=== PATIENT | female | born 1965 | race Caucasian/White ===

== ENCOUNTER 2023-03-24 08:25 | Emergency (ER) | payer OTHER, SELFPAY ==
[2023-03-24 08:34] VITALS: BP 161/93; PULSE 79; RESP 18; TEMP 36.5; O2SAT 99; BMI 32.9
--- NOTE | 2023-03-24 08:42 | CT_ITS ---
[address] [address] Patient Name: GABINO PUGA MRN: [id number] date: 1965 Sex: F Assigned Patient Location: ER Current Patient Location: ER Accession/Order Number: [id number] Exam Date: 03/24/2023 10:00 Report Date: 03/24/2023 10:43 At the request of: RUSH LAMBERT Procedure: CT abdomen pelvis w con EXAMINATION: CT abdomen pelvis w con, 03/24/2023 7:00 AM PDT HISTORY: right sided abdominal pain, constipation COMPARISON: None. TECHNIQUE: CT scan of the abdomen and pelvis was performed with IV contrast. CT dose reduction technique was used, including Automated Exposure Control. FINDINGS: Lung: No significant finding. Liver: No significant finding. Gallbladder: No significant finding. Spleen: No significant finding. Pancreas: No significant finding. Adrenal glands: No significant finding. Kidneys, ureters and bladder: No significant finding. Bowel: Colonic diverticulosis. Normal appendix. A few mild areas of mild colonic wall thickening. Peritoneum/retroperitoneum: No significant finding. Lymph nodes: No significant finding. Vessels: No significant finding. Body wall: Multiple breast cysts. Reproductive: No significant finding. Bones: No significant finding. CT/CT abdomen pelvis w con IMPRESSION: Suspect mild colitis. No other acute findings. Electronically authenticated by: ASHLI ESPARZA Date: 03/24/2023 10:43
--- NOTE | 2023-03-24 08:43 | ED.ABDPAIN1 ---
HPI - Abdominal Pain General Chief Complaint: Abdominal Pain Stated Complaint: SEVERE PAIN UNDER RIBS/THROUGH BACK/CAN'T SIT/BEND Time Seen by Provider: 03/24/23 08:35 Source: patient Mode of arrival: walk-in Limitations: no limitations History of Present Illness HPI narrative: history of constipation and lazy colon . She chronically gives herself enemas to facilitate stool passage. She was constipated and had been taking laxatives. She said her last normal BM was 4 days ago. Around 2am she developed right sided abdominal pain. She gave herself an enema and passed small chunks of stool - she continued until the return was clear but the pain did not improve. No fever or chills. No symptoms. No prior abdominal surgery. No history of kidney stones. Pain radiates into the right flank and she ranks it 03/10. Related Data Home Medications Medication Instructions Recorded Confirmed alprazolam 0.25 mg tablet 0.25 mg PO DAILY PRN anxiety 03/24/23 03/24/23 phentermine 37.5 mg capsule 37.5 mg PO DAILY 03/24/23 03/24/23 Previous Rx's Medication Instructions Recorded hyoscyamine sulfate 0.125 mg 0.125 mg PO Q6H PRN abdominal pain 03/24/23 tablet (Levsin) #20 tabs metronidazole 500 mg tablet 500 mg PO Q8H 14 days #42 tabs 03/24/23 Allergies Allergy/AdvReac Type Severity Reaction Status Date / Time No Known Drug Allergies Allergy Verified 03/24/23 08:34 PFSH PFSH Social History Smoking status: Never smoker Exam Narrative Exam Narrative: Nurses notes and vital signs reviewed and patient is not hypoxic. afebrile General: Well-appearing and in no apparent distress. Skin: Warm, dry, no pallor noted. No rash. Head: Normocephalic, atraumatic. Eye: Pupils are equal, round and EOMI. No scleral icterus. Cardiovascular: Regular Rate and Rhythm without murmur, gallop or rub. Respiratory: No accessory muscle use or respiratory distress. Lungs are clear to auscultation, no wheezing, rales or rhonchi Back: No CVA tenderness Musculoskeletal: normal ROM GI: Abdomen is soft, non-distended. Normal bowel sounds. No masses appreciated. Right sided tenderness to palpation. No rebound, guarding, or rigidity noted. Neurological: A&O x4. No cranial nerve dysfunction observed. No truncal ataxia. Moves all extremities. Sensation intact. Psychiatric: Cooperative and interactive. Normal mood and affect. Constitutional Vital Signs, click to edit/add: Last Vital Signs Temp 97.7 F 03/24/23 08:34 Pulse 79 03/24/23 08:34 Resp 18 03/24/23 08:34 BP 161/93 H 03/24/23 08:34 Pulse Ox 99 03/24/23 08:34 O2 Del Method Room Air 03/24/23 08:40 Course Vital Signs Vital signs: Vital Signs Temperature 97.7 F 03/24/23 08:34 Pulse Rate 79 03/24/23 08:34 Respiratory Rate 18 03/24/23 08:34 Blood Pressure 161/93 H 03/24/23 08:34 Pulse Oximetry 99 03/24/23 08:34 Oxygen Delivery Method Room Air 03/24/23 08:34 Temperature 97.7 F 03/24/23 08:34 Pulse Rate 79 03/24/23 08:34 Respiratory Rate 18 03/24/23 08:34 Blood Pressure 161/93 H 03/24/23 08:34 Pulse Oximetry 99 03/24/23 08:34 Oxygen Delivery Method Room Air 03/24/23 08:40 MDM - Abdominal Pain MDM Narrative Medical decision making narrative: Peripheral IV established, blood drawn and sent for testing, patient given NS IVF, IV Toradol and ODT Levsin. blood tests were unremarkable. CT reveals colitis, per radiologist but no evidence of obstruction, abscess or other worrisome findings. the patient was informed of results and given reassurance. Her diagnosis and plan for treatment was discussed. She was given prescriptions for Levsin and for Flagyl and encouraged to increase her oral fluid intake. Emergency Department return if she worsens. Otherwise she can follow-up with her primary care physician. Lab Data Attestation: I reviewed the patient's lab results. Labs: Lab Results 03/24/23 Range/Units 09:00 WBC 7.7 (4.0-11.0) 10^3/uL RBC 4.21 (4.20-5.40) 10^6/uL Hgb 13.6 (12.0-16.0) g/dL Hct 40.3 (36.0-48.0) % MCV 95.7 (81.0-99.0) fL MCH 32.3 (26.7-34.0) pg MCHC 33.7 (29.9-35.2) g/dL RDW 12.3 (11.0-15.0) % Plt Count 357 (150-450) 10^3/uL MPV 10.5 (9.5-13.5) fL Neut % (Auto) 58.0 (43.0-75.0) % Lymph % (Auto) 31.7 (20.5-60.0) % [place] % (Auto) 7.0 (1.7-12.0) % Eos % (Auto) 2.5 (0.9-7.0) % Baso % (Auto) 0.7 (0.2-2.0) % Neut # (Auto) 4.5 (1.4-6.5) 10^3/uL Lymph # (Auto) 2.4 (1.2-3.8) 10^3/uL Assumption # (Auto) 0.5 (0.3-0.8) 10^3/uL Eos # (Auto) 0.2 (0.0-0.7) 10^3/uL Baso # (Auto) 0.1 (0.0-0.1) 10^3/uL Abs Immat Gran (auto) 0.01 (0.00-0.03) 10^3/uL Imm/Tot Granulo (auto) 0.1 (0.0-0.5) % Sodium 142 (136-145) mmol/L Potassium 3.8 (3.5-5.1) mmol/L Chloride 103 (98-107) mmol/L Carbon Dioxide 28.9 (21.0-32.0) mmol/L Anion Gap 13.9 BUN 8.0 (7.0-18.0) mg/dL Creatinine 0.86 (0.55-1.02) mg/dL Est GFR ( Amer) >60 (>=60) Est GFR (Non-Af Amer) >60 (>=60) BUN/Creatinine Ratio 9.3 Glucose 100 (74-106) mg/dL Calcium 9.6 (8.5-10.1) mg/dL Total Bilirubin 0.4 (0.2-1.0) mg/dL AST 14 L (15-37) U/L ALT 24 (14-59) U/L Alkaline Phosphatase 64 (46-116) U/L Total Protein 8.1 (6.4-8.2) g/dL Albumin 4.1 (3.4-5.0) g/dL Globulin 4.0 g/dL Albumin/Globulin Ratio 1.[address] scan - abdomen: Radiologist's impression: Patient Name: GABINO PUGA MRN: [facility]:[id number] date: 1965 Sex: F Assigned Patient Location: ER Current Patient Location: ER Accession/Order Number: [id number] Exam Date: 03/24/2023 10:00 Report Date: 03/24/2023 10:43 At the request of: RUSH LAMBERT Procedure: CT abdomen pelvis w con EXAMINATION: CT abdomen pelvis w con, 03/24/2023 7:00 AM PDT HISTORY: right sided abdominal pain, constipation COMPARISON: None. TECHNIQUE: CT scan of the abdomen and pelvis was performed with IV contrast. CT dose reduction technique was used, including Automated Exposure Control. FINDINGS: Lung: No significant finding. Liver: No significant finding. Gallbladder: No significant finding. Spleen: No significant finding. Pancreas: No significant finding. Adrenal glands: No significant finding. Kidneys, ureters and bladder: No significant finding. Bowel: Colonic diverticulosis. Normal appendix. A few mild areas of mild colonic wall thickening. Peritoneum/retroperitoneum: No significant finding. Lymph nodes: No significant finding. Vessels: No significant finding. Body wall: Multiple breast cysts. Reproductive: No significant finding. Bones: No significant finding. IMPRESSION: Suspect mild colitis. No other acute findings. Electronically authenticated by: ASHLI ESPARZA Date: 03/24/2023 10:43 Discharge Plan Discharge Chief Complaint: Abdominal Pain Clinical Impression: Colitis Patient Disposition: Home, Self-Care Time of Disposition Decision: 10:49 Prescriptions / Home Meds: New metronidazole 500 mg tablet 500 mg PO Q8H 14 Days Qty: 42 0RF hyoscyamine sulfate [Levsin] 0.125 mg tablet 0.125 mg PO Q6H PRN (Reason: abdominal pain) Qty: 20 0RF No Action alprazolam 0.25 mg tablet 0.25 mg PO DAILY PRN (Reason: anxiety) phentermine 37.5 mg capsule 37.5 mg PO DAILY Instructions: Colitis (ED) Stand Alone Forms: Portal Instructions Referrals: REX LOCK [Primary Care Provider] - 1 week
[2023-03-24] MEDS: 0.9 % SODIUM CHLORIDE 1,000 ML 999 ML IV (08:55)
[2023-03-24] MEDS: HYOSCYAMINE SULFATE 0.125 MG TAB.SUBL SL (08:55)
[2023-03-24] MEDS: KETOROLAC TROMETHAMINE 30 MG/ML VIAL IVP (08:55)
[2023-03-24 09:19] LABS: Basophils Absolute Auto 0.1 10^3/uL (0.0-0.1); Basophils Percent Auto 0.7 % (0.2-2.0); Eosinophils Absolute Auto 0.2 10^3/uL (0.0-0.7); Eosinophils Percent Auto 2.5 % (0.9-7.0); Hematocrit 40.3 % (36.0-48.0); Hemoglobin 13.6 g/dL (12.0-16.0); Immature Granulocytes Abs Auto 0.01 10^3/uL (0.00-0.03); Immature Granulocytes Pct Auto 0.1 % (0.0-0.5); Lymphocytes Absolute Auto 2.4 10^3/uL (1.2-3.8); Lymphocytes Percent Auto 31.7 % (20.5-60.0); Mean Corpuscular HGB Conc 33.7 g/dL (29.9-35.2); Mean Corpuscular Hemoglobin 32.3 pg (26.7-34.0); Mean Corpuscular Volume 95.7 fL (81.0-99.0); Mean Platelet Volume 10.5 fL (9.5-13.5); Monocytes Absolute Auto 0.5 10^3/uL (0.3-0.8); Neutrophils Absolute Auto 4.5 10^3/uL (1.4-6.5); Platelet Count 357 10^3/uL (150-450); Red Blood Count 4.21 10^6/uL (4.20-5.40); Red Cell Distribution Width 12.3 % (11.0-15.0); White Blood Count 7.7 10^3/uL (4.0-11.0)
[2023-03-24 09:38] LABS: Alanine Aminotransferase 24 U/L (14-59); Albumin Level 4.1 g/dL (3.4-5.0); Alkaline Phosphatase 64 U/L (46-116); Anion Gap 13.9; Aspartate Amino Transferase 14 U/L (15-37); BUN Creatinine Ratio 9.3; Bilirubin Total 0.4 mg/dL (0.2-1.0); Calcium 9.6 mg/dL (8.5-10.1); Carbon Dioxide 28.9 mmol/L (21.0-32.0); Chloride 103 mmol/L (98-107); Estimated GFR (African America >60 (>=60); Estimated GFR (Non-African Ame >60 (>=60); Glucose 100 mg/dL (74-106); Potassium 3.8 mmol/L (3.5-5.1); Sodium 142 mmol/L (136-145); Total Protein 8.1 g/dL (6.4-8.2)
[2023-03-24 11:02] VITALS: BP 180/99; PULSE 65; RESP 18
== END 2023-03-24 11:06 | disposition home or self-care (01) ==
PROVIDERS: Emergency Provider Emergency Medicine; PCP Family Medicine
DX: K52.9 Noninfective gastroenteritis and colitis, unspecified (principal); Z79.899 Other long term (current) drug therapy
CPT/HCPCS: 36415; 74177; 80053; 85025; 96374; 99285; Q9966; Q9967

== ENCOUNTER 2023-04-18 08:27 | Outpatient (OUT) | payer OTHER, SELFPAY ==
--- NOTE | 2023-04-18 09:09 | PM.CN ---
Consult Note: HPI Data of Consult Patient: new to practice Consult date: 04/18/23 Requesting Physician: Lucy Fay MD Primary Care Provider: REX LOCK Consult Narrative Reason for consult: low back, right leg pain Narrative: trav 57yof who presents for evaluation. increasing low back pain on the right that radiates to right lower extremity. states that she has shingles flares, and these flares tend to exacerbate pain. notes increasing pain as the day goes on, more pain after a day of work when standing on her feet. no recent imaging available for review. has attempted >6 weeks of provider directed home exercise program, as well as chiropractor, which does not provide relief. uses otc pain meds as needed, has not tried neuropathic medications. denies adverse medication side effects. cc:: CC: Lucy Fay MD Review of Systems ROS Status of ROS 10 or more systems reviewed and unremarkable except as noted in history and below PFSH PFSH Social History Smoking status: Never smoker Meds Home Medications and Allergies Home Medications Medication Instructions Recorded Confirmed Type alprazolam 0.25 mg tablet 0.25 mg PO DAILY PRN anxiety 03/24/23 04/18/23 History hyoscyamine sulfate 0.125 mg 0.125 mg PO Q6H PRN abdominal pain 03/24/23 04/18/23 Rx tablet (Levsin) #20 tabs metronidazole 500 mg tablet 500 mg PO Q8H 14 days #42 tabs 03/24/23 04/18/23 Rx phentermine 37.5 mg capsule 37.5 mg PO DAILY 03/24/23 04/18/23 History dicyclomine 10 mg capsule 10 mg PO TID 04/18/23 04/18/23 History lansoprazole 30 mg capsule,delayed 30 mg PO Q12H 04/18/23 04/18/23 History release linaclotide 72 mcg capsule 72 mcg PO DAILY 04/18/23 04/18/23 History (Linzess) Allergies Allergy/AdvReac Type Severity Reaction Status Date / Time No Known Drug Allergies Allergy Verified 03/24/23 08:34 Exam Narrative Exam Narrative: Psych-alert and oriented x 3. Attentive and appropriate, constitutionally normal, displays normal mood and affect per situation. There are no obvious deficits in memory, reasoning, or intellect.? Skin-no obvious rashes, bruising, erythema noted to the patient's area of pain.? Extremities- extremities are warm with minimal edema and palpable pulses. Lumbar-tenderness to palpation noted in the lumbar spine and paraspinal musculature. Pain is elicited with flexion, extension, and lateral rotation of the lumbar spine. Range of motion is diminished with these motions. Facet loading maneuvers are positive. Strength-noted to be unremarkable with the exception of decreased strength rated at 4 out of 5 in right quadriceps femoris. Sensory-no notable sensory deficits in the bilateral lower extremities to touch or pinprick in all dermatomal distributions with the exception to decreased sensation to the right L3, 4 dermatomal distribution Coordination remains intact.? Gait remains non-antalgic Assessment and Plan Assessment and Plan (1) Lumbar stenosis with neurogenic claudication: (2) Postherpetic neuralgia: Plan Pleasant 57yof who presents for evaluation. failed conservative measures, as noted above. no recent advanced imaging available for review, so would like her to undergo lumbar MRI without contrast for further information. she is in agreement. medications reviewed. will have her trial lyrica 50mg tid for her postherpetic neuralgia. she is in agreement. follow up after MRI complete.
== END 2023-04-18 08:28 | disposition home or self-care (01) ==
LOC: PM 08:27
PROVIDERS: PCP Family Medicine; Visit Provider Anesthesiology
DX: M48.062 Spinal stenosis, lumbar region with neurogenic claudication (principal); B02.29 Other postherpetic nervous system involvement
CPT/HCPCS: G0463

== ENCOUNTER 2023-04-29 09:45 | Outpatient (OUT) | payer OTHER, SELFPAY ==
--- NOTE | 2023-04-29 | XR_ITS ---
The [address] [address] Patient Name: GABINO PUGA MRN: [id number] date: 1965 Sex: F Assigned Patient Location: MRI Current Patient Location: MRI Accession/Order Number: [id number] Exam Date: 04/29/2023 09:53 Report Date: 04/29/2023 10:11 At the request of: ANDRIUS GIEDRAITIS Procedure: XR foreign body eye EXAMINATION: XR foreign body eye HISTORY: HISTORY OF WELDING AND GRINDING COMPARISON: No relevant comparison available. FINDINGS: ORBITS: Negative for a metallic foreign body. OTHER: Negative. XR/XR foreign body eye IMPRESSION: 1. No metallic foreign body within the orbits. Electronically authenticated by: BOBBI MCMANUS Date: 04/29/2023 10:11
--- NOTE | 2023-04-29 09:48 | MR_ITS ---
[address] [address] Patient Name: GABINO PUGA MRN: [facility]:[id number] date: 1965 Sex: F Assigned Patient Location: MRI Current Patient Location: MRI Accession/Order Number: [id number] Exam Date: 04/29/2023 10:10 Report Date: 04/29/2023 14:56 At the request of: DAWIT GIEDRARAMESH Procedure: MR lumbar spine wo con EXAM: MR lumbar spine wo con HISTORY: Lumbar Stenosis COMPARISON: CT abdomen pelvis 03/24/2023 lumbar. TECHNIQUE: Multiplanar multisequence MR imaging of the lumbar spine was performed without intravenous contrast. FINDINGS: Alignment: Degenerative grade 1 anterolisthesis of L5 on S1. Minimal eccentric left disc bulge. Mild facet arthropathy with mild thickening of ligamentum flavum. No substantial canal stenosis. Mild bilateral foraminal stenosis. Vertebrae: Vertebral body heights are maintained. No marrow signal abnormalities to suggest neoplasm. Conus medullaris: Conus terminates at the L1-L2 disc space. Normal signal and contour. Degenerative changes: T12-L1: No substantial canal or foraminal stenosis. L1-L2: No substantial canal or foraminal stenosis. L2-L3: No substantial canal or foraminal stenosis. L3-L4: Mild disc height loss. Minimal eccentric left disc bulge. Fatty degenerative endplate change surrounds the disc space. Mild left and minimal right facet arthropathy. Minimal canal stenosis. Mild left greater than right foraminal stenosis. L4-L5: Eccentric left disc bulge with marginal osteophytic spurring. Minimal facet arthropathy with minimal thickening of ligamentum flavum. Mildly prominent dorsal dural fat. Mild canal stenosis. Moderate left foraminal stenosis. Minimal right foraminal stenosis. L5-S1: Moderate to advanced bilateral facet arthropathy with mild thickening of ligamentum flavum. No substantial canal stenosis. Mild bilateral foraminal stenosis. Upper Sacrum: No focal lesion identified. Additional comments: Visualized soft tissues of the abdomen appear grossly unremarkable. MR/MR lumbar spine wo con IMPRESSION: Mild degenerative changes of lumbar spine as detailed above with multilevel mild canal and foraminal stenosis. There is moderate left foraminal stenosis at L4-L5. Electronically authenticated by: SILVIANO ANGEL Date: 04/29/2023 14:56
== END 2023-04-29 09:46 | disposition home or self-care (01) ==
LOC: MRI 09:45
PROVIDERS: PCP Family Medicine; Visit Provider Anesthesiology
DX: M48.062 Spinal stenosis, lumbar region with neurogenic claudication (principal); M47.816 Spondylosis without myelopathy or radiculopathy, lumbar region
CPT/HCPCS: 70030; 72148

== ENCOUNTER 2023-05-23 06:42 | Day surgery (SDC) | payer OTHER, SELFPAY ==
[2023-05-23 07:00] VITALS: BP 140/88; PULSE 69; RESP 16; TEMP 36.1; O2SAT 98
[2023-05-23 07:34] VITALS: BP 178/81; PULSE 69; RESP 18; O2SAT 97
[2023-05-23] MEDS: BUPIVACAINE HCL 0.5% PF 50 MG/10 ML VIAL 8 ML INJ (07:35)
[2023-05-23] MEDS: LIDOCAINE HCL 2% PF 100 MG/5 ML VIAL 6 ML INJ (07:35)
[2023-05-23] MEDS: TRIAMCINOLONE ACETONIDE 40 MG/ML VIAL INJ (07:37)
--- NOTE | 2023-05-23 07:38 | W.PM.PROCNOT ---
Date of procedure: 05/23/23 Pre-op diagnosis: lumbar spondylosis Post-op diagnosis: same as pre-op Procedure: Procedure: Bilateral L4-5, L5-S1 medial branch block Medications: Bupivacaine 0.25% 4cc The patient was seen and examined in the preoperative holding area.? An informed consent was obtained and placed on the chart.? The patient was brought to the medical procedure unit and placed in the prone position.? A timeout was completed verifying correct patient, procedure site, positioning, plan, and special equipment.? Using aseptic technique, the needle was placed at left L4. Under direct fluoroscopic visualization a Quincke-tipped spinal needle was advanced to the junction of the superior articulating process with the transverse process at the designated medial branch segment.? Preceded by negative aspiration, the above-mentioned injectate was placed in 1 mL aliquots.? The procedure was repeated at left L5, S1.? The needle was removed and insertion site was covered. The same procedure, at the same levels, was completed on the right side. The patient was taken to the postprocedural recovery area and monitored for an appropriate length of time before found suitable for discharge in the company of a responsible adult. Anesthesia: Local Surgeon: Lucy Fay Pathology: none sent Condition: stable Disposition: no change
[2023-05-23 07:39] VITALS: BP 160/78; PULSE 66; RESP 18; O2SAT 98
== END 2023-05-23 07:43 | disposition home or self-care (01) ==
PROVIDERS: PCP Family Medicine; Visit Provider Anesthesiology
DX: M47.816 Spondylosis without myelopathy or radiculopathy, lumbar region (principal)
CPT/HCPCS: 64493; 64494; 64635; 64636

== ENCOUNTER 2023-06-01 07:13 | Outpatient (OUT) | payer OTHER, SELFPAY ==
--- NOTE | 2023-06-01 07:49 | PM.CN ---
Consult Note: HPI Data of Consult Patient: known to practice within the last 3 years Requesting Physician: Skyla Marie NP Primary Care Provider: REX LOCK Consult Narrative Reason for consult: F/u Narrative: Velma vincent pleasant 57 year old female presents for evaluation and management of low back pain. Patient reporting pain 2-3/10 in low back today. Patient recently underwent lumbar MRI which revealed mild DDD and lumbar spondylosis. Patient underwent bilateral L4-5 L5-S1 MBB #1 with >80% pain relief and functional improvement immediately after and days following the procedure, reports she was able to complete tasks at work better and sleep better. Patient would like to discuss medication regimen and next steps working towards a thermal RFA. cc:: CC: Skyla Marie NP Review of Systems ROS Status of ROS 10 or more systems reviewed and unremarkable except as noted in history and below Musculoskeletal Reports: back pain PFSH PFSH Medical History Acid reflux ?K21.9 - Gastro-esophageal reflux disease without esophagitis (ICD-10) Asthma ?J45.909 - Unspecified asthma, uncomplicated (ICD-10) Social History Smoking status: Never smoker Meds Home Medications and Allergies Home Medications Medication Instructions Recorded Confirmed Type alprazolam 0.25 mg tablet 0.25 mg PO DAILY PRN anxiety 03/24/23 05/23/23 History hyoscyamine sulfate 0.125 mg 0.125 mg PO Q6H PRN abdominal pain 03/24/23 05/23/23 Rx tablet (Levsin) #20 tabs metronidazole 500 mg tablet 500 mg PO Q8H 14 days #42 tabs 03/24/23 05/23/23 Rx phentermine 37.5 mg capsule 37.5 mg PO DAILY 03/24/23 05/23/23 History dicyclomine 10 mg capsule 10 mg PO TID 04/18/23 05/23/23 History lansoprazole 30 mg capsule,delayed 30 mg PO Q12H 04/18/23 05/23/23 History release linaclotide 72 mcg capsule 72 mcg PO DAILY 04/18/23 05/23/23 History (Linzess) plecanatide 3 mg tablet (Trulance) 3 mg PO DAILY 05/23/23 05/23/23 History pregabalin 50 mg capsule 50 mg TID 05/23/23 History Allergies Allergy/AdvReac Type Severity Reaction Status Date / Time No Known Drug Allergies Allergy Verified 03/24/23 08:34 Exam Constitutional Documenting provider has reviewed patient's vital signs: yes Common normals: no apparent distress, oriented x3, healthy appearing, alert and well nourished General appearance: cooperative HENMT Common normals: normocephalic, hearing grossly normal bilaterally and moist oral mucous membranes Head and scalp: normocephalic Eye Common normals: PERRL Pupil: PERRL Neck & C-Spine Common normals: full ROM General: normal visual inspection Chest Common normals: inspection of chest normal Respiratory Common normals: normal respiratory effort, no retractions and no use of accessory muscles Back & Pelvis Lumbar spine/lower back: ROM limited, pain with ROM and straight leg raise negative bilaterally Other: predominately axial low back pain tender over l4-5 l5-s1 facets positive facet loading right worse than left no radiculopathy sensation intact Extremity Common normals: normal to inspection and full ROM Neuro Common normals: oriented x3, CN's II-XII intact bilaterally, moves all extremities, no focal motor deficits, no sensory deficits noted and deep tendon reflexes 2+ bilaterally Sensorium/orientation: alert Motor exam: strength 5/5 throughout and no movement abnormalities noted Psych Common normals: mental status grossly normal, thought process normal, cooperative, affect normal, speech normal and activity/motor behavior normal Speech: normal speech Thought process: normal thought process Results Additional Findings Additional findings: I have checked an [place]AR[place] report on this patient today and there are no aberrancies noted in the prescribing history.?? A drug screen was completed and reviewed within the last year, and if there has not been a drug screen completed we ordered one today to monitor higher risk, state monitored pain medication use. As part of providing excellent, safe, comprehensive care, the following was completed at our patient's visit: 1. A medication reconciliation and review to ensure accurate knowledge of current/active medications, including asking our patients to inform us about any [id number] medications or herbal remedies/nutritional supplements/alternative remedies. 2. A review to specifically ensure our patients have had annual screening for: elevated body mass index (BMI), tobacco use, screening for depression, and screening for unhealthy alcohol use. When screening is concerning, patients are provided with education and the specific recommendation to discuss the concerning health issue and treatment options with their primary care provider. Assessment and Plan Assessment and Plan (1) Lumbar spondylosis: Assessment and Plan: The patient has had over 3 months of moderate to severe low back pain with functional impairment and inadequate response to conservative care including NSAIDS (unless there are contraindication such as concurrent blood thinners), multiple oral or topical pain medications, and home exercise program/physical therapy.? Patient has completed >6 weeks of guided home exercise program and/or formal physical therapy program without relief of their symptoms.? We discussed the risks and benefits of the procedure with the patient.? The procedure will be completed with fluoroscopic guidance.? (2) Postherpetic neuralgia: (3) Lumbar stenosis with neurogenic claudication: Plan bilateral L4-5 L5-S1 MBB #2 under fluoroscopy continue HEP continue current medications, tolerating well without side effects f/u 1 week after MBB
== END 2023-06-01 07:14 | disposition home or self-care (01) ==
LOC: PM 07:18
PROVIDERS: PCP Family Medicine; Visit Provider Nurse Practitioner
DX: M47.816 Spondylosis without myelopathy or radiculopathy, lumbar region (principal); M48.062 Spinal stenosis, lumbar region with neurogenic claudication; B02.29 Other postherpetic nervous system involvement
CPT/HCPCS: G0463

== ENCOUNTER 2023-06-06 06:47 | Day surgery (SDC) | payer OTHER, SELFPAY ==
[2023-06-06 07:03] VITALS: BP 152/98; PULSE 73; RESP 16; TEMP 36.2; O2SAT 96
[2023-06-06 07:30] VITALS: BP 178/96; BP 184/92; PULSE 72; PULSE 76; RESP 18; O2SAT 98
--- NOTE | 2023-06-06 07:31 | W.PM.PROCNOT ---
Date of procedure: 06/06/23 Pre-op diagnosis: Lumbar spondylosis Post-op diagnosis: same as pre-op Procedure: Procedure: Bilateral L4-5, L5-S1 medial branch block Medications: Bupivacaine 0.25% 4cc The patient was seen and examined in the preoperative holding area.? An informed consent was obtained and placed on the chart.? The patient was brought to the medical procedure unit and placed in the prone position.? A timeout was completed verifying correct patient, procedure site, positioning, plan, and special equipment.? Using aseptic technique, the needle was placed at left L4. Under direct fluoroscopic visualization a Quincke-tipped spinal needle was advanced to the junction of the superior articulating process with the transverse process at the designated medial branch segment.? Preceded by negative aspiration, the above-mentioned injectate was placed in 1 mL aliquots.? The procedure was repeated at left L5, S1.? The needle was removed and insertion site was covered. The same procedure, at the same levels, was completed on the right side. The patient was taken to the postprocedural recovery area and monitored for an appropriate length of time before found suitable for discharge in the company of a responsible adult. Anesthesia: Local Surgeon: Lucy Fay Pathology: none sent Condition: stable Disposition: no change
[2023-06-06] MEDS: LIDOCAINE HCL 2% PF 100 MG/5 ML VIAL INJ (07:32)
== END 2023-06-06 07:36 | disposition home or self-care (01) ==
PROVIDERS: PCP Family Medicine; Visit Provider Anesthesiology
DX: M47.816 Spondylosis without myelopathy or radiculopathy, lumbar region (principal)
CPT/HCPCS: 64493; 64494

== ENCOUNTER 2023-06-15 07:24 | Outpatient (OUT) | payer OTHER, SELFPAY ==
--- NOTE | 2023-06-15 08:02 | P.CN_ITS ---
Consult Note: HPI Data of Consult Patient: known to practice within the last 3 years Requesting Physician: Skyla Marie NP Primary Care Provider: REX LOCK Consult Narrative Reason for consult: F/u Narrative: Velma vincent pleasant 57 year old female presents for evaluation and management of low back pain. Patient reporting pain 2-3/10 in low back today. Patient underwent bilateral L4-5 L5-S1 MBB #1 and #2 with >80% pain relief and functional improvement immediately after and days following the procedure, reports she was able to complete tasks at work better and sleep better. cc:: CC: Skyla Marie NP Review of Systems ROS Status of ROS 10 or more systems reviewed and unremarkable except as noted in history and below Musculoskeletal Reports: back pain PFSH PFSH Medical History Acid reflux ?K21.9 - Gastro-esophageal reflux disease without esophagitis (ICD-10) Asthma ?J45.909 - Unspecified asthma, uncomplicated (ICD-10) Social History Smoking status: Never smoker Meds Home Medications and Allergies Home Medications Medication Instructions Recorded Confirmed Type alprazolam 0.25 mg tablet 0.25 mg PO DAILY PRN anxiety 03/24/23 06/06/23 History hyoscyamine sulfate 0.125 mg 0.125 mg PO Q6H PRN abdominal pain 03/24/23 06/06/23 Rx tablet (Levsin) #20 tabs metronidazole 500 mg tablet 500 mg PO Q8H 14 days #42 tabs 03/24/23 06/06/23 Rx phentermine 37.5 mg capsule 37.5 mg PO DAILY 03/24/23 06/06/23 History dicyclomine 10 mg capsule 10 mg PO TID 04/18/23 06/06/23 History lansoprazole 30 mg capsule,delayed 30 mg PO Q12H 04/18/23 06/06/23 History release linaclotide 72 mcg capsule 72 mcg PO DAILY 04/18/23 06/06/23 History (Linzess) plecanatide 3 mg tablet (Trulance) 3 mg PO DAILY 05/23/23 06/06/23 History pregabalin 50 mg capsule 50 mg TID 05/23/23 History Allergies Allergy/AdvReac Type Severity Reaction Status Date / Time No Known Drug Allergies Allergy Verified 03/24/23 08:34 Exam Constitutional Documenting provider has reviewed patient's vital signs: yes Common normals: no apparent distress, oriented x3, healthy appearing, alert and well nourished General appearance: cooperative HENMT Common normals: normocephalic, hearing grossly normal bilaterally and moist oral mucous membranes Head and scalp: normocephalic Eye Common normals: PERRL Pupil: PERRL Neck & C-Spine Common normals: full ROM General: normal visual inspection Chest Common normals: inspection of chest normal Respiratory Common normals: normal respiratory effort, no retractions and no use of a ccessory muscles Back & Pelvis Lumbar spine/lower back: ROM limited, pain with ROM and straight leg raise negative bilaterally Other: predominately axial low back pain tender over l4-5 l5-s1 facets positive facet loading right worse than left no radiculopathy sensation intact Extremity Common normals: normal to inspection and full ROM Neuro Common normals: oriented x3, CN's II-XII intact bilaterally, moves all extremities, no focal motor deficits, no sensory deficits noted and deep tendon reflexes 2+ bilaterally Sensorium/orientation: alert Motor exam: strength 5/5 throughout and no movement abnormalities noted Psych Common normals: mental status grossly normal, thought process normal, cooperative, affect normal, speech normal and activity/motor behavior normal Speech: normal speech Thought process: normal thought process Assessment and Plan Assessment and Plan (1) Lumbar spondylosis: Assessment and Plan: The patient has had over 3 months of moderate to severe low back pain with functional impairment and inadequate response to conservative care including NSAIDS (unless there are contraindication such as concurrent blood thinners), mu ltiple oral or topical pain medications, and home exercise program/physical therapy.? Patient has completed >6 weeks of guided home exercise program and/or formal physical therapy program without relief of their symptoms.? We discussed the risks and benefits of the procedure with the patient.? The procedure will be completed with fluoroscopic guidance.? (2) Postherpetic neuralgia: (3) Lumbar stenosis with neurogenic claudication: Plan bilateral L4-5 L5-S1 thermal RFA under fluoroscopy continue HEP continue current medications, tolerating well without side effects f/u 1 month after RFA
== END 2023-06-15 07:25 | disposition home or self-care (01) ==
LOC: PM 07:24
PROVIDERS: PCP Family Medicine; Visit Provider Nurse Practitioner
DX: M47.816 Spondylosis without myelopathy or radiculopathy, lumbar region (principal); B02.29 Other postherpetic nervous system involvement; M48.062 Spinal stenosis, lumbar region with neurogenic claudication
CPT/HCPCS: G0463

== ENCOUNTER 2023-07-04 07:05 | Day surgery (SDC) | payer OTHER, SELFPAY ==
[2023-07-04 07:25] VITALS: BP 152/94; PULSE 71; RESP 16; TEMP 36.2; O2SAT 95
[2023-07-04 08:06] VITALS: BP 170/85; PULSE 81; RESP 18; O2SAT 95
[2023-07-04 08:11] VITALS: BP 176/81; PULSE 66; RESP 18; O2SAT 99
[2023-07-04] MEDS: LIDOCAINE HCL 2% 400 MG/20 ML MDV 19 ML INJ (08:14)
[2023-07-04] MEDS: BUPIVACAINE HCL 0.25% PF 25 MG/10 ML VIAL 4 ML INJ (08:16)
[2023-07-04] MEDS: TRIAMCINOLONE ACETONIDE 40 MG/ML VIAL 80 MG INJ (08:17)
--- NOTE | 2023-07-04 08:19 | P.ON_ITS ---
Date of procedure: 07/04/23 Pre-op diagnosis: Lumbar spondylosis Post-op diagnosis: same as pre-op Procedure: Procedure: Bilateral L4-5, L5-S1 radiofrequency ablation Medications: Bupivacaine 0.25% 6cc, lidocaine 2% 5cc, kenalog 80mg The patient was seen and examined in the preoperative holding area.? The site was marked.? Written informed consent was obtained and placed on the chart.? The patient was brought to the medical procedure unit and placed in the prone position.? A timeout was completed verifying correct patient, procedure, positioning, and special requirements.? The skin overlying the target points, the designated medial branch, were prepped and draped in the usual sterile fashion.? The target point was achieved with a 20-gauge 15 cm with a 10 mm curved active tip radiofrequency cannula under direct fluoroscopic visualization.? The needle was inserted at level L4 on the right side. Needle tip position was confirmed with lateral fluoroscopic position.? Motor stimulation was carried out at 2 Hz up to 5 volts with the absence of extremity activity.? This was repeated at level L5, S1 on right side.?? Sensory stimulation was carried out.? Concordant pain was realized at the above- mentioned sites.? Then radiofrequency lesioning was carried out times 90 seconds at 80 degrees times 2 lesions at each level.? The radiofrequency probe was removed prior to cannula removal.? The above-mentioned injectate was placed in 1 mL increments.? The needle was removed. The same procedure, with the same steps, was then completed on the left side at the same levels. Insertion sites were covered.? The patient was taken to the postoperative recovery area and monitored for an appropriate length of time before being found suitable for discharge in the company of a responsible adult. Anesthesia: Local Surgeon: Lucy Fay Pathology: none sent Condition: stable Disposition: no change
== END 2023-07-04 08:26 | disposition home or self-care (01) ==
PROVIDERS: PCP Family Medicine; Visit Provider Anesthesiology
DX: M47.816 Spondylosis without myelopathy or radiculopathy, lumbar region (principal)
CPT/HCPCS: 64635; 64636

== ENCOUNTER 2023-08-04 07:39 | Outpatient (OUT) | payer OTHER, SELFPAY ==
--- OUTSIDE RECORDS SUMMARY | 2023-08-04 07:47 | XMS_ITS | CCD ---
Author Name Unknown Address [address] [place] [address] Organization [facility] Care Team Providers Care Pt Escort Name Role Phone SAMSA, CLAUDIA Admitting Unavailable SAMSA, CLAUDIA Attending Unavailable HAYDE, DR REX Walter Primary Care Unavailable MARIETTA, DR BOBBI Flynn Consulting Unavailable SAMSA, CLAUDIA Consulting Unavailable SAMSA, CLAUDIA Admitting Unavailable SAMSA, CLAUDIA Attending Unavailable HAYDE, DR REX Walter Primary Care Unavailable SAMSA, CLAUDIA Consulting Unavailable SAMSA, CLAUDIA Admitting Unavailable SAMSA, CLAUDIA Attending Unavailable HAYDE, DR REX Walter Primary Care Unavailable SAMSA, CLAUDIA Consulting Unavailable SAMSA, CLAUDIA Admitting Unavailable SAMSA, CLAUDIA Attending Unavailable HAYDE, DR REX Walter Primary Care Unavailable SAMSA, CLAUDIA Consulting Unavailable SAMSA, CLAUDIA Admitting Unavailable SAMSA, CLAUDIA Attending Unavailable HAYDE, DR REX Walter Primary Care Unavailable MARIETTA, DR BOBBI Flynn Consulting Unavailable SAMSA, CLAUDIA Consulting Unavailable Nya MUJICA, Lucy Sawyer Attending Unavailable Nya MUJICA, Andliz Sawyer Attending Unavailable Nya MUJICA, Andomarus Silverio Attending Unavailable Nya MUJICA, Andliz Sawyer Attending Unavailable Problems Problem Classification Problem Date Documented Da te Episodic/Chronic Asthma (4 sources) Unspecified asthma, uncomplicated; Translations: [UNSPECIFIED ASTHMA UNCOMPLICATED] Onset: 06-02-2022 Chronic Other lower respiratory disease (4 sources) Other disorders of lung; Translations: [OTHER DISORDERS OF LUNG] Onset: 06-17-2022 Episodic Residual codes; unclassified (4 sources) Obstructive sleep apnea (adult) (pediatric); Translations: [OBSTRUCTIVE SLEEP APNEA] Onset: 07-27-2022 Chronic Residual codes; unclassified (1 source) Idiopathic hypersomnia with long sleep time; Translations: [IDIO HYPERSOMNIA W/LONG SLEEP TIME] Onset: 06-28-2022 Chronic Results Test Name Value Interpretation Reference Range Facil ity CT CHEST HI RESOLUTIONon CT CHEST HI RESOLUTION EXAMINATION: CT CHEST HI RESOLUTION HISTORY: Disorder of lung ; restrictive lung disease, chronic wheezing COMPARISON: CTA chest 01/07/2016 TECHNIQUE: Axial images were obtained at 10 mm intervals during inspiration and expiration in the supine and prone positions. No IV contrast given. Dose reduction techniques were achieved by using automated exposure control and/or adjustment of mA and/or kV according to patient size and/or use of iterative reconstruction technique. FINDINGS: LUNGS: Mild bronchial wall thickening within the lower lobes. Trace amount of atelectasis within posterior left lung base. No appreciable air trapping, fibrosis, or emphysematous changes. PLEURA: No mass, effusion, or pneumothorax. KOREY: No mass or adenopathy. MEDIASTINUM: No mass or adenopathy. CHEST WALL: No mass or axillary adenopathy LIMITED ABDOMEN: No suspicious findings. Limited images of the upper abdomen. OTHER: Negative. IMPRESSION: 1. Mild-moderate bronchial wall thickening within lower lobes bilaterally suggestive of bronchiolitis. 2. No significant chronic interstitial changes. Electronically authenticated by: BOBBI MCMANUS Date: 2022-06-18 06:43 Normal [facility] HEMOGLOBINon 06-02-2022 Hemoglobin (Bld) [Mass/Vol] 14.0 g/dL Normal 12.0-16.0 [facility] Comment on above: Performed By: #### H GB #### [facility] [address] [place] [address] Dr. Hans Pritchett XR CHEST 2 Von 05-05-2022 XR CHEST 2 V EXAMINATION: XR CHES T 2 V HISTORY: Uncomplicated asthma , shortness of breath COMPARISON: No relevant comparison available. FINDINGS: LUNGS: No significant pulmonary parenchymal abnormalities. VASCULATURE: No increased pulmonary vasculature. PLEURA: No pneumothorax, effusion, or pleural thickening. CARDIAC: No cardiomegaly or cardiac silhouette abnormality. MEDIASTINUM: No visible mass or adenopathy. BONES: No fracture or visible bone lesion. OTHER: Negative. IMPRESSION: 1. No acute cardiopulmonary process or significant chronic interstitial changes. Stable chest. Electronically authenticated by: BOBBI MCMANUS Date: 2022-05-05 10:56 Normal [facility] Encounters Encounter Date Encounter Type Care Provider Facility Start: 07-04-2023 End: 07-05-2023 ambulatory Lucy Fay MD Facility: [facility] Start: 06-06-2023 End: 06-07-2023 ambulatory Luyc Fay MD Facility: [facility] Start: 05-23-2023 End: 05-24-2023 ambulatory Lucy Fay MD Facility: [facility] Start: 04-18-2023 End: 04-19-2023 ambulatory Lucy Fay MD Facility: [facility] Start: 07-27-2022 End: 07-28-2022 ambulatory [facility] Facility:[facility] Start: 06-22-2022 End: 06-23-2022 ambulatory [facility] Facility:[facility] Start: 06-17-2022 End: 06-18-2022 ambulatory [facility] Facility:[facility] Start: 06-02-2022 End: 06-03-2022 ambulatory [facility] Facility:[facility] Start: 05-05-2022 End: 05-06-2022 ambulatory [facility] Facility:[facility] Payers Date Payer Category Payer Private Health Insurance 1965 Unknown [id number] .16.84 [id number] 1965 Unknown [id number] 2.16.84 [id number] 1965 Unknown [id number] .16.84 [id number] 1965 Unknown [id number] .16.84 [id number] 1965 Unknown [id number] .16.84 [id number] 1965 Unknown [id number] . [id number] 1965 Unknown [id number] . [id number] 1965 Unknown [id number] 2.16. [id number] 1965 Unknown [id number] 2.16. [id number] 1959 Unknown [id number] Summary Purpose Family History No Family History Records FoundNo Family History Records Found Advance Directives No Advanced Directives Records FoundNo Advanced Directives Records Found Additional Source Comments INFORMATION SOURCE (unrecogn ized section and content) DATE CREATED AUTHOR 07/30/2022 [facility] DATE CREATED AUTHOR AUTHOR'S ORGANIZ ATION 07/15/2023 [facility] FOR RECORDS PERTAINING TO PATIENTS WHO ARE OR HAVE BEEN ENROLLED IN A CHEMICAL DEPENDENCY/SUBSTANCEABUSE PROGRAM, SOME INFORMATION MAY BE OMITTED. This clinical summary was aggregated from multiple sources. Caution should be exercised in using it in the provision of clinical care. This summary normalizes information from multiple sources, and as a consequence, information in this document may materially change the coding, format and clinical context of patient data. In addition, data may be omitted in some cases. CLINICAL DECISIONS SHOULD BE BASED ON THE PRIMARY CLINICAL RECORDS. [facility] [employer] provides no warranty or guarantee of the accuracy or completeness of information in this document.
--- NOTE | 2023-08-04 08:02 | P.CN_ITS ---
Consult Note: HPI Data of Consult Patient: known to practice within the last 3 years Consult date: 08/04/23 Requesting Physician: Skyla Marie NP Primary Care Provider: REX LOCK Consult Narrative Reason for consult: F/u Narrative: Velma vincent pleasant 57 year old female presents for evaluation and management of low back pain and bilateral buttock pain. Today pain 5-6/10 in bilateral SIJs. patient underwent bilateral L4-5 L5-S1 facet medial branch thermal RFA with 70-80% ongoing relief. Patient has noticed increase in SIJ pain as a result of controlled lumbar pain. Denies numbness/tingling/weakness, no loss of bowel or bladder. cc:: CC: Skyla Marie NP Review of Systems 2 ROS0 Status of ROS 10 or more systems reviewed and unremark able except as noted in history and below Musculoskeletal Reports: joint pain PFSH PFSH Medical History Acid reflux ?K21.9 - Gastro-esophageal reflux disease without esophagitis (ICD-10) Asthma ?J45.909 - Unspecified asthma, uncomplicated (ICD-10) Social History Smoking status: Never smoker Meds Home Medications and Allergies Home Medications Medication Instructions Recorded Confirmed Type alprazolam 0.25 mg tablet 0.25 mg PO DAILY PRN anxiety 03/24/23 07/04/23 History hyoscyamine sulfate 0.125 mg 0.125 mg PO Q6H PRN abdominal pain 03/24/23 07/04/23 Rx tablet (Levsin) #20 tabs phentermine 37.5 mg capsule 37.5 mg PO DAILY 03/24/23 07/04/23 History dicyclomine 10 mg capsule 10 mg PO TID 04/18/23 07/04/23 History lansoprazole 30 mg capsule,delayed 30 mg PO Q12H 04/18/23 06/06/23 History release linaclotide 72 mcg capsule 72 mcg PO DAILY 04/18/23 07/04/23 History (Linzess) plecanatide 3 mg tablet (Trulance) 3 mg PO DAILY 05/23/23 07/04/23 History pregabalin 50 mg capsule 50 mg TID 05/23/23 History Allergies Allergy/AdvReac Type Severity Reaction Status Date / Time No Known Drug Allergies Allergy Verified 07/04/23 07:17 Exam Constitutional Documenting provider has reviewed patient's vital signs: yes Common normals: no apparent distress, oriented x3, healthy appearing, alert and well nourished General appearance: cooperative [facility] Common normals: normocephalic, hearing grossly normal bilaterally and moist oral mucous membranes Head and scalp: normocephalic Eye Common normals: PERRL Pupil: PERRL Neck & C-Spine Common normals: full ROM General: normal visual inspection Chest Common normals: inspection of chest normal Respiratory Common normals: normal respiratory effort, no retractions and no use of accessory muscles Back & Pelvis Lumbar spine/lower back: straight leg raise negative bilaterally Other: negative facet loading no radiculopathy sensation intact Extremity Common normals: normal to inspection and full ROM Other: bilateral positive fabers/fadirs, gaenslens, thigh thrust and tenderness over bilateral PSIS Extremity image (back): 2 1. 2. Neuro Common normals: oriented x3, CN's II-XII intact bilaterally, moves all extremities, no focal motor deficits, no sensory deficits noted and deep tendon reflexes 2+ bilaterally Sensorium/orientation: alert Motor exam: strength 5/5 throughout and no movement abnormalities noted Psych Common normals: mental status grossly normal, thought process normal, cooperative, affect normal, speech normal and activity/motor behavior normal Speech: normal speech Thought process: normal thought process Results Additional Findings Additional findings: I have checked an OARRS report on this patient today and there are no aberrancies noted in the prescribing history.?? A drug screen was completed and reviewed within the last year, and if there has not been a drug screen completed we ordered one today to monitor higher risk, state monitored pain medication use. As part of providing excellent, safe, comprehensive care, the following was completed at our patient's visit: 1. A medication reconciliation and review to ensure accurate knowledge of current/active medications, including asking our patients to inform us about any [id number] medications or herbal remedies/nutritional supplements/alternative remedies. 2. A review to specifically ensure our patients have had annual screening for: elevated body mass index (BMI), tobacco use, screening for depression, and screening for unhealthy alcohol use. When screening is concerning, patients are provided with education and the specific recommendation to discuss the concerning health issue and treatment options with their primary care provider. Assessment and Plan Assessment and Plan (1) Lumbar spondylosis: (2) Bilateral sacroiliitis: Plan continue current medications bilateral nerve block of SIJ f/u 1-2 weeks after injection
== END 2023-08-04 07:40 | disposition home or self-care (01) ==
LOC: PM 07:45
PROVIDERS: PCP Family Medicine; Visit Provider Nurse Practitioner
DX: M47.816 Spondylosis without myelopathy or radiculopathy, lumbar region (principal); M46.1 Sacroiliitis, not elsewhere classified
CPT/HCPCS: G0463

== ENCOUNTER 2023-08-15 07:41 | Day surgery (SDC) | payer OTHER, SELFPAY ==
--- OUTSIDE RECORDS SUMMARY | 2023-08-15 07:42 | XMS_ITS | CCD ---
Author Name Unknown Address [address] [place] [address] Organization [facility] Care Team Providers Care Bad Cloth Checker Name Role Phone SAMSA, CLAUDIA Admitting Unavailable [...] Nya MUJICA, Lucy Sawyer Attending Unavailable Nya UMJICA, Andliz Sawyer Attending Unavailable Nya MUJICA, Andomarus Silverio Attending Unavailable Nya MUJICA, Andliz Swayer Attending Unavailable Problems Problem Classification Problem Date [...] BOBBI MCMANUS Date: 2022-06-18 06:43 Normal [facility] HEMOGLOBINon 06-02-2022 Hemoglobin (Bld) [Mass/Vol] 14.0 g/dL Normal 12.0-16.0 [facility] Comment on above: Performed By: #### H GB #### [facility] [address] [place] [address] Dr. Hans Pritchett XR CHEST 2 Von [...] by: BOBBI MCMANUS Date: 2022-05-05 10:56 Normal [facility] Encounters Encounter Date Encounter Type Care Provider Facility Start: 07-04-2023 End: 07-05-2023 ambulatory Lucy Fay MD Facility: [facility] Start: 06-06-2023 End: 06-07-2023 ambulatory Lucy Fay MD Facility: [facility] Start: 05-23-2023 End: 05-24-2023 ambulatory Lucy Fay MD Facility: [facility] Start: 04-18-2023 End: 04-19-2023 ambulatory Lucy Fay MD Facility: [facility] Start: 07-27-2022 End: 07-28-2022 ambulatory [facility] Facility:[facility] Start: 06-22-2022 End: 06-23-2022 ambulatory [facility] Facility:[facility] Start: 06-17-2022 End: 06-18-2022 ambulatory [facility] Facility:[facility] Start: 06-02-2022 End: 06-03-2022 ambulatory [facility] Facility:[facility] Start: 05-05-2022 End: 05-06-2022 ambulatory [facility] Facility:[facility] Payers Date Payer Category Payer Private Health Insurance 1965 Unknown [id number] .16.84 [id number] 1965 Unknown [id number] 2.16.84 [id number] 1965 Unknown [id number] .16.84 [id number] 1965 Unknown [id number] .16.84 [id number] 1965 Unknown [id number] .16.84 [id number] 1965 Unknown [id number] . [id number] 1965 Unknown [id number] . [id number] 1965 Unknown [id number] 2.16. [id number] 1965 Unknown [id number] 2.16. [id number] 1959 Unknown [id number] Summary Purpose Family History No Family History Records FoundNo Family History Records Found Advance Directives No Advanced Directives Records FoundNo Advanced Directives Records Found Additional Source Comments INFORMATION SOURCE (unrecogn ized section and content) DATE CREATED AUTHOR 07/30/2022 [facility] DATE CREATED AUTHOR AUTHOR'S ORGANIZ ATION 07/15/2023 [facility] FOR RECORDS PERTAINING TO PATIENTS WHO [...] BE BASED ON THE PRIMARY CLINICAL RECORDS. [facility] [employer] provides no warranty or guarantee of the accuracy or completeness of information in this document.
[2023-08-15 07:49] VITALS: BP 157/90; PULSE 83; RESP 16; TEMP 36.4; O2SAT 98
--- NOTE | 2023-08-15 08:52 | W.PM.PROCNOT ---
Date of procedure: 08/15/23 Pre-op diagnosis: Lumbar stenosis with neurogenic claudication Post-op diagnosis: same as pre-op Procedure: Procedure: Left L4-5, L5-S1 transforaminal epidural steroid injection Medications: Bupivacaine 0.25% 2cc, lidocaine 2% 1cc, kenalog 80mg The patient was seen and examined in the preoperative holding area.? Informed consent was obtained and placed on the chart.? Patient was brought to the medical procedure unit and placed in the prone position where a timeout was completed verifying the correct patient, procedure site, position, and planned special equipment using sterile aseptic technique.? Under direct fluoroscopic visualization a 25-gauge Quincke tipped spinal needle was advanced at level left L4-5 to the designated neural foramen where contrast dye was injected to show adequate spread.? There was no evidence of vascular or adverse uptake.? Epidural spread was appreciated.? The above-mentioned injectate was then placed in a 1.5 mL aliquot preceded by negative aspiration.? The needle was removed. The same procedure, at the same level, was completed at left L5-S1. ? Patient was taken to the postprocedural recovery area and monitored for an appropriate length of time before found suitable for discharge in the accompaniment of a responsible adult. Anesthesia: Local Surgeon: Lucy Fay Pathology: none sent Condition: stable Disposition: no change
[2023-08-15 08:53] VITALS: BP 162/77; BP 170/81; PULSE 77; PULSE 79; RESP 18; O2SAT 98; O2SAT 99
[2023-08-15] MEDS: 0.9 % SODIUM CHLORIDE 10 ML INJ (08:55)
[2023-08-15] MEDS: IOHEXOL 240 MG/ML - 10 ML VIAL 12 MG INJ (08:56)
[2023-08-15] MEDS: TRIAMCINOLONE ACETONIDE 40 MG/ML VIAL 80 MG INJ (08:56)
[2023-08-15] MEDS: LIDOCAINE HCL 2% PF 100 MG/5 ML VIAL 2 ML INJ (08:56)
[2023-08-15] MEDS: BUPIVACAINE HCL 0.25% PF 25 MG/10 ML VIAL INJ (08:56)
== END 2023-08-15 08:56 ==
LOC: SURGOUT 07:41
PROVIDERS: PCP Family Medicine; Visit Provider Anesthesiology
DX: M48.062 Spinal stenosis, lumbar region with neurogenic claudication (principal)
CPT/HCPCS: 64483; 64484; J0665; J3301; Q9966

== ENCOUNTER 2023-08-29 07:49 | Day surgery (SDC) | payer OTHER, SELFPAY ==
--- OUTSIDE RECORDS SUMMARY | 2023-08-29 07:51 | XMS_ITS | CCD ---
Author Name Unknown Address [address] [place] [address] Organization [facility] Care Team Providers Care Engine Lathe Operator Name Role Phone SAMSA, CLAUDIA Admitting Unavailable [...] Unavailable SAMSA, CLAUDIA Consulting Unavailable Nya MUJICA, Andliz Sawyer Attending Unavailable Nya MUJICA, Andrius Silverio Attending Unavailable Nya MUJICA, Andrius Vjulio Attending Unavailable Nya MUJICA, Andrius Vjulio Attending Unavailable Nya MUJICA, Andrius Vjulio Attending Unavailable Problems Problem Classification Problem Date [...] BOBBI MCMANUS Date: 2022-06-18 06:[address] [facility] HEMOGLOBINon 06-02-2022 Hemoglobin (Bld) [Mass/Vol] 14.0 g/dL Normal 12.0-16.[address] [facility] Comment on above: Performed By: #### H GB #### [facility] [address] [address] [address] Hans Pritchett XR CHEST 2 Von [...] by: BOBBI MCMANUS Date: 2022-05-05 10:56 Normal [facility] Encounters Encounter Date Encounter Type Care Provider Facility Start: 08-15-2023 End: 08-16-2023 ambulatory Lucy Fay MD Facility: [facility] Start: 07-04-2023 End: 07-05-2023 ambulatory Andliz Fay MD Facility: [facility] Start: 06-06-2023 End: 06-07-2023 ambulatory Andomarus Silverio Malikitis Facility: [facility] Start: 05-23-2023 End: 05-24-2023 ambulatory Andomarus Silverio Malikitis Facility: [facility] Start: 04-18-2023 End: 04-19-2023 ambulatory Andomarus Silverio Malikitis Facility: [facility] Start: 07-27-2022 End: 07-28-2022 ambulatory [facility] Facility:H1 Start: 06-22-2022 End: 06-23-2022 ambulatory [facility] Facility:[facility]1 Start: 06-17-2022 End: 06-18-2022 ambulatory [facility] Facility:[facility]1 Start: 06-02-2022 End: 06-03-2022 ambulatory [facility] Facility:[facility]1 Start: 05-05-2022 End: 05-06-2022 ambulatory [facility] Facility:H1 Payers Date Payer Category Payer Private Health Insurance 1965 Unknown [id number] .. [id number] 1965 Unknown [id number] ..[id number] 1965 Unknown [id number] ..[id number] 1965 Unknown [id number] ..[id number] [id number] 1965 Unknown [id number] ..[id number] 0.1.139685.3.579.2.593 1965 Unknown [id number] 2.16. 840.1.408141.3.579.2. 1965 Unknown [id number] 2.16. 840.1.420227.3.579.2. 1965 Unknown [id number] 2.16. 840.1.895736.3.579.2. 1965 Unknown [id number] 2.16. 840.1.489550.3.579.2. 1965 Unknown [id number] 2.16. [id number] 1959 Unknown [id number] Summary Purpose Family History No Family History Records FoundNo Family History Records Found Advance Directives No Advanced Directives Records FoundNo Advanced Directives Records Found Additional Source Comments INFORMATION SOURCE (unrecogn ized section and content) DATE CREATED AUTHOR 07/30/2022 [facility] DATE CREATED AUTHOR AUTHOR'S TINOIZ ATKJ 08/24/2023 [facility] FOR RECORDS PERTAINING TO PATIENTS WHO ARE [...] BE BASED ON THE PRIMARY CLINICAL RECORDS. [employer] provides no warranty or guarantee of the accuracy or completeness of information in this document.
[2023-08-29 08:07] VITALS: BP 158/91; PULSE 67; RESP 14; TEMP 36.6; O2SAT 99
[2023-08-29] MEDS: IOHEXOL 240 MG/ML - 10 ML VIAL INJ (08:48)
[2023-08-29] MEDS: TRIAMCINOLONE ACETONIDE 40 MG/ML VIAL INJ (08:48)
[2023-08-29] MEDS: LIDOCAINE HCL 2% PF 100 MG/5 ML VIAL INJ (08:48)
[2023-08-29] MEDS: BUPIVACAINE HCL 0.25% PF 25 MG/10 ML VIAL INJ (08:48)
--- NOTE | 2023-08-29 08:50 | W.PM.PROCNOT ---
Date of procedure: 08/29/23 Pre-op diagnosis: Sacroiliitis, bilateral Post-op diagnosis: same as pre-op Procedure: Procedure: Bilateral block of the nerve innervating the sacroiliac joint Medications: Bupivacaine 0.25% 3cc, kenalog 40mg x2 After informed consent was obtained, the patient was brought to the medical procedure unit and placed in the prone position, when a timeout was completed verifying correct patient, procedure, site, positioning, implant, and/or special equipment.? The skin overlying the area was prepped and draped in standard sterile fashion using alcohol.? A 25-gauge needle was inserted towards the left nerve innervating the sacroiliac joint under direct fluoroscopic imaging.? Needle tip was advanced until the nerve was encountered.? We instilled a total of 3 mL of solution.? The same procedure was then completed on the right side.? Postoperatively needles were removed.? The patient tolerated the procedure well without complication.? The patient reported reduction in pain symptoms postoperatively. Anesthesia: Local Surgeon: Lucy Fay Pathology: none sent Condition: stable Disposition: no change
[2023-08-29 08:51] VITALS: BP 174/88; BP 187/91; PULSE 72; RESP 18; O2SAT 97; O2SAT 98
== END 2023-08-29 08:56 | disposition home or self-care (01) ==
PROVIDERS: PCP Family Medicine; Visit Provider Anesthesiology
DX: M46.1 Sacroiliitis, not elsewhere classified (principal)
CPT/HCPCS: 64451; J0665; J3301; Q9966

== ENCOUNTER 2023-09-29 08:02 | Outpatient (OUT) | payer OTHER, SELFPAY ==
--- OUTSIDE RECORDS SUMMARY | 2023-09-29 08:06 | XMS_ITS | CCD ---
Author Name Unknown Address [address] [place] [address] Organization [facility] Care Team Providers Care Housekeeping Lead Name Role Phone SAMSA, CLAUDIA Admitting Unavailable SAMSA, CLAUDIA Attending Unavailable HAYDE, DR REX Walter Primary Care Unavailable MARIETTA, DR BOBBI Flynn Consulting Unavailable SAMSA, CLAUDIA Consulting Unavailable SAMSA, CLAUDIA Admitting Unavailable SAMSA, CLAUDIA Attending Unavailable HAYDE, DR REX Watler Primary Care Unavailable SAMSA, CLAUDIA Consulting Unavailable [...] BOBBI MCMANUS Date: 2022-06-18 06:43 Normal [facility] HEMOGLOBINon 06-02-2022 Hemoglobin (Bld) [Mass/Vol] 14.0 g/dL Normal 12.0-16.0 [facility] Comment on above: Performed By: #### H GB #### [facility] [address] [address] [address] Hans Pritchett XR CHEST 2 Von [...] BOBBI MCMANUS Date: 2022-05-05 10:56 Normal [facility] Encounters Encounter Date Encounter Type Care Provider Facility Start: 08-15-2023 End: 08-16-2023 ambulatory Lucy Fay MD Facility: [facility] Start: 07-04-2023 End: 07-05-2023 ambulatory Andliz Fay MD Facility: [facility] Start: 06-06-2023 End: 06-07-2023 ambulatory Andomarus Silverio Malikitis Facility: [facility] Start: 05-23-2023 End: 05-24-2023 ambulatory Andomarus Silverio Malikitis Facility: [facility] Start: 04-18-2023 End: 04-19-2023 ambulatory Andomarus Silverio Malikitis Facility: [facility] Start: 07-27-2022 End: 07-28-2022 ambulatory [facility] Facility:[facility]1 Start: 06-22-2022 End: 06-23-2022 ambulatory [facility] Facility:[facility] Start: 06-17-2022 End: 06-18-2022 ambulatory [facility] Facility:[facility] Start: 06-02-2022 End: 06-03-2022 ambulatory [facility] Facility:[facility]1 Start: 05-05-2022 End: 05-06-2022 ambulatory [facility] Facility:[facility]1 Payers Date Payer Category Payer Private Health Insurance 1965 Unknown [id number] .. [id number] 1965 Unknown [id number] ..[id number] 1965 Unknown [id number] ..[id number] [id number] 1965 Unknown [id number] ..[id number] 0.1.738349.3.579.2.593 1965 Unknown [id number] ..[id number] 0.1.192003.3.579.2.593 1965 Unknown [id number] 2.16. 840.1.506095.3.579.2. 1965 Unknown [id number] 2.16. 840.1.996110.3.579.2. 1965 Unknown [id number] 2.16. 840.1.472478.3.579.2. 1965 Unknown [id number] 2.16. 840.1.389360.3.579.2. 1965 Unknown [id number] 2.16. 840.1.228432.3.579.2.196 1959 Unknown [id number] Summary Purpose Family History No Family History Records FoundNo Family History Records Found Advance Directives No Advanced Directives Records FoundNo Advanced Directives Records Found Additional Source Comments INFORMATION SOURCE (unrecogn ized section and content) DATE CREATED AUTHOR 07/30/2022 [facility] DATE CREATED AUTHOR AUTHOR'S TINOIZ ATKJ 08/24/2023 [facility] FOR RECORDS PERTAINING TO PATIENTS WHO [...] BE BASED ON THE PRIMARY CLINICAL RECORDS. [employer] provides no warranty or guarantee of the accuracy or completeness of information in this document.
--- NOTE | 2023-09-29 08:30 | PM.CN ---
Consult Note: HPI Data of Consult Patient: known to practice within the last 3 years Consult date: 08/04/23 Requesting Physician: Skyla Marie NP Primary Care Provider: REX LOCK Consult Narrative Reason for consult: F/u Narrative: Velma vincent pleasant 57 year old female presents for evaluation and management of low back pain and bilateral buttock pain. Pain 1-2/10 increasing to 4/10 when sitting too long or changes in the waether. Patient reporting significant relief, >90% from left L4-5 L5-S1 TFESI and bilateral nerve block of SIJ. Patient also reporting significant ongoing relief from bilateral L4-5 L5-S1 RFAs. Patient has been utilizing lyrica 50mg BID-TID, flexeril 10mg PRN, and meloxicam 7.5mg BID PRN with benefit. cc:: CC: Skyla Marie NP Review of Systems ROS Status of ROS 10 or more systems reviewed and unremarkable except as noted in history and below Musculoskeletal Reports: back pain and joint pain PFSH PFSH Medical History Acid reflux ?K21.9 - Gastro-esophageal reflux disease without esophagitis (ICD-10) Asthma ?J45.909 - Unspecified asthma, uncomplicated (ICD-10) Social History Smoking status: Never smoker Meds Home Medications and Allergies Home Medications Medication Instructions Recorded Confirmed Type alprazolam 0.25 mg tablet 0.25 mg PO DAILY PRN anxiety 03/24/23 08/29/23 History hyoscyamine sulfate 0.125 mg 0.125 mg PO Q6H PRN abdominal pain 03/24/23 08/29/23 Rx tablet (Levsin) #20 tabs phentermine 37.5 mg capsule 37.5 mg PO DAILY 03/24/23 08/29/23 History dicyclomine 10 mg capsule 10 mg PO TID 04/18/23 08/29/23 History linaclotide 72 mcg capsule 72 mcg PO DAILY 04/18/23 08/29/23 History (Linzess) plecanatide 3 mg tablet (Trulance) 3 mg PO DAILY 05/23/23 08/29/23 History pregabalin 50 mg capsule 50 mg PO TID 05/23/23 08/29/23 History cyclobenzaprine 10 mg tablet 10 mg PO TID 08/04/23 08/29/23 History meloxicam 7.5 mg tablet 7.5 mg PO BID PRN pain 08/10/23 08/29/23 History Allergies Allergy/AdvReac Type Severity Reaction Status Date / Time No Known Drug Allergies Allergy Verified 08/29/23 08:05 Exam Constitutional Documenting provider has reviewed patient's vital signs: yes Common normals: no apparent distress, oriented x3, healthy appearing, alert and well nourished General appearance: cooperative [facility] Common normals: normocephalic, hearing grossly normal bilaterally and moist oral mucous membranes Head and scalp: normocephalic Eye Common normals: PERRL Pupil: PERRL Neck & C-Spine Common normals: full ROM General: normal visual inspection Chest Common normals: inspection of chest normal Respiratory Common normals: normal respiratory effort, no retractions and no use of accessory muscles Back & Pelvis Lumbar spine/lower back: normal to inspection and lumbar ROM normal Sacroiliac joints: SI joint(s) abnormal Other: negative facet loading no radiculopathy sensation intact mild pain with left FABIR, FADIR, thigh thrust Extremity Common normals: normal to inspection and full ROM Other: bilateral positive fabers/fadirs, gaenslens, thigh thrust and tenderness over bilateral PSIS Neuro Common normals: oriented x3, CN's II-XII intact bilaterally, moves all extremities, no focal motor deficits, no sensory deficits noted and deep tendon reflexes 2+ bilaterally Sensorium/orientation: alert Motor exam: strength 5/5 throughout and no movement abnormalities noted Psych Common normals: mental status grossly normal, thought process normal, cooperative, affect normal, speech normal and activity/motor behavior normal Speech: normal speech Thought process: normal thought process Results Additional Findings Additional findings: I have checked an OARRS report on this patient today and there are no aberrancies noted in the prescribing history.?? A drug screen was completed and reviewed within the last year, and if there has not been a drug screen completed we ordered one today to monitor higher risk, state monitored pain medication use. As part of providing excellent, safe, comprehensive care, the following was completed at our patient's visit: 1. A medication reconciliation and review to ensure accurate knowledge of current/active medications, including asking our patients to inform us about any [id number] medications or herbal remedies/nutritional supplements/alternative remedies. 2. A review to specifically ensure our patients have had annual screening for: elevated body mass index (BMI), tobacco use, screening for depression, and screening for unhealthy alcohol use. When screening is concerning, patients are provided with education and the specific recommendation to discuss the concerning health issue and treatment options with their primary care provider. Assessment and Plan Assessment and Plan (1) Lumbar spondylosis: (2) Bilateral sacroiliitis: (3) Myofascial pain: Plan continue current medications, discussed weaning lyrica as tolerated now that pain is well controlled she may benefit from once-twice a day vs TID f/u 3 months, sooner if needed
== END 2023-09-29 08:03 | disposition home or self-care (01) ==
LOC: PM 08:02
PROVIDERS: PCP Family Medicine; Visit Provider Nurse Practitioner
DX: M47.816 Spondylosis without myelopathy or radiculopathy, lumbar region (principal); M46.1 Sacroiliitis, not elsewhere classified; M79.18 Myalgia, other site
CPT/HCPCS: G0463

== ENCOUNTER 2024-01-05 07:41 | Outpatient (OUT) | payer OTHER, SELFPAY ==
--- OUTSIDE RECORDS SUMMARY | 2024-01-05 07:44 | XMS_ITS | CCD ---
Author Organization [facility] Care Team Providers Care Privacy Officer Name Role Phone SAMSA, CLAUDIA Admitting Unavailable SAMSA, CLAUDIA Attending Unavailable DR REX LOCK Primary Care Unavailable MARIETTA, DR BOBBI Flynn Consulting Unavailable SAMSA, CLAUDIA Consulting Unavailable SAMSA, CLAUDIA Admitting Unavailable SAMSA, CLAUDIA Attending Unavailable HAYDE, DR REX Walter Primary Care Unavailable SAMSA, CLAUDIA Consulting Unavailable SAMSA, CLAUDIA Admitting Unavailable SAMSA, CLAUDIA Attending Unavailable DR REX LOCK Primary Care Unavailable SAMSA, CLAUDIA Consulting Unavailable SAMSA, CLAUDIA Admitting Unavailable SAMSA, CLAUDIA Attending Unavailable DR REX LOCK Primary Care Unavailable SAMSA, CLAUDIA Consulting Unavailable SAMSA, CLAUDIA Admitting Unavailable SAMSA, CLAUDIA Attending Unavailable HAYDE, DR REX Walter Primary Care Unavailable MARIETTA, DR BOBBI Flynn Consulting Unavailable SAMSA, CLAUDIA Consulting Unavailable Nya MUJICA, Andliz Sawyer Attending Unavailable Nya MUJICA, Andrius Silverio Attending Unavailable Nya MUJICA, Andrius Silverio Attending Unavailable Nya MUJICA, Andrius Silverio Attending Unavailable Nya MUJICA, Andrius Vjulio Attending Unavailable Nya MUJICA, Andrius Silverio Attending Unavailable REX LOCK Referring Unavailable REX LOCK Primary Care Unavailable Problems Problem Classification Problem Date Documented Da te Episodic/Chronic Asthma (4 sources) Unspecified asthma, uncomplicated; Translations: [UNSPECIFIED ASTHMA UNCOMPLICATED] Onset: 06-02-2022 Chronic Other lower respiratory disease (4 sources) Other disorders of lung; Translations: [OTHER DISORDERS OF LUNG] Onset: 06-17-2022 Episodic Other nutritional; endocrine; and metabolic disorders (1 source) Abnormal weight gain; Translations: [Abnormal weight gain] Onset: 12-28-2023 Episodic Residual codes; unclassified (4 sources) Obstructive sleep apnea (adult) (pediatric); Translations: [OBSTRUCTIVE SLEEP APNEA] Onset: 07-27-2022 Chronic Residual codes; unclassified (1 source) Idiopathic hypersomnia with long sleep time; Translations: [IDIO HYPERSOMNIA W/LONG SLEEP TIME] Onset: 06-28-2022 Chronic Results Test Name Value Interpretation Reference Range Facil ity CBC AND AUTO DIFFon 12-28-19 ABSOLUTE BASOPHIL 0.0 X10E9/L Normal 0.0-0.2 [facility] Comment on above: Performed By: #### C BCA CMP, 93081-6, THYR #### [facility] ([id number]) [address], [address] [place] [address] ABSOLUTE NEUTROPHIL 3.3 X10E9/L Normal 1.5-6.6 [facility] Comment on above: Performed By: #### Heather BCA, CMP, 67016-5, THYR #### [facility] ([id number]) [address], [address] [place] [address] Basophils/100 WBC (Bld) 0.8 % Normal [facility] Comment on above: Performed By: #### Heather BCA, CMP, 78264-2, THYR #### [facility] ([id number]) [address], [address] [place] [address] Eosinophils (Bld) [#/Vol] 0.1 10*3/uL Normal 0.0-0.4 [facility] Comment on above: Performed By: #### C BCA, CMP, 20797-0, THYR #### [facility] ([id number]) [address], [address] [place] [address] Eosinophils/100 WBC (Bld) 2.3 % Normal [facility] Comment on above: Performed By: #### C BCA, CMP, 27789-7, THYR #### [facility] ([id number]) [address], [address] [place] [address] Erythrocyte distribution width (RBC) [Ratio] 13.3 % Normal 11.5-15.0 [facility] Comment on above: Performed By: #### C LAUREN THEODORE, 06972-3, THYR #### [facility] ([id number]) [address] [facility] [address] [place] [address] Hematocrit (Bld) [Volume fraction] 41.1 % Normal 35-47 [facility] Comment on above: Performed By: #### C LAUREN THEODORE, 23250-2, THYR #### [facility] ([id number]) [address] [facility] [address] [place] [address] Hemoglobin (Bld) [Mass/Vol] 13.9 g/dL Normal 11.7-15.5 [facility] Comment on above: Performed By: #### Heather THEODORE CMP, 56426-2, THYR #### [facility] ([id number]) [address] [facility] [address] [place] [address] Lymphocytes (Bld) [#/Vol] 2.1 10*3/uL Normal 1.0-3.5 [facility] Comment on above: Performed By: #### Heather THEODORE, CMP, 94114-3, THYR #### [facility] ([id number]) [address] [facility] [address] [place] [address] Lymphocytes/100 WBC (Bld) 34.0 % Normal [facility] Comment on above: Performed By: #### C EWELINA CMP, 43673-2, THYR #### [facility] ([id number]) [address] [facility] [address] [place] [address] MCH (RBC) [Entitic mass] 33.4 pg Normal 27-34 [facility] Comment on above: Performed By: #### Heather THEODORE CMP, 68657-4, THYR #### [facility] ([id number]) [address] [place] [address] MCHC (RBC) [Mass/Vol] 33.7 g/dL Normal 32-36 [facility] Comment on above: Performed By: #### C EWELINA CMP, 03426-1, THYR #### [facility] ([id number]) [address], [address] [place] [address] MCV (RBC) [Entitic vol] 99 fL Normal 80-100 [facility] Comment on above: Performed By: #### C EWELINA, CMP, 47637-0, THYR #### [facility] ([id number]) [address], [address] [place] [address] Monocytes (Bld) [#/Vol] 0.5 10*3/uL Normal 0-0.9 [facility] Comment on above: Performed By: #### Heather THEODORE CMP, 00883-0, THYR #### [facility] ([id number]) [address], [address] [place] [address] Monocytes/100 WBC (Bld) 8.1 % Normal [facility] Comment on above: Performed By: #### Heather THEODORE, CMP, 23953-8, THYR #### [facility] ([id number]) [address], [address] [place] [address] Neutrophils/100 WBC (Bld) 54.8 % Normal [facility] Comment on above: Performed By: #### Heather BCA, CMP, 54371-5, THYR #### [facility] ([id number]) [address], [address] [place] [address] Platelet mean volume (Bld) [Entitic vol] 8.2 fL Normal 7-12 [facility] Comment on above: Performed By: #### Heather THEODORE, CMP, 05533-8, THYR #### [facility] ([id number]) [address], [address] [place] [address] Platelets (Bld) [#/Vol] 398 10*3/uL Normal 150-450 [facility] Comment on above: Performed By: #### C BCA, CMP, 96977-5, THYR #### [facility] ([id number]) [address], [address] [place] [address] RBC COUNT 4.15 X10E12/L Normal 3.80-5.20 [facility] Comment on above: Performed By: #### C BCA, CMP, 39863-4, THYR #### [facility] ([id number]) [address], [facility] [address] [place] [address] WBC (Bld) [#/Vol] 6.1 10*3/uL Normal 4.0-11.0 [facility] Comment on above: Performed By: #### C BCA, CMP, 63233-0, THYR #### [facility] ([id number]) [address], [address] [place] [address] COMPREHENSIVE METABOLIC PANE Riki 12-28-2023 Albumin [Mass/Vol] 4.0 g/dL Normal 3.2-5.3 [facility] Comment on above: Performed By: #### C BCA, CMP, 26240-6, THYR #### [facility] ([id number]) [address], [address] [place] [address] ALP [Catalytic activity/Vol] 56 U/L Normal 39-130 [facility] Comment on above: Performed By: #### C BCA, CMP, 04473-7, THYR #### [facility] ([id number]) [address], [address] [place] [address] ALT [Catalytic activity/Vol] 13 U/L Normal 0-31 [facility] Comment on above: Performed By: #### C BCA, CMP, 30759-0, THYR #### [facility] ([id number]) [address] [place] [address] Anion gap [Moles/Vol] 8 mmol/L Normal 5-15 [facility] Comment on above: Performed By: #### C BCA, CMP, 26329-4, THYR #### [facility] ([id number]) [address], [address] [place] [address] AST [Catalytic activity/Vol] 16 U/L Normal 0-41 [facility] Comment on above: Performed By: #### C BCA, CMP, 15303-7, THYR #### [facility] ([id number]) [address], [address] [place] [address] Bilirubin [Mass/Vol] 0.8 mg/dL Normal 0.3-1.2 [facility] Comment on above: Performed By: #### C BCA, CMP, 42795-5, THYR #### [facility] ([id number]) [address], [address] [place] [address] Calcium [Mass/Vol] 9.2 mg/dL Normal 8.5-10.5 [facility] Comment on above: Performed By: #### C BCA, CMP, 24099-9, THYR #### [facility] ([id number]) [address], [address] [place] [address] Chloride [Moles/Vol] 105 mmol/L Normal 98-109 [facility] Comment on above: Performed By: #### C BCA, CMP, 68180-6, THYR #### [facility] ([id number]) [address], [address] [place] [address] CO2 [Moles/Vol] 29 mmol/L Normal 22-32 [facility] Comment on above: Performed By: #### C BCA, CMP, 72760-0, THYR #### [facility] ([id number]) [address], [address] [place] [address] Creatinine [Mass/Vol] 0.64 mg/dL Normal 0.40-1.00 [facility] Comment on above: Result Comment: METH OD TRACEABLE TO IDMS STANDARD Performed By: #### C LAUREN THEODORE, 77692-3, THYR #### [facility] ([id number]) [address], [address] [place] [address] eGFR (CKD-EPI) NON-RACE DEPENDENT >90 Normal >59 [facility] Comment on above: Result Comment: Reported eGFR is based on the CKD-EPI 2020 equation that does not use a race coefficient. Performed By: #### C LAUREN THEODORE, 55162-5, THYR #### [facility] ([id number]) [address], [address] [place] [address] Glucose [Mass/Vol] 89 mg/dL Normal 65-99 [facility] Comment on above: Performed By: #### C LAUREN THEODORE, 15001-6, THYR #### [facility] ([id number]) [address], [address] [place] [address] Potassium [Moles/Vol] 3.6 mmol/L Normal 3.5-5.0 [facility] Comment on above: Performed By: #### C LAUREN THEODORE, 35122-5, THYR #### [facility] ([id number]) [address], [address] [place] [address] Protein [Mass/Vol] 6.6 g/dL Normal 6.0-8.0 [facility] Comment on above: Performed By: #### C LAUREN THEODORE, 26250-6, THYR #### [facility] ([id number]) [address], [address] [place] [address] Sodium [Moles/Vol] 142 mmol/L Normal 134-146 [facility] Comment on above: Performed By: #### C LAUREN THEODORE, 56838-0, THYR #### [facility] ([id number]) [address], [address] [place] [address] Urea nitrogen [Mass/Vol] 14 mg/dL Normal 5-23 [facility] Comment on above: Performed By: #### Heather THEODORE CMP, 92508-4, THYR #### [facility] ([id number]) [address], [address] [place] [address] Lipid 1996 panelon 4 Cholesterol [Mass/Vol] 205 mg/dL High 150-200 [facility] Comment on above: Performed By: #### C EWELINA, LAUREN, 58734-4, THYR #### [facility] ([id number]) [address], [address] [place] [address] Cholesterol in HDL [Mass/Vol] 63 mg/dL Normal >39 [facility] Comment on above: Result Comment: HDL <40 mg/dL - High Risk HDL > or = 40mg/dL- Desirable HDL >60 mg/dL - Negative Risk Performed By: #### Heather THEODORE, LAUREN, 19788-3, THYR #### [facility] ([id number]) [address], [address] [place] [address] Cholesterol in LDL [Mass/Vol] 120 mg/dL Normal <130 [facility] Comment on above: Result Comment: LDL <100 mg/dL - Desirable LDL >160 mg/dL - High Risk Performed By: #### Heather THEODORE, CMP, 63964-6, THYR #### [facility] ([id number]) [address], [address] [place] [address] Cholesterol in VLDL [Mass/Vol] 22 mg/dL Normal 0-30 [facility] Comment on above: Performed By: #### C LAUREN THEODORE, 61469-6, THYR #### [facility] ([id number]) [address], [facility] [address] [place] [address] CHOLESTEROL:HDL 3.3 Normal 1.0-5.0 [facility] Comment on above: Performed By: #### Heather THEODORE CMP, 12098-6, THYR #### [facility] ([id number]) [address], [facility] [address] [place] [address] Triglyceride [Mass/Vol] 111 mg/dL Normal 27-150 [facility] Comment on above: Performed By: #### Heather THEODORE CMP, 41414-8, THYR #### [facility] ([id number]) [address], [address] [address] THYROID PROFILEon 12-28-2023 Free T4 [Mass/Vol] 0.85 ng/dL Normal 0.61-1.60 [facility] Comment on above: Performed By: #### Heather THEODORE CMP, 95467-1, THYR #### [facility] ([id number]) [address], [address] [address] TSH 1.67 uIU/mL Normal 0.49-4.67 [facility] Comment on above: Performed By: #### Heather THEODORE CMP, 26324-9, THYR #### [facility] ([id number]) [address], [address] [place] [address] CT CHEST HI RESOLUTIONon CT CHEST HI [...] by: BOBBI MCMANUS Date: 2022-06-18 06:43 Normal [facility] HEMOGLOBINon 06-02-2022 Hemoglobin (Bld) [Mass/Vol] 14.0 g/dL Normal 12.0-16.0 [facility] Comment on above: Performed By: #### H GB #### [facility] [address] [address] [address] Hans Pritchett XR CHEST 2 Von [...] by: BOBBI MCMANUS Date: 2022-05-05 10:56 Normal [facility] Encounters Encounter Date Encounter Type Care Provider Facility Start: 12-28-2023 End: 12-29-2023 ambulatory [facility] Start: 12-28-2023 Encounter for genera l adult medical examination without abnormal findings [facility] Start: 08-29-2023 End: 08-30-2023 ambulatory Lucy Fay MD Facility:[facility] Start: 08-15-2023 End: 08-16-2023 ambulatory Lucy Fay MD Facility:[facility] Start: 07-04-2023 End: 07-05-2023 ambulatory Lucy Fay MD Facility:[facility] Start: 06-06-2023 End: 06-07-2023 ambulatory Lucy Fay MD Facility:[facility] Start: 05-23-2023 End: 05-24-2023 ambulatory Lucy Fay MD Facility:[facility] Start: 04-18-2023 End: 04-19-2023 ambulatory Andliz Fay MD Facility:[facility] Start: 07-27-2022 End: 07-28-2022 ambulatory [facility] Facility:[facility] Start: 06-22-2022 End: 06-23-2022 ambulatory [facility] Facility:[facility] Start: 06-17-2022 End: 06-18-2022 ambulatory [facility] Facility:[facility] Start: 06-02-2022 End: 06-03-2022 ambulatory [facility] Facility:[facility] Start: 05-05-2022 End: 05-06-2022 ambulatory [facility] Facility:[facility] Payers Date Payer Category Payer Private Health Insurance 1965 Unknown [id number] .16.84 [id number] 1965 Unknown [id number] .16.84 [id number] 1965 Unknown [id number] .16.84 [id number] 1965 Unknown [id number] .16.84 [id number] 1965 Unknown [id number] .16.84 [id number] 1965 Unknown [id number] 2.16. [id number] 1965 Unknown [id number] .. [id number] 1965 Unknown [id number] 2.16. [id number] 1965 Unknown [id number] 2.16. [id number] 1965 Unknown [id number] 2.16. [id number] 1965 Unknown [id number] 2.16. [id number] 1965 Unknown [id number] 2.16.8 [id number] 1959 Unknown [id number] Summary Purpose Family History No Family History Records FoundNo Family History Records FoundNo Family History Records Found Advance Directives No Advanced Directives Records FoundNo Advanced Directives Records FoundNo Advanced Directives Records Found Additional Source Comments INFORMATION SOURCE (unrecogn ized section and content) DATE CREATED AUTHOR 07/30/2022 [facility] DATE CREATED AUTHOR AUTHOR'S ORGANIZ ATION 10/05/2023 [facility] DATE CREATED AUTHOR AUTHOR'S ORGANIZ ATION 12/29/2023 [facility] FOR RECORDS PERTAINING TO PATIENTS [...] BE BASED ON THE PRIMARY CLINICAL RECORDS. [employer] [facility]. provides no warranty or guarantee of the accuracy or completeness of information in this document.
--- NOTE | 2024-01-05 07:47 | P.CN_ITS ---
Consult Note: HPI Data of Consult Patient: known to practice within the last 3 years Consult date: 08/04/23 Requesting Physician: Skyla Marie NP Primary Care Provider: REX LOCK Consult Narrative Reason for consult: F/u Narrative: Velma vincent pleasant 57 year old female presents for evaluation and management of low back pain and bilateral hip pain. Pain 6/10 increasing to 10/10 with standing, walking, activity, when sitting too long or changes in the weather. Patient reporting >50% in pain and functional ability from left L4-5 L5-S1 TFESI and bilateral nerve block of SIJ greater than 3 months, feels these have worn off and would like to discuss repeating. Patient has been utilizing lyrica 50mg BID-TID, flexeril 10mg PRN, and meloxicam 7.5mg BID PRN with benefit. cc:: CC: Skyla Marie NP Review of Systems ROS Status of ROS 10 or more systems reviewed and unremark able except as noted in history and below Musculoskeletal Reports: back pain and joint pain PFSH PFSH Medical History Acid reflux ?K21.9 - Gastro-esophageal reflux disease without esophagitis (ICD-10) Asthma ?J45.909 - Unspecified asthma, uncomplicated (ICD-10) Social History Smoking status: Never smoker Meds Home Medications and Allergies Home Medications ?Medication ?Instructions ?Recorded ?Confirmed ?Type alprazolam 0.25 mg tablet 0.25 mg PO DAILY PRN anxiety 03/24/23 08/29/23 History hyoscyamine sulfate 0.125 mg 0.125 mg PO Q6H PRN abdominal pain 03/24/23 08/29/23 Rx tablet (Levsin) #20 tabs phentermine 37.5 mg capsule 37.5 mg PO DAILY 03/24/23 08/29/23 History dicyclomine 10 mg capsule 10 mg PO TID 04/18/23 08/29/23 History linaclotide 72 mcg capsule 72 mcg PO DAILY 04/18/23 08/29/23 History (Linzess) plecanatide 3 mg tablet (Trulance) 3 mg PO DAILY 05/23/23 08/29/23 History pregabalin 50 mg capsule 50 mg PO TID 05/23/23 08/29/23 History cyclobenzaprine 10 mg tablet 10 mg PO TID 08/04/23 08/29/23 History meloxicam 7.5 mg tablet 7.5 mg PO BID PRN pain 08/10/23 08/29/23 History Allergies Allergy/AdvReac Type Severity Reaction Status Date / Time No Known Drug Allergies Allergy Verified 08/29/23 08:05 Exam Constitutional Documenting provider has reviewed patient's vital signs: yes Common normals: no apparent distress, oriented x3, healthy appearing, alert and well nourished General appearance: cooperative HENMT Common normals: normocephalic, hearing grossly normal bilaterally and moist oral mucous membranes Head and scalp: normocephalic Eye Common normals: PERRL Pupil: PERRL Neck & C-Spine Common normals: full ROM General: normal visual inspection Chest Common normals: inspection of chest normal Respiratory Common normals: normal respiratory effort, no retractions and no use of accessory muscles Back & Pelvis Lumbar spine/lower back: normal to inspection, lumbar ROM normal and straight leg raise positive right Sacroiliac joints: SI joint(s) abnormal Other: negative facet loading positive right straight leg raise, decreased sensation following right L4,5 S1 pattern moderate pain with left FABIR, FADIR, thigh thrust Extremity Common normals: normal to inspection and full ROM Other: bilateral positive fabers/fadirs, gaenslens, thigh thrust and tenderness over bilateral PSIS Neuro Common normals: oriented x3, CN's II-XII intact bilaterally, moves all extremities, no focal motor deficits, no sensory deficits noted and deep tendon reflexes 2+ bilaterally Sensorium/orientation: alert Motor exam: strength 5/5 throughout and no movement abnormalities noted Psych Common normals: mental status grossly normal, thought process normal, cooperative, affect normal, speech normal and activity/motor behavior normal Speech: normal speech Thought process: normal thought process Results Additional Findings Additional findings: If on a controlled substance or opioids, I have checked an [place] report on this patient and there are no aberrancies noted in the prescribing history.??If on a controlled substance or opioid a drug screen was completed and reviewed within the last year, and if there has not been a drug screen completed we ordered one today to monitor higher risk, state monitored pain medication use. As part of providing excellent, safe, comprehensive care, the following was completed at our patient's visit: 1. A medication reconciliation and review to ensure accurate knowledge of current/active medications, including asking our patients to inform us about any yrpg-aif-pfxsdar medications or herbal remedies/nutritional supplements/alternative remedies. 2. A review to specifically ensure our patients have had annual screening for screening for depression, screening for tobacco use, and screening for unhealthy alcohol use. For concerning screenings had a discussion with the patient, provided patient education, and recommended follow-up with primary care provider when appropriate. If patient noted with a risk of falling, they received education on strength, gait, and balance training to prevent future risk of falling. Assessment and Plan Assessment and Plan (1) Lumbar stenosis with neurogenic claudication: (2) Bilateral sacroiliitis: (3) Lumbar radiculopathy: (4) Lumbar spondylosis: (5) Myofascial pain: Plan right L4-5 L5-S1 TFESI under fluoroscopy, risks vs benefits reviewed bilateral SIJ injection under fluoroscopy, risks vs benefits reviewed refill and continue lyrica 50mg BID-TID as tolerated refill and continue flexeril 10mg BID PRN myofascial pain continue meloxicam 7.5mg BID PRN f/u after completion of procedures
== END 2024-01-05 07:42 | disposition home or self-care (01) ==
PROVIDERS: PCP Family Medicine; Visit Provider Nurse Practitioner
DX: M48.062 Spinal stenosis, lumbar region with neurogenic claudication (principal); M46.1 Sacroiliitis, not elsewhere classified; M54.16 Radiculopathy, lumbar region; M47.816 Spondylosis without myelopathy or radiculopathy, lumbar region; M79.18 Myalgia, other site
CPT/HCPCS: G0463

== ENCOUNTER 2024-01-16 06:45 | Day surgery (SDC) | payer OTHER, SELFPAY ==
--- OUTSIDE RECORDS SUMMARY | 2024-01-16 06:47 | XMS_ITS | CCD ---
Author Organization [facility] CliniSyar Care Team Providers Care Siene Maker Name Role Phone SAMSA, CLAUDIA Admitting Unavailable [...] 12-28-19 ABSOLUTE BASOPHIL 0.0 X10E9/L Normal 0.0-0.2 [facility] Comment on above: Performed By: #### C BCA CMP, 85150-1, THYR #### [facility] ([id number]) [address], [address] [place] [address] ABSOLUTE NEUTROPHIL 3.3 X10E9/L Normal 1.5-6.6 [facility] Comment on above: Performed By: #### Heather BCA, CMP, 43142-3, THYR #### [facility] ([id number]) [address], [address] [place] [address] Basophils/100 WBC (Bld) 0.8 % Normal [facility] Comment on above: Performed By: #### Heather BCA, CMP, 99150-2, THYR #### [facility] ([id number]) [address], [address] [place] [address] Eosinophils (Bld) [#/Vol] 0.1 10*3/uL Normal 0.0-0.4 [facility] Comment on above: Performed By: #### C BCA, CMP, 11006-9, THYR #### [facility] ([id number]) [address], [address] [place] [address] Eosinophils/100 WBC (Bld) 2.3 % Normal [facility] Comment on above: Performed By: #### C BCA, CMP, 25178-8, THYR #### [facility] ([id number]) [address], [address] [place] [address] Erythrocyte distribution width (RBC) [Ratio] 13.3 % Normal 11.5-15.0 [facility] Comment on above: Performed By: #### C LAUREN THEODORE, 51880-9, THYR #### [facility] ([id number]) [address] [address] [place] [address] Hematocrit (Bld) [Volume fraction] 41.1 % Normal 35-47 [facility] Comment on above: Performed By: #### C LAUREN THEODORE, 77685-6, THYR #### [facility] ([id number]) [address] [address] [place] [address] Hemoglobin (Bld) [Mass/Vol] 13.9 g/dL Normal 11.7-15.5 [facility] Comment on above: Performed By: #### Heather THEODORE CMP, 08217-9, THYR #### [facility] ([id number]) [address] [address] [place] [address] Lymphocytes (Bld) [#/Vol] 2.1 10*3/uL Normal 1.0-3.5 [facility] Comment on above: Performed By: #### Heather THEODORE, CMP, 36230-3, THYR #### [facility] ([id number]) [address] [address] [place] [address] Lymphocytes/100 WBC (Bld) 34.0 % Normal [facility] Comment on above: Performed By: #### C EWELINA CMP, 21626-0, THYR #### [facility] ([id number]) [address] [address] [place] [address] MCH (RBC) [Entitic mass] 33.4 pg Normal 27-34 [facility] Comment on above: Performed By: #### Heather THEODORE CMP, 82793-9, THYR #### [facility] ([id number]) [address] [place] [address] MCHC (RBC) [Mass/Vol] 33.7 g/dL Normal 32-36 [facility] Comment on above: Performed By: #### C EWELINA CMP, 51364-5, THYR #### [facility] ([id number]) [address], [address] [place] [address] MCV (RBC) [Entitic vol] 99 fL Normal 80-100 [facility] Comment on above: Performed By: #### C EEWLINA, CMP, 97095-7, THYR #### [facility] ([id number]) [address], [address] [place] [address] Monocytes (Bld) [#/Vol] 0.5 10*3/uL Normal 0-0.9 [facility] Comment on above: Performed By: #### Heather THEODORE CMP, 03836-5, THYR #### [facility] ([id number]) [address], [address] [place] [address] Monocytes/100 WBC (Bld) 8.1 % Normal [facility] Comment on above: Performed By: #### Heather THEODORE, CMP, 07255-7, THYR #### [facility] ([id number]) [address] [place] [address] Neutrophils/100 WBC (Bld) 54.8 % Normal [facility] Comment on above: Performed By: #### Heather BCA, CMP, 62412-4, THYR #### [facility] ([id number]) [address], [address] [place] [address] Platelet mean volume (Bld) [Entitic vol] 8.2 fL Normal 7-12 [facility] Comment on above: Performed By: #### Heather THEODORE, CMP, 66392-3, THYR #### [facility] ([id number]) [address], [address] [place] [address] Platelets (Bld) [#/Vol] 398 10*3/uL Normal 150-450 [facility] Comment on above: Performed By: #### C BCA, CMP, 87637-9, THYR #### [facility] ([id number]) [address], [address] [place] [address] RBC COUNT 4.15 X10E12/L Normal 3.80-5.20 [facility] Comment on above: Performed By: #### C BCA, CMP, 63175-1, THYR #### [facility] ([id number]) [address], [facility] [address] [place] [address] WBC (Bld) [#/Vol] 6.1 10*3/uL Normal 4.0-11.0 [facility] Comment on above: Performed By: #### C BCA, CMP, 19848-9, THYR #### [facility] ([id number]) [address], [address] [place] [address] COMPREHENSIVE METABOLIC PANE Riki 12-28-2023 Albumin [Mass/Vol] 4.0 g/dL Normal 3.2-5.3 [facility] Comment on above: Performed By: #### C BCA, CMP, 48698-5, THYR #### [facility] ([id number]) [address], [address] [place] [address] ALP [Catalytic activity/Vol] 56 U/L Normal 39-130 [facility] Comment on above: Performed By: #### C BCA, CMP, 62162-4, THYR #### [facility] ([id number]) [address], [address] [place] [address] ALT [Catalytic activity/Vol] 13 U/L Normal 0-31 [facility] Comment on above: Performed By: #### C BCA, CMP, 32929-3, THYR #### [facility] ([id number]) [address] [place] [address] Anion gap [Moles/Vol] 8 mmol/L Normal 5-15 [facility] Comment on above: Performed By: #### C BCA, CMP, 36700-7, THYR #### [facility] ([id number]) [address] [place] [address] AST [Catalytic activity/Vol] 16 U/L Normal 0-41 [facility] Comment on above: Performed By: #### C BCA, CMP, 03411-1, THYR #### [facility] ([id number]) [address] [place] [address] Bilirubin [Mass/Vol] 0.8 mg/dL Normal 0.3-1.2 [facility] Comment on above: Performed By: #### C BCA, CMP, 77876-5, THYR #### [facility] ([id number]) [address], [address] [place] [address] Calcium [Mass/Vol] 9.2 mg/dL Normal 8.5-10.5 [facility] Comment on above: Performed By: #### C BCA, CMP, 86658-9, THYR #### [facility] ([id number]) [address], [address] [place] [address] Chloride [Moles/Vol] 105 mmol/L Normal 98-109 [facility] Comment on above: Performed By: #### C BCA, CMP, 42397-1, THYR #### [facility] ([id number]) [address], [address] [place] [address] CO2 [Moles/Vol] 29 mmol/L Normal 22-32 [facility] Comment on above: Performed By: #### C BCA, CMP, 61418-1, THYR #### [facility] ([id number]) [address] [place] [address] Creatinine [Mass/Vol] 0.64 mg/dL Normal 0.40-1.00 [facility] Comment on above: Result Comment: METH OD TRACEABLE TO IDMS STANDARD Performed By: #### C LAUREN THEODORE, 18393-8, THYR #### [facility] ([id number]) [address], [address] [place] [address] eGFR (CKD-EPI) NON-RACE DEPENDENT >90 Normal >59 [facility] Comment on above: Result Comment: Reported eGFR is based on the CKD-EPI 2020 equation that does not use a race coefficient. Performed By: #### C LAUREN THEODORE, 58028-9, THYR #### [facility] ([id number]) [address] [place] [address] Glucose [Mass/Vol] 89 mg/dL Normal 65-99 [facility] Comment on above: Performed By: #### C LAUREN THEODORE, 98450-2, THYR #### [facility] ([id number]) [address], [address] [place] [address] Potassium [Moles/Vol] 3.6 mmol/L Normal 3.5-5.0 [facility] Comment on above: Performed By: #### C LAUREN THEODORE, 25474-7, THYR #### [facility] ([id number]) [address], [address] [place] [address] Protein [Mass/Vol] 6.6 g/dL Normal 6.0-8.0 [facility] Comment on above: Performed By: #### C LAUREN THEODORE, 47140-4, THYR #### [facility] ([id number]) [address], [address] [place] [address] Sodium [Moles/Vol] 142 mmol/L Normal 134-146 [facility] Comment on above: Performed By: #### C LAUREN THEODORE, 66925-4, THYR #### [facility] ([id number]) [address] [place] [address] Urea nitrogen [Mass/Vol] 14 mg/dL Normal 5-23 [facility] Comment on above: Performed By: #### Heather THEODORE CMP, 05653-3, THYR #### [facility] ([id number]) [address], [address] [place] [address] Lipid 1996 panelon 4 Cholesterol [Mass/Vol] 205 mg/dL High 150-200 [facility] Comment on above: Performed By: #### C EWELINA, LAUREN, 09115-9, THYR #### [facility] ([id number]) [address], [address] [place] [address] Cholesterol in HDL [Mass/Vol] 63 mg/dL Normal >39 [facility] Comment on above: Result Comment: HDL <40 mg/dL - High Risk HDL > or = 40mg/dL- Desirable HDL >60 mg/dL - Negative Risk Performed By: #### Heather THEODORE, LAUREN, 04944-7, THYR #### [facility] ([id number]) [address], [address] [place] [address] Cholesterol in LDL [Mass/Vol] 120 mg/dL Normal <130 [facility] Comment on above: Result Comment: LDL <100 mg/dL - Desirable LDL >160 mg/dL - High Risk Performed By: #### Heather THEODORE, CMP, 62835-4, THYR #### [facility] ([id number]) [address], [address] [place] [address] Cholesterol in VLDL [Mass/Vol] 22 mg/dL Normal 0-30 [facility] Comment on above: Performed By: #### C LAUREN THEODORE, 42952-6, THYR #### [facility] ([id number]) [address], [facility] [address] [place] [address] CHOLESTEROL:HDL 3.3 Normal 1.0-5.0 [facility] Comment on above: Performed By: #### Heather THEODORE CMP, 96992-4, THYR #### [facility] ([id number]) [address], [facility] [address] [place] [address] Triglyceride [Mass/Vol] 111 mg/dL Normal 27-150 [facility] Comment on above: Performed By: #### Heather THEODORE CMP, 19971-2, THYR #### [facility] ([id number]) [address], [address] [address] THYROID PROFILEon 12-28-2023 Free T4 [Mass/Vol] 0.85 ng/dL Normal 0.61-1.60 [facility] Comment on above: Performed By: #### Heather THEODORE CMP, 11998-7, THYR #### [facility] ([id number]) [address], [address] [address] TSH 1.67 uIU/mL Normal 0.49-4.67 [facility] Comment on above: Performed By: #### Heather THEODORE CMP, 19193-1, THYR #### [facility] ([id number]) [address], [address] [place] [address] CT CHEST HI RESOLUTIONon CT CHEST HI [...] by: BOBBI MCMANUS Date: 2022-06-18 06:43 Normal [facility] HEMOGLOBINon 06-02-2022 Hemoglobin (Bld) [Mass/Vol] 14.0 g/dL Normal 12.0-16.0 [facility] Comment on above: Performed By: #### H GB #### [facility] [address] [address] [address] Hans Pritchett XR CHEST 2 Von [...] by: BOBBI MCMANUS Date: 2022-05-05 10:56 Normal [facility] Encounters Encounter Date Encounter Type Care Provider Facility Start: 12-28-2023 End: 12-29-2023 ambulatory [facility] Start: 12-28-2023 Encounter for genera l adult medical examination without abnormal findings [facility] Start: 08-29-2023 End: 08-30-2023 ambulatory Lucy Fay MD Facility:[facility] Start: 08-15-2023 End: 08-16-2023 ambulatory Lucy Fay MD Facility[facility] Start: 07-04-2023 End: 07-05-2023 ambulatory Lucy Fay MD Facility:[facility] Start: 06-06-2023 End: 06-07-2023 ambulatory Lucy Fay MD Facility:[facility] [place] Start: 05-23-2023 End: 05-24-2023 ambulatory Lucy Fay MD Facility:[facility] [place] Start: 04-18-2023 End: 04-19-2023 ambulatory Andliz Fay MD [facility] Start: 07-27-2022 End: 07-28-2022 ambulatory [facility] Facility:[facility] Start: 06-22-2022 End: 06-23-2022 ambulatory [facility] Facility:[facility] Start: 06-17-2022 End: 06-18-2022 ambulatory [facility] Facility:[facility] Start: 06-02-2022 End: 06-03-2022 ambulatory [facility] Facility:[facility] Start: 05-05-2022 End: 05-06-2022 ambulatory [facility] Facility:[facility] Payers Date Payer Category Payer Private Health Insurance 1965 Unknown [id number] .16.84 [id number] 1965 Unknown [id number] .16.84 [id number] 1965 Unknown [id number] .16.84 [id number] 1965 Unknown [id number] .16.84 [id number] 1965 Unknown [id number] .16.84 [id number] 1965 Unknown [id number] 2.16. [id number] 1965 Unknown [id number] .. [id number] 1965 Unknown [id number] 2.16. 840.1.774843.3.579.2.196 1965 Unknown [id number] 2.16. 840.1.754785.3.579.2.196 1965 Unknown [id number] 2.16. 840.1.879124.3.579.2.196 1965 Unknown [id number] 2.16. 840.1.431093.3.579.2.196 1965 Unknown [id number] 2.16.8 [id number] 1959 Unknown [id number] Summary Purpose Family History No Family History Records FoundNo Family History Records FoundNo Family History Records Found Advance Directives No Advanced Directives Records FoundNo Advanced Directives Records FoundNo Advanced Directives Records Found Additional Source Comments INFORMATION SOURCE (unrecogn ized section and content) DATE CREATED AUTHOR 07/30/2022 [facility] DATE CREATED AUTHOR AUTHOR'S ORGANIZ ATION 10/05/2023 [facility] DATE CREATED AUTHOR AUTHOR'S ORGANIZ ATION 12/29/2023 [facility] FOR RECORDS PERTAINING TO PATIENTS [...] BE BASED ON THE PRIMARY CLINICAL RECORDS. [employer] [facility]. provides no warranty or guarantee of the accuracy or completeness of information in this document.
[2024-01-16 06:50] VITALS: BP 177/88; PULSE 67; TEMP 36.4; O2SAT 99
[2024-01-16 07:33] VITALS: BP 189/98; PULSE 72; O2SAT 98
[2024-01-16 07:34] VITALS: BP 172/92; PULSE 72; O2SAT 96
[2024-01-16] MEDS: 0.9 % SODIUM CHLORIDE 10 ML SYRINGE - SALINE FLUSH INJ (07:36)
[2024-01-16] MEDS: LIDOCAINE HCL 2% PF 100 MG/5 ML VIAL INJ (07:37)
[2024-01-16] MEDS: TRIAMCINOLONE ACETONIDE 40 MG/ML VIAL INJ (07:37)
[2024-01-16] MEDS: BUPIVACAINE HCL 0.25% PF 25 MG/10 ML VIAL INJ (07:37)
[2024-01-16] MEDS: IOHEXOL 240 MG/ML - 10 ML VIAL INJ (07:38)
--- NOTE | 2024-01-16 07:41 | P.ON_ITS ---
Date of procedure: 01/16/24 Pre-op diagnosis: Lumbar stenosis with neurogenic claudication Post-op diagnosis: same as pre-op Procedure: Procedure: Right L4-5, L5-S1 transforaminal epidural steroid injection Medications: Bupivacaine 0.25% 2cc, lidocaine 2% 1cc, kenalog 80mg The patient was seen and examined in the preoperative holding area.? Informed consent was obtained and placed on the chart.? Patient was brought to the medical procedure unit and placed in the prone position where a timeout was completed verifying the correct patient, procedure site, position, and planned special equipment using sterile aseptic technique.? Under direct fluoroscopic visualization a 25-gauge Quincke tipped spinal needle was advanced to the designated neural foramen where contrast dye was injected to show adequate spread.? The needle was inserted at level right L4-5. There was no evidence of vascular or adverse uptake.? Epidural spread was appreciated.? The above- mentioned injectate was then placed in a 1.5 mL aliquot preceded by negative aspiration.? The needle was removed. The needle was inserted and the procedure repeated at level right L5-S1.? The surgery site was covered.? Patient was taken to the postprocedural recovery area and monitored for an appropriate length of time before found suitable for discharge in the accompaniment of a responsible adult. Anesthesia: Local Surgeon: Lucy Fay Pathology: none sent Condition: stable Disposition: no change
== END 2024-01-16 07:43 | disposition home or self-care (01) ==
LOC: SURGOUT 06:46
PROVIDERS: PCP Family Medicine; Visit Provider Anesthesiology
DX: M48.062 Spinal stenosis, lumbar region with neurogenic claudication (principal)
CPT/HCPCS: 64483; 64484; J0665; J3301; Q9966

== ENCOUNTER 2024-01-23 06:46 | Day surgery (SDC) | payer OTHER, SELFPAY ==
--- OUTSIDE RECORDS SUMMARY | 2024-01-23 06:50 | XMS_ITS ---
Patient Summarization (C-CDA 2.1 CCD) Created on: January 23, 2024 Velma Li : 1965 Sex: Female Author Organization Sample organization Care Team Providers Care Medical Lab Assistant Name Role Phone SAMSA, CLAUDIA Admitting Unavailable SAMSA, CLAUDIA Attending Unavailable DR REX LOCK Primary Care Unavailable DR BOBBI MCMANUS Consulting Unavailable SAMSA, CLAUDIA Consulting Unavailable SAMSA, [...] Flynn Consulting Unavailable SAMSA, CLAUDIA Consulting Unavailable REX LOCK Referring Unavailable REX LOCK Primary Care Unavailable Nya MUJICA, Vickierius Sawyer Attending Unavailable Gilucio MUJICA, Josrus Silverio Attending Unavailable Nya MUJICA, Andrius Silverio Attending Unavailable Gilucio MUJICA, Andrius Vytautjose angel Attending Unavailable Gilucio MUJICA, Andrius Vytautjose angel Attending Unavailable Gilucio MUJICA, Andrius Vytautjose angel Attending Unavailable Gilucio MUJICA, Andrius Vytbeck Attending Unavailable Encounters Encounter Date Encounter Type Care Provider Facility Start: 01-16-2024 End: 01-16-2024 ambulatory Lucy Fay MD Facility:[facility] Start: 12-28-2023 End: 12-29-2023 ambulatory [facility] Start: 12-28-2023 Encounter for genera l adult medical examination without abnormal findings [facility] Start: 08-29-2023 End: 08-29-2023 ambulatory Andrius Vytautas Kingitis Facility:[facility] Start: 08-15-2023 End: 08-15-2023 ambulatory Andrius Vytautas Emilyedraitis Facility:[facility] Start: 07-04-2023 End: 07-04-2023 ambulatory Andrius Vytautas Emilyedraitis Facility:[facility] Start: 06-06-2023 End: 06-06-2023 ambulatory Andrius Vytautas Emilyedraitis Facility:[facility] [place] Start: 05-23-2023 End: 05-23-2023 ambulatory Andrius Terryytautas Emilyedraitis Facility:[facility] [place] Start: 04-18-2023 End: 04-18-2023 ambulatory Andrius Vytautas Emilyedraitis Facility:[facility] Start: 07-27-2022 End: 07-28-2022 ambulatory [facility] Facility:[facility] Start: 06-22-2022 End: 06-23-2022 ambulatory [facility] Facility:[facility] Start: 06-17-2022 End: 06-18-2022 ambulatory [facility] Facility:[facility] Start: 06-02-2022 End: 06-03-2022 ambulatory [facility] Facility:[facility] Start: 05-05-2022 End: 05-06-2022 ambulatory [facility] Facility:[facility] Payers Date Payer Category Payer Private Health Insurance 1965 Unknown [id number] 1965 Unknown [id number] 1965 Unknown [id number] ..[id number] 1965 Unknown [id number] ..[id number] 1965 Unknown [id number] ..[id number] 1965 Unknown [id number] 2.16.8 [id number] 1965 Unknown [id number] 2.16. [id number] 1965 Unknown [id number] 2.16. [id number] 1965 Unknown [id number] 2.16. [id number] 1965 Unknown [id number] 2.16. [id number] 1965 Unknown [id number] 2.16. [id number] 1965 Unknown [id number] 2.16. [id number] 1965 Unknown [id number] 2.16. [id number] 1959 Unknown [id number] Problems Problem Classification Problem Date Documented Da [...] 12-28-19 ABSOLUTE BASOPHIL 0.0 X10E9/L Normal 0.0-0.[address] [facility] Comment on above: Performed By: #### C EWELINA, CMP, 29767-9, THYR #### [facility] ([id number]) [address], [address] [place] [address] ABSOLUTE NEUTROPHIL 3.3 X10E9/L Normal 1.5-6.6 [facility] Comment on above: Performed By: #### C EWELINA, CMP, 17452-5, THYR #### [facility] ([id number]) [address], [address] [place] [address] Basophils/100 WBC (Bld) 0.8 % Normal [facility] Comment on above: Performed By: #### C EWELINA, CMP, 23001-2, THYR #### [facility] ([id number]) [address], [address] [place] [address] Eosinophils (Bld) [#/Vol] 0.1 10*3/uL Normal 0.0-0.4 [facility] Comment on above: Performed By: #### C EWELINA, CMP, 54701-5, THYR #### [facility] ([id number]) [address], [address] [place] [address] Eosinophils/100 WBC (Bld) 2.3 % Normal [facility] Comment on above: Performed By: #### C WEELINA CMP, 81718-6, THYR #### [facility] ([id number]) [address], [address] [place] [address] Erythrocyte distribution width (RBC) [Ratio] 13.3 % Normal 11.5-15.0 [facility] Comment on above: Performed By: #### C BCA, CMP, 36895-4, THYR #### [facility] ([id number]) [address], [address] [place] [address] Hematocrit (Bld) [Volume fraction] 41.1 % Normal 35-47 [facility] Comment on above: Performed By: #### C BCA, CMP, 03404-1, THYR #### [facility] ([id number]) [address], [address] [place] [address] Hemoglobin (Bld) [Mass/Vol] 13.9 g/dL Normal 11.7-15.5 [facility] Comment on above: Performed By: #### C EWELINA CMP, 74356-7, THYR #### [facility] ([id number]) [address], [address] [place] [address] Lymphocytes (Bld) [#/Vol] 2.1 10*3/uL Normal 1.0-3.5 [facility] Comment on above: Performed By: #### C EWELINA, CMP, 36617-8, THYR #### [facility] ([id number]) [address], [facility] [address] [place] [address] Lymphocytes/100 WBC (Bld) 34.0 % Normal [facility] Comment on above: Performed By: #### C EWELINA, CMP, 01474-9, THYR #### [facility] ([id number]) [address], [address] [place] [address] MCH (RBC) [Entitic mass] 33.4 pg Normal 27-34 [facility] Comment on above: Performed By: #### C EWELINA CMP, 90017-5, THYR #### [facility] ([id number]) [address], [address] [place] [address] MCHC (RBC) [Mass/Vol] 33.7 g/dL Normal 32-36 [facility] Comment on above: Performed By: #### C BCA, CMP, 02411-8, THYR #### [facility] ([id number]) [address], [address] [place] [address] MCV (RBC) [Entitic vol] 99 fL Normal 80-100 [facility] Comment on above: Performed By: #### C BCA CMP, 15499-3, THYR #### [facility] ([id number]) [address], [address] [place] [address] Monocytes (Bld) [#/Vol] 0.5 10*3/uL Normal 0-0.9 [facility] Comment on above: Performed By: #### C BCA, CMP, 62697-5, THYR #### [facility] ([id number]) [address], [address] [place] [address] Monocytes/100 WBC (Bld) 8.1 % Normal [facility] Comment on above: Performed By: #### C BCA, CMP, 94295-8, THYR #### [facility] ([id number]) [address], [address] [place] [address] Neutrophils/100 WBC (Bld) 54.8 % Normal [facility] Comment on above: Performed By: #### C BCA, CMP, 82732-4, THYR #### [facility] ([id number]) [address], [address] [place] [address] Platelet mean volume (Bld) [Entitic vol] 8.2 fL Normal 7-12 [facility] Comment on above: Performed By: #### C BCA, CMP, 30485-3, THYR #### [facility] ([id number]) [address], [address] [place] [address] Platelets (Bld) [#/Vol] 398 10*3/uL Normal 150-450 [facility] Comment on above: Performed By: #### C BCA, CMP, 19909-5, THYR #### [facility] ([id number]) [address], [address] [place] [address] RBC COUNT 4.15 X10E12/L Normal 3.80-5.20 [facility] Comment on above: Performed By: #### C BCA, CMP, 21757-8, THYR #### [facility] ([id number]) [address], [address] [place] [address] WBC (Bld) [#/Vol] 6.1 10*3/uL Normal 4.0-11.0 [facility] Comment on above: Performed By: #### C BCA, CMP, 10501-1, THYR #### [facility] ([id number]) [address], [address] [place] [address] COMPREHENSIVE METABOLIC PANE Riki 12-28-2023 Albumin [Mass/Vol] 4.0 g/dL Normal 3.2-5.3 [facility] Comment on above: Performed By: #### C BCA, CMP, 71173-9, THYR #### [facility] ([id number]) [address], [address] [place] [address] ALP [Catalytic activity/Vol] 56 U/L Normal 39-130 [facility] Comment on above: Performed By: #### C BCA, CMP, 38556-2, THYR #### [facility] ([id number]) [address], [address] [place] [address] ALT [Catalytic activity/Vol] 13 U/L Normal 0-31 [facility] Comment on above: Performed By: #### C BCA, CMP, 62951-1, THYR #### [facility] ([id number]) [address], [address] [place] [address] Anion gap [Moles/Vol] 8 mmol/L Normal 5-15 [facility] Comment on above: Performed By: #### C BCA, CMP, 90623-0, THYR #### [facility] ([id number]) [address], [address] [place] [address] AST [Catalytic activity/Vol] 16 U/L Normal 0-41 [facility] Comment on above: Performed By: #### C BCA, CMP, 62767-7, THYR #### [facility] ([id number]) [address], [address] [place] [address] Bilirubin [Mass/Vol] 0.8 mg/dL Normal 0.3-1.2 [facility] Comment on above: Performed By: #### C BCA, CMP, 79061-9, THYR #### [facility] ([id number]) [address], [address] [place] [address] Calcium [Mass/Vol] 9.2 mg/dL Normal 8.5-10.5 [facility] Comment on above: Performed By: #### C BCA, CMP, 21173-2, THYR #### [facility] ([id number]) [address], [address] [place] [address] Chloride [Moles/Vol] 105 mmol/L Normal 98-109 [facility] Comment on above: Performed By: #### C BCA, CMP, 94971-9, THYR #### [facility] ([id number]) [address], [address] [place] [address] CO2 [Moles/Vol] 29 mmol/L Normal 22-32 [facility] Comment on above: Performed By: #### C BCA, CMP, 01667-3, THYR #### [facility] ([id number]) [address], [address] [place] [address] Creatinine [Mass/Vol] 0.64 mg/dL Normal 0.40-1.00 [facility] Comment on above: Result Comment: METH OD TRACEABLE TO IDMS STANDARD Performed By: #### C BCA, CMP, 42835-1, THYR #### [facility] ([id number]) [address], [address] [place] [address] eGFR (CKD-EPI) NON-RACE DEPENDENT >90 Normal >59 [facility] Comment on above: Result Comment: Reported eGFR is based on the CKD-EPI 2020 equation that does not use a race coefficient. Performed By: #### C LAUREN THEODORE, 29007-9, THYR #### [facility] ([id number]) [address], [address] [place] [address] Glucose [Mass/Vol] 89 mg/dL Normal 65-99 [facility] Comment on above: Performed By: #### C LAUREN THEODORE, 61008-6, THYR #### [facility] ([id number]) [address], [address] [place] [address] Potassium [Moles/Vol] 3.6 mmol/L Normal 3.5-5.0 [facility] Comment on above: Performed By: #### C LAUREN THEODORE, 01191-4, THYR #### [facility] ([id number]) [address], [address] [place] [address] Protein [Mass/Vol] 6.6 g/dL Normal 6.0-8.0 [facility] Comment on above: Performed By: #### C LAUREN THEODORE, 59208-0, THYR #### [facility] ([id number]) [address], [address] [place] [address] Sodium [Moles/Vol] 142 mmol/L Normal 134-146 [facility] Comment on above: Performed By: #### C LAUREN THEODORE, 05374-0, THYR #### [facility] ([id number]) [address], [address] [place] [address] Urea nitrogen [Mass/Vol] 14 mg/dL Normal 5-23 [facility] Comment on above: Performed By: #### C EWELINA, CMP, 26570-3, THYR #### [facility] ([id number]) [address], [address] [place] [address] Lipid 1996 panelon 4 Cholesterol [Mass/Vol] 205 mg/dL High 150-200 [facility] Comment on above: Performed By: #### C EWELINA, CMP, 53042-6, THYR #### [facility] ([id number]) [address], [address] [place] [address] Cholesterol in HDL [Mass/Vol] 63 mg/dL Normal >39 [facility] Comment on above: Result Comment: HDL <40 mg/dL - High Risk HDL > or = 40mg/dL- Desirable HDL >60 mg/dL - Negative Risk Performed By: #### C EWELINA, CMP, 36608-8, THYR #### [facility] ([id number]) [address] [place] [address] Cholesterol in LDL [Mass/Vol] 120 mg/dL Normal <130 [facility] Comment on above: Result Comment: LDL <100 mg/dL - Desirable LDL >160 mg/dL - High Risk Performed By: #### C BCA, CMP, 31290-8, THYR #### [facility] ([id number]) [address], [address] [place] [address] Cholesterol in VLDL [Mass/Vol] 22 mg/dL Normal 0-30 [facility] Comment on above: Performed By: #### Heather THEODORE, CMP, 85427-3, THYR #### [facility] ([id number]) [address], [address] [place] [address] CHOLESTEROL:HDL 3.3 Normal 1.0-5.0 [facility] Comment on above: Performed By: #### Heather BCA, CMP, 74706-7, THYR #### [facility] ([id number]) [address], [address] [place] [address] Triglyceride [Mass/Vol] 111 mg/dL Normal 27-150 [facility] Comment on above: Performed By: #### C LAUREN THEODORE, 29555-5, THYR #### [facility] ([id number]) [address], [address] [place] [address] THYROID PROFILEon 12-28-2023 Free T4 [Mass/Vol] 0.85 ng/dL Normal 0.61-1.60 [facility] Comment on above: Performed By: #### C LAUREN THEODORE, 59390-6, THYR #### [facility] ([id number]) [address], [address] [place] [address] TSH 1.67 uIU/mL Normal 0.49-4.67 [facility] Comment on above: Performed By: #### C LAUREN THEODORE, 68114-1, THYR #### [facility] ([id number]) [address], [address] [place] [address] CT CHEST HI RESOLUTIONon CT CHEST HI [...] BOBBI MCMANUS Date: 2022-06-18 06:43 Normal [facility] HEMOGLOBINon 06-02-2022 Hemoglobin (Bld) [Mass/Vol] 14.0 g/dL Normal 12.0-16.0 [facility] Comment on above: Performed By: #### H GB #### [facility] [address] [address] [address] Hans Pritchett XR CHEST 2 Von [...] BOBBI MCMANUS Date: 2022-05-05 10:56 Normal [facility] Summary Purpose Family History No Family History Records FoundNo Family History Records FoundNo Family History Records Found Advance Directives No Advanced Directives Records FoundNo Advanced Directives Records FoundNo Advanced Directives Records Found Additional Source Comments INFORMATION SOURCE (unrecogn ized section and content) DATE CREATED AUTHOR 07/30/2022 [facility] DATE CREATED AUTHOR AUTHOR'S ORGANIZ ATION 12/29/2023 [facility] DATE CREATED AUTHOR AUTHOR'S ORGANIZ ATION 01/22/2024 [facility] FOR RECORDS PERTAINING TO PATIENTS [...] BE BASED ON THE PRIMARY CLINICAL RECORDS. [facility] [employer] [facility]. provides no warranty or guarantee of the accuracy or completeness of information in this document.
[2024-01-23 06:59] VITALS: BP 160/86; PULSE 68; TEMP 36.6; O2SAT 98
[2024-01-23 07:32] VITALS: BP 180/80; PULSE 67; O2SAT 96
[2024-01-23 07:33] VITALS: BP 169/80; PULSE 63; O2SAT 97
[2024-01-23] MEDS: BUPIVACAINE HCL 0.25% PF 25 MG/10 ML VIAL 4 ML INJ (07:36)
--- NOTE | 2024-01-23 07:36 | W.PM.PROCNOT ---
Date of procedure: 01/23/24 Pre-op diagnosis: Pain due to bilateral sacroiliitis Post-op diagnosis: same as pre-op Procedure: Procedure: Bilateral sacroiliac joint injection Medications: Bupivacaine 0.25% 2cc, kenalog 40mg x2 After informed consent was obtained, the patient was brought to the medical procedure unit and placed in the prone position, when a timeout was completed verifying correct patient, procedure, site, positioning, implant, and/or special equipment.? The skin overlying the area was prepped and draped in standard sterile fashion using alcohol.? A 25-gauge needle was inserted towards the left sacroiliac joint under direct fluoroscopic imaging.? Needle tip was advanced until the joint was encountered.? We instilled a total of 2 mL of solution.? The same procedure was then completed on the right side.? Postoperatively needles were removed.? The patient tolerated the procedure well without complication.? The patient reported reduction in pain symptoms postoperatively. Anesthesia: Local Surgeon: Lucy Fay Pathology: none sent Condition: stable Disposition: no change
[2024-01-23] MEDS: IOHEXOL 240 MG/ML - 10 ML VIAL 12 MG INJ (07:37)
[2024-01-23] MEDS: TRIAMCINOLONE ACETONIDE 40 MG/ML VIAL 80 MG INJ (07:37)
[2024-01-23] MEDS: LIDOCAINE HCL 2% 400 MG/20 ML MDV INJ (07:37)
== END 2024-01-23 07:38 | disposition home or self-care (01) ==
LOC: SURGOUT 06:47
PROVIDERS: PCP Family Medicine; Visit Provider Anesthesiology
DX: M46.1 Sacroiliitis, not elsewhere classified (principal)
CPT/HCPCS: 27096; J0665; J3301; Q9966

== ENCOUNTER 2024-02-22 07:48 | Outpatient (OUT) | payer OTHER, SELFPAY ==
--- NOTE | 2024-02-22 07:51 | P.CN_ITS ---
Consult Note: HPI Data of Consult Patient: known to practice within the last 3 years Consult date: 08/04/23 Requesting Physician: Skyla Marie NP Primary Care Provider: REX LOCK Consult Narrative Reason for consult: F/u Narrative: Velma vincent pleasant 57 year old female presents for evaluation and management of low back pain and bilateral hip pain, failed to respond to greater than 6 weeks of PT, tylenol, and NSAIDs. Pain 3/10 increasing to 5/10 with standing, walking, activity, when sitting too long or changes in the weather. Patient has been utilizing lyrica 50mg BID-TID, flexeril 10mg PRN, and meloxicam 7.5mg BID PRN with benefit. Recently underwent right L4-5 L5-S1 TFESI and bilateral SIJ injection with >80% improvement ongoing. cc:: CC: Skyla Marie NP Review of Systems ROS Status of ROS 10 or more systems reviewed and unremark able except as noted in history and below Musculoskeletal Reports: joint pain PFSH PFSH Medical History Acid reflux ?K21.9 - Gastro-esophageal reflux disease without esophagitis (ICD-10) Asthma ?J45.909 - Unspecified asthma, uncomplicated (ICD-10) Social History Smoking status: Never smoker Meds Home Medications and Allergies Home Medications ?Medication ?Instructions ?Recorded ?Confirmed ?Type alprazolam 0.25 mg tablet 0.25 mg PO DAILY PRN anxiety 03/24/23 01/23/24 History meloxicam 7.5 mg tablet 7.5 mg PO BID PRN pain 08/10/23 01/23/24 History cyclobenzaprine 10 mg tablet 10 mg PO TID PRN muscle spasm #90 01/05/24 01/23/24 Rx tabs pregabalin 50 mg capsule (Lyrica) 50 mg PO TID #90 caps 01/05/24 01/23/24 Rx lisinopril 10 mg tablet mg 01/16/24 History Allergies Allergy/AdvReac Type Severity Reaction Status Date / Time No Known Drug Allergies Allergy Verified 01/23/24 07:08 Exam Constitutional Documenting provider has reviewed patient's vital signs: yes Common normals: no apparent distress, oriented x3, healthy appearing, alert and well nourished General appearance: cooperative HENMT Common normals: normocephalic, hearing grossly normal bilaterally and moist oral mucous membranes Head and scalp: normocephalic Eye Common normals: PERRL Pupil: PERRL Neck & C-Spine Common normals: full ROM General: normal visual inspection Chest Common normals: inspection of chest normal Respiratory Common normals: normal respiratory effort, no retractions and no use of accessory muscles Back & Pelvis Lumbar spine/lower back: normal to inspection, lumbar ROM normal and straight l eg raise negative bilaterally Sacroiliac joints: SI joints normal Other: negative facet loading negative right straight leg raise, sensation intact BLE no pain with left and right FABIR, FADIR, thigh thrust Extremity Common normals: normal to inspection and full ROM Neuro Common normals: oriented x3, CN's II-XII intact bilaterally, moves all extremities, no focal motor deficits, no sensory deficits noted, deep tendon reflexes 2+ bilaterally and gait normal Sensorium/orientation: alert Motor exam: strength 5/5 throughout and no movement abnormalities noted Psych Common normals: mental status grossly normal, thought process normal, cooperative, affect normal, speech normal and activity/motor behavior normal Speech: normal speech Thought process: normal thought process Results Additional Findings Additional findings: If on a controlled substance or opioids, I have checked an [place] report on this patient and there are no aberrancies noted in the prescribing history.??If on a controlled substance or opioid a drug screen was completed and reviewed within the last year, and if there has not been a drug screen completed we ordered one today to monitor higher risk, state monitored pain medication use. As part of providing excellent, safe, comprehensive care, the following was completed at our patient's visit: 1. A medication reconciliation and review to ensure accurate knowledge of current/active medications, including asking our patients to inform us about any pyvn-vvi-bjbowpv medications or herbal remedies/nutritional supplements/alternative remedies. 2. A review to specifically ensure our patients have had annual screening for screening for depression, screening for tobacco use, and screening for unhealthy alcohol use. For concerning screenings had a discussion with the patient, provided patient education, and recommended follow-up with primary care provider when appropriate. If patient noted with a risk of falling, they received education on strength, gait, and balance training to prevent future risk of falling. Assessment and Plan Assessment and Plan (1) Lumbar stenosis with neurogenic claudication: (2) Bilateral sacroiliitis: (3) Lumbar radiculopathy: (4) Lumbar spondylosis: (5) Myofascial pain: Plan refill and continue lyrica 50mg BID-TID as tolerated refill and continue flexeril 10mg BID PRN myofascial pain continue meloxicam 7.5mg BID PRN pain f/u 3 months, sooner if needed
--- OUTSIDE RECORDS SUMMARY | 2024-02-22 07:52 | XMS_ITS | CCD ---
Author Organization [facility] Care Team Providers Care Steersman Name Role Phone SAMSA, CLAUDIA Admitting Unavailable [...] [facility] Primary Care Unavailable Nya MUJICA, Andrius Sawyer Attending Unavailable Gilaverneitis , Andrius Silverio Attending Unavailable Gilaverneitis , Andrius Vytbeck Attending Unavailable Gilaverneitis , Andrius Vytautas Attending Unavailable Giedraitis , Andrius Vytautas Attending Unavailable Gilaverneitis , Andrius Vytautas Attending Unavailable Gieditis , Andrius Vytautas Attending Unavailable Gieditis , Andrius Vytbeck Attending Unavailable Problems Problem Classification Problem Date [...] 12-28-19 ABSOLUTE BASOPHIL 0.0 X10E9/L Normal 0.0-0.2 [place] Comment on above: Performed By: #### Heather THEODORE CMP, 11417-9, THYR #### [facility] ([id number]) [address], [address] [place] [address] ABSOLUTE NEUTROPHIL 3.3 X10E9/L Normal 1.5-6.6 [facility] Comment on above: Performed By: #### Heather THEODORE CMP, 89139-4, THYR #### [facility] ([id number]) [address], [address] [place] [address] Basophils/100 WBC (Bld) 0.8 % Normal [facility] Comment on above: Performed By: #### Heather THEODORE CMP, 16125-7, THYR #### [facility] ([id number]) [address], [address] [place] [address] Eosinophils (Bld) [#/Vol] 0.1 10*3/uL Normal 0.0-0.4 [facility] Comment on above: Performed By: #### Heather THEODORE CMP, 26532-3, THYR #### [facility] ([id number]) [address], [address] [place] [address] Eosinophils/100 WBC (Bld) 2.3 % Normal [facility] Comment on above: Performed By: #### Heather THEODORE CMP, 36784-4, THYR #### [facility] ([id number]) [address] [place] [address] Erythrocyte distribution width (RBC) [Ratio] 13.3 % Normal 11.5-15.0 [facility] Comment on above: Performed By: #### C LAUREN THEODORE, 43693-3, THYR #### [facility] ([id number]) [address], [facility] [address] [place] [address] Hematocrit (Bld) [Volume fraction] 41.1 % Normal 35-47 [facility] Comment on above: Performed By: #### C LAUREN THEODORE, 04772-9, THYR #### [facility] ([id number]) [address] [address] [place] [address] Hemoglobin (Bld) [Mass/Vol] 13.9 g/dL Normal 11.7-15.5 [facility] Comment on above: Performed By: #### C LAUREN THEODORE, 30102-3, THYR #### [facility] ([id number]) [address] [address] [place] [address] Lymphocytes (Bld) [#/Vol] 2.1 10*3/uL Normal 1.0-3.5 [facility] Comment on above: Performed By: #### C LAUREN THEODORE, 22519-2, THYR #### [facility] ([id number]) [address] [place] [address] Lymphocytes/100 WBC (Bld) 34.0 % Normal [facility] Comment on above: Performed By: #### C EWELINA CMP, 37484-8, THYR #### [facility] ([id number]) [address] [address] [place] [address] MCH (RBC) [Entitic mass] 33.4 pg Normal 27-34 [facility] Comment on above: Performed By: #### C BCA CMP, 59927-0, THYR #### [facility] ([id number]) [address] [place] [address] MCHC (RBC) [Mass/Vol] 33.7 g/dL Normal 32-36 [facility] Comment on above: Performed By: #### C BCA, CMP, 02120-6, THYR #### [facility] ([id number]) [address] [place] [address] MCV (RBC) [Entitic vol] 99 fL Normal 80-100 [facility] Comment on above: Performed By: #### C BCA, CMP, 70342-3, THYR #### [facility] ([id number]) [address] [place] [address] Monocytes (Bld) [#/Vol] 0.5 10*3/uL Normal 0-0.9 [facility] Comment on above: Performed By: #### C BCA, CMP, 48979-2, THYR #### [facility] ([id number]) [address] [place] [address] Monocytes/100 WBC (Bld) 8.1 % Normal [facility] Comment on above: Performed By: #### C BCA, CMP, 00865-8, THYR #### [facility] ([id number]) [address] [place] [address] Neutrophils/100 WBC (Bld) 54.8 % Normal [facility] Comment on above: Performed By: #### C BCA, CMP, 18858-3, THYR #### [facility] ([id number]) [address] [place] [address] Platelet mean volume (Bld) [Entitic vol] 8.2 fL Normal 7-12 [facility] Comment on above: Performed By: #### C BCA, CMP, 85806-4, THYR #### [facility] ([id number]) [address] [place] [address] Platelets (Bld) [#/Vol] 398 10*3/uL Normal 150-450 [facility] Comment on above: Performed By: #### C BCA, CMP, 58323-6, THYR #### [facility] ([id number]) [address] [place] [address] RBC COUNT 4.15 X10E12/L Normal 3.80-5.20 [facility] Comment on above: Performed By: #### C BCA, CMP, 00272-3, THYR #### [facility] ([id number]) [address] [place] [address] WBC (Bld) [#/Vol] 6.1 10*3/uL Normal 4.0-11.0 [place] Comment on above: Performed By: #### C BCA, CMP, 08469-5, THYR #### [facility] ([id number]) [address] [place] [address] COMPREHENSIVE METABOLIC PANE Riki 12-28-2023 Albumin [Mass/Vol] 4.0 g/dL Normal 3.2-5.3 [place] Comment on above: Performed By: #### C BCA, CMP, 30946-3, THYR #### [facility] ([id number]) [address] [place] [address] ALP [Catalytic activity/Vol] 56 U/L Normal 39-130 [facility] Comment on above: Performed By: #### C BCA, CMP, 45247-9, THYR #### [facility] ([id number]) [address] [place] [address] ALT [Catalytic activity/Vol] 13 U/L Normal 0-31 [facility] Comment on above: Performed By: #### C BCA, CMP, 03596-6, THYR #### [facility] ([id number]) [address] [place] [address] Anion gap [Moles/Vol] 8 mmol/L Normal 5-15 [facility] Comment on above: Performed By: #### C BCA, CMP, 75336-2, THYR #### [facility] ([id number]) [address] [place] [address] AST [Catalytic activity/Vol] 16 U/L Normal 0-41 [facility] Comment on above: Performed By: #### C BCA, CMP, 65430-3, THYR #### [facility] ([id number]) [address] [place] [address] Bilirubin [Mass/Vol] 0.8 mg/dL Normal 0.3-1.2 [facility] Comment on above: Performed By: #### C BCA, CMP, 10043-4, THYR #### [facility] ([id number]) [address] [place] [address] Calcium [Mass/Vol] 9.2 mg/dL Normal 8.5-10.5 [place] Comment on above: Performed By: #### C BCA, CMP, 25341-8, THYR #### [facility] ([id number]) [address] [place] [address] Chloride [Moles/Vol] 105 mmol/L Normal 98-109 [facility] Comment on above: Performed By: #### C BCA, CMP, 83735-4, THYR #### [facility] ([id number]) [address] [place] [address] CO2 [Moles/Vol] 29 mmol/L Normal 22-32 [facility] Comment on above: Performed By: #### C BCA, CMP, 39939-3, THYR #### [facility] ([id number]) [address] [place] [address] Creatinine [Mass/Vol] 0.64 mg/dL Normal 0.40-1.00 [facility] Comment on above: Result Comment: METH OD TRACEABLE TO IDMS STANDARD Performed By: #### C EWELINA CMP, 55151-8, THYR #### [facility] ([id number]) [address] [place] [address] eGFR (CKD-EPI) NON-RACE DEPENDENT >90 Normal >59 [facility] Comment on above: Result Comment: Reported eGFR is based on the CKD-EPI 2020 equation that does not use a race coefficient. Performed By: #### C EWELINA CMP, 74704-3, THYR #### [facility] ([id number]) [address] [address] [place] [address] Glucose [Mass/Vol] 89 mg/dL Normal 65-99 [place] Comment on above: Performed By: #### C EWELINA CMP, 88714-9, THYR #### [facility] ([id number]) [address] [address] [place] [address] Potassium [Moles/Vol] 3.6 mmol/L Normal 3.5-5.0 [facility] Comment on above: Performed By: #### C EWELINA CMP, 27565-6, THYR #### [facility] ([id number]) [address] [address] [place] [address] Protein [Mass/Vol] 6.6 g/dL Normal 6.0-8.0 [place] Comment on above: Performed By: #### C BCA, CMP, 38219-7, THYR #### [facility] ([id number]) [address] [address] [place] [address] Sodium [Moles/Vol] 142 mmol/L Normal 134-146 [place] Comment on above: Performed By: #### C BCA, CMP, 77253-5, THYR #### [facility] ([id number]) [address] [place] [address] Urea nitrogen [Mass/Vol] 14 mg/dL Normal 5-23 [facility] Comment on above: Performed By: #### Heather THEODORE, CMP, 28416-3, THYR #### [facility] ([id number]) [address] [place] [address] Lipid 1996 panelon 4 Cholesterol [Mass/Vol] 205 mg/dL High 150-200 [facility] Comment on above: Performed By: #### Heather THEODORE, CMP, 04134-2, THYR #### [facility] ([id number]) [address], [facility] [address] [place] [address] Cholesterol in HDL [Mass/Vol] 63 mg/dL Normal >39 [facility] Comment on above: Result Comment: HDL <40 mg/dL - High Risk HDL > or = 40mg/dL- Desirable HDL >60 mg/dL - Negative Risk Performed By: #### Heather THEODORE, CMP, 98790-4, THYR #### [facility] ([id number]) [address] [place] [address] Cholesterol in LDL [Mass/Vol] 120 mg/dL Normal <130 [facility] Comment on above: Result Comment: LDL <100 mg/dL - Desirable LDL >160 mg/dL - High Risk Performed By: #### Heather BCA, CMP, 02822-8, THYR #### [facility] ([id number]) [address] [address] [place] [address] Cholesterol in VLDL [Mass/Vol] 22 mg/dL Normal 0-30 [facility] Comment on above: Performed By: #### Heather THEODORE CMP, 50401-1, THYR #### [facility] ([id number]) [address] [address] [place] [address] CHOLESTEROL:HDL 3.3 Normal 1.0-5.0 [facility] Comment on above: Performed By: #### Heather THEODORE CMP, 12204-4, THYR #### [facility] ([id number]) [address] [address] [place] [address] Triglyceride [Mass/Vol] 111 mg/dL Normal 27-150 [facility] Comment on above: Performed By: #### Heather THEODORE CMP, 12379-2, THYR #### [facility] ([id number]) [address] [address] THYROID PROFILEon 12-28-2023 Free T4 [Mass/Vol] 0.85 ng/dL Normal 0.61-1.60 [place] Comment on above: Performed By: #### Heather THEODORE, CMP, 44358-3, THYR #### [facility] ([id number]) [address] [address] [place] [address] TSH 1.67 uIU/mL Normal 0.49-4.67 [facility] Comment on above: Performed By: #### Heather BCA, CMP, 78090-1, THYR #### [facility] ([id number]) [address] [address] [place] [address] CT CHEST HI RESOLUTIONon CT CHEST HI [...] by: BOBBI MCMANUS Date: 2022-06-18 06:43 Normal [facility] HEMOGLOBINon 06-02-2022 Hemoglobin (Bld) [Mass/Vol] 14.0 g/dL Normal 12.0-16.0 [facility] Comment on above: Performed By: #### H GB #### [facility] [address] [address] [address] Hans Pritchett XR CHEST 2 Von [...] by: BOBBI MCMANUS Date: 2022-05-05 10:56 Normal [facility] Encounters Encounter Date Encounter Type Care Provider Facility Start: 01-23-2024 End: 01-23-2024 ambulatory Lucy Fay MD Facility:[facility] Start: 01-16-2024 End: 01-16-2024 ambulatory Lucy Fay MD Facility:[facility] Start: 12-28-2023 End: 12-29-2023 ambulatory [facility] Start: 12-28-2023 Encounter for genera l adult medical examination without abnormal findings [facility] Start: 08-29-2023 End: 08-29-2023 ambulatory Andrius Terryytautas Kingitis Facility: She Start: 08-15-2023 End: 08-15-2023 ambulatory Andrius Terryytautas Gilaverneitis Facility: She Start: 07-04-2023 End: 07-04-2023 ambulatory Andrius Vytautas Emilyeditis Facility: She Start: 06-06-2023 End: 06-06-2023 ambulatory Andrius Terryytautas Emilyedraitis Facility: She Start: 05-23-2023 End: 05-23-2023 ambulatory Andrius Terryytautas Rondaraitis Facility: She Start: 04-18-2023 End: 04-18-2023 ambulatory Andrius Terryytautas Emilyedraitis Facility: She Start: 07-27-2022 End: 07-28-2022 ambulatory [facility] Facility:[facility] Start: 06-22-2022 End: 06-23-2022 ambulatory [facility] Facility:[facility] Start: 06-17-2022 End: 06-18-2022 ambulatory [facility] Facility:[facility] Start: 06-02-2022 End: 06-03-2022 ambulatory [facility] Facility:[facility] Start: 05-05-2022 End: 05-06-2022 ambulatory [facility] Facility:[facility] Payers Date Payer Category Payer Private Health Insurance 1965 Unknown [id number] 1965 Unknown [id number] 1965 Unknown [id number] [id number] 1965 Unknown [id number] 1965 Unknown [id number] 2.16.84 [id number] 1965 Unknown [id number] 2.16.8 40.1.010558.3.579.2.1286 1965 Unknown [id number] 2.16. 840.1.336904.3.579.2.196 1965 Unknown [id number] 2.16. 840.1.925464.3.579.2.196 1965 Unknown [id number] 2.16. 840.1.103199.3.579.2.196 1965 Unknown [id number] 2.16. 840.1.469101.3.579.2.196 1965 Unknown [id number] 2.16. 840.1.925767.3.579.2.196 1965 Unknown [id number] 2.16. 840.1.635490.3.579.2.196 1965 Unknown [id number] 2.16. 840.1.235088.3.579.2.196 1965 Unknown [id number] 2.16. 840.1.874783.3.579.2.196 1959 Unknown [id number] Summary Purpose Family History No Family History Records FoundNo Family History Records FoundNo Family History Records Found Advance Directives No Advanced Directives Records FoundNo Advanced Directives Records FoundNo Advanced Directives Records Found Additional Source Comments INFORMATION SOURCE (unrecogn ized section and content) DATE CREATED AUTHOR 07/30/2022 [facility] DATE CREATED AUTHOR AUTHOR'S ORGANIZ ATION 12/29/2023 [facility] DATE CREATED AUTHOR AUTHOR'S ORGANIZ ATION 01/25/2024 [facility] FOR RECORDS PERTAINING TO PATIENTS WHO [...] BE BASED ON THE PRIMARY CLINICAL RECORDS. [facility] [employer] [facility]. provides no warranty or guarantee of the accuracy or completeness of information in this document.
== END 2024-02-22 07:49 | disposition home or self-care (01) ==
LOC: PM 07:49
PROVIDERS: PCP Family Medicine; Visit Provider Nurse Practitioner
DX: M48.062 Spinal stenosis, lumbar region with neurogenic claudication (principal); M46.1 Sacroiliitis, not elsewhere classified; M54.16 Radiculopathy, lumbar region; M47.816 Spondylosis without myelopathy or radiculopathy, lumbar region; M79.18 Myalgia, other site
CPT/HCPCS: G0463

== ENCOUNTER 2024-08-30 07:53 | Outpatient (OUT) | payer OTHER, SELFPAY ==
--- OUTSIDE RECORDS SUMMARY | 2024-08-30 07:56 | XMS_ITS | CCD ---
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 Name Role Phone SAMSA, CLAUDIA Admitting [...] 12-28-19 ABSOLUTE BASOPHIL 0.0 X10E9/L Normal 0.0-0.2 [facility] Comment on above: Performed By: #### Heather THEODORE CMP, 96750-1, THYR #### [facility] ([id number]) [address], [address] [place] [address] ABSOLUTE NEUTROPHIL 3.3 X10E9/L Normal 1.5-6.6 [facility] Comment on above: Performed By: #### Heather THEODORE CMP, 33503-7, THYR #### [facility] ([id number]) [address], [address] [place] [address] Basophils/100 WBC (Bld) 0.8 % Normal [facility] Comment on above: Performed By: #### Heather THEODORE CMP, 63450-5, THYR #### [facility] ([id number]) [address], [address] [place] [address] Eosinophils (Bld) [#/Vol] 0.1 10*3/uL Normal 0.0-0.4 [facility] Comment on above: Performed By: #### Heather THEODORE CMP, 63086-2, THYR #### [facility] ([id number]) [address], [address] [place] [address] Eosinophils/100 WBC (Bld) 2.3 % Normal [facility] Comment on above: Performed By: #### Heather THEODORE CMP, 71272-5, THYR #### [facility] ([id number]) [address], [address] [place] [address] Erythrocyte distribution width (RBC) [Ratio] 13.3 % Normal 11.5-15.0 [facility] Comment on above: Performed By: #### C LAUREN THEODORE, 11031-4, THYR #### [facility] ([id number]) [address], [facility] [address] [place] [address] Hematocrit (Bld) [Volume fraction] 41.1 % Normal 35-47 [facility] Comment on above: Performed By: #### C LAUREN THEODORE, 40835-8, THYR #### [facility] ([id number]) [address] [address] [place] [address] Hemoglobin (Bld) [Mass/Vol] 13.9 g/dL Normal 11.7-15.5 [facility] Comment on above: Performed By: #### C LAUREN THEODORE, 68893-7, THYR #### [facility] ([id number]) [address] [address] [place] [address] Lymphocytes (Bld) [#/Vol] 2.1 10*3/uL Normal 1.0-3.5 [facility] Comment on above: Performed By: #### C LAUREN THEODORE, 36519-8, THYR #### [facility] ([id number]) [address], [address] [place] [address] Lymphocytes/100 WBC (Bld) 34.0 % Normal [facility] Comment on above: Performed By: #### C EWELINA CMP, 80443-3, THYR #### [facility] ([id number]) [address] [address] [place] [address] MCH (RBC) [Entitic mass] 33.4 pg Normal 27-34 [facility] Comment on above: Performed By: #### C BCA CMP, 10478-8, THYR #### [facility] ([id number]) [address], [address] [place] [address] MCHC (RBC) [Mass/Vol] 33.7 g/dL Normal 32-36 [facility] Comment on above: Performed By: #### C BCA, CMP, 09533-2, THYR #### [facility] ([id number]) [address], [address] [place] [address] MCV (RBC) [Entitic vol] 99 fL Normal 80-100 [facility] Comment on above: Performed By: #### C BCA, CMP, 57895-7, THYR #### [facility] ([id number]) [address], [address] [place] [address] Monocytes (Bld) [#/Vol] 0.5 10*3/uL Normal 0-0.9 [facility] Comment on above: Performed By: #### C BCA, CMP, 30329-4, THYR #### [facility] ([id number]) [address], [address] [place] [address] Monocytes/100 WBC (Bld) 8.1 % Normal [facility] Comment on above: Performed By: #### C BCA, CMP, 98137-5, THYR #### [facility] ([id number]) [address], [address] [place] [address] Neutrophils/100 WBC (Bld) 54.8 % Normal [facility] Comment on above: Performed By: #### C BCA, CMP, 80045-5, THYR #### [facility] ([id number]) [address], [address] [place] [address] Platelet mean volume (Bld) [Entitic vol] 8.2 fL Normal 7-12 [facility] Comment on above: Performed By: #### C BCA, CMP, 33685-2, THYR #### [facility] ([id number]) [address], [address] [place] [address] Platelets (Bld) [#/Vol] 398 10*3/uL Normal 150-450 [facility] Comment on above: Performed By: #### C BCA, CMP, 40348-6, THYR #### [facility] ([id number]) [address], [address] [place] [address] RBC COUNT 4.15 X10E12/L Normal 3.80-5.20 [facility] Comment on above: Performed By: #### C BCA, CMP, 35415-5, THYR #### [facility] ([id number]) [address], [address] [place] [address] WBC (Bld) [#/Vol] 6.1 10*3/uL Normal 4.0-11.0 [facility] Comment on above: Performed By: #### C BCA, CMP, 35856-0, THYR #### [facility] ([id number]) [address], [address] [place] [address] COMPREHENSIVE METABOLIC PANE Riki 12-28-2023 Albumin [Mass/Vol] 4.0 g/dL Normal 3.2-5.3 [facility] Comment on above: Performed By: #### C BCA, CMP, 93667-1, THYR #### [facility] ([id number]) [address], [address] [place] [address] ALP [Catalytic activity/Vol] 56 U/L Normal 39-130 [facility] Comment on above: Performed By: #### C BCA, CMP, 02999-7, THYR #### [facility] ([id number]) [address], [address] [place] [address] ALT [Catalytic activity/Vol] 13 U/L Normal 0-31 [facility] Comment on above: Performed By: #### C BCA, CMP, 02223-7, THYR #### [facility] ([id number]) [address], [address] [place] [address] Anion gap [Moles/Vol] 8 mmol/L Normal 5-15 [facility] Comment on above: Performed By: #### C BCA, CMP, 38999-9, THYR #### [facility] ([id number]) [address], [address] [place] [address] AST [Catalytic activity/Vol] 16 U/L Normal 0-41 [facility] Comment on above: Performed By: #### C BCA, CMP, 49209-7, THYR #### [facility] ([id number]) [address], [address] [place] [address] Bilirubin [Mass/Vol] 0.8 mg/dL Normal 0.3-1.2 [facility] Comment on above: Performed By: #### C BCA, CMP, 04054-6, THYR #### [facility] ([id number]) [address], [address] [place] [address] Calcium [Mass/Vol] 9.2 mg/dL Normal 8.5-10.5 [facility] Comment on above: Performed By: #### C BCA, CMP, 20589-0, THYR #### [facility] ([id number]) [address], [address] [place] [address] Chloride [Moles/Vol] 105 mmol/L Normal 98-109 [facility] Comment on above: Performed By: #### C BCA, CMP, 92082-3, THYR #### [facility] ([id number]) [address], [address] [place] [address] CO2 [Moles/Vol] 29 mmol/L Normal 22-32 [facility] Comment on above: Performed By: #### C BCA, CMP, 69254-7, THYR #### [facility] ([id number]) [address], [address] [place] [address] Creatinine [Mass/Vol] 0.64 mg/dL Normal 0.40-1.00 [facility] Comment on above: Result Comment: METH OD TRACEABLE TO IDMS STANDARD Performed By: #### C EWELINA CMP, 43106-8, THYR #### [facility] ([id number]) [address], [address] [place] [address] eGFR (CKD-EPI) NON-RACE DEPENDENT >90 Normal >59 [facility] Comment on above: Result Comment: Reported eGFR is based on the CKD-EPI 2020 equation that does not use a race coefficient. Performed By: #### C EWELINA CMP, 29216-6, THYR #### [facility] ([id number]) [address] [address] [place] [address] Glucose [Mass/Vol] 89 mg/dL Normal 65-99 [facility] Comment on above: Performed By: #### C EWELINA CMP, 17879-8, THYR #### [facility] ([id number]) [address] [place] [address] Potassium [Moles/Vol] 3.6 mmol/L Normal 3.5-5.0 [facility] Comment on above: Performed By: #### C EWELINA CMP, 27349-8, THYR #### [facility] ([id number]) [address] [address] [place] [address] Protein [Mass/Vol] 6.6 g/dL Normal 6.0-8.0 [facility] Comment on above: Performed By: #### C BCA, CMP, 59147-2, THYR #### [facility] ([id number]) [address] [address] [place] [address] Sodium [Moles/Vol] 142 mmol/L Normal 134-146 [facility] Comment on above: Performed By: #### C BCA, CMP, 44686-6, THYR #### [facility] ([id number]) [address], [address] [place] [address] Urea nitrogen [Mass/Vol] 14 mg/dL Normal 5-23 [facility] Comment on above: Performed By: #### Heather THEODORE, CMP, 54764-6, THYR #### [facility] ([id number]) [address], [address] [place] [address] Lipid 1996 panelon 4 Cholesterol [Mass/Vol] 205 mg/dL High 150-200 [facility] Comment on above: Performed By: #### Heather THEODORE, CMP, 65635-0, THYR #### [facility] ([id number]) [address], [facility] [address] [place] [address] Cholesterol in HDL [Mass/Vol] 63 mg/dL Normal >39 [facility] Comment on above: Result Comment: HDL <40 mg/dL - High Risk HDL > or = 40mg/dL- Desirable HDL >60 mg/dL - Negative Risk Performed By: #### Heather THEODORE, CMP, 76379-4, THYR #### [facility] ([id number]) [address], [address] [place] [address] Cholesterol in LDL [Mass/Vol] 120 mg/dL Normal <130 [facility] Comment on above: Result Comment: LDL <100 mg/dL - Desirable LDL >160 mg/dL - High Risk Performed By: #### Heather BCA, CMP, 71288-1, THYR #### [facility] ([id number]) [address] [address] [place] [address] Cholesterol in VLDL [Mass/Vol] 22 mg/dL Normal 0-30 [facility] Comment on above: Performed By: #### Heather THEODORE CMP, 82795-1, THYR #### [facility] ([id number]) [address] [address] [place] [address] CHOLESTEROL:HDL 3.3 Normal 1.0-5.0 [facility] Comment on above: Performed By: #### Heather THEODORE CMP, 96950-4, THYR #### [facility] ([id number]) [address] [address] [place] [address] Triglyceride [Mass/Vol] 111 mg/dL Normal 27-150 [facility] Comment on above: Performed By: #### Heather THEODORE CMP, 84916-1, THYR #### [facility] ([id number]) [address] [address] THYROID PROFILEon 12-28-2023 Free T4 [Mass/Vol] 0.85 ng/dL Normal 0.61-1.60 [facility] Comment on above: Performed By: #### Heather THEODORE, CMP, 38664-1, THYR #### [facility] ([id number]) [address] [address] [place] [address] TSH 1.67 uIU/mL Normal 0.49-4.67 [facility] Comment on above: Performed By: #### Heather BCA, CMP, 61484-7, THYR #### [facility] ([id number]) [address] [address] [place] [address] CT CHEST HI RESOLUTIONon CT CHEST HI [...] by: BOBBI MCMANUS Date: 2022-06-18 06:43 Normal [facility] HEMOGLOBINon 06-02-2022 Hemoglobin (Bld) [Mass/Vol] 14.0 g/dL Normal 12.0-16.0 [facility] Comment on above: Performed By: #### H GB #### [facility] [address] [address] [address] Hans Pritchett XR CHEST 2 Von [...] by: BOBBI MCMANUS Date: 2022-05-05 10:56 Normal [facility] Encounters Encounter Date Encounter Type Care Provider Facility Start: 01-23-2024 End: 01-23-2024 ambulatory Lucy Fay MD Facility:[facility] Start: 01-16-2024 End: 01-16-2024 ambulatory Lucy Fay MD Facility:[facility] Start: 12-28-2023 End: 12-29-2023 ambulatory [facility] Start: 12-28-2023 Encounter for genera l adult medical examination without abnormal findings [facility] Start: 08-29-2023 End: 08-29-2023 ambulatory Andrius Terryytautas [...] Facility: She Start: 07-27-2022 End: 07-28-2022 ambulatory [facility] Facility:[facility] Start: 06-22-2022 End: 06-23-2022 ambulatory [facility] Facility:[facility] Start: 06-17-2022 End: 06-18-2022 ambulatory [facility] Facility:[facility] Start: 06-02-2022 End: 06-03-2022 ambulatory [facility] Facility:[facility] Start: 05-05-2022 End: 05-06-2022 ambulatory [facility] Facility:[facility] Payers Date Payer Category Payer Private Health Insurance 1965 Unknown [id number] 1965 Unknown [id number] [id number] 1965 Unknown [id number] 1965 Unknown [id number] [id number] 1965 Unknown [id number] 2.16.84 0.1.217289.3.579.2.593 1965 Unknown [id number] 2.16.8 40.1.368191.3.579.2.1286 1965 Unknown [id number] 2.16. [id number] 1965 Unknown [id number] 2.16. [id number] 1965 Unknown [id number] 2.16. [id number] 1965 Unknown [id number] 2.16. 840.1.859748.3.579.2.196 1965 Unknown [id number] 2.16. 840.1.871258.3.579.2.196 1965 Unknown [id number] 2.16. 840.1.015528.3.579.2.196 1965 Unknown [id number] 2.16. 840.1.568874.3.579.2.196 1965 Unknown [id number] 2.16. [id number] 1959 Unknown [id number] Summary Purpose Family History No Family History Records FoundNo Family History Records FoundNo Family History Records Found Advance Directives No Advanced Directives Records FoundNo Advanced Directives Records FoundNo Advanced Directives Records Found Additional Source Comments INFORMATION SOURCE (unrecogn ized section and content) DATE CREATED AUTHOR 07/30/2022 [facility] DATE CREATED AUTHOR AUTHOR'S ORGANIZ ATION 12/29/[address] [facility] DATE CREATED AUTHOR AUTHOR'S ORGANIZ ATION 01/25/2024 [facility] FOR RECORDS PERTAINING TO PATIENTS [...] BE BASED ON THE PRIMARY CLINICAL RECORDS. [facility] [employer] [facility]. provides no warranty or guarantee of the accuracy or completeness of information in this document.
--- NOTE | 2024-08-30 08:19 | PM.CN ---
Consult Note: HPI Data of Consult Patient: known to practice within the last 3 years Requesting Physician: Skyla Marie NP Primary Care Provider: REX LOCK Consult Narrative Reason for consult: f/u Narrative: Velma vincent pleasant 59 year old female presents for evaluation and management of chronic back and SIJ pain. longstanding hx of pain secondary to lumbar stenosis with NC, lumbar spondylosis and sacroilitis. pt has failed >6 weeks of provider guided HEP, heat/ice, tylenol, motrin and aleve. currently utilizing mobic and flexeril with relief without side effects. pain today 7/10 increasing to 10/10 with work, sitting, standing, walking, sleeping. significant deep aching pain without numbness tingling or weakness of BLE. previous injections have provided moderate to significant relief, most recently underwent bilateral SIJ injection with >50% improvement in pain and functional ability for 5 months but has since worn off. cc:: CC: Skyla Marie NP Review of Systems ROS Status of ROS 10 or more systems reviewed and unremarkable except as noted in history and below Musculoskeletal Reports: back pain and joint pain; Denies: extremity pain PFSH PFSH Medical History Acid reflux ?K21.9 - Gastro-esophageal reflux disease without esophagitis (ICD-10) Asthma ?J45.909 - Unspecified asthma, uncomplicated (ICD-10) Social History Smoking status: Never smoker Meds Home Medications and Allergies Home Medications ?Medication ?Instructions ?Recorded ?Confirmed ?Type alprazolam 0.25 mg tablet 0.25 mg PO DAILY PRN anxiety 03/24/23 01/23/24 History meloxicam 7.5 mg tablet 7.5 mg PO BID PRN pain 08/10/23 01/23/24 History cyclobenzaprine 10 mg tablet 10 mg PO TID PRN muscle spasm #90 01/05/24 01/23/24 Rx tabs pregabalin 50 mg capsule (Lyrica) 50 mg PO TID #90 caps 01/05/24 01/23/24 Rx lisinopril 10 mg tablet mg 01/16/24 History Allergies Allergy/AdvReac Type Severity Reaction Status Date / Time No Known Drug Allergies Allergy Verified 01/23/24 07:08 Exam Constitutional Documenting provider has reviewed patient's vital signs: yes Common normals: no apparent distress, oriented x3, healthy appearing, alert and well nourished General appearance: cooperative HENMT Common normals: normocephalic, hearing grossly normal bilaterally and moist oral mucous membranes Head and scalp: normocephalic Eye Common normals: PERRL Pupil: PERRL Neck & C-Spine Common normals: full ROM General: normal visual inspection Chest Common normals: inspection of chest normal Respiratory Common normals: normal respiratory effort, no retractions and no use of accessory muscles Back & Pelvis Lumbar spine/lower back: ROM limited, pain with ROM and straight leg raise negative bilaterally Sacroiliac joints: SI joint(s) abnormal Other: positive lumbar facet loading negative radiculopathy strength 5/5 in BLE bilateral positive katelynn(patricks), gaenslens, thigh thrust, compression test Neuro Common normals: oriented x3, CN's II-XII intact bilaterally, moves all extremities, no focal motor deficits, no sensory deficits noted and deep tendon reflexes 2+ bilaterally Sensorium/orientation: alert Motor exam: strength 5/5 throughout and no movement abnormalities noted Psych Common normals: mental status grossly normal, thought process normal, cooperative, affect normal, speech normal and activity/motor behavior normal Speech: normal speech Thought process: normal thought process Results Additional Findings Additional findings: If on a controlled substance or opioids, I have checked an [place] report on this patient and there are no aberrancies noted in the prescribing history.??If on a controlled substance or opioid a drug screen was completed and reviewed within the last year, and if there has not been a drug screen completed we ordered one today to monitor higher risk, state monitored pain medication use. As part of providing excellent, safe, comprehensive care, the following was completed at our patient's visit: 1. A medication reconciliation and review to ensure accurate knowledge of current/active medications, including asking our patients to inform us about any kvdg-jfq-twwytco medications or herbal remedies/nutritional supplements/alternative remedies. 2. A review to specifically ensure our patients have had annual screening for screening for depression, screening for tobacco use, and screening for unhealthy alcohol use. For concerning screenings had a discussion with the patient, provided patient education, and recommended follow-up with primary care provider when appropriate. If patient noted with a risk of falling, they received education on strength, gait, and balance training to prevent future risk of falling. Portions of this note may have been carried over from the previous visit and updated as appropriate. Please note this office utilizes paper charting in addition to the electronic medical record. A list of current medications, vitals, and PMH is available there as the clinical staff outside of myself do not have access to [employer] charting during the clinic day operations. As part of providing quality comprehensive care the current medications, vitals, and PMH were reviewed in the paper chart. Assessment and Plan Assessment and Plan (1) Bilateral sacroiliitis: (2) Lumbar stenosis with neurogenic claudication: (3) Lumbar spondylosis: Plan repeat bilateral SIJ injection under fluoroscopy, risks vs benefits reviewed continue current medications continue HEP as tolerated f/u after injection
== END 2024-08-30 07:54 | disposition home or self-care (01) ==
PROVIDERS: PCP Family Medicine; Visit Provider Nurse Practitioner
DX: M46.1 Sacroiliitis, not elsewhere classified (principal); M48.062 Spinal stenosis, lumbar region with neurogenic claudication; M47.816 Spondylosis without myelopathy or radiculopathy, lumbar region
CPT/HCPCS: G0463

== ENCOUNTER 2024-09-17 06:48 | Day surgery (SDC) | payer OTHER, SELFPAY ==
--- OUTSIDE RECORDS SUMMARY | 2024-09-17 06:50 | XMS_ITS | CCD ---
Author Organization [facility] Care Team Providers Care Delicatessen Department Manager Name Role Phone SAMSA, CLAUDIA Admitting Unavailable [...] BASOPHIL 0.0 X10E9/L Normal 0.0-0.2 [facility] Comment on above: Performed By: #### Heather THEODORE CMP, 17214-2, THYR #### [facility] ([id number]) [address], [address] [place] [address] ABSOLUTE NEUTROPHIL 3.3 X10E9/L Normal 1.5-6.6 [facility] Comment on above: Performed By: #### Heather THEODORE CMP, 28142-2, THYR #### [facility] ([id number]) [address], [address] [place] [address] Basophils/100 WBC (Bld) 0.8 % Normal [facility] Comment on above: Performed By: #### Heather THEODORE CMP, 95621-4, THYR #### [facility] ([id number]) [address], [address] [place] [address] Eosinophils (Bld) [#/Vol] 0.1 10*3/uL Normal 0.0-0.4 [facility] Comment on above: Performed By: #### Heather THEODORE CMP, 15867-3, THYR #### [facility] ([id number]) [address], [address] [place] [address] Eosinophils/100 WBC (Bld) 2.3 % Normal [facility] Comment on above: Performed By: #### Heather HTEODORE CMP, 07158-4, THYR #### [facility] ([id number]) [address], [address] [place] [address] Erythrocyte distribution width (RBC) [Ratio] 13.3 % Normal 11.5-15.0 [facility] Comment on above: Performed By: #### C LAUREN THEODORE, 55127-0, THYR #### [facility] ([id number]) [address], [facility] [address] [place] [address] Hematocrit (Bld) [Volume fraction] 41.1 % Normal 35-47 [facility] Comment on above: Performed By: #### C LAUREN THEODORE, 90977-6, THYR #### [facility] ([id number]) [address] [address] [place] [address] Hemoglobin (Bld) [Mass/Vol] 13.9 g/dL Normal 11.7-15.5 [facility] Comment on above: Performed By: #### C LAUREN THEODORE, 76377-6, THYR #### [facility] ([id number]) [address] [address] [place] [address] Lymphocytes (Bld) [#/Vol] 2.1 10*3/uL Normal 1.0-3.5 [facility] Comment on above: Performed By: #### C LAUREN THEODORE, 04152-0, THYR #### [facility] ([id number]) [address], [address] [place] [address] Lymphocytes/100 WBC (Bld) 34.0 % Normal [facility] Comment on above: Performed By: #### C EWELINA CMP, 34211-1, THYR #### [facility] ([id number]) [address] [address] [place] [address] MCH (RBC) [Entitic mass] 33.4 pg Normal 27-34 [facility] Comment on above: Performed By: #### C BCA CMP, 13776-8, THYR #### [facility] ([id number]) [address], [address] [place] [address] MCHC (RBC) [Mass/Vol] 33.7 g/dL Normal 32-36 [facility] Comment on above: Performed By: #### C BCA, CMP, 90592-3, THYR #### [facility] ([id number]) [address], [address] [place] [address] MCV (RBC) [Entitic vol] 99 fL Normal 80-100 [facility] Comment on above: Performed By: #### C BCA, CMP, 18036-6, THYR #### [facility] ([id number]) [address], [address] [place] [address] Monocytes (Bld) [#/Vol] 0.5 10*3/uL Normal 0-0.9 [facility] Comment on above: Performed By: #### C BCA, CMP, 40673-3, THYR #### [facility] ([id number]) [address], [address] [place] [address] Monocytes/100 WBC (Bld) 8.1 % Normal [facility] Comment on above: Performed By: #### C BCA, CMP, 25330-5, THYR #### [facility] ([id number]) [address], [address] [place] [address] Neutrophils/100 WBC (Bld) 54.8 % Normal [facility] Comment on above: Performed By: #### C BCA, CMP, 80066-0, THYR #### [facility] ([id number]) [address], [address] [place] [address] Platelet mean volume (Bld) [Entitic vol] 8.2 fL Normal 7-12 [facility] Comment on above: Performed By: #### C BCA, CMP, 59904-4, THYR #### [facility] ([id number]) [address], [address] [place] [address] Platelets (Bld) [#/Vol] 398 10*3/uL Normal 150-450 [facility] Comment on above: Performed By: #### C BCA, CMP, 35834-6, THYR #### [facility] ([id number]) [address], [address] [place] [address] RBC COUNT 4.15 X10E12/L Normal 3.80-5.20 [facility] Comment on above: Performed By: #### C BCA, CMP, 47998-9, THYR #### [facility] ([id number]) [address], [address] [place] [address] WBC (Bld) [#/Vol] 6.1 10*3/uL Normal 4.0-11.0 [facility] Comment on above: Performed By: #### C BCA, CMP, 66639-4, THYR #### [facility] ([id number]) [address], [address] [place] [address] COMPREHENSIVE METABOLIC PANE Riki 12-28-2023 Albumin [Mass/Vol] 4.0 g/dL Normal 3.2-5.3 [facility] Comment on above: Performed By: #### C BCA, CMP, 25842-9, THYR #### [facility] ([id number]) [address], [address] [place] [address] ALP [Catalytic activity/Vol] 56 U/L Normal 39-130 [facility] Comment on above: Performed By: #### C BCA, CMP, 74025-3, THYR #### [facility] ([id number]) [address], [address] [place] [address] ALT [Catalytic activity/Vol] 13 U/L Normal 0-31 [facility] Comment on above: Performed By: #### C BCA, CMP, 47547-3, THYR #### [facility] ([id number]) [address], [address] [place] [address] Anion gap [Moles/Vol] 8 mmol/L Normal 5-15 [facility] Comment on above: Performed By: #### C BCA, CMP, 91373-0, THYR #### [facility] ([id number]) [address], [address] [place] [address] AST [Catalytic activity/Vol] 16 U/L Normal 0-41 [facility] Comment on above: Performed By: #### C BCA, CMP, 58699-1, THYR #### [facility] ([id number]) [address], [address] [place] [address] Bilirubin [Mass/Vol] 0.8 mg/dL Normal 0.3-1.2 [facility] Comment on above: Performed By: #### C BCA, CMP, 29360-4, THYR #### [facility] ([id number]) [address], [address] [place] [address] Calcium [Mass/Vol] 9.2 mg/dL Normal 8.5-10.5 [facility] Comment on above: Performed By: #### C BCA, CMP, 99369-1, THYR #### [facility] ([id number]) [address], [address] [place] [address] Chloride [Moles/Vol] 105 mmol/L Normal 98-109 [facility] Comment on above: Performed By: #### C BCA, CMP, 86168-7, THYR #### [facility] ([id number]) [address], [address] [place] [address] CO2 [Moles/Vol] 29 mmol/L Normal 22-32 [facility] Comment on above: Performed By: #### C BCA, CMP, 66560-2, THYR #### [facility] ([id number]) [address], [address] [place] [address] Creatinine [Mass/Vol] 0.64 mg/dL Normal 0.40-1.00 [facility] Comment on above: Result Comment: METH OD TRACEABLE TO IDMS STANDARD Performed By: #### C EWELINA CMP, 90683-8, THYR #### [facility] ([id number]) [address], [address] [place] [address] eGFR (CKD-EPI) NON-RACE DEPENDENT >90 Normal >59 [facility] Comment on above: Result Comment: Reported eGFR is based on the CKD-EPI 2020 equation that does not use a race coefficient. Performed By: #### C EWELINA CMP, 45820-1, THYR #### [facility] ([id number]) [address] [address] [place] [address] Glucose [Mass/Vol] 89 mg/dL Normal 65-99 [facility] Comment on above: Performed By: #### C EWELINA CMP, 52849-4, THYR #### [facility] ([id number]) [address] [address] [place] [address] Potassium [Moles/Vol] 3.6 mmol/L Normal 3.5-5.0 [facility] Comment on above: Performed By: #### C EWELINA CMP, 32126-9, THYR #### [facility] ([id number]) [address] [address] [place] [address] Protein [Mass/Vol] 6.6 g/dL Normal 6.0-8.0 [facility] Comment on above: Performed By: #### C BCA, CMP, 52672-8, THYR #### [facility] ([id number]) [address] [address] [place] [address] Sodium [Moles/Vol] 142 mmol/L Normal 134-146 [facility] Comment on above: Performed By: #### C BCA, CMP, 98832-9, THYR #### [facility] ([id number]) [address], [address] [place] [address] Urea nitrogen [Mass/Vol] 14 mg/dL Normal 5-23 [facility] Comment on above: Performed By: #### Heather THEODORE, CMP, 56004-7, THYR #### [facility] ([id number]) [address], [address] [place] [address] Lipid 1996 panelon 4 Cholesterol [Mass/Vol] 205 mg/dL High 150-200 [facility] Comment on above: Performed By: #### Heather THEODORE, CMP, 92459-9, THYR #### [facility] ([id number]) [address], [facility] [address] [place] [address] Cholesterol in HDL [Mass/Vol] 63 mg/dL Normal >39 [facility] Comment on above: Result Comment: HDL <40 mg/dL - High Risk HDL > or = 40mg/dL- Desirable HDL >60 mg/dL - Negative Risk Performed By: #### Heather THEODORE, CMP, 99180-4, THYR #### [facility] ([id number]) [address], [address] [place] [address] Cholesterol in LDL [Mass/Vol] 120 mg/dL Normal <130 [facility] Comment on above: Result Comment: LDL <100 mg/dL - Desirable LDL >160 mg/dL - High Risk Performed By: #### Heather BCA, CMP, 43452-5, THYR #### [facility] ([id number]) [address] [address] [place] [address] Cholesterol in VLDL [Mass/Vol] 22 mg/dL Normal 0-30 [facility] Comment on above: Performed By: #### Heather THEODORE CMP, 18757-2, THYR #### [facility] ([id number]) [address] [address] [place] [address] CHOLESTEROL:HDL 3.3 Normal 1.0-5.0 [facility] Comment on above: Performed By: #### Heather THEODORE CMP, 19781-3, THYR #### [facility] ([id number]) [address] [address] [place] [address] Triglyceride [Mass/Vol] 111 mg/dL Normal 27-150 [facility] Comment on above: Performed By: #### Heather THEODORE CMP, 63786-1, THYR #### [facility] ([id number]) [address] [address] THYROID PROFILEon 12-28-2023 Free T4 [Mass/Vol] 0.85 ng/dL Normal 0.61-1.60 [facility] Comment on above: Performed By: #### Heather THEODORE, CMP, 35941-1, THYR #### [facility] ([id number]) [address] [address] [place] [address] TSH 1.67 uIU/mL Normal 0.49-4.67 [facility] Comment on above: Performed By: #### Heather BCA, CMP, 60673-2, THYR #### [facility] ([id number]) [address] [address] [place] [address] CT CHEST HI RESOLUTION[address] CHEST HI [...] by: BOBBI MCMANUS Date: 2022-06-18 06:43 Normal [facility] HEMOGLOBINon 06-02-2022 Hemoglobin (Bld) [Mass/Vol] 14.0 g/dL Normal 12.0-16.0 [facility] Comment on above: Performed By: #### H GB #### [facility] [address] [address] [address] Hans Pritchett XR CHEST 2 Von [...] by: BOBBI MCMANUS Date: 2022-05-05 10:56 Normal [facility] Encounters Encounter Date Encounter Type Care Provider Facility Start: 01-23-2024 End: 01-23-2024 ambulatory Lucy Fay MD Facility:[facility] Start: 01-16-2024 End: 01-16-2024 ambulatory Lucy Fay MD Facility:[facility] Start: 12-28-2023 End: 12-29-2023 ambulatory [facility] Start: 12-28-2023 Encounter for genera l adult medical examination without abnormal findings [facility] Start: 08-29-2023 End: 08-29-2023 ambulatory Andrius [...] Facility: She Start: 07-27-2022 End: 07-28-2022 ambulatory [facility] Facility:[facility] Start: 06-22-2022 End: 06-23-2022 ambulatory [facility] Facility:[facility] Start: 06-17-2022 End: 06-18-2022 ambulatory [facility] Facility:[facility] Start: 06-02-2022 End: 06-03-2022 ambulatory [facility] Facility:[facility] Start: 05-05-2022 End: 05-06-2022 ambulatory [facility] Facility:[facility] Payers Date Payer Category Payer Private Health Insurance 1965 Unknown [id number] 1965 Unknown [id number] .[id number] [id number] 1965 Unknown [id number] [id number] 1965 Unknown [id number] 0.1.284629.3.579.2.593 1965 Unknown [id number] 2.16.84 0.1.082377.3.579.2.593 1965 Unknown [id number] 2.16.8 [id number] 1965 Unknown [id number] 2.16. 840.1.631700.3.579.2.196 1965 Unknown [id number] 2.16. 840.1.792821.3.579.2.196 1965 Unknown [id number] 2.16. 840.1.028238.3.579.2.196 1965 Unknown [id number] 2.16. 840.1.259921.3.579.2.196 1965 Unknown [id number] 2.16. 840.1.412887.3.579.2.196 1965 Unknown [id number] 2.16. 840.1.445578.3.579.2.196 1965 Unknown [id number] 2.16. 840.1.850150.3.579.2.196 1965 Unknown [id number] 2.16. [id number] 1959 Unknown [id number] Summary Purpose Family History No Family History Records FoundNo Family History Records FoundNo Family History Records Found Advance Directives No Advanced Directives Records FoundNo Advanced Directives Records FoundNo Advanced Directives Records Found Additional Source Comments INFORMATION SOURCE (unrecogn ized section and content) DATE CREATED AUTHOR 07/30/2022 [facility] DATE CREATED AUTHOR AUTHOR'S ORGANIZ ATION 12/29/2023 [facility] DATE CREATED AUTHOR AUTHOR'S ORGANIZ ATION 01/25/2024 [facility] FOR RECORDS PERTAINING TO PATIENTS WHO [...] BE BASED ON THE PRIMARY CLINICAL RECORDS. [facility]. provides no warranty or guarantee of the accuracy or completeness of information in this document.
[2024-09-17 06:51] VITALS: BP 156/98; PULSE 72; TEMP 36.4; O2SAT 98
[2024-09-17 07:53] VITALS: BP 191/86; PULSE 72; O2SAT 98
[2024-09-17 07:54] VITALS: BP 168/81; PULSE 70; O2SAT 99
--- NOTE | 2024-09-17 07:57 | W.PM.PROCNOT ---
Date of procedure: 09/17/24 Pre-op diagnosis: Pain due to bilateral sacroiliitis Post-op diagnosis: same as pre-op Procedure: Procedure: Bilateral sacroiliac joint injection Medications: Bupivacaine 0.25% 3cc, depomedrol 40mg x2 After informed consent was obtained, the patient was brought to the medical procedure unit and placed in the prone position, when a timeout was completed verifying correct patient, procedure, site, positioning, implant, and/or special equipment.? The skin overlying the area was prepped and draped in standard sterile fashion using alcohol.? A 25-gauge needle was inserted towards the left sacroiliac joint under direct fluoroscopic imaging.? Needle tip was advanced until the joint was encountered.? We instilled a total of 2 mL of solution.? The same procedure was then completed on the right side.? Postoperatively needles were removed.? The patient tolerated the procedure well without complication.? The patient reported reduction in pain symptoms postoperatively. Anesthesia: Local Surgeon: Lucy Fay Pathology: none sent Condition: stable Disposition: no change
[2024-09-17] MEDS: BUPIVACAINE HCL 0.25% PF 25 MG/10 ML VIAL 2 ML INJ (07:58)
[2024-09-17] MEDS: IOHEXOL 240 MG/ML - 10 ML VIAL 60 MG INJ (07:59)
[2024-09-17] MEDS: METHYLPREDNISOLONE ACETATE 40 MG/ML VIAL 80 MG INJ (07:59)
[2024-09-17] MEDS: LIDOCAINE HCL 2% 400 MG/20 ML MDV INJ (07:59)
== END 2024-09-17 08:03 | disposition home or self-care (01) ==
PROVIDERS: PCP Family Medicine; Visit Provider Anesthesiology
DX: M46.1 Sacroiliitis, not elsewhere classified (principal)
CPT/HCPCS: 27096; J0665; J1010; Q9966

== ENCOUNTER 2024-10-04 15:02 | Outpatient (OUT) | payer OTHER, SELFPAY ==
--- NOTE | 2024-10-04 16:07 | PM.CN ---
Consult Note: HPI Data of Consult Patient: known to practice within the last 3 years Requesting Physician: Skyla Marie NP Primary Care Provider: REX LOCK Consult Narrative Reason for consult: f/u Narrative: Velma vincent pleasant 59 year old female presents for evaluation and management of chronic back and SIJ pain. longstanding hx of pain secondary to lumbar stenosis with NC, lumbar spondylosis and sacroilitis. pt has failed >6 weeks of provider guided HEP, heat/ice, tylenol, motrin and aleve. currently utilizing mobic and flexeril with relief without side effects. pain today 6/10 increasing to 10/10 with work, sitting, standing, walking, sleeping. recent bilateral SIJ injection providing >50% improvement. cc:: CC: Skyla Marie NP Review of Systems ROS Status of ROS 10 or more systems reviewed and unremarkable except as noted in history and below Musculoskeletal Reports: back pain and joint pain; Denies: extremity pain PFSH PFSH Medical History Acid reflux ?K21.9 - Gastro-esophageal reflux disease without esophagitis (ICD-10) Asthma ?J45.909 - Unspecified asthma, uncomplicated (ICD-10) Social History Smoking status: Never smoker Meds Home Medications and Allergies Home Medications ?Medication ?Instructions ?Recorded ?Confirmed ?Type alprazolam 0.25 mg tablet 0.25 mg PO DAILY PRN anxiety 03/24/23 09/17/24 History meloxicam 7.5 mg tablet 7.5 mg PO BID PRN pain 08/10/23 09/17/24 History cyclobenzaprine 10 mg tablet 10 mg PO TID PRN muscle spasm #90 01/05/24 09/17/24 Rx tabs pregabalin 50 mg capsule (Lyrica) 50 mg PO TID #90 caps 01/05/24 09/17/24 Rx lisinopril 10 mg tablet mg 01/16/24 History Allergies Allergy/AdvReac Type Severity Reaction Status Date / Time No Known Drug Allergies Allergy Verified 09/17/24 07:00 Exam Constitutional Documenting provider has reviewed patient's vital signs: yes Common normals: no apparent distress, oriented x3, healthy appearing, alert and well nourished General appearance: cooperative HENMT Common normals: normocephalic, hearing grossly normal bilaterally and moist oral mucous membranes Head and scalp: normocephalic Eye Common normals: PERRL Pupil: PERRL Neck & C-Spine Common normals: full ROM General: normal visual inspection Chest Common normals: inspection of chest normal Respiratory Common normals: normal respiratory effort, no retractions and no use of accessory muscles Back & Pelvis Lumbar spine/lower back: ROM limited, pain with ROM, straight leg raise positive right and straight leg raise positive left Sacroiliac joints: SI joints normal Other: decreased sensation bilateral L5/S1 strength 4/5 in BLE bilateral negative katelynn(patricks), gaenslens, thigh thrust, compression test increased pain with standing and walking, improved with forward flexion Neuro Common normals: oriented x3, CN's II-XII intact bilaterally, moves all extremities, no focal motor deficits, no sensory deficits noted and deep tendon reflexes 2+ bilaterally Sensorium/orientation: alert Motor exam: strength 5/5 throughout and no movement abnormalities noted Psych Common normals: mental status grossly normal, thought process normal, cooperative, affect normal, speech normal and activity/motor behavior normal Speech: normal speech Thought process: normal thought process Results Additional Findings Additional findings: If on a controlled substance or opioids, I have checked an [place] report on this patient and there are no aberrancies noted in the prescribing history.??If on a controlled substance or opioid a drug screen was completed and reviewed within the last year, and if there has not been a drug screen completed we ordered one today to monitor higher risk, state monitored pain medication use. As part of providing excellent, safe, comprehensive care, the following was completed at our patient's visit: 1. A medication reconciliation and review to ensure accurate knowledge of current/active medications, including asking our patients to inform us about any [id number] medications or herbal remedies/nutritional supplements/alternative remedies. 2. A review to specifically ensure our patients have had annual screening for screening for depression, screening for tobacco use, and screening for unhealthy alcohol use. For concerning screenings had a discussion with the patient, provided patient education, and recommended follow-up with primary care provider when appropriate. If patient noted with a risk of falling, they received education on strength, gait, and balance training to prevent future risk of falling. Portions of this note may have been carried over from the previous visit and updated as appropriate. Please note this office utilizes paper charting in addition to the electronic medical record. A list of current medications, vitals, and PMH is available there as the clinical staff outside of myself do not have access to [employer] charting during the clinic day operations. As part of providing quality comprehensive care the current medications, vitals, and PMH were reviewed in the paper chart. Assessment and Plan Assessment and Plan (1) Bilateral sacroiliitis: (2) Lumbar stenosis with neurogenic claudication: (3) Lumbar spondylosis: Plan bilateral L5-S1 TFESI under fluoroscopy for lumbar stenosis with NC change pregabalin 50-100mg BID as tolerated continue flexeril 10mg TID PRN continue meloxicam 7.5mg BID PRN pain risks vs benefits of treatment plan reviewed with pt, f/u 2 weeks after TFESI
== END 2024-10-04 15:03 | disposition home or self-care (01) ==
LOC: PM 15:03
PROVIDERS: PCP Family Medicine; Visit Provider Nurse Practitioner
DX: M46.1 Sacroiliitis, not elsewhere classified (principal); M48.062 Spinal stenosis, lumbar region with neurogenic claudication; M47.816 Spondylosis without myelopathy or radiculopathy, lumbar region
CPT/HCPCS: G0463

== ENCOUNTER 2024-10-22 06:43 | Day surgery (SDC) | payer OTHER, SELFPAY ==
--- OUTSIDE RECORDS SUMMARY | 2024-10-22 06:46 | XMS_ITS | CCD ---
Author Organization [facility]iniSyn[facility] Care Team Providers Care Provisioning Specialist Name Role Phone SAMSA, CLAUDIA Admitting Unavailable [...] Flynn Consulting Unavailable SAMSA, CLAUDIA Consulting Unavailable HAYDE, REX Referring Unavailable REX LOCK Primary Care Unavailable Nya MUJICA, Lucy Sawyer Attending Unavailable Nya MUJICA, Lucy Sawyer Attending Unavailable Nya MUJICA, Lucy Sawyer Attending Unavailable Problems Problem Classification Problem [...] 12-28-19 ABSOLUTE BASOPHIL 0.0 X10E9/L Normal 0.0-0.2 [facility] Comment on above: Performed By: #### C LAUREN THEODORE, 93812-7, THYR #### [facility] ([id number]) [address], [address] [place] [address] ABSOLUTE NEUTROPHIL 3.3 X10E9/L Normal 1.5-6.6 [facility] Comment on above: Performed By: #### Heather THEODORE CMP, 08800-9, THYR #### [facility] ([id number]) [address], [address] [place] [address] Basophils/100 WBC (Bld) 0.8 % Normal [facility] Comment on above: Performed By: #### Heather THEODORE CMP, 41825-1, THYR #### [facility] ([id number]) [address], [address] [place] [address] Eosinophils (Bld) [#/Vol] 0.1 10*3/uL Normal 0.0-0.4 [facility] Comment on above: Performed By: #### Heather THEODORE CMP, 33444-7, THYR #### [facility] ([id number]) [address], [address] [place] [address] Eosinophils/100 WBC (Bld) 2.3 % Normal [facility] Comment on above: Performed By: #### Heather THEODORE CMP, 80952-2, THYR #### [facility] ([id number]) [address], [address] [place] [address] Erythrocyte distribution width (RBC) [Ratio] 13.3 % Normal 11.5-15.0 [facility] Comment on above: Performed By: #### Heather THEODORE CMP, 97646-4, THYR #### [facility] ([id number]) [address] [address] [place] [address] Hematocrit (Bld) [Volume fraction] 41.1 % Normal 35-47 [facility] Comment on above: Performed By: #### C EWELINA CMP, 82984-9, THYR #### [facility] ([id number]) [address], [address] [place] [address] Hemoglobin (Bld) [Mass/Vol] 13.9 g/dL Normal 11.7-15.5 [facility] Comment on above: Performed By: #### C EWELINA, CMP, 82879-6, THYR #### [facility] ([id number]) [address] [address] [place] [address] Lymphocytes (Bld) [#/Vol] 2.1 10*3/uL Normal 1.0-3.5 [facility] Comment on above: Performed By: #### C EWELINA, CMP, 68069-9, THYR #### [facility] ([id number]) [address], [facility] [address] [place] [address] Lymphocytes/100 WBC (Bld) 34.0 % Normal [facility] Comment on above: Performed By: #### C EWELINA CMP, 35379-1, THYR #### [facility] ([id number]) [address], [address] [place] [address] MCH (RBC) [Entitic mass] 33.4 pg Normal 27-34 [facility] Comment on above: Performed By: #### C BCA, CMP, 42482-4, THYR #### [facility] ([id number]) [address], [address] [place] [address] MCHC (RBC) [Mass/Vol] 33.7 g/dL Normal 32-36 [facility] Comment on above: Performed By: #### C BCA, CMP, 26602-9, THYR #### [facility] ([id number]) [address], [address] [place] [address] MCV (RBC) [Entitic vol] 99 fL Normal 80-100 [facility] Comment on above: Performed By: #### C BCA, CMP, 48400-3, THYR #### [facility] ([id number]) [address], [address] [place] [address] Monocytes (Bld) [#/Vol] 0.5 10*3/uL Normal 0-0.9 [facility] Comment on above: Performed By: #### C BCA, CMP, 69232-1, THYR #### [facility] ([id number]) [address], [address] [place] [address] Monocytes/100 WBC (Bld) 8.1 % Normal [facility] Comment on above: Performed By: #### C BCA, CMP, 23931-9, THYR #### [facility] ([id number]) [address], [address] [place] [address] Neutrophils/100 WBC (Bld) 54.8 % Normal [facility] Comment on above: Performed By: #### Heather BCA, CMP, 00329-7, THYR #### [facility] ([id number]) [address], [address] [place] [address] Platelet mean volume (Bld) [Entitic vol] 8.2 fL Normal 7-12 [facility] Comment on above: Performed By: #### C BCA, CMP, 92470-5, THYR #### [facility] ([id number]) [address], [address] [place] [address] Platelets (Bld) [#/Vol] 398 10*3/uL Normal 150-450 [facility] Comment on above: Performed By: #### C BCA, CMP, 21483-3, THYR #### [facility] ([id number]) [address], [address] [place] [address] RBC COUNT 4.15 X10E12/L Normal 3.80-5.20 [facility] Comment on above: Performed By: #### C BCA, CMP, 73904-0, THYR #### [facility] ([id number]) [address], [address] [place] [address] WBC (Bld) [#/Vol] 6.1 10*3/uL Normal 4.0-11.0 [facility] Comment on above: Performed By: #### C BCA, CMP, 63432-7, THYR #### [facility] ([id number]) [address], [address] [place] [address] COMPREHENSIVE METABOLIC PANE Riki 12-28-2023 Albumin [Mass/Vol] 4.0 g/dL Normal 3.2-5.3 [facility] Comment on above: Performed By: #### C BCA, CMP, 92302-8, THYR #### [facility] ([id number]) [address], [address] [place] [address] ALP [Catalytic activity/Vol] 56 U/L Normal 39-130 [facility] Comment on above: Performed By: #### C BCA, CMP, 60420-4, THYR #### [facility] ([id number]) [address], [address] [place] [address] ALT [Catalytic activity/Vol] 13 U/L Normal 0-31 [facility] Comment on above: Performed By: #### C BCA, CMP, 54789-5, THYR #### [facility] ([id number]) [address], [address] [place] [address] Anion gap [Moles/Vol] 8 mmol/L Normal 5-15 [facility] Comment on above: Performed By: #### C BCA, CMP, 51534-7, THYR #### [facility] ([id number]) [address], [address] [place] [address] AST [Catalytic activity/Vol] 16 U/L Normal 0-41 [facility] Comment on above: Performed By: #### C BCA, CMP, 16880-4, THYR #### [facility] ([id number]) [address], [address] [place] [address] Bilirubin [Mass/Vol] 0.8 mg/dL Normal 0.3-1.2 [facility] Comment on above: Performed By: #### C BCA, CMP, 95725-8, THYR #### [facility] ([id number]) [address], [address] [place] [address] Calcium [Mass/Vol] 9.2 mg/dL Normal 8.5-10.5 [facility] Comment on above: Performed By: #### C BCA, CMP, 98535-8, THYR #### [facility] ([id number]) [address], [address] [place] [address] Chloride [Moles/Vol] 105 mmol/L Normal 98-109 [facility] Comment on above: Performed By: #### C BCA, CMP, 04991-2, THYR #### [facility] ([id number]) [address], [address] [place] [address] CO2 [Moles/Vol] 29 mmol/L Normal 22-32 [facility] Comment on above: Performed By: #### C BCA, CMP, 24799-6, THYR #### [facility] ([id number]) [address], [address] [place] [address] Creatinine [Mass/Vol] 0.64 mg/dL Normal 0.40-1.00 [facility] Comment on above: Result Comment: METH OD TRACEABLE TO IDMS STANDARD Performed By: #### C BCA, CMP, 38746-8, THYR #### [facility] ([id number]) [address], [address] [place] [address] eGFR (CKD-EPI) NON-RACE DEPENDENT >90 Normal >59 [facility] Comment on above: Result Comment: Reported eGFR is based on the CKD-EPI 2020 equation that does not use a race coefficient. Performed By: #### C LAUREN THEODORE, 98009-7, THYR #### [facility] ([id number]) [address], [address] [place] [address] Glucose [Mass/Vol] 89 mg/dL Normal 65-99 [facility] Comment on above: Performed By: #### C LAUREN THEODORE, 88884-6, THYR #### [facility] ([id number]) [address] [address] [place] [address] Potassium [Moles/Vol] 3.6 mmol/L Normal 3.5-5.0 [facility] Comment on above: Performed By: #### C LAUREN THEODORE, 77945-0, THYR #### [facility] ([id number]) [address], [address] [place] [address] Protein [Mass/Vol] 6.6 g/dL Normal 6.0-8.0 [facility] Comment on above: Performed By: #### C LAUREN THEODORE, 02107-9, THYR #### [facility] ([id number]) [address], [address] [place] [address] Sodium [Moles/Vol] 142 mmol/L Normal 134-146 [facility] Comment on above: Performed By: #### C LAUREN THEODORE, 30445-9, THYR #### [facility] ([id number]) [address], [address] [place] [address] Urea nitrogen [Mass/Vol] 14 mg/dL Normal 5-23 [facility] Comment on above: Performed By: #### Heather THEODORE, CMP, 91870-2, THYR #### [facility] ([id number]) [address], [address] [place] [address] Lipid 1996 panelon 4 Cholesterol [Mass/Vol] 205 mg/dL High 150-200 [facility] Comment on above: Performed By: #### Heather THEODORE, CMP, 49467-4, THYR #### [facility] ([id number]) [address], [address] [place] [address] Cholesterol in HDL [Mass/Vol] 63 mg/dL Normal >39 [facility] Comment on above: Result Comment: HDL <40 mg/dL - High Risk HDL > or = 40mg/dL- Desirable HDL >60 mg/dL - Negative Risk Performed By: #### Heather THEODORE, CMP, 55835-5, THYR #### [facility] ([id number]) [address], [address] [place] [address] Cholesterol in LDL [Mass/Vol] 120 mg/dL Normal <130 [facility] Comment on above: Result Comment: LDL <100 mg/dL - Desirable LDL >160 mg/dL - High Risk Performed By: #### Heather THEODORE, CMP, 29988-6, THYR #### [facility] ([id number]) [address], [address] [place] [address] Cholesterol in VLDL [Mass/Vol] 22 mg/dL Normal 0-30 [facility] Comment on above: Performed By: #### Heather BCA, CMP, 91233-5, THYR #### [facility] ([id number]) [address], [address] [place] [address] CHOLESTEROL:HDL 3.3 Normal 1.0-5.0 [facility] Comment on above: Performed By: #### C LAUREN THEODORE, 61283-6, THYR #### [facility] ([id number]) [address], [facility] [address] [place] [address] Triglyceride [Mass/Vol] 111 mg/dL Normal 27-150 [facility] Comment on above: Performed By: #### C LAUREN THEODORE, 18244-9, THYR #### [facility] ([id number]) [address], [facility] [address] [place] [address] THYROID PROFILEon 12-28-2023 Free T4 [Mass/Vol] 0.85 ng/dL Normal 0.61-1.60 [facility] Comment on above: Performed By: #### Heather THEODORE CMP, 69983-8, THYR #### [facility] ([id number]) [address], [address] [place] [address] TSH 1.67 uIU/mL Normal 0.49-4.67 [facility] Comment on above: Performed By: #### Heather THEODORE CMP, 34528-3, THYR #### [facility] ([id number]) [address], [address] [place] [address] CT CHEST HI RESOLUTIONon CT CHEST HI [...] by: BOBBI MCMANUS Date: 2022-06-18 06:43 Normal [facility] HEMOGLOBINon 06-02-2022 Hemoglobin (Bld) [Mass/Vol] 14.0 g/dL Normal 12.0-16.0 [facility] Comment on above: Performed By: #### H GB #### [facility] [address] [place] [address] Dr. Hans Pritchett XR CHEST 2 Von [...] by: BOBBI MCMANUS Date: 2022-05-05 10:56 Normal [facility] Encounters Encounter Date Encounter Type Care Provider Facility Start: 09-17-2024 End: 09-17-2024 ambulatory Lucy Fay MD Facility:[facility] Start: 01-23-2024 End: 01-23-2024 ambulatory Lucy Fay MD Facility:[facility] Start: 01-16-2024 End: 01-16-2024 ambulatory Lucy Fay MD Facility:[facility] Start: 12-28-2023 End: 12-29-2023 ambulatory [facility] Start: 12-28-2023 Encounter for genera l adult medical examination without abnormal findings [facility] Start: 07-27-2022 End: 07-28-2022 ambulatory [facility] Facility:[facility] Start: 06-22-2022 End: 06-23-2022 ambulatory [facility] Facility:[facility] Start: 06-17-2022 End: 06-18-2022 ambulatory [facility] Facility:[facility] Start: 06-02-2022 End: 06-03-2022 ambulatory [facility] Facility:[facility] Start: 05-05-2022 End: 05-06-2022 ambulatory [facility] Facility:[facility] Payers Date Payer Category Payer Private Health Insurance 1965 Unknown [id number] 2.16.84 [id number] 1965 Unknown [id number] 2.16.84 [id number] 1965 Unknown [id number] 2.16.84 [id number] 1965 Unknown [id number] 2.16.84 [id number] 1965 Unknown [id number] 2.16.84 [id number] 1965 Unknown [id number] 2.16.8 [id number] 1965 Unknown [id number] 2.16. [id number] 1965 Unknown [id number] 2.16. [id number] 1965 Unknown [id number] 2.16. [id number] 1959 Unknown [id number] Summary Purpose Family History No Family History Records FoundNo Family History Records FoundNo Family History Records Found Advance Directives No Advanced Directives Records FoundNo Advanced Directives Records FoundNo Advanced Directives Records Found Additional Source Comments INFORMATION SOURCE (unrecogn ized section and content) DATE CREATED AUTHOR 07/30/2022 [facility] DATE CREATED AUTHOR AUTHOR'S ORGANIZ ATION 12/29/2023 [facility] DATE CREATED AUTHOR AUTHOR'S ORGANIZ ATION 09/22/2024 [facility] FOR RECORDS PERTAINING TO PATIENTS WHO [...] BE BASED ON THE PRIMARY CLINICAL RECORDS. [facility] [employer] provides no warranty or guarantee of the accuracy or completeness of information in this document.
[2024-10-22 06:52] VITALS: BP 154/94; PULSE 67; TEMP 36.8; O2SAT 95
[2024-10-22 07:54] VITALS: BP 156/93; PULSE 63; O2SAT 100
[2024-10-22 07:55] VITALS: BP 151/89; PULSE 64; O2SAT 97
[2024-10-22] MEDS: 0.9 % SODIUM CHLORIDE 10 ML SYRINGE - SALINE FLUSH INJ (07:56)
[2024-10-22] MEDS: METHYLPREDNISOLONE ACETATE 80 MG/ML VIAL INJ (07:57)
[2024-10-22] MEDS: BUPIVACAINE HCL 0.25% PF 25 MG/10 ML VIAL INJ (07:57)
[2024-10-22] MEDS: LIDOCAINE HCL 2% 400 MG/20 ML MDV 5 ML INJ (07:58)
[2024-10-22] MEDS: IOHEXOL 240 MG/ML - 10 ML VIAL INJ (07:58)
--- NOTE | 2024-10-22 07:59 | W.PM.PROCNOT ---
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 Informed consent was obtained and placed on the chart.? Patient was brought to the medical procedure unit and placed in the prone position where a timeout was completed verifying the correct patient, procedure site, position, and planned special equipment using sterile aseptic technique.? Under direct fluoroscopic visualization a 25-gauge Quincke tipped spinal needle was advanced at level left L5-S1 to the designated neural foramen where contrast dye was injected to show adequate spread.? There was no evidence of vascular or adverse uptake.? Epidural spread was appreciated.? The above-mentioned injectate was then placed in a 1.5 mL aliquot preceded by negative aspiration.? The needle was removed. The same procedure, at the same level, was completed on the opposite side. ? Patient was taken to the postprocedural recovery area and monitored for an appropriate length of time before found suitable for discharge in the accompaniment of a responsible adult. Anesthesia: Local Surgeon: Lucy Fay Pathology: none sent Condition: stable Disposition: no change
== END 2024-10-22 08:18 | disposition home or self-care (01) ==
PROVIDERS: PCP Family Medicine; Visit Provider Anesthesiology
DX: M48.062 Spinal stenosis, lumbar region with neurogenic claudication (principal); M54.50 Low back pain, unspecified
CPT/HCPCS: 64483; J0665; J1010; Q9966

== ENCOUNTER 2024-10-29 15:19 | Outpatient (OUT) | payer OTHER, SELFPAY ==
--- OUTSIDE RECORDS SUMMARY | 2024-10-29 15:59 | XMS_ITS | CCD ---
Author Organization [facility] Care Team Providers Care Stitcher Operator Name Role Phone SAMSA, CLAUDIA Admitting [...] MUJICA, Lucy Sawyer Attending Unavailable Nya MUJICA, Andomarus Silverio [...] ABSOLUTE BASOPHIL 0.0 X10E9/L Normal 0.0-0.2 [facility] Comment on above: Performed By: #### C LAUREN THEODORE, 70732-5, THYR #### [facility] ([id number]) [address], [address] [place] [address] ABSOLUTE NEUTROPHIL 3.3 X10E9/L Normal 1.5-6.6 [facility] Comment on above: Performed By: #### Heather THEODORE CMP, 65360-6, THYR #### [facility] ([id number]) [address], [address] [place] [address] Basophils/100 WBC (Bld) 0.8 % Normal [facility] Comment on above: Performed By: #### Heather THEODORE CMP, 97866-6, THYR #### [facility] ([id number]) [address], [address] [place] [address] Eosinophils (Bld) [#/Vol] 0.1 10*3/uL Normal 0.0-0.4 [facility] Comment on above: Performed By: #### Heather THEODORE CMP, 98090-1, THYR #### [facility] ([id number]) [address], [address] [place] [address] Eosinophils/100 WBC (Bld) 2.3 % Normal [facility] Comment on above: Performed By: #### Heather THEODORE CMP, 57504-3, THYR #### [facility] ([id number]) [address], [address] [place] [address] Erythrocyte distribution width (RBC) [Ratio] 13.3 % Normal 11.5-15.0 [facility] Comment on above: Performed By: #### C LAUREN THEODORE, 80680-9, THYR #### [facility] ([id number]) [address], [address] [place] [address] Hematocrit (Bld) [Volume fraction] 41.1 % Normal 35-47 [facility] Comment on above: Performed By: #### C LAUREN THEODORE, 59586-9, THYR #### [facility] ([id number]) [address], [address] [place] [address] Hemoglobin (Bld) [Mass/Vol] 13.9 g/dL Normal 11.7-15.5 [facility] Comment on above: Performed By: #### Heather THEODORE CMP, 44990-0, THYR #### [facility] ([id number]) [address], [address] [place] [address] Lymphocytes (Bld) [#/Vol] 2.1 10*3/uL Normal 1.0-3.5 [facility] Comment on above: Performed By: #### Heather THEODORE CMP, 91062-8, THYR #### [facility] ([id number]) [address], [address] [place] [address] Lymphocytes/100 WBC (Bld) 34.0 % Normal [facility] Comment on above: Performed By: #### Heather THEODORE CMP, 92428-0, THYR #### [facility] ([id number]) [address], [address] [place] [address] MCH (RBC) [Entitic mass] 33.4 pg Normal 27-34 [facility] Comment on above: Performed By: #### C EWELINA CMP, 97458-0, THYR #### [facility] ([id number]) [address], [address] [place] [address] MCHC (RBC) [Mass/Vol] 33.7 g/dL Normal 32-36 [facility] Comment on above: Performed By: #### C EWELINA, CMP, 65051-8, THYR #### [facility] ([id number]) [address], [address] [place] [address] MCV (RBC) [Entitic vol] 99 fL Normal 80-100 [facility] Comment on above: Performed By: #### C EWELINA, CMP, 43018-0, THYR #### [facility] ([id number]) [address], [address] [place] [address] Monocytes (Bld) [#/Vol] 0.5 10*3/uL Normal 0-0.9 [facility] Comment on above: Performed By: #### Heather THEODORE, CMP, 52576-5, THYR #### [facility] ([id number]) [address], [address] [place] [address] Monocytes/100 WBC (Bld) 8.1 % Normal [facility] Comment on above: Performed By: #### Heather BCA, CMP, 23724-0, THYR #### [facility] ([id number]) [address], [address] [place] [address] Neutrophils/100 WBC (Bld) 54.8 % Normal [facility] Comment on above: Performed By: #### Heather THEODORE, CMP, 08138-2, THYR #### [facility] ([id number]) [address], [address] [place] [address] Platelet mean volume (Bld) [Entitic vol] 8.2 fL Normal 7-12 [facility] Comment on above: Performed By: #### Heather BCA, CMP, 61617-5, THYR #### [facility] ([id number]) [address], [address] [place] [address] Platelets (Bld) [#/Vol] 398 10*3/uL Normal 150-450 [facility] Comment on above: Performed By: #### C BCA, CMP, 03878-1, THYR #### [facility] ([id number]) [address], [address] [place] [address] RBC COUNT 4.15 X10E12/L Normal 3.80-5.20 [facility] Comment on above: Performed By: #### C BCA, CMP, 18780-9, THYR #### [facility] ([id number]) [address], [address] [place] [address] WBC (Bld) [#/Vol] 6.1 10*3/uL Normal 4.0-11.0 [facility] Comment on above: Performed By: #### C BCA, CMP, 50263-9, THYR #### [facility] ([id number]) [address], [address] [place] [address] COMPREHENSIVE METABOLIC PANE Riki 12-28-2023 Albumin [Mass/Vol] 4.0 g/dL Normal 3.2-5.3 [facility] Comment on above: Performed By: #### C BCA, CMP, 62184-4, THYR #### [facility] ([id number]) [address], [address] [place] [address] ALP [Catalytic activity/Vol] 56 U/L Normal 39-130 [facility] Comment on above: Performed By: #### C BCA, CMP, 74310-9, THYR #### [facility] ([id number]) [address], [address] [place] [address] ALT [Catalytic activity/Vol] 13 U/L Normal 0-31 [facility] Comment on above: Performed By: #### C BCA, CMP, 17540-8, THYR #### [facility] ([id number]) [address], [address] [place] [address] Anion gap [Moles/Vol] 8 mmol/L Normal 5-15 [facility] Comment on above: Performed By: #### C BCA, CMP, 50656-3, THYR #### [facility] ([id number]) [address], [address] [place] [address] AST [Catalytic activity/Vol] 16 U/L Normal 0-41 [facility] Comment on above: Performed By: #### C BCA, CMP, 58883-2, THYR #### [facility] ([id number]) [address], [address] [place] [address] Bilirubin [Mass/Vol] 0.8 mg/dL Normal 0.3-1.2 [facility] Comment on above: Performed By: #### C BCA, CMP, 35889-4, THYR #### [facility] ([id number]) [address], [address] [place] [address] Calcium [Mass/Vol] 9.2 mg/dL Normal 8.5-10.5 [facility] Comment on above: Performed By: #### C BCA, CMP, 64354-1, THYR #### [facility] ([id number]) [address], [address] [place] [address] Chloride [Moles/Vol] 105 mmol/L Normal 98-109 [facility] Comment on above: Performed By: #### C BCA, CMP, 19582-1, THYR #### [facility] ([id number]) [address], [address] [place] [address] CO2 [Moles/Vol] 29 mmol/L Normal 22-32 [facility] Comment on above: Performed By: #### C BCA, CMP, 49108-7, THYR #### [facility] ([id number]) [address], [address] [place] [address] Creatinine [Mass/Vol] 0.64 mg/dL Normal 0.40-1.00 [facility] Comment on above: Result Comment: METH OD TRACEABLE TO IDMS STANDARD Performed By: #### C LAUREN THEODORE, 96917-3, THYR #### [facility] ([id number]) [address], [address] [place] [address] eGFR (CKD-EPI) NON-RACE DEPENDENT >90 Normal >59 [facility] Comment on above: Result Comment: Reported eGFR is based on the CKD-EPI 2020 equation that does not use a race coefficient. Performed By: #### C LAUREN THEODORE, 85259-4, THYR #### [facility] ([id number]) [address], [address] [place] [address] Glucose [Mass/Vol] 89 mg/dL Normal 65-99 [facility] Comment on above: Performed By: #### C LAUREN THEODORE, 92184-1, THYR #### [facility] ([id number]) [address], [address] [place] [address] Potassium [Moles/Vol] 3.6 mmol/L Normal 3.5-5.0 [facility] Comment on above: Performed By: #### C LAUREN THEODORE, 17338-3, THYR #### [facility] ([id number]) [address], [address] [place] [address] Protein [Mass/Vol] 6.6 g/dL Normal 6.0-8.0 [facility] Comment on above: Performed By: #### C LAUREN THEODORE, 42395-6, THYR #### [facility] ([id number]) [address], [address] [place] [address] Sodium [Moles/Vol] 142 mmol/L Normal 134-146 [facility] Comment on above: Performed By: #### C EWELINA CMP, 31082-7, THYR #### [facility] ([id number]) [address], [address] [place] [address] Urea nitrogen [Mass/Vol] 14 mg/dL Normal 5-23 [facility] Comment on above: Performed By: #### Heather THEODORE, LAUREN, 80683-6, THYR #### [facility] ([id number]) [address], [address] [place] [address] Lipid 1996 panelon 4 Cholesterol [Mass/Vol] 205 mg/dL High 150-200 [facility] Comment on above: Performed By: #### Heather THEODORE, LAUREN, 61330-7, THYR #### [facility] ([id number]) [address], [address] [place] [address] Cholesterol in HDL [Mass/Vol] 63 mg/dL Normal >39 [facility] Comment on above: Result Comment: HDL <40 mg/dL - High Risk HDL > or = 40mg/dL- Desirable HDL >60 mg/dL - Negative Risk Performed By: #### Heather THEODORE, LAUREN, 63738-3, THYR #### [facility] ([id number]) [address], [address] [place] [address] Cholesterol in LDL [Mass/Vol] 120 mg/dL Normal <130 [facility] Comment on above: Result Comment: LDL <100 mg/dL - Desirable LDL >160 mg/dL - High Risk Performed By: #### Heather THEODORE, LAUREN, 82167-7, THYR #### [facility] ([id number]) [address], [address] [place] [address] Cholesterol in VLDL [Mass/Vol] 22 mg/dL Normal 0-30 [facility] Comment on above: Performed By: #### Heather THEODORE, CMP, 59094-1, THYR #### [facility] ([id number]) [address], [address] [place] [address] CHOLESTEROL:HDL 3.3 Normal 1.0-5.0 [facility] Comment on above: Performed By: #### C EWELINA CMP, 24807-6, THYR #### [facility] ([id number]) [address], [facility] [address] [place] [address] Triglyceride [Mass/Vol] 111 mg/dL Normal 27-150 [facility] Comment on above: Performed By: #### C LAUREN THEODORE, 65179-9, THYR #### [facility] ([id number]) [address] [address] THYROID PROFILEon 12-28-2023 Free T4 [Mass/Vol] 0.85 ng/dL Normal 0.61-1.60 [facility] Comment on above: Performed By: #### Heather THEODORE CMP, 70280-1, THYR #### [facility] ([id number]) [address], [address] [address] TSH 1.67 uIU/mL Normal 0.49-4.67 [facility] Comment on above: Performed By: #### Heather THEODORE CMP, 78688-6, THYR #### [facility] ([id number]) [address], [address] [address] [address] CHEST HI RESOLUTIONon CT CHEST HI [...] by: BOBBI MCMANUS Date: 2022-06-18 06:43 Normal [facility] HEMOGLOBINon 06-02-2022 Hemoglobin (Bld) [Mass/Vol] 14.0 g/dL Normal 12.0-16.0 [facility] Comment on above: Performed By: #### H GB #### [facility] [address] [place] [address] Dr. Hans Pritchett XR CHEST 2 Von [...] by: BOBBI MCMANUS Date: 2022-05-05 10:56 Normal [facility] Encounters Encounter Date Encounter Type Care Provider Facility Start: 10-22-2024 End: 10-22-2024 ambulatory Lucy Fay MD Facility:[facility] Start: 09-17-2024 End: 09-17-2024 ambulatory Lucy Fay MD Facility:[facility] Start: 01-23-2024 End: 01-23-2024 ambulatory Lucy Fay MD Facility:[facility] Start: 01-16-2024 End: 01-16-2024 ambulatory Lucy Fay MD Facility:[facility] Start: 12-28-2023 End: 12-29-2023 ambulatory [facility] Start: 12-28-2023 Encounter for genera l adult medical examination without abnormal findings [facility] Start: 07-27-2022 End: 07-28-2022 ambulatory [facility] Facility:[facility] Start: 06-22-2022 End: 06-23-2022 ambulatory [facility] Facility:[facility] Start: 06-17-2022 End: 06-18-2022 ambulatory [facility] Facility:[facility] Start: 06-02-2022 End: 06-03-2022 ambulatory [facility] Facility:[facility] Start: 05-05-2022 End: 05-06-2022 ambulatory [facility] Facility:[facility] Payers Date Payer Category Payer Private Health Insurance 1965 Unknown [id number] 2.16.84 [id number] 1965 Unknown [id number] 2.16.84 [id number] 1965 Unknown [id number] 2.16.84 [id number] 1965 Unknown [id number] 2.16.84 [id number] 1965 Unknown [id number] 2.16.84 [id number] 1965 Unknown [id number] 2.16.8 [id number] 1965 Unknown [id number] 2.16. [id number] 1965 Unknown [id number] 2.16. [id number] 1965 Unknown [id number] 2.16. [id number] 1965 Unknown [id number] 2.16. [id number] 1959 Unknown [id number] Summary Purpose Family History No Family History Records FoundNo Family History Records FoundNo Family History Records Found Advance Directives No Advanced Directives Records FoundNo Advanced Directives Records FoundNo Advanced Directives Records Found Additional Source Comments INFORMATION SOURCE (unrecogn ized section and content) DATE CREATED AUTHOR 07/30/2022 [facility] DATE CREATED AUTHOR AUTHOR'S ORGANIZ ATION 12/29/2023 [facility] DATE CREATED AUTHOR AUTHOR'S ORGANIZ ATION 10/27/2024 [facility] FOR RECORDS PERTAINING TO PATIENTS WHO [...] BE BASED ON THE PRIMARY CLINICAL RECORDS. [facility]. provides no warranty or guarantee of the accuracy or completeness of information in this document.
--- NOTE | 2024-10-29 16:03 | P.CN_ITS ---
Consult Note: HPI Data of Consult Patient: known to practice within the last 3 years Consult date: 10/29/24 Requesting Physician: Lucy Fay MD Primary Care Provider: REX LOCK Consult Narrative Reason for consult: low back, leg pain Narrative: 59yof who presents for assessment. notes persistence of low back pain with radiation into bilateral lower extremities. imaging reviewed, significant for severe facet arthropathy and multilevel stenosis, though this imaging now >18 months old. has continued in a series of provider directed home exercises >6 weeks, without lasting benefit. uses lyrica and mobic. denies adverse med side effects. cc:: CC: Lucy Fay MD Review of Systems ROS Status of ROS 10 or more systems reviewed and unremark able except as noted in history and below [facility] Medical History Acid reflux ?K21.9 - Gastro-esophageal reflux disease without esophagitis (ICD-10) Asthma ?J45.909 - Unspecified asthma, uncomplicated (ICD-10) Social History Smoking status: Never smoker Meds Home Medications and Allergies Home Medications ?Medication ?Instructions ?Recorded ?Confirmed ?Type alprazolam 0.25 mg tablet 0.25 mg PO DAILY PRN anxiety 03/24/23 10/22/24 History meloxicam 7.5 mg tablet 7.5 mg PO BID PRN pain 08/10/23 10/22/24 History cyclobenzaprine 10 mg tablet 10 mg PO TID PRN muscle spasm #90 01/05/24 10/22/24 Rx tabs pregabalin 50 mg capsule (Lyrica) 50 mg PO TID #90 caps 01/05/24 10/22/24 Rx lisinopril 10 mg tablet mg 01/16/24 History Allergies Allergy/AdvReac Type Severity Reaction Status Date / Time No Known Drug Allergies Allergy Verified 10/22/24 06:54 Exam Narrative Exam Narrative: Psych-alert and oriented x 3. Attentive and appropriate, constitutionally normal, displays normal mood and affect per situation. There are no obvious deficits in memory, reasoning, or intellect.? Skin-no obvious rashes, bruising, erythema noted to the patient's area of pain.? Extremities- extremities are warm with minimal edema and palpable pulses. Lumbar-tenderness to palpation noted in the lumbar spine and paraspinal musculature. Pain is elicited with flexion, extension, and lateral rotation of the lumbar spine. Range of motion is diminished with these motions. Facet loading maneuvers are positive.? Strength-noted to be unremarkable with the exception of decreased strength rated at 4 out of 5 in bilateral quadriceps femoris, anterior tibialis. Sensory-no notable sensory deficits in the bilateral lower extremities to touch or pinprick in all dermatomal distributions with the exception to decreased sensation to the bilateral L3, 4, 5 dermatomal distribution Coordination remains intact.? Gait remains non-antalgic. Assessment and Plan Assessment and Plan (1) Lumbar stenosis with neurogenic claudication: (2) Lumbar spondylosis: (3) Lumbar radiculopathy: Plan 59yof who presents for assessment. failed conservative measures, as noted. imaging reviewed, as noted. given her worsening symptoms and old imaging, would like to update lumbar mri without contrast. she is in agreement. may need to repeat lumbar rfa, which provided significant relief of >50% for >6 months. meds reviewed, will continue lyrica. follow up after imaging.
== END 2024-10-29 15:20 | disposition home or self-care (01) ==
LOC: PM 15:19
PROVIDERS: PCP Family Medicine; Visit Provider Anesthesiology
DX: M48.062 Spinal stenosis, lumbar region with neurogenic claudication (principal); M47.816 Spondylosis without myelopathy or radiculopathy, lumbar region; M54.16 Radiculopathy, lumbar region
CPT/HCPCS: G0463

== ENCOUNTER 2024-11-23 13:11 | Outpatient (OUT) | payer OTHER, SELFPAY ==
--- NOTE | 2024-11-23 13:14 | MR_ITS ---
[facility] [place] [id number] Patient Name: GABINO PUGA MRN: [id number] date: 1965 Sex: F Assigned Patient Location: MRI Current Patient Location: MRI Accession/Order Number: [id number] Exam Date: 11/23/2024 15:04 Report Date: 11/23/2024 15:09 At the request of: DAWIT JAMA MD Procedure: MR lumbar spine wo con EXAMINATION: MRI LUMBAR SPINE WITHOUT IV CONTRAST CLINICAL HISTORY: Chronic back pain with radiculopathy into both hips for one year. COMPARISON: Lumbar spine MRI 04/29/2023 TECHNIQUE: Multiecho imaging was performed in the sagittal and axial planes without contrast administration. FINDINGS: Vertebral heights appear maintained. Diffuse disc desiccation. No bone marrow edema. Spinal cord terminates in normal position without abnormal cord signal. No paraspinal mass. Visualized retroperitoneum demonstrates no acute process. At L1-L2: No posterior disc pathology. No neural canal or foraminal stenosis. At L2-L3: Diffuse broad-based disc bulge with ligamentum flavum hypertrophy and facet joint degenerative changes causing mild canal stenosis. No significant neural foraminal stenosis. At L3-L4: Diffuse broad-based disc bulge is present with facet joint degenerative changes and ligamentum flavum hypertrophy causing moderate canal and bilateral neural foraminal stenosis. At L4-L5: Diffuse broad-based disc bulge is present malignant flavum hypertrophy and facet joint degenerative changes causing mild canal and bilateral neural foraminal stenosis. At L5-S1: 8 mm of anterolisthesis. No posterior disc pathology. Facet joint degenerative changes. Findings are causing mild canal and bilateral neural foraminal stenosis. MR/MR lumbar spine wo con IMPRESSION: Multilevel degenerative disease as described above, worst at L3-L4. Findings are grossly unchanged from the prior study from 2022 Impression dictated by: Alonso Lopez Jr., D.O. 11/23/2024 3:09 PM Dictation Location: [place] [address] Electronically authenticated by: [id number] Y Date: 11/23/2024 15:09
== END 2024-11-23 13:12 | disposition home or self-care (01) ==
LOC: MRI 13:11
PROVIDERS: PCP Family Medicine; Visit Provider Anesthesiology
DX: M48.062 Spinal stenosis, lumbar region with neurogenic claudication (principal); M51.369 Other intervertebral disc degeneration, lumbar region without mention of lumbar back pain or lower extremity pain
CPT/HCPCS: 72148

== ENCOUNTER 2024-12-26 15:12 | Outpatient (OUT) | payer OTHER, SELFPAY ==
--- OUTSIDE RECORDS SUMMARY | 2024-03-01 12:21 | XMS_ITS ---
Author Organization [facility] in [place] Address [address] [place] [address] Care Team Providers Care Insurance Checker Name Role Phone Kiley Ospina Primary Care Provider REASON FOR VISIT med refill Medications Medication SIG (Take, Route, Frequency, Duration) Notes Start Date End Date Status Phentermine HCl 37.5 MG 1 tablet before breakfast Orally Once a day for 30 days 09/23/2023 Active ALPRAZolam 0.25 MG 1/2-1 tab Orally Mona ly prn anxiety for 30 days 03/02/2024 Active valACYclovir HCl 500 MG 1 tablet Orally BID for 7 Days 11/03/2021 Active Amoxicillin 500 MG 2 capsules Orally Tw ice a day for 14 days 05/20/2023 Not-Taking Hyoscyamine Sulfate 0.125 MG 1 tablet as needed Orally every 6 hrs 03/24/2023 Active Ibsrela 50 MG 1 tablet immediately before meals Orally Twice a day for 30 day(s) 09/16/2023 Active Linzess 290 MCG 1 capsule at least 3 0 minutes before the first meal of the day on an empty stomach Orally Once a day for 30 day(s) 07/04/2023 Active Lisinopril 10 MG 1 tablet Orally Once a day for 30 days 10/21/2023 Active metroNIDAZOLE 500 MG 1 tablet Orally q 8 hours 03/24/2023 Active Albuterol Sulfate HFA 108 (90 Base) MCG/ACT 1 puff as needed Inhalation every 4 hrs for 30 days 02/14/2020 Active Lansoprazole 30 MG take 1 capsule by [facility] twice a day for 30 days Active Encounters Encounter Location Date Provider Diagnosis [facility] [address] [place] [address] 03/01/2024 Kiley Ospina Anxiety F41.9 and Gastroesophageal reflux disease K21.9 Assessments Encounter Date Diagnosis (ICD Code) Assessment Notes Treatment Notes Treatment Clinical Notes Section Notes 03/01/2024 Anxiety (ICD-10 - F41.9) 03/01/2024 Gastroesophageal reflux disease (ICD-10 - K21.9) Plan Of Treatment Medication Medication Name Sig Start Date Stop Date Notes ALPRAZolam 0.25 MG 1/2-1 tab Orally Mona ly prn anxiety for 30 days 03/02/2024 Lansoprazole 30 MG take 1 capsule by [facility] twice a day for 30 days Progress Notes * Velma PUGA SDOB:1965 (58 yo F)Acc No.[id number]:03/01/2024 Patient: Javad Velma MOFFETT Heraclio :1965 A ge:58 Y S ex:Female Address:[address] [place] [address] * Refills Refill ALPRAZolam Tablet, 0.25 MG, Orally, 30, 1/2-1 tab, Daily prn anxiety, 30 days, Refills=0 Refill Lansoprazole Capsule Delayed Release, 30 MG, 60, take 1 capsule by mouth twice a day, 30 days, Refills=1 Subjective: * Chief Complaints: * M ed refill * Medical History: * Surgical History: * Hospitalization/Major Diagno stic Procedure: * Medications: T akingAlbuterol Sulfate HFA 108 (90 Base) MCG/ACT Aerosol Solution 1 puff as needed Inhalation every 4 hrs ALPRAZolam 0.25 MG Tablet 1/2-1 tab Orally Daily prn anxiety Hyoscyamine Sulfate 0.125 MG Tablet 1 tablet as needed Orally every 6 hrs Ibsrela(Tenapanor HCl) 50 MG Tablet 1 tablet immediately before meals Orally Twice a day Lansoprazole 30 MG Capsule Delayed Release take 1 capsule by mouth twice a day Linzess(linaCLOtide) 290 MCG Capsule 1 capsule at least 30 minutes before the first meal of the day on an empty stomach Orally Once a day Lisinopril 10 MG Tablet 1 tablet Orally Once a day metroNIDAZOLE 500 MG Tablet 1 tablet Orally q 8 hours Phentermine HCl 37.5 MG Tablet 1 tablet before breakfast Orally Once a day valACYclovir HCl 500 MG Tablet 1 tablet Orally BID Taking Albuterol Sulfate HFA 108 (90 Base) MCG/ACT Aerosol Solution 1 puff as needed Inhalation every 4 hrs Taking ALPRAZolam 0.25 MG Tablet 1/2-1 tab Orally Daily prn anxiety Taking Hyoscyamine Sulfate 0.125 MG Tablet 1 tablet as needed Orally every 6 hrs Taking Ibsrela(Tenapanor HCl) 50 MG Tablet 1 tablet immediately before meals Orally Twice a day Taking Lansoprazole 30 MG Capsule Delayed Release take 1 capsule by mouth twice a day Taking Linzess(linaCLOtide) 290 MCG Capsule 1 capsule at least 30 minutes before the first meal of the day on an empty stomach Orally Once a day Taking Lisinopril 10 MG Tablet 1 tablet Orally Once a day Taking metroNIDAZOLE 500 MG Tablet 1 tablet Orally q 8 hours Taking Phentermine HCl 37.5 MG Tablet 1 tablet before breakfast Orally Once a day Taking valACYclovir HCl 500 MG Tablet 1 tablet Orally BID Not-Taking/PRNAmoxicillin 500 MG Capsule 2 capsules Orally Twice a day Not- Taking/PRN Amoxicillin 500 MG Capsule 2 capsules Orally Twice a day DiscontinuedPrevacid 15 MG Capsule Delayed Release 1 capsule before a meal Orally Once a day Discontinued Prevacid 15 MG Capsule Delayed Release 1 capsule before a meal Orally Once a day Objective: * Vitals: * Physical Examination: Assessment: * Assessment: 1. A nxiety - F41.9 2 . G astroesophageal reflux disease - K21.9 Plan: * Treatment: 2. G astroesophageal reflux disease Refill Lansoprazole Capsule Delayed Release, 30 MG, take 1 capsule by mouth twice a day, 30 days, 60, Refills 1. * Procedure Codes: * true * Date: Generated for Sarah ham/Carlos/Jordana on: 0 12/26/2024 03:14 PM EDT
--- OUTSIDE RECORDS SUMMARY | 2024-05-18 11:23 | XMS_ITS ---
Author Organization The [facility] in [place] Address [address] [place] [place] [address] Care Team Providers Care Wood Milling Machine Operator Name Role Phone Kiley Ospina Primary Care Provider [phone] REASON FOR VISIT COntrolled refill Medications Medication SIG (Take, Route, Fr equency, Duration) Notes Start Date End Date Status ALPRAZolam 0.25 MG 1/2-1 tab Orally Mona ly prn anxiety for 30 days 05/18/2024 Active Encounters Encounter Location Date Provider Diagnosis [facility] [address] [place] [address] 05/18/2024 Kiley Ospina Anxiety F41.9 Assessments Encounter Date Diagnosis (ICD Code) Assessment Notes Treatment Notes Treatment Clinical Notes Section Notes 05/18/2024 Anxiety (ICD-10 - F41.9) Plan Of Treatment Medication Medication Name Sig Start Date Stop Date Notes ALPRAZolam 0.25 MG 1/2-1 tab Orally Mona ly prn anxiety for 30 days 05/18/2024 Progress Notes * Velma PUGA SDOB:1965 (58 yo F)Acc No.[id number]:05/18/2024 Patient: Javad Velma MOFFETT :1965 A ge:58 Y S ex:Female Address:[address] [place] [address] * Refills Refill ALPRAZolam Tablet, 0.25 MG, Orally, 30, 1/2-1 tab, Daily prn anxiety, 30 days, Refills=2 * true * Date: Generated for Sarah hma/Carlos/Jordana on: 0 12/26/2024 03:14 PM EDT
--- OUTSIDE RECORDS SUMMARY | 2024-12-26 15:14 | XMS_ITS | Patient Health Record ---
Author Organization [facility] in [place] Address [address] [place] [address] Care Team Providers Care Quill Machine Tender Name Role Phone Kiley Ospina Primary Care Provider [phone] Allergies No Known Allergies Results Component Value Reference Range Notes COMPREHENSIVE METABOLIC PANE L (Not yet reviewed by provider) Interpretation:Normal Performing Lab:[facility]), [address], [place]. [address] PH:[phone] Notes/Report: SODIUM 142 134-146 mmol/L POTASSIUM 3.6 3.5-5.0 mmol/L CHLORIDE 105 98-109 mmol/L CARBON DIOXIDE 29 22-32 mmol/L ANION GAP 8 5-15 mmol/L BLOOD UREA NITROGEN 14 5-23 mg/dL CREATININE 0.64 0.40-1.00 mg/dL METHOD TRACE ABLE TO IDMS STANDARD GLUCOSE 89 65-99 mg/dL CALCIUM 9.2 8.5-10.5 mg/dL TOTAL PROTEIN 6.6 6.0-8.0 g/dL ALBUMIN 4.0 3.2-5.3 g/dL ALKALINE PHOSPHATASE 56 39-130 U/L AST 16 0-41 U/L ALT 13 0-31 U/L BILIRUBIN,TOTAL 0.8 0.3-1.2 mg/dL eGFR (CKD-EPI) NON-RACE DEPENDENT >90 >59 ml/min/1.73sq.m not use a race coefficient. PERFORMED AT [facility] [address],[place] [address] Reported eGFR is based on the CKD-EPI 2020 equation that does THYROID PROFILE (Not yet rev iewed by provider) Interpretation:TSH 1.67, T4 0.85 Performing Lab:[facility] ([facility]), [address] [place] [address] AVE[address] [place] [address]. [address] PH:[phone] Notes/Report: TSH 1.67 0.49-4.67 uIU/mL FREE T4 0.85 0.61-1.60 ng/dL PERFORMED AT [address] [address] LIPID PANEL (Not yet reviewe d by provider) Interpretation:Total 205, TG 111, HDL 63, LDL 120 Performing Lab:[facility] ([facility]), [address] [place] [address] AVE[address] [address] PH:[phone] Notes/Report: CHOLESTEROL 205 150-200 mg/dL TRIGLYCERIDE 111 27-150 mg/dL HDL CHOLESTEROL 63 >39 mg/dL HDL >60 mg/dL - Negative Risk HDL <40 mg/dL - High Risk HDL > or = 40mg/dL- Desirable VERY LOW LIPOPROTEIN 22 0-30 mg/dL LDL (CALC) 120 <130 mg/dL LDL >160 mg/dL - High Risk LDL <100 mg/dL - Desirable CHOLESTEROL:HDL 3.3 1.0-5.0 PERFORMED AT [address] [place] [address] CBC AND AUTO DIFF * (Not yet reviewed by provider) Interpretation:Normal Performing Lab:[facility] ([facility]), [address] [place] [address] AVE[address] [address] PH:[phone] Notes/Report: WBC COUNT 6.1 4.0-11.0 X10E9/L RBC COUNT 4.15 3.80-5.20 X10E12/L HEMOGLOBIN 13.9 11.7-15.5 g/dL HEMATOCRIT 41.1 35-47 % MCV 99 80-100 fL MCH 33.4 27-34 pg MCHC 33.7 32-36 g/dL RDW 13.3 11.5-15.0 % PLATELET COUNT 398 150-450 X10E9/L MPV 8.2 7-12 fL % NEUTROPHILS 54.8 % LYMPHOCYTES 34.0 % MONOCYTES 8.1 % EOSINOPHILS 2.3 % BASOPHILS 0.8 ABSOLUTE NEUTROPHIL 3.3 1.5-6.6 X10E9/L ABSOLUTE LYMPHOCYTE 2.1 1.0-3.5 X10E9/L ABSOLUTE MONOCYTE 0.5 0-0.9 X10E9/L ABSOLUTE EOSINOPHIL 0.1 0.0-0.4 X10E9/L ABSOLUTE BASOPHIL 0.0 0.0-0.2 X10E9/L PERFORM ED AT [facility] [address] [facility],[place] [address] Reason For Referral No Information Medications Medication SIG (Take, Route, Frequency, Duration) Notes Start Date End Date Status ALPRAZolam 0.25 MG 1/2-1 tab Orally Daily prn anxiety for 30 days 05/18/2024 Active Pregabalin 50 MG take 1 capsule by mouth three times a day Oral for 30 Days Active Meloxicam 7.5 MG take 1 tablet by mouth twice a day if needed Oral for 30 Days Active Lisinopril 10 MG 1 tablet Orally Once a day for 30 days 10/21/2023 Active Albuterol Sulfate HFA 108 (90 Base) MCG/ACT 1 puff as needed Inhalation every 4 hrs for 30 days 02/14/2020 Active valACYclovir HCl 500 MG 1 tablet Orally BID for 7 Days 11/03/2021 Not-Taking Cyclobenzaprine HCl 10 MG Oral for 30 Days Active Lansoprazole 30 MG take 1 capsule by mouth twice a day for 30 days Active Immunizations Vaccine Route Administration Date Status Comme nts Flu, Fluzone (23151) 6 mos+, single-dose syringe/vial (9068-6932) Unknown 05/20/2022 Administered Pneumococcal (Prevnar 13) Unknown 01/16/2016 Administer ed impact records SARS-COV-2 (COVID 19 Pfizer 30mcg/0.3mL) Unknown 04/25/2021 Administered SARS-COV-2 (COVID 19 Pfizer 30mcg/0.3mL) Unknown 05/16/2021 Administered Shingrix (Zoster) Unknown 08/18/2019 Administered per i mpact record Shingrix (Zoster) Unknown 12/07/2019 Administered per i mpact record Tdap Unknown 10/24/2018 Administered [employer] harvey Social History Tobacco Use: Social History Observation Description Date Details (start date - stop date) Never Smoker NA - NA Tobacco Use/Smoking Question Answer Notes Patient is a nonsmoker Alcohol Screen (Audit-C) Question Answer Notes Did you have a drink containing alcohol in the p ast year? Yes How often did you have 6 or more drinks on one occasion in the past year? Never (0 point) Points 0 Interpretation Negative Problems Problem Type SNOMED Code ICD Code Onset Dates Problem Status W/U Status Risk Notes Problem 12345041 Essential (primary) hypertension (I10) Active confirmed Problem 164421629 Gastro-esophagea l reflux disease without esophagitis (K21.9) Active confirmed Problem 750053360 Other specified bacterial intestinal infections (A04.8) Active confirmed Problem 734830347616094 Obesity, unspecified (E66.9) Active confirmed Problem Uncomplicated asthma (disorder) (823923060) Unspecified asthma, uncomplicated (J45.909) Active confirmed Problem 80186197 Constipation, unspecified (K59.00) Active confirmed Problem 462459207 Celiac disease (K90.0) Active confirmed Problem 50337439 Other specified symptoms and signs involving the digestive system and abdomen (R19.8) Active confirmed Problem 71467434 Anxiety (F41.9) Active confirmed Problem Obstructive sleep apnea (05551606) Obstructive sleep apnea (G47.33) Active confirmed Problem 882357273 Mild intermitten t asthma without complication (J45.20) Active confirmed Problem Constipation (93103391) Constipation (K59.00) Active confirmed Problem 58403910 Sleep disturbanc e (G47.9) Active confirmed Problem 853546064 BMI 33.0-33.9,adult (Z68.33) Active confirmed Problem Restrictive lung disease (75981284) Restrictive lung disease (J98.4) Active confirmed Problem Chronic gastritis (7289958) Chronic gastritis (K29.50) Active confirmed Problem Gastroesophageal reflux disease (564566695) Gastroesophageal reflux disease (K21.9) Active confirmed Problem 0732780 Spotting (N92.0) Active confirmed Problem 972420577 Irritable bowel syndrome with constipation (K58.1) Active confirmed Problem 028881488 Anxiety with depression (F41.8) Active confirmed Problem 936298982 Body mass index [BMI] 34.0-34.9, adult (Z68.34) Active confirmed Problem Peripheral eosinophilia (D72.19) Active confirmed Problem 278071772 Body mass index [BMI] 30.0-30.9, adult (Z68.30) Active confirmed Vital Signs Heart Rate 75 /min 03/29/2024 weight down 18 pounds in last 7months! BP elevated Blood pressure diastolic 100 mm Hg 03/29/2024 nadira ght down 18 pounds in last 7months! BP elevated Oximetry 97 % 03/29/2024 weight down 18 pounds in last 7months! BP elevated Height 63 in 03/29/2024 weight down 18 pounds in last 7months! BP elevated Blood pressure systolic 168 mm Hg 03/29/2024 weig ht down 18 pounds in last 7months! BP elevated Weight 163 lbs 03/29/2024 weight down 18 pounds in last 7months! BP elevated BMI 28.87 kg/m2 03/29/2024 weight down 18 pounds in last 7months! BP elevated Encounters Encounter Location Date Provider Diagnosis [facility] [address] [place] [address] 03/01/2024 Kiley Ospina Anxiety F41.9 and Gastroesophageal reflux disease K21.9 [facility] [address] [place] [address] 05/18/2024 Kiley Ospina Anxiety F41.9 [facility] [address] [place] [address] 03/29/2024 Kiley Ospina Encounter for genera l adult medical examination without abnormal findings Z00.00 ; Essential (primary) hypertension I10 ; Gastroesophageal reflux disease K21.9 ; Anxiety F41.9 and Constipation, unspecified K59.00 Assessments Encounter Date Diagnosis (ICD Code) Assessment Notes Treatment Notes Treatment Clinical Notes Section Notes 03/29/2024 Encounter for general adult medical examination without abnormal findings (ICD-10 - Z00.00) 03/29/2024 Essential (primary) hypertension (ICD-10 - I10) COntinue lisinopril 10mg daily Please check your blood pressures at home and see how they are at home. Goal 130s/80s -if still high at home over the next month, will need to increase lisionpril 03/01/2024 Anxiety (ICD-10 - F41.9) 05/18/2024 Anxiety (ICD-10 - F41.9) 03/01/2024 Gastroesophageal reflux disease (ICD-10 - K21.9) 03/29/2024 Gastroesophageal reflux disease (ICD-10 - K21.9) Stable 03/29/2024 Anxiety (ICD-10 - F41.9) Stable 03/29/2024 Constipation, unspecified (ICD-10 - K59.00) Resolved with eating boiled peanuts Plan Of Treatment Pending Test Test Name Order Date CMP (COMPLETE METABOLIC PANEL) IGA, IMMUNOGLOBULIN (TOTAL) 05/20/2023 LIPID PANEL (CHOL/TRIG/HDL/LDL) 10/21/19 CBC WITH DIFF 10/21/2023 T4 FREE and TSH 10/21/2023 CELIAC DISEASE (DGP,IGA/IGG + TTG, IGA/I GG) 05/20/2023 CBC AND AUTO DIFF * 12/28/2023 COMPREHENSIVE METABOLIC PANEL 12/28/2023 THYROID PROFILE 12/28/2023 MAMM SCREEN BILAT MINISTERIO 3D* 02/14/2020 MAMM SCREEN BILAT MINISTERIO 3D* 04/08/2022 LIPID PANEL 12/28/2023 H PYLORI, UREA BREATH TEST ADULT (>17 YR S) 05/20/2023 Insurance Providers Payer Name Payer Address Payer Phone Subscriber Number Group Number Insured Name Patient Relationship to Insured Coverage Start Date Coverage End Date [facility] [address] [address] [place] [address] [phone] [id number] Velma Li Self - patient is the insured 2019 Medical (General) History Medical History History ICD Code Unspecified asthma, uncomplicated J45.90 9 Obstructive sleep apnea G47.33 Peripheral eosinophilia D72.19 Mixed anxiety and depressive disorder F4 1.8 Restrictive lung disease J98.4 Gastroesophageal reflux disease K21.9 Surgical History Surgery Date(Month/Year) Uterine Ablation colonoscopy 05/23 Tumor removed from cervix 2013 Hospitalization History Reason Date(Month/Year) Colitis 04/2023
--- NOTE | 2024-12-26 15:48 | P.CN_ITS ---
Consult Note: HPI Data of Consult Patient: known to practice within the last 3 years Requesting Physician: Skyla Marie NP Primary Care Provider: REX LOCK Consult Narrative Reason for consult: low back pain Narrative: Velma vincent pleasant 59 year old female presents for evaluation of chronic low back pain. Pain 8/10 in low back increasing to 10/10 with standing, bending, twisting, lifting. denies numbness, tingling, weakness to BLE. prior lumbar xray consistent with multilevel changes, lumbar MRI does reveal mild to moderate stenosis at L3-5 with additional degenerative changes. pt has failed to benefit from > 6 weeks of PT and provider guided HEP, heat, ice, tylenol, and NSAIDs. currently utilizing flexeril, mobic, lyirc with mild relief without side effects. prior bilateral L4-5 L5-S1 Facet RFA provided >50% improvement in axial facet mediated low back pain greater than 6 months and pt would like to discuss repeating. cc:: CC: Skyla Marie NP Review of Systems ROS Status of ROS 10 or more systems reviewed and unremark able except as noted in history and below PFSH PFSH Medical History Acid reflux ?K21.9 - Gastro-esophageal reflux disease without esophagitis (ICD-10) Asthma ?J45.909 - Unspecified asthma, uncomplicated (ICD-10) Social History Smoking status: Never smoker Meds Home Medications and Allergies Home Medications ?Medication ?Instructions ?Recorded ?Confirmed ?Type alprazolam 0.25 mg tablet 0.25 mg PO DAILY PRN anxiety 03/24/23 10/22/24 History meloxicam 7.5 mg tablet 7.5 mg PO BID PRN pain 08/1010/22/24 History cyclobenzaprine 10 mg tablet 10 mg PO TID PRN muscle s pasm #90 01/05/24 10/22/24 Rx tabs pregabalin 50 mg capsule (Lyrica) 50 mg PO TID #90 cap s 01/05/24 10/22/24 Rx lisinopril 10 mg tablet mg 01/16/24 History Allergies Allergy/AdvReac Type Severity Reaction Status Date / Time No Known Drug Allergies Allergy Verified 10/22/24 06:54 Exam Constitutional Documenting provider has reviewed patient's vital signs: yes Common normals: no apparent distress, oriented x3, healthy appearing, alert and well nourished General appearance: cooperative HENMT Common normals: normocephalic, hearing grossly normal bilaterally and moist oral mucous membranes Head and scalp: normocephalic Eye Common normals: PERRL Pupil: PERRL Neck & C-Spine Common normals: full ROM General: normal visual inspection Chest Common normals: inspection of chest normal Respiratory Common normals: normal respiratory effort, no retractions and no use of accessory muscles Back & Pelvis Lumbar spine/lower back: ROM limited, pain with ROM and lumbar spinal tenderness Sacroiliac joints: SI joint(s) abnormal Other: positive facet loading L4-S1 strength 5/5 in BLE sensation intact BLE bilateral sij positive katelynn(patricks), gaenslens, thigh thrust, compression test Neuro Common normals: oriented x3 Sensorium/orientation: alert Psych Common normals: mental status grossly normal, thought process normal, cooperative, affect normal, speech normal and activity/motor behavior normal Speech: normal speech Thought process: normal thought process Results Additional Findings Additional findings: If on a controlled substance or opioids, I have checked an [place] report on this patient and there are no aberrancies noted in the prescribing history.??If on a controlled substance or opioid a drug screen was completed and reviewed within the last year, and if there has not been a drug screen completed we ordered one today to monitor higher risk, state monitored pain medication use. As part of providing excellent, safe, comprehensive care, the following was completed at our patient's visit: 1. A medication reconciliation and review to ensure accurate knowledge of current/active medications, including asking our patients to inform us about any [id number] medications or herbal remedies/nutritional supplements/alternative remedies. 2. A review to specifically ensure our patients have had annual screening for screening for depression, screening for tobacco use, and screening for unhealthy alcohol use. For concerning screenings had a discussion with the patient, provided patient education, and recommended follow-up with primary care provider when appropriate. If patient noted with a risk of falling, they received education on strength, gait, and balance training to prevent future risk of f alling. Portions of this note may have been carried over from the previous visit and updated as appropriate. Please note this office utilizes paper charting in addition to the electronic medical record. A list of current medications, vitals, and PMH is available there as the clinical staff outside of myself do not have access to [employer] charting during the clinic day operations. As part of providing quality comprehensive care the current medications, vitals, and PMH were reviewed in the paper chart. Assessment and Plan Assessment and Plan (1) Lumbar spondylosis: Assessment and Plan: The patient has had over 3 months of moderate to severe low back pain with functional impairment and inadequate response to conservative care including NSAIDS (unless there are contraindication such as concurrent blood thinners), multiple oral or topical pain medications, and home exercise program/physical therapy.? Patient has completed >6 weeks of guided home exercise program and/or formal physical therapy program without relief of their symptoms.? The Oswestry Disability Index was completed, and the patient scored a 38%.? The patient noted the following:?? moderate to severe pain with sitting, standing, walking, ADLS? We discussed the risks and benefits of the procedure with the patient, and we are NOT planning on using sedation as outlined in the guidelines from Medicare unless there is a documented reason that sedation would be strongly recommended.??The procedure will be completed with fluoroscopic guidance.? (2) Bilateral sacroiliitis: (3) Lumbar stenosis with neurogenic claudication: Plan repeat bilateral L4-5 L5-S1 facet RFA under fluoroscopy, previous bilateral L4-5 L5-S1 facet RFA provided >50% improvement greater than 6 months continue current medications, advised to limit NSAIDs and f/u with PCP regarding GERD continue HEP as tolerated update lumbar xray with flexion to evaluate stability f/u 1 month after RFA complete
== END 2024-12-26 15:13 | disposition home or self-care (01) ==
LOC: PM 15:12
PROVIDERS: PCP Family Medicine; Visit Provider Nurse Practitioner
DX: M47.816 Spondylosis without myelopathy or radiculopathy, lumbar region (principal); M48.062 Spinal stenosis, lumbar region with neurogenic claudication; M46.1 Sacroiliitis, not elsewhere classified
CPT/HCPCS: 72114; G0463

== ENCOUNTER 2024-12-26 15:55 | Outpatient (OUT) | payer OTHER, SELFPAY ==
--- NOTE | 2024-12-26 16:04 | XR_ITS ---
[facility] [id number] Patient Name: GABINO PUGA MRN: [id number] date: 1965 Sex: F Assigned Patient Location: [facility] Current Patient Location: [facility] Accession/Order Number: [id number] Exam Date: 12/26/2024 19:09 Report Date: 12/26/2024 19:15 At the request of: KARIME GRACIA NP Procedure: XR lumbar spine 6V w bending XR lumbar spine 6V w bending 12/26/2024 4:17 PM SIGNS AND SYMPTOMS: Chronic low back pain PROTOCOLS: Frontal, lateral, and oblique radiographs of the lumbar spine COMPARISON: 03/24/2023 and 11/23/2024 FINDINGS: There is 1 cm of anterolisthesis of L5 upon S1. This is unchanged. There is facet hypertrophy throughout. There is complex. There is There is no fracture or destructive lesion. There is moderate disc height loss at L5-S1, L3-L4, and L4-L5. There is mild disc height loss at L2-L3. The sacrum and sacroiliac joints are normal. XR/XR lumbar spine 6V w bending IMPRESSION: No acute bony injury. There is 1 cm of anterolisthesis of L5 upon S1. This is unchanged. Multilevel degenerative changes noted as above. There is no pathologic movement on flexion or extension. Impression dictated by: Craig Pedro M.D. 12/26/2024 7:15 PM Dictation Location: [facility] [place] [address] Electronically authenticated by: [id number] Y Date: 12/26/2024 19:15
== END 2024-12-26 15:56 | disposition home or self-care (01) ==
LOC: RAD 15:56
PROVIDERS: PCP Family Medicine; Visit Provider Nurse Practitioner
DX: M47.816 Spondylosis without myelopathy or radiculopathy, lumbar region (principal)
CPT/HCPCS: 72114

== ENCOUNTER 2025-01-14 10:38 | Day surgery (SDC) | payer OTHER, SELFPAY ==
[2025-01-14 10:51] VITALS: BP 176/92; PULSE 71; TEMP 36.6; O2SAT 98
--- OUTSIDE RECORDS SUMMARY | 2025-01-14 11:01 | XMS_ITS | CCD ---
Author Organization [facility] Care Team Providers Care Glass Checker Name Role Phone SAMSA, CLAUDIA Admitting [...] MUJICA, Lucy Sawyer Attending Unavailable Nya MUJICA, Andrius Silverio Attending Unavailable Nya MUJICA, Andrius Vjulio Attending Unavailable Nya MUJICA, Andrius Silverio Attending Unavailable Problems Problem Classification Problem Date [...] 12-28-19 ABSOLUTE BASOPHIL 0.0 X10E9/L Normal 0.0-0.2 [facility] Comment on above: Performed By: #### C LAUREN THEODORE, 20724-5, THYR #### [facility] ([id number]) [address], [address] [place] [address] ABSOLUTE NEUTROPHIL 3.3 X10E9/L Normal 1.5-6.6 [facility] Comment on above: Performed By: #### Heather THEODORE CMP, 15926-8, THYR #### [facility] ([id number]) [address] [place] [address] Basophils/100 WBC (Bld) 0.8 % Normal [facility] Comment on above: Performed By: #### Heather THEODORE CMP, 76211-0, THYR #### [facility] ([id number]) [address], [address] [place] [address] Eosinophils (Bld) [#/Vol] 0.1 10*3/uL Normal 0.0-0.4 [facility] Comment on above: Performed By: #### Heather THEODORE CMP, 10978-4, THYR #### [facility] ([id number]) [address], [address] [place] [address] Eosinophils/100 WBC (Bld) 2.3 % Normal [facility] Comment on above: Performed By: #### Heather THEODORE, CMP, 05205-3, THYR #### [facility] ([id number]) [address], [address] [place] [address] Erythrocyte distribution width (RBC) [Ratio] 13.3 % Normal 11.5-15.0 [facility] Comment on above: Performed By: #### C LAUREN THEODORE, 09323-3, THYR #### [facility] ([id number]) [address], [address] [place] [address] Hematocrit (Bld) [Volume fraction] 41.1 % Normal 35-47 [facility] Comment on above: Performed By: #### C LAUREN THEODORE, 34245-7, THYR #### [facility] ([id number]) [address], [facility] [address] [place] [address] Hemoglobin (Bld) [Mass/Vol] 13.9 g/dL Normal 11.7-15.5 [facility] Comment on above: Performed By: #### Heather THEODORE CMP, 21519-1, THYR #### [facility] ([id number]) [address], [address] [place] [address] Lymphocytes (Bld) [#/Vol] 2.1 10*3/uL Normal 1.0-3.5 [facility] Comment on above: Performed By: #### Heather THEODORE CMP, 86422-7, THYR #### [facility] ([id number]) [address], [address] [place] [address] Lymphocytes/100 WBC (Bld) 34.0 % Normal [facility] Comment on above: Performed By: #### Heather THEODORE CMP, 89178-1, THYR #### [facility] ([id number]) [address], [address] [place] [address] MCH (RBC) [Entitic mass] 33.4 pg Normal 27-34 [facility] Comment on above: Performed By: #### Heather THEODORE CMP, 68490-9, THYR #### [facility] ([id number]) [address], [address] [place] [address] MCHC (RBC) [Mass/Vol] 33.7 g/dL Normal 32-36 [facility] Comment on above: Performed By: #### C LAUREN THEODORE, 71565-6, THYR #### [facility] ([id number]) [address], [address] [place] [address] MCV (RBC) [Entitic vol] 99 fL Normal 80-100 [facility] Comment on above: Performed By: #### C LAUREN THEODORE, 53217-0, THYR #### [facility] ([id number]) [address], [facility] [address] [place] [address] Monocytes (Bld) [#/Vol] 0.5 10*3/uL Normal 0-0.9 [facility] Comment on above: Performed By: #### Heather THEODORE CMP, 95441-1, THYR #### [facility] ([id number]) [address], [address] [place] [address] Monocytes/100 WBC (Bld) 8.1 % Normal [facility] Comment on above: Performed By: #### Heather THEODORE CMP, 94068-5, THYR #### [facility] ([id number]) [address], [address] [place] [address] Neutrophils/100 WBC (Bld) 54.8 % Normal [facility] Comment on above: Performed By: #### Heather THEODORE CMP, 89187-9, THYR #### [facility] ([id number]) [address] [place] [address] Platelet mean volume (Bld) [Entitic vol] 8.2 fL Normal 7-12 [facility] Comment on above: Performed By: #### Heather THEODORE, CMP, 45010-8, THYR #### [facility] ([id number]) [address], [address] [place] [address] Platelets (Bld) [#/Vol] 398 10*3/uL Normal 150-450 [facility] Comment on above: Performed By: #### C BCA, CMP, 61233-4, THYR #### [facility] ([id number]) [address], [address] [place] [address] RBC COUNT 4.15 X10E12/L Normal 3.80-5.20 [facility] Comment on above: Performed By: #### C BCA, CMP, 77205-2, THYR #### [facility] ([id number]) [address], [address] [place] [address] WBC (Bld) [#/Vol] 6.1 10*3/uL Normal 4.0-11.0 [facility] Comment on above: Performed By: #### C BCA, CMP, 86953-1, THYR #### [facility] ([id number]) [address], [address] [place] [address] COMPREHENSIVE METABOLIC PANE Riki 12-28-2023 Albumin [Mass/Vol] 4.0 g/dL Normal 3.2-5.3 [facility] Comment on above: Performed By: #### C BCA, CMP, 94533-2, THYR #### [facility] ([id number]) [address], [address] [place] [address] ALP [Catalytic activity/Vol] 56 U/L Normal 39-130 [facility] Comment on above: Performed By: #### C BCA, CMP, 54638-8, THYR #### [facility] ([id number]) [address], [address] [place] [address] ALT [Catalytic activity/Vol] 13 U/L Normal 0-31 [facility] Comment on above: Performed By: #### C BCA, CMP, 84573-4, THYR #### [facility] ([id number]) [address], [address] [place] [address] Anion gap [Moles/Vol] 8 mmol/L Normal 5-15 [facility] Comment on above: Performed By: #### C BCA, CMP, 06607-0, THYR #### [facility] ([id number]) [address], [address] [place] [address] AST [Catalytic activity/Vol] 16 U/L Normal 0-41 [facility] Comment on above: Performed By: #### C BCA, CMP, 35471-0, THYR #### [facility] ([id number]) [address], [address] [place] [address] Bilirubin [Mass/Vol] 0.8 mg/dL Normal 0.3-1.2 [facility] Comment on above: Performed By: #### C BCA, CMP, 64308-0, THYR #### [facility] ([id number]) [address], [address] [place] [address] Calcium [Mass/Vol] 9.2 mg/dL Normal 8.5-10.5 [facility] Comment on above: Performed By: #### C BCA, CMP, 95420-4, THYR #### [facility] ([id number]) [address], [address] [place] [address] Chloride [Moles/Vol] 105 mmol/L Normal 98-109 [facility] Comment on above: Performed By: #### C BCA, CMP, 71605-5, THYR #### [facility] ([id number]) [address], [address] [place] [address] CO2 [Moles/Vol] 29 mmol/L Normal 22-32 [facility] Comment on above: Performed By: #### C BCA, CMP, 83254-8, THYR #### [facility] ([id number]) [address], [address] [place] [address] Creatinine [Mass/Vol] 0.64 mg/dL Normal 0.40-1.00 [facility] Comment on above: Result Comment: METH OD TRACEABLE TO IDMS STANDARD Performed By: #### C EWELINA, CMP, 41533-3, THYR #### [facility] ([id number]) [address], [address] [place] [address] eGFR (CKD-EPI) NON-RACE DEPENDENT >90 Normal >59 [facility] Comment on above: Result Comment: Reported eGFR is based on the CKD-EPI 2020 equation that does not use a race coefficient. Performed By: #### C BCA, CMP, 03882-0, THYR #### [facility] ([id number]) [address], [address] [place] [address] Glucose [Mass/Vol] 89 mg/dL Normal 65-99 [facility] Comment on above: Performed By: #### C BCA, CMP, 51854-5, THYR #### [facility] ([id number]) [address], [address] [place] [address] Potassium [Moles/Vol] 3.6 mmol/L Normal 3.5-5.0 [facility] Comment on above: Performed By: #### C BCA, CMP, 90079-0, THYR #### [facility] ([id number]) [address], [address] [place] [address] Protein [Mass/Vol] 6.6 g/dL Normal 6.0-8.0 [facility] Comment on above: Performed By: #### C BCA, CMP, 55807-0, THYR #### [facility] ([id number]) [address], [address] [place] [address] Sodium [Moles/Vol] 142 mmol/L Normal 134-146 [facility] Comment on above: Performed By: #### C BCA, CMP, 77509-3, THYR #### [facility] ([id number]) [address], [address] [place] [address] Urea nitrogen [Mass/Vol] 14 mg/dL Normal 5-23 [facility] Comment on above: Performed By: #### Heather THEODORE CMP, 65366-5, THYR #### [facility] ([id number]) [address], [address] [place] [address] Lipid 1996 panelon 4 Cholesterol [Mass/Vol] 205 mg/dL High 150-200 [facility] Comment on above: Performed By: #### Heather THEODORE, LAUREN, 32021-2, THYR #### [facility] ([id number]) [address], [address] [place] [address] Cholesterol in HDL [Mass/Vol] 63 mg/dL Normal >39 [facility] Comment on above: Result Comment: HDL <40 mg/dL - High Risk HDL > or = 40mg/dL- Desirable HDL >60 mg/dL - Negative Risk Performed By: #### Heather THEODORE CMP, 24227-7, THYR #### [facility] ([id number]) [address], [address] [place] [address] Cholesterol in LDL [Mass/Vol] 120 mg/dL Normal <130 [facility] Comment on above: Result Comment: LDL <100 mg/dL - Desirable LDL >160 mg/dL - High Risk Performed By: #### Heather THEODORE, LAUREN, 01360-0, THYR #### [facility] ([id number]) [address], [address] [place] [address] Cholesterol in VLDL [Mass/Vol] 22 mg/dL Normal 0-30 [facility] Comment on above: Performed By: #### Heather THEODORE, CMP, 64532-1, THYR #### [facility] ([id number]) [address] [address] CHOLESTEROL:HDL 3.3 Normal 1.0-5.0 [facility] Comment on above: Performed By: #### C BCA, CMP, 78283-3, THYR #### [facility] ([id number]) [address], [address] [address] Triglyceride [Mass/Vol] 111 mg/dL Normal 27-150 [facility] Comment on above: Performed By: #### Heather BCA, CMP, 84244-5, THYR #### [facility] ([id number]) [address] [address] THYROID PROFILEon 12-28-2023 Free T4 [Mass/Vol] 0.85 ng/dL Normal 0.61-1.60 [facility] Comment on above: Performed By: #### Heather BCA, CMP, 99517-4, THYR #### [facility] ([id number]) [address], [address] [address] TSH 1.67 uIU/mL Normal 0.49-4.67 [facility] Comment on above: Performed By: #### Heather BCA, CMP, 70560-2, THYR #### [facility] ([id number]) [address], [address] [address] [address] CHEST HI RESOLUTIONon CT CHEST HI [...] BOBBI MCMANUS Date: 2022-06-18 06:43 Normal [facility] HEMOGLOBINon 06-02-2022 Hemoglobin (Bld) [Mass/Vol] 14.0 g/dL Normal 12.0-16.0 [facility] Comment on above: Performed By: #### H GB #### [facility] [address] [address] [address] Hans Pritchett XR CHEST 2 Von [...] BOBBI MCMANUS Date: 2022-05-05 10:56 Normal [facility] Encounters Encounter Date Encounter Type Care Provider Facility Start: 10-29-2024 End: 10-29-2024 ambulatory Lucy Fay MD Facility:[facility] Start: 10-22-2024 End: 10-22-2024 ambulatory Lucy Fay MD Facility:[facility] Start: 09-17-2024 End: 09-17-2024 ambulatory Lucy Fay MD Facility:[facility] Start: 01-23-2024 End: 01-23-2024 ambulatory Lucy Fay MD Facility:[facility] Start: 01-16-2024 End: 01-16-2024 ambulatory Lucy Fay MD Facility: [facility] Start: 12-28-2023 End: 12-29-2023 ambulatory [facility] Start: 12-28-2023 Encounter for genera l adult medical examination without abnormal findings [facility] Start: 07-27-2022 End: 07-28-2022 ambulatory [facility] Facility:[facility] Start: 06-22-2022 End: 06-23-2022 ambulatory [facility] Facility:[facility] Start: 06-17-2022 End: 06-18-2022 ambulatory [facility] Facility:[facility] Start: 06-02-2022 End: 06-03-2022 ambulatory [facility] Facility:[facility] Start: 05-05-2022 End: 05-06-2022 ambulatory [facility] Facility:[facility] Payers Date Payer Category Payer Private Health Insurance 1965 Unknown [id number] .16.84 [id number] 1965 Unknown [id number] 2.16.84 [id number] 1965 Unknown [id number] 2.16.84 [id number] 1965 Unknown [id number] 2.16.84 [id number] 1965 Unknown [id number] .16.84 [id number] 1965 Unknown [id number] 2.16.8 40.1.322228.3.579.2.1286 1965 Unknown [id number] . [id number] 1965 Unknown [id number] .0.1.226663.3.579.2.196 1965 Unknown [id number] ..[id number] 1965 Unknown [id number] 2.16. 840.1.387163.3.579.2. 1965 Unknown [id number] 2.16. [id number] 1959 Unknown [id number] Summary Purpose Family History No Family History Records FoundNo Family History Records FoundNo Family History Records Found Advance Directives No Advanced Directives Records FoundNo Advanced Directives Records FoundNo Advanced Directives Records Found Additional Source Comments INFORMATION SOURCE (unrecogn ized section and content) DATE CREATED AUTHOR 07/30/2022 [facility] DATE CREATED AUTHOR AUTHOR'S ORGANIZ ATION 12/29/2023 [facility] DATE CREATED AUTHOR AUTHOR'S ORGANIZ ATION 11/04/2024 [facility] FOR RECORDS PERTAINING TO PATIENTS WHO [...] BE BASED ON THE PRIMARY CLINICAL RECORDS. [employer] [facility]. provides no warranty or guarantee of the accuracy or completeness of information in this document.
[2025-01-14] MEDS: LIDOCAINE HCL 2% 400 MG/20 ML MDV 16 ML INJ (11:23)
[2025-01-14] MEDS: BUPIVACAINE HCL 0.25% PF 25 MG/10 ML VIAL 4 ML INJ (11:24)
[2025-01-14] MEDS: METHYLPREDNISOLONE ACETATE 40 MG/ML VIAL INJ (11:24)
[2025-01-14 11:26] VITALS: BP 166/84; BP 182/82; PULSE 68; O2SAT 97; O2SAT 98
--- NOTE | 2025-01-14 11:33 | P.ON_ITS ---
Date of procedure: 01/14/25 Pre-op diagnosis: Pain due to lumbar spondylosis without myelopathy Post-op diagnosis: same as pre-op Procedure: Procedure: Bilateral L4-5, L5-S1 radiofrequency ablation Medications: Bupivacaine 0.25% 6cc, lidocaine 2% 6cc, depomedrol 80mg The patient was seen and examined in the preoperative holding area.? The site was marked.? Written informed consent was obtained and placed on the chart.? The patient was brought to the medical procedure unit and placed in the prone position.? A timeout was completed verifying correct patient, procedure, positioning, and special requirements.? The skin overlying the target points, the designated medial branch, were prepped and draped in the usual sterile fashion.? The target point was achieved with a 20-gauge 15 cm with a 10 mm curved active tip radiofrequency cannula under direct fluoroscopic visualizati on.? The needle was inserted at level L4 on the right side. Needle tip position was confirmed with lateral fluoroscopic position.? Motor stimulation was carried out at 2 Hz up to 5 volts with the absence of extremity activity.? This was repeated at level L5, S1 on right side.?? Sensory stimulation was carried out.? Concordant pain was realized at the above- mentioned sites.? Then radiofrequency lesioning was carried out times 90 seconds at 80 degrees times 2 lesions at each level.? The radiofrequency probe was removed prior to cannula removal.? The above-mentioned injectate was placed in 1 mL increments.? The needle was removed. The same procedure, with the same steps, was then completed on the left side at the same levels. Insertion sites were covered.? The patient was taken to the postoperative recovery area and monitored for an appropriate length of time before being found suitable for discharge in the company of a responsible adult. Anesthesia: Local Surgeon: Lucy Fay Pathology: none sent Condition: stable Disposition: no change
== END 2025-01-14 11:38 | disposition home or self-care (01) ==
LOC: SURGOUT 10:39
PROVIDERS: PCP Family Medicine; Visit Provider Anesthesiology
DX: M47.816 Spondylosis without myelopathy or radiculopathy, lumbar region (principal); M54.50 Low back pain, unspecified
CPT/HCPCS: 64635; 64636; J0665; J1010

== ENCOUNTER 2025-02-14 14:59 | Outpatient (OUT) | payer OTHER, SELFPAY ==
--- OUTSIDE RECORDS SUMMARY | 2024-05-18 11:23 | XMS_ITS ---
Author Organization [facility] in [place] Address [address] [place] [address] Care Team Providers Care Driller Portable Name Role Phone Kiley Ospina Primary Care Provider [phone] REASON FOR VISIT COntrolled refill Medications Medication SIG (Take, Route, Fr equency, Duration) Notes Start Date End Date Status ALPRAZolam 0.25 MG 1/2-1 tab Orally Mona ly prn anxiety for 30 days 05/18/2024 Active Encounters Encounter Location Date Provider Diagnosis [facility] [address] [place] [address] 05/18/2024 Kiley Anai Anxiety F41.9 Assessments Encounter Date Diagnosis (ICD Code) Assessment Notes Treatment Notes Treatment Clinical Notes Section Notes 05/18/2024 Anxiety (ICD-10 - F41.9) Plan Of Treatment Medication Medication Name Sig Start Date Stop Date Notes ALPRAZolam 0.25 MG 1/2-1 tab Orally Mona ly prn anxiety for 30 days 05/18/2024 Next Appt Details Provider Name:Kiley Klein es, 04/03/2025 04:30:00 PM, [address] [place], [address], Progress Notes * Velma PUGA SDOB:1965 (58 yo F)Acc No.[id number]:05/18/2024 Patient: Javad Velma MOFFETT Heraclio :1965 A ge:58 Y S ex:Female Address:[address] [place] [address] * Refills Refill ALPRAZolam Tablet, 0.25 MG, Orally, 30, 1/2-1 tab, Daily prn anxiety, 30 days, Refills=2 * true * Date: Generated for Sarah ham/Carlos/Jordana on: 0 02/14/2025 03:02 PM EDT
--- OUTSIDE RECORDS SUMMARY | 2025-01-25 08:37 | XMS_ITS ---
Author Organization [facility] [place] Address [address] [place] [address] Care Team Providers Care Comb Fixer Name Role Phone Kiley Ospina Primary Care Provider [phone] REASON FOR VISIT med refills/APPT Medications Medication SIG (Take, Route, Frequency, Duration) Notes Start Date End Date Status ALPRAZolam 0.25 MG 1/2-1 tab Orally Mona ly prn anxiety for 30 days 01/28/2025 Active Albuterol Sulfate HFA 108 (90 Base) MCG/ACT 2 puffs Inhalation every 4 hrs prn cough/SOB for 30 days 02/14/2020 Active Encounters Encounter Location Date Provider Diagnosis [facility] [address] [place] [address] 01/25/2025 Kiley Ospina Anxiety F41.9 and Mi ld intermittent asthma without complication J45.20 Assessments Encounter Date Diagnosis (ICD Code) Assessment Notes Treatment Notes Treatment Clinical Notes Section Notes 01/25/2025 Anxiety (ICD-10 - F41.9) 01/25/2025 Mild intermittent asthma without complication (ICD-10 - J45.20) Plan Of Treatment Medication Medication Name Sig Start Date Stop Date Notes ALPRAZolam 0.25 MG 1/2-1 tab Orally Mona ly prn anxiety for 30 days 01/28/2025 Albuterol Sulfate HFA 108 (9 0 Base) MCG/ACT 2 puffs Inhalation every 4 hrs prn cough/SOB for 30 days 02/14/2020 Next Appt Details Provider Name:Kiley jewell, 04/03/2025 04:30:00 PM, [address] [place], [address], Progress Notes * Velma PUGA SDOB:1965 (59 yo F)Acc No.[id number]:01/25/2025 Patient: Velma HERNANDEZ :1965 A ge:59 Y S ex:Female Address:[address] [place] [address] * Refills Refill ALPRAZolam Tablet, 0.25 MG, Orally, 30, 1/2-1 tab, Daily prn anxiety, 30 days, Refills=0 Refill Albuterol Sulfate HFA Aerosol Solution, 108 (90 Base) MCG/ACT, Inhalation, 1, 2 puffs, every 4 hrs prn cough/SOB, 30 days, Refills=1 * true * Date: Generated for Sarah ham/Carlos/Washingtonitting on: 0 02/14/2025 03:01 PM EDT
--- OUTSIDE RECORDS SUMMARY | 2025-02-14 15:01 | XMS_ITS | Patient Health Record ---
Author Organization [facility] [place] Address [address] [place] [address] Care Team Providers Care Bar Porter Name Role Phone Anai Kiley Primary Care Provider Allergies No Known Allergies Reason For Referral No Information Medications Medication SIG (Take, Route, Frequency, Duration) Notes Start Date End Date Status Pregabalin 50 MG take 1 capsule by mouth three times a day Oral for 30 Days Active Meloxicam 7.5 MG take 1 tablet by mouth twice a day if needed Oral for 30 Days Active Lisinopril 10 MG 1 tablet Orally Once a day for 30 days 10/21/2023 Active ALPRAZolam 0.25 MG 1/2-1 tab Orally Daily prn anxiety for 30 days 01/28/2025 Active valACYclovir HCl 500 MG 1 tablet Orally BID for 7 Days 11/03/2021 Not-Taking Albuterol Sulfate HFA 108 (90 Base) MCG/ACT 2 puffs Inhalation every 4 hrs prn cough/SOB for 30 days 02/14/2020 Active Cyclobenzaprine HCl 10 MG Oral for 30 Days Active Lansoprazole 30 MG take 1 capsule by mouth twice a day for 30 days Active Immunizations Vaccine Route Administration Date Status Comme nts Flu, Fluzone (07975) 6 mos+, single-dose syringe/vial (4256-4679) Unknown 05/20/2022 Administered Pneumococcal (Prevnar 13) Unknown [...] Problem Status W/U Status Risk Notes Problem 04790075 Essential (primary) hypertension (I10) Active confirmed Problem 181873567 Gastro-esophagea l reflux disease without esophagitis (K21.9) Active confirmed Problem 431283797 Other specified bacterial intestinal infections (A04.8) Active confirmed Problem 821180942240452 Obesity, unspecified (E66.9) Active confirmed Problem Uncomplicated asthma (disorder) (274732731) Unspecified asthma, uncomplicated (J45.909) Active confirmed Problem 15907468 Constipation, unspecified (K59.00) Active confirmed Problem 632971983 Celiac disease (K90.0) Active confirmed Problem 90398711 Other specified symptoms and signs involving the digestive system and abdomen (R19.8) Active confirmed Problem 73657475 Anxiety (F41.9) Active confirmed Problem Obstructive sleep apnea (82008664) Obstructive sleep apnea (G47.33) Active confirmed Problem 668381102 Mild intermitten t asthma without complication (J45.20) Active confirmed Problem Constipation (62784387) Constipation (K59.00) Active confirmed Problem 30329414 Sleep disturbanc e (G47.9) Active confirmed Problem 157294671 BMI 33.0-33.9,adult (Z68.33) Active confirmed Problem Restrictive lung disease (96223283) Restrictive lung disease (J98.4) Active confirmed Problem Chronic gastritis (1652753) Chronic gastritis (K29.50) Active confirmed Problem Gastroesophageal reflux disease (123234544) Gastroesophageal reflux disease (K21.9) Active confirmed Problem 6968884 Spotting (N92.0) Active confirmed Problem 628135349 Irritable bowel syndrome with constipation (K58.1) Active confirmed Problem 032243330 Anxiety with depression (F41.8) Active confirmed Problem 024001683 Body mass index [BMI] 34.0-34.9, adult (Z68.34) Active confirmed Problem Peripheral eosinophilia (D72.19) Active confirmed Problem 073064909 Body mass index [BMI] 30.0-30.9, adult (Z68.30) [...] elevated Encounters Encounter Location Date Provider Diagnosis [facility] [address] [place] [address] 03/01/2024 Kiley Ospina Anxiety F41.9 and Gastroesophageal reflux disease K21.9 [facility] [address] [place] [address] 05/18/2024 Kiley Ospina Anxiety F41.9 [facility] [address] [place] [address] 01/25/2025 Kiley Ospina Anxiety F41.9 and Mi ld intermittent asthma without complication J45.20 [facility] [address] [place] [address] 03/29/2024 Kileyher Ospina Encounter for genera l adult medical [...] - F41.9) 05/18/2024 Anxiety (ICD-10 - F41.9) 01/25/2025 Anxiety (ICD-10 - F41.9) 01/25/2025 Mild intermittent asthma without complication (ICD-10 - J45.20) 03/01/2024 Gastroesophageal reflux disease (ICD-10 - K21.9) 03/29/2024 Gastroesophageal reflux disease (ICD-10 - K21.9) Stable 03/29/2024 Anxiety (ICD-10 - F41.9) Stable 03/29/2024 Constipation, unspecified (ICD-10 - K59.00) Resolved with eating boiled peanuts Plan Of Treatment Pending Test Test Name Order Date CMP (COMPLETE METABOLIC PANEL) 4 IGA, IMMUNOGLOBULIN (TOTAL) 05/20/2023 LIPID PANEL (CHOL/TRIG/HDL/LDL) 10/21/19 24 CBC WITH DIFF 10/21/2023 T4 FREE and TSH 10/21/2023 CELIAC DISEASE (DGP,IGA/IGG + TTG, IGA/I GG) 05/20/2023 CBC AND AUTO DIFF * 12/28/2023 COMPREHENSIVE METABOLIC PANEL 12/28/2023 THYROID PROFILE 12/28/2023 MAMM SCREEN BILAT MINISTERIO 3D* 04/08/2022 LIPID PANEL 12/28/2023 H PYLORI, UREA BREATH TEST ADULT (>17 YR S) 05/20/2023 Next Appt Details Provider Name:Kiley jewell, 04/03/2025 04:30:00 PM, [address] [place], [address], Insurance Providers Payer Name Payer Address Payer Phone Subscriber Number Group Number Insured Name Patient Relationship to Insured Coverage Start Date Coverage End Date R [address] [address] [place] [address] [phone] [id number] Velma Li Self - patient is [...]
--- OUTSIDE RECORDS SUMMARY | 2025-02-14 15:02 | XMS_ITS | Clinical Summary ---
Author Organization [employer] Address [id number] [address] [place] [address] Care Team Providers Care Business Analyst Project Manager Name Role Phone Kiley Ospina MD Primary Care Provider Unavail able Social History Tobacco Use Types Packs/Day Years Used Date Smoking Tobacco: Never Assessed Childcare Answer Date Recorded Childcare Unknown 01/10/2019 Employment Answer Date Recorded Employment Unknown 01/10/2019 Purpose - Life Answer Date Recorded Purpose and direction in life Unknown Comments Unknown Sex and Gender Information Value Date Recorded Sex Assigned at Not on file Legal Sex Female 11:57 AM EDT Gender Identity Not on file Sexual Orientation Not on file Plan of Treatment Health Maintenance Due Date Last Done Comments Depression Screening 1977 Tobacco Screening 1977 Adult BMI Screening 1983 Pap Smear 1986 COVID-19 Vaccine ( season) 2024, 04/25/2021 Influenza Vaccine 04/01/2025 05/20/2022 DTaP,Tdap and Td Vaccines (2 - Td or Tdap) 10/24/2028 10/24/2018 Zoster (Shingles) Vaccine Completed 12/07/2019, [employer] Not on file Insurance [id number] [place] [address] [facility] Care Teams Business Analyst Project Manager Relationship Specialty Start Date End Date Kiley Ospina MD PCP - General 03/30/19
--- NOTE | 2025-02-14 15:12 | P.CN_ITS ---
Consult Note: HPI Data of Consult Patient: known to practice within the last 3 years Consult date: 02/14/25 Requesting Physician: Skyla Marie NP Primary Care Provider: REX LOCK Consult Narrative Reason for consult: low back pain Narrative: Velma vincent pleasant 59 year old female presents for evaluation of chronic low back pain. Pain 0/10 in low back since RFA. prior lumbar xray consistent with multilevel changes, lumbar MRI does reveal mild to moderate stenosis at L3-5 with additional degenerative changes. pt has failed to benefit from > 6 weeks of PT and provider guided HEP, heat, ice, tylenol, and NSAIDs. currently utilizing flexeril, mobic, lyirc with mild relief without side effects. recently underwent repeat L4-5 L5-S1 Facet RFA with >90% improvement ongoing cc:: CC: Skyla Marie NP Review of Systems ROS Musculoskeletal Denies: back pain, extremity pain or joint pain PFSH PFSH Medical History Acid reflux �K21.9 - Gastro-esophageal reflux disease without esophagitis (ICD-10) Asthma �J45.909 - Unspecified asthma, uncomplicated (ICD-10) Surgical History H/O cone biopsy of cervix �Z98.890 - Other specified postprocedural states (ICD-10) Social History Smoking status: Never smoker Meds Home Medications and Allergies Home Medications �Medication �Instructions �Recorded �Confirmed �Type alprazolam 0.25 mg tablet 0.25 mg PO DAILY PRN anxiety 03/24/23 01/14/25 History meloxicam 7.5 mg tablet 7.5 mg PO BID PRN pain 08/1001/14/25 History cyclobenzaprine 10 mg tablet 10 mg PO TID PRN muscle s pasm #90 01/05/24 01/14/25 Rx tabs pregabalin 50 mg capsule (Lyrica) 50 mg PO TID #90 cap s 01/05/24 01/14/25 Rx lisinopril 10 mg tablet mg 01/16/24 History Allergies Allergy/AdvReac Type Severity Reaction Status Date / Time No Known Drug Allergies Allergy Verified 01/14/25 10:50 Exam Constitutional Documenting provider has reviewed patient's vital signs: yes Common normals: no apparent distress, oriented x3, healthy appearing, alert and well nourished General appearance: cooperative HENMT Common normals: normocephalic, hearing grossly normal bilaterally and moist oral mucous membranes Head and scalp: normocephalic Eye Common normals: PERRL Pupil: PERRL Neck & C-Spine Common normals: full ROM General: normal visual inspection Chest Common normals: inspection of chest normal Respiratory Common normals: normal respiratory effort, no retractions and no use of accessory muscles Back & Pelvis Lumbar spine/lower back: normal to inspection and lumbar ROM normal; ROM not limited, no pain with ROM and no lumbar spinal tenderness Other: strength 5/5 in BLE sensation intact BLE Neuro Common normals: oriented x3 Sensorium/orientation: alert Psych Common normals: mental status grossly normal, thought process normal, cooperative, affect normal, speech normal and activity/motor behavior normal Speech: normal speech Thought process: normal thought process Results Additional Findings Additional findings: If on a controlled substance or opioids, I have checked an [place] report on this patient and there are no aberrancies noted in the prescribing history.��If on a controlled substance or opioid a drug screen was completed and reviewed within the last year, and if there has not been a drug screen completed we ordered one today to monitor higher risk, state monitored pain medication use. As part of providing excellent, safe, comprehensive care, the following was completed at our patient's visit: 1. A medication reconciliation and review to ensure accurate knowledge of current/active medications, including asking our patients to inform us about any gyqg-vxl-woqoage medications or herbal remedies/nutritional suppl ements/alternative remedies. 2. A review to specifically ensure our patients have had annual screening for screening for depression, screening for tobacco use, and screening for unhealthy alcohol use. For concerning screenings had a discussion with the patient, provided patient education, and recommended follow-up with primary care provider when appropriate. If patient noted with a risk of falling, they received education on strength, gait, and balance training to prevent future risk of falling. Portions of this note may have been carried over from the previous visit and updated as appropriate. Please note this office utilizes paper charting in addition to the electronic medical record. A list of current medications, vitals, and PMH is available there as the clinical staff outside of myself do not have access to [employer] charting during the clinic day operations. As part of providing quality comprehensive care the current medications, vitals, and PMH were reviewed in the paper chart. Assessment and Plan Assessment and Plan (1) Lumbar spondylosis: Assessment and Plan: 01/14/25 Bilateral L4-5, L5-S1 radiofrequency ablation with >90% improvement ongoing (2) Bilateral sacroiliitis: (3) Myofascial pain: Plan pain very well controlled asa a result of bialteral L4-5 L5-S1 RFA advised pt to decrease pregabalin 50mg HS as tolerated and wean off as tolerated to reduce polypharmacy and long term side effects continue meloxicam 7.5mg bid prn, not utilizing since RFA continue flexeril 10mg up to TID PRN pain/spasms continue HEP as tolerated f/u 6 months, sooner if needed
== END 2025-02-14 15:00 | disposition home or self-care (01) ==
LOC: PM 14:59
PROVIDERS: PCP Family Medicine; Visit Provider Nurse Practitioner
DX: M47.816 Spondylosis without myelopathy or radiculopathy, lumbar region (principal); M46.1 Sacroiliitis, not elsewhere classified; M79.18 Myalgia, other site
CPT/HCPCS: G0463

== ENCOUNTER 2025-04-12 14:15 | Outpatient (OUT) | payer OTHER, SELFPAY ==
--- OUTSIDE RECORDS SUMMARY | 2025-04-12 14:27 | XMS_ITS | CCD ---
Author Organization [facility] Care Team Providers Care Parts Cataloguer Name Role Phone SAMSA, CLAUDIA Admitting Unavailable [...] BASOPHIL 0.0 X10E9/L Normal 0.0-0.2 [facility] Comment on above: Performed By: #### C LAUREN THEODORE, 68161-4, THYR #### [facility] ([id number]) [address], [address] [place] [address] ABSOLUTE NEUTROPHIL 3.3 X10E9/L Normal 1.5-6.6 [facility] Comment on above: Performed By: #### Heather THEODORE CMP, 68076-4, THYR #### [facility] ([id number]) [address], [address] [place] [address] Basophils/100 WBC (Bld) 0.8 % Normal [facility] Comment on above: Performed By: #### Heather THEODORE CMP, 82637-8, THYR #### [facility] ([id number]) [address], [address] [place] [address] Eosinophils (Bld) [#/Vol] 0.1 10*3/uL Normal 0.0-0.4 [facility] Comment on above: Performed By: #### Heather THEODORE CMP, 51056-2, THYR #### [facility] ([id number]) [address], [address] [place] [address] Eosinophils/100 WBC (Bld) 2.3 % Normal [facility] Comment on above: Performed By: #### Heather THEODORE CMP, 98219-0, THYR #### [facility] ([id number]) [address], [address] [place] [address] Erythrocyte distribution width (RBC) [Ratio] 13.3 % Normal 11.5-15.0 [facility] Comment on above: Performed By: #### C LAUREN THEODORE, 75652-5, THYR #### [facility] ([id number]) [address], [address] [place] [address] Hematocrit (Bld) [Volume fraction] 41.1 % Normal 35-47 [facility] Comment on above: Performed By: #### C LAUREN THEODORE, 50764-9, THYR #### [facility] ([id number]) [address], [address] [place] [address] Hemoglobin (Bld) [Mass/Vol] 13.9 g/dL Normal 11.7-15.5 [facility] Comment on above: Performed By: #### Heather THEODORE CMP, 38879-7, THYR #### [facility] ([id number]) [address], [address] [place] [address] Lymphocytes (Bld) [#/Vol] 2.1 10*3/uL Normal 1.0-3.5 [facility] Comment on above: Performed By: #### Heather THEODORE CMP, 66830-0, THYR #### [facility] ([id number]) [address], [address] [place] [address] Lymphocytes/100 WBC (Bld) 34.0 % Normal [facility] Comment on above: Performed By: #### Heather THEODORE CMP, 19375-4, THYR #### [facility] ([id number]) [address], [address] [place] [address] MCH (RBC) [Entitic mass] 33.4 pg Normal 27-34 [facility] Comment on above: Performed By: #### C EWELINA CMP, 45794-1, THYR #### [facility] ([id number]) [address], [address] [place] [address] MCHC (RBC) [Mass/Vol] 33.7 g/dL Normal 32-36 [facility] Comment on above: Performed By: #### C EWELINA, CMP, 60295-4, THYR #### [facility] ([id number]) [address], [address] [place] [address] MCV (RBC) [Entitic vol] 99 fL Normal 80-100 [facility] Comment on above: Performed By: #### C EWELINA, CMP, 43532-4, THYR #### [facility] ([id number]) [address], [address] [place] [address] Monocytes (Bld) [#/Vol] 0.5 10*3/uL Normal 0-0.9 [facility] Comment on above: Performed By: #### Heather THEODORE, CMP, 60278-2, THYR #### [facility] ([id number]) [address], [address] [place] [address] Monocytes/100 WBC (Bld) 8.1 % Normal [facility] Comment on above: Performed By: #### Heather BCA, CMP, 99621-8, THYR #### [facility] ([id number]) [address], [address] [place] [address] Neutrophils/100 WBC (Bld) 54.8 % Normal [facility] Comment on above: Performed By: #### Heather THEODORE, CMP, 59476-3, THYR #### [facility] ([id number]) [address], [address] [place] [address] Platelet mean volume (Bld) [Entitic vol] 8.2 fL Normal 7-12 [facility] Comment on above: Performed By: #### Heather BCA, CMP, 76590-5, THYR #### [facility] ([id number]) [address], [address] [place] [address] Platelets (Bld) [#/Vol] 398 10*3/uL Normal 150-450 [facility] Comment on above: Performed By: #### C BCA, CMP, 77924-0, THYR #### [facility] ([id number]) [address], [address] [place] [address] RBC COUNT 4.15 X10E12/L Normal 3.80-5.20 [facility] Comment on above: Performed By: #### C BCA, CMP, 19583-9, THYR #### [facility] ([id number]) [address], [address] [place] [address] WBC (Bld) [#/Vol] 6.1 10*3/uL Normal 4.0-11.0 [facility] Comment on above: Performed By: #### C BCA, CMP, 90891-2, THYR #### [facility] ([id number]) [address], [address] [place] [address] COMPREHENSIVE METABOLIC PANE Riki 12-28-2023 Albumin [Mass/Vol] 4.0 g/dL Normal 3.2-5.3 [facility] Comment on above: Performed By: #### C BCA, CMP, 71278-4, THYR #### [facility] ([id number]) [address], [address] [place] [address] ALP [Catalytic activity/Vol] 56 U/L Normal 39-130 [facility] Comment on above: Performed By: #### C BCA, CMP, 83785-6, THYR #### [facility] ([id number]) [address], [address] [place] [address] ALT [Catalytic activity/Vol] 13 U/L Normal 0-31 [facility] Comment on above: Performed By: #### C BCA, CMP, 88033-5, THYR #### [facility] ([id number]) [address], [address] [place] [address] Anion gap [Moles/Vol] 8 mmol/L Normal 5-15 [facility] Comment on above: Performed By: #### C BCA, CMP, 89428-9, THYR #### [facility] ([id number]) [address], [address] [place] [address] AST [Catalytic activity/Vol] 16 U/L Normal 0-41 [facility] Comment on above: Performed By: #### C BCA, CMP, 06806-5, THYR #### [facility] ([id number]) [address], [address] [place] [address] Bilirubin [Mass/Vol] 0.8 mg/dL Normal 0.3-1.2 [facility] Comment on above: Performed By: #### C BCA, CMP, 15241-4, THYR #### [facility] ([id number]) [address], [address] [place] [address] Calcium [Mass/Vol] 9.2 mg/dL Normal 8.5-10.5 [facility] Comment on above: Performed By: #### C BCA, CMP, 27515-1, THYR #### [facility] ([id number]) [address], [address] [place] [address] Chloride [Moles/Vol] 105 mmol/L Normal 98-109 [facility] Comment on above: Performed By: #### C BCA, CMP, 35150-1, THYR #### [facility] ([id number]) [address], [address] [place] [address] CO2 [Moles/Vol] 29 mmol/L Normal 22-32 [facility] Comment on above: Performed By: #### C BCA, CMP, 38337-0, THYR #### [facility] ([id number]) [address], [address] [place] [address] Creatinine [Mass/Vol] 0.64 mg/dL Normal 0.40-1.00 [facility] Comment on above: Result Comment: METH OD TRACEABLE TO IDMS STANDARD Performed By: #### C LAUREN THEODORE, 21663-6, THYR #### [facility] ([id number]) [address], [address] [place] [address] eGFR (CKD-EPI) NON-RACE DEPENDENT >90 Normal >59 [facility] Comment on above: Result Comment: Reported eGFR is based on the CKD-EPI 2020 equation that does not use a race coefficient. Performed By: #### C LAUREN THEODORE, 11721-5, THYR #### [facility] ([id number]) [address], [address] [place] [address] Glucose [Mass/Vol] 89 mg/dL Normal 65-99 [facility] Comment on above: Performed By: #### C LAUREN THEODORE, 34773-4, THYR #### [facility] ([id number]) [address], [address] [place] [address] Potassium [Moles/Vol] 3.6 mmol/L Normal 3.5-5.0 [facility] Comment on above: Performed By: #### C LAUREN THEODORE, 72416-1, THYR #### [facility] ([id number]) [address], [address] [place] [address] Protein [Mass/Vol] 6.6 g/dL Normal 6.0-8.0 [facility] Comment on above: Performed By: #### C LAUREN THEODORE, 67555-3, THYR #### [facility] ([id number]) [address], [address] [place] [address] Sodium [Moles/Vol] 142 mmol/L Normal 134-146 [facility] Comment on above: Performed By: #### C EWELINA CMP, 03064-1, THYR #### [facility] ([id number]) [address], [address] [place] [address] Urea nitrogen [Mass/Vol] 14 mg/dL Normal 5-23 [facility] Comment on above: Performed By: #### Heather THEODORE, LAUREN, 37874-4, THYR #### [facility] ([id number]) [address], [address] [place] [address] Lipid 1996 panelon 4 Cholesterol [Mass/Vol] 205 mg/dL High 150-200 [facility] Comment on above: Performed By: #### Heather THEODORE, LAUREN, 00174-3, THYR #### [facility] ([id number]) [address], [address] [place] [address] Cholesterol in HDL [Mass/Vol] 63 mg/dL Normal >39 [facility] Comment on above: Result Comment: HDL <40 mg/dL - High Risk HDL > or = 40mg/dL- Desirable HDL >60 mg/dL - Negative Risk Performed By: #### Heather THEODORE, LAUREN, 46784-2, THYR #### [facility] ([id number]) [address], [address] [place] [address] Cholesterol in LDL [Mass/Vol] 120 mg/dL Normal <130 [facility] Comment on above: Result Comment: LDL <100 mg/dL - Desirable LDL >160 mg/dL - High Risk Performed By: #### Heather THEODORE, LAUREN, 18996-9, THYR #### [facility] ([id number]) [address], [address] [place] [address] Cholesterol in VLDL [Mass/Vol] 22 mg/dL Normal 0-30 [facility] Comment on above: Performed By: #### Heather THEODORE, CMP, 43075-7, THYR #### [facility] ([id number]) [address], [address] [place] [address] CHOLESTEROL:HDL 3.3 Normal 1.0-5.0 [facility] Comment on above: Performed By: #### C EWELINA CMP, 66137-6, THYR #### [facility] ([id number]) [address], [facility] [address] [place] [address] Triglyceride [Mass/Vol] 111 mg/dL Normal 27-150 [facility] Comment on above: Performed By: #### C LAUREN THEODORE, 11286-5, THYR #### [facility] ([id number]) [address] [address] THYROID PROFILEon 12-28-2023 Free T4 [Mass/Vol] 0.85 ng/dL Normal 0.61-1.60 [facility] Comment on above: Performed By: #### Heather THEODORE CMP, 59645-8, THYR #### [facility] ([id number]) [address], [address] [address] TSH 1.67 uIU/mL Normal 0.49-4.67 [facility] Comment on above: Performed By: #### Heather THEODORE CMP, 81312-8, THYR #### [facility] ([id number]) [address], [address] [address] [address] CHEST HI RESOLUTIONon CT CHEST HI [...] by: BOBBI MCMANUS Date: 2022-06-18 06:43 Normal [facility] HEMOGLOBINon 06-02-2022 Hemoglobin (Bld) [Mass/Vol] 14.0 g/dL Normal 12.0-16.0 [facility] Comment on above: Performed By: #### H GB #### [facility] [address] [place] [address] Dr. Hans Pritchett XR CHEST 2 Von [...] MCMANUS Date: 2022-05-05 10:56 Normal [facility] Encounters Encounter Date Encounter Type Care Provider Facility Start: 01-14-2025 End: 01-14-2025 ambulatory Lucy Fay MD Facility:[facility] Start: 10-29-2024 End: 10-29-2024 ambulatory Lucy Fay MD Facility:[facility] Start: 10-22-2024 End: 10-22-2024 ambulatory Lucy Fay MD Facility:[facility] Start: 09-17-2024 End: 09-17-2024 ambulatory Lucy Fay MD Facility:[facility] Start: 12-28-2023 End: 12-29-2023 ambulatory [facility] Start: 12-28-2023 Encounter for genera l adult medical examination without abnormal findings [facility] Start: 07-27-2022 End: 07-28-2022 ambulatory [facility] Facility:[facility] Start: 06-22-2022 End: 06-23-2022 ambulatory [facility] Facility:[facility] Start: 06-17-2022 End: 06-18-2022 ambulatory [facility] Facility:[facility] Start: 06-02-2022 End: 06-03-2022 ambulatory [facility] Facility:[facility] Start: 05-05-2022 End: 05-06-2022 ambulatory [facility] Facility:[facility] Payers Date Payer Category Payer Private Health Insurance 1965 Unknown [id number] 2.16.84 [id number] 1965 Unknown [id number] 2.16.84 [id number] 1965 Unknown [id number] 2.16.84 [id number] 1965 Unknown [id number] 2.16.84 [id number] 1965 Unknown [id number] 2.16.84 [id number] 1965 Unknown [id number] 2.16.8 [id number] 1965 Unknown [id number] 2.16. [id number] 1965 Unknown [id number] 2.16. [id number] 1965 Unknown [id number] 2.16. [id number] 1965 Unknown [id number] 2.16. [id number] 1959 Unknown [id number] Summary Purpose Family History No Family History Records FoundNo Family History Records FoundNo Family History Records Found Advance Directives No Advanced Directives Records FoundNo Advanced Directives Records FoundNo Advanced Directives Records Found Additional Source Comments INFORMATION SOURCE (unrecogn ized section and content) DATE CREATED AUTHOR 07/30/2022 [facility] DATE CREATED AUTHOR AUTHOR'S ORGANIZ ATION 12/29/2023 [facility] DATE CREATED AUTHOR AUTHOR'S ORGANIZ ATION 01/24/2025 [facility] FOR RECORDS PERTAINING TO PATIENTS [...] BE BASED ON THE PRIMARY CLINICAL RECORDS. [facility] [employer] [facility]. provides no warranty or guarantee of the accuracy or completeness of information in this document.
[2025-04-12 15:06] LABS: Hematocrit 37.6 % (36.0-48.0); Hemoglobin 12.6 g/dL (12.0-16.0); Immature Granulocytes Abs Auto 0.01 10^3/uL (0.00-0.03); Immature Granulocytes Pct Auto 0.1 % (0.0-0.5); Lymphocytes Absolute Auto 2.7 10^3/uL (1.2-3.8); Mean Corpuscular HGB Conc 33.5 g/dL (29.9-35.2); Mean Corpuscular Hemoglobin 32.6 pg (26.7-34.0); Mean Corpuscular Volume 97.4 fL (81.0-99.0); Platelet Count 335 10^3/uL (150-450); Red Blood Count 3.86 10^6/uL (4.20-5.40); White Blood Count 7.1 10^3/uL (4.0-11.0)
[2025-04-12 16:25] LABS: Alanine Aminotransferase 82 U/L (14-59); Albumin Globulin Ratio 1.0; Albumin Level 3.7 g/dL (3.4-5.0); Alkaline Phosphatase 79 U/L (46-116); Anion Gap 10.4; Aspartate Amino Transferase 51 U/L (15-37); Blood Urea Nitrogen 18.0 mg/dL (7.0-18.0); Calcium 9.0 mg/dL (8.5-10.1); Carbon Dioxide 28.5 mmol/L (21.0-32.0); Chloride 104 mmol/L (98-107); Cholesterol 229 mg/dL (<=200); Estimated GFR (African America >60 (>=60 mL/min/1.73m^2); Estimated GFR (Non-African Ame >60 (>=60 mL/min/1.73m^2); Globulin 3.7 g/dL; Glucose 88 mg/dL (74-106); HDL Cholesterol 87 mg/dL (40-60); Potassium 3.9 mmol/L (3.5-5.1); Sodium 139 mmol/L (136-145); Total Protein 7.4 g/dL (6.4-8.2); Triglycerides 44 mg/dL (<=150); VLDL CHOLESTEROL 8.8 mg/dL
== END 2025-04-12 14:16 | disposition home or self-care (01) ==
LOC: LAB 14:16
PROVIDERS: PCP Family Medicine; Visit Provider Family Medicine
DX: Z00.00 Encounter for general adult medical examination without abnormal findings (principal)
CPT/HCPCS: 36415; 80053; 80061; 83036; 85025

== ENCOUNTER 2025-04-17 15:08 | Outpatient (OUT) | payer OTHER, SELFPAY ==
--- NOTE | 2025-04-17 15:40 | P.CN_ITS ---
Consult Note: HPI Data of Consult Patient: known to practice within the last 3 years Consult date: 04/17/25 Requesting Physician: Skyla Marie NP Primary Care Provider: REX LOCK Consult Narrative Reason for consult: low back pain Narrative: Velma vincent pleasant 59 year old female presents for evaluation of chronic low back pain. Pain 6/10 in low back and bilateral SIJ. prior lumbar xray consistent with multilevel changes, lumbar MRI does reveal mild to moderate stenosis at L3- 5 with additional degenerative changes. pt has failed to benefit from > 6 weeks of PT and provider guided HEP, heat, ice, tylenol, and NSAIDs. currently utilizing flexeril, lyirca with mild relief without side effects. cc:: CC: Skyla Marie NP Review of Systems ROS Musculoskeletal Reports: back pain and joint pain; Denies: extremity pain PFSH PFSH Medical History (Updated 04/17/25 @ 15:42 by Skyla Marie NP) Acid reflux ?K21.9 - Gastro-esophageal reflux disease without esophagitis (ICD-10) Asthma ?J45.909 - Unspecified asthma, uncomplicated (ICD-10) Surgical History H/O cone biopsy of cervix ?Z98.890 - Other specified postprocedural states (ICD-10) Social History Smoking status: Never smoker Meds Home Medications and Allergies Home Medications ?Medication ?Instructions ?Recorded ?Confirmed ?Type alprazolam 0.25 mg tablet 0.25 mg PO DAILY PRN anxiety 03/24/23 01/14/25 History meloxicam 7.5 mg tablet 7.5 mg PO BID PRN pain 08/1001/14/25 History cyclobenzaprine 10 mg tablet 10 mg PO TID PRN muscle s pasm #90 01/05/24 01/14/25 Rx tabs pregabalin 50 mg capsule (Lyrica) 50 mg PO TID #90 cap s 01/05/24 01/14/25 Rx lisinopril 10 mg tablet mg 01/16/24 History Allergies Allergy/AdvReac Type Severity Reaction Status Date / Time No Known Drug Allergies Allergy Verified 01/14/25 10:50 Exam Constitutional Documenting provider has reviewed patient's vital signs: yes Common normals: no apparent distress, oriented x3, healthy appearing, alert and well nourished General appearance: cooperative HENMT Common normals: normocephalic, hearing grossly normal bilaterally and moist oral mucous membranes Head and scalp: normocephalic Eye Common normals: PERRL Pupil: PERRL Neck & C-Spine Common normals: full ROM General: normal visual inspection Chest Common normals: inspection of chest normal Respiratory Common normals: normal respiratory effort, no retractions and no use of accessory muscles Back & Pelvis Lumbar spine/lower back: pain with ROM; ROM not limited Sacroiliac joints: SI joint(s) abnormal Other: increased low back pain with forward flexion bilateral sij positive katelynn(patricks), gaenslens, thigh thrust, compression test Neuro Common normals: oriented x3 Sensorium/orientation: alert Psych Common normals: mental status grossly normal, thought process normal, cooperative, affect normal, speech normal and activity/motor behavior normal Speech: normal speech Thought process: normal thought process Results Additional Findings Additional findings: If on a controlled substance or opioids, I have checked an [place]AR[place] report on this patient and there are no aberrancies noted in the prescribing history.??If on a controlled substance or opioid a drug screen was completed and reviewed within the last year, and if there has not been a drug screen completed we ordered one today to monitor higher risk, state monitored pain medication use. As part of providing excellent, safe, comprehensive care, the following was completed at our patient's visit: 1. A medication reconciliation and review to ensure accurate knowledge of current/active medications, including asking our patients to inform us about any dyzu-zxf-lonokmz medications or herbal remedies/nutritional suppleme nts/alternative remedies. 2. A review to specifically ensure our patients have had annual screening for screening for depression, screening for tobacco use, and screening for unhealthy alcohol use. For concerning screenings had a discussion with the patient, provided patient education, and recommended follow-up with primary care provider when appropriate. If patient noted with a risk of falling, they received education on strength, gait, and balance training to prevent future risk of falling. Portions of this note may have been carried over from the previous visit and updated as appropriate. Please note this office utilizes paper charting in addition to the electronic medical record. A list of current medications, vitals, and PMH is available there as the clinical staff outside of myself do not have access to [employer] charting during the clinic day operations. As part of providing quality comprehensive care the current medications, vitals, and PMH were reviewed in the paper chart. Assessment and Plan Assessment and Plan (1) Bilateral sacroiliitis: Assessment and Plan: The patient has had over 3 months of moderate to severe low back pain with functional impairment and inadequate response to conservative care including N SAIDS (unless there are contraindication such as concurrent blood thinners), multiple oral or topical pain medications, and home exercise program/physical therapy.? Patient has completed >6 weeks of guided home exercise program and/or formal physical therapy program without relief of their symptoms.? The Oswestry Disability Index was completed, and the patient scored a 18%.? 09/25 bilateral SIJ injection >50% improvement greater than 3 months ? (2) Vertebrogenic low back pain: Assessment and Plan: Dr Fay to review lumbar MRI and modic changes in consideration of intracept Plan repeat bilateral SIJ injections information provided to pt on intracept MDP for acute on chronic pain, cannot take NSAIDs due to HTN and is noting pain unresponsive to tylenol, flexeril, lyrica. unfortunately we cannot schedule her injections for 3+ weeks and reports she cannot function with this current pain and maintain her work/home responsibilities. continue HEP as tolerated f/u after procedure
--- OUTSIDE RECORDS SUMMARY | 2025-04-17 16:21 | XMS_ITS | CCD ---
Author Organization [facility] Care Team Providers Care Education And Training Coordinator Name Role Phone SAMSA, CLAUDIA Admitting Unavailable [...] 12-28-19 ABSOLUTE BASOPHIL 0.0 X10E9/L Normal 0.0-0.2 [facility] Comment on above: Performed By: #### C LAUREN THEODORE, 03929-0, THYR #### [facility] ([id number]) [address], [address] [place] [address] ABSOLUTE NEUTROPHIL 3.3 X10E9/L Normal 1.5-6.6 [facility] Comment on above: Performed By: #### Heather THEODORE CMP, 61813-5, THYR #### [facility] ([id number]) [address], [address] [place] [address] Basophils/100 WBC (Bld) 0.8 % Normal [facility] Comment on above: Performed By: #### Heather THEODORE CMP, 87221-7, THYR #### [facility] ([id number]) [address], [address] [place] [address] Eosinophils (Bld) [#/Vol] 0.1 10*3/uL Normal 0.0-0.4 [facility] Comment on above: Performed By: #### Heather THEODORE CMP, 69746-1, THYR #### [facility] ([id number]) [address], [address] [place] [address] Eosinophils/100 WBC (Bld) 2.3 % Normal [facility] Comment on above: Performed By: #### Heather THEODORE CMP, 97890-7, THYR #### [facility] ([id number]) [address], [address] [place] [address] Erythrocyte distribution width (RBC) [Ratio] 13.3 % Normal 11.5-15.0 [facility] Comment on above: Performed By: #### C LAUREN THEODORE, 91070-4, THYR #### [facility] ([id number]) [address], [address] [place] [address] Hematocrit (Bld) [Volume fraction] 41.1 % Normal 35-47 [facility] Comment on above: Performed By: #### C LAUREN THEODORE, 69837-2, THYR #### [facility] ([id number]) [address], [address] [place] [address] Hemoglobin (Bld) [Mass/Vol] 13.9 g/dL Normal 11.7-15.5 [facility] Comment on above: Performed By: #### Heather THEODORE CMP, 13798-2, THYR #### [facility] ([id number]) [address], [address] [place] [address] Lymphocytes (Bld) [#/Vol] 2.1 10*3/uL Normal 1.0-3.5 [facility] Comment on above: Performed By: #### Heather THEODORE CMP, 12480-1, THYR #### [facility] ([id number]) [address], [address] [place] [address] Lymphocytes/100 WBC (Bld) 34.0 % Normal [facility] Comment on above: Performed By: #### Heather THEODORE CMP, 12600-5, THYR #### [facility] ([id number]) [address], [address] [place] [address] MCH (RBC) [Entitic mass] 33.4 pg Normal 27-34 [facility] Comment on above: Performed By: #### C EWELINA CMP, 73599-3, THYR #### [facility] ([id number]) [address], [address] [place] [address] MCHC (RBC) [Mass/Vol] 33.7 g/dL Normal 32-36 [facility] Comment on above: Performed By: #### C EWELINA, CMP, 04065-6, THYR #### [facility] ([id number]) [address], [address] [place] [address] MCV (RBC) [Entitic vol] 99 fL Normal 80-100 [facility] Comment on above: Performed By: #### C EWELINA, CMP, 54348-9, THYR #### [facility] ([id number]) [address], [address] [place] [address] Monocytes (Bld) [#/Vol] 0.5 10*3/uL Normal 0-0.9 [facility] Comment on above: Performed By: #### Heather THEODORE, CMP, 59304-6, THYR #### [facility] ([id number]) [address], [address] [place] [address] Monocytes/100 WBC (Bld) 8.1 % Normal [facility] Comment on above: Performed By: #### Heather BCA, CMP, 28278-1, THYR #### [facility] ([id number]) [address], [address] [place] [address] Neutrophils/100 WBC (Bld) 54.8 % Normal [facility] Comment on above: Performed By: #### Heather THEODORE, CMP, 99322-9, THYR #### [facility] ([id number]) [address], [address] [place] [address] Platelet mean volume (Bld) [Entitic vol] 8.2 fL Normal 7-12 [facility] Comment on above: Performed By: #### Heatehr BCA, CMP, 76676-6, THYR #### [facility] ([id number]) [address], [address] [place] [address] Platelets (Bld) [#/Vol] 398 10*3/uL Normal 150-450 [facility] Comment on above: Performed By: #### C BCA, CMP, 96889-8, THYR #### [facility] ([id number]) [address], [address] [place] [address] RBC COUNT 4.15 X10E12/L Normal 3.80-5.20 [facility] Comment on above: Performed By: #### C BCA, CMP, 88336-6, THYR #### [facility] ([id number]) [address], [address] [place] [address] WBC (Bld) [#/Vol] 6.1 10*3/uL Normal 4.0-11.0 [facility] Comment on above: Performed By: #### C BCA, CMP, 20806-1, THYR #### [facility] ([id number]) [address], [address] [place] [address] COMPREHENSIVE METABOLIC PANE Riki 12-28-2023 Albumin [Mass/Vol] 4.0 g/dL Normal 3.2-5.3 [facility] Comment on above: Performed By: #### C BCA, CMP, 92301-9, THYR #### [facility] ([id number]) [address], [address] [place] [address] ALP [Catalytic activity/Vol] 56 U/L Normal 39-130 [facility] Comment on above: Performed By: #### C BCA, CMP, 49175-7, THYR #### [facility] ([id number]) [address], [address] [place] [address] ALT [Catalytic activity/Vol] 13 U/L Normal 0-31 [facility] Comment on above: Performed By: #### C BCA, CMP, 79949-2, THYR #### [facility] ([id number]) [address], [address] [place] [address] Anion gap [Moles/Vol] 8 mmol/L Normal 5-15 [facility] Comment on above: Performed By: #### C BCA, CMP, 26892-9, THYR #### [facility] ([id number]) [address], [address] [place] [address] AST [Catalytic activity/Vol] 16 U/L Normal 0-41 [facility] Comment on above: Performed By: #### C BCA, CMP, 63540-1, THYR #### [facility] ([id number]) [address], [address] [place] [address] Bilirubin [Mass/Vol] 0.8 mg/dL Normal 0.3-1.2 [facility] Comment on above: Performed By: #### C BCA, CMP, 54606-5, THYR #### [facility] ([id number]) [address], [address] [place] [address] Calcium [Mass/Vol] 9.2 mg/dL Normal 8.5-10.5 [facility] Comment on above: Performed By: #### C BCA, CMP, 50355-1, THYR #### [facility] ([id number]) [address], [address] [place] [address] Chloride [Moles/Vol] 105 mmol/L Normal 98-109 [facility] Comment on above: Performed By: #### C BCA, CMP, 04751-9, THYR #### [facility] ([id number]) [address], [address] [place] [address] CO2 [Moles/Vol] 29 mmol/L Normal 22-32 [facility] Comment on above: Performed By: #### C BCA, CMP, 48093-2, THYR #### [facility] ([id number]) [address], [address] [place] [address] Creatinine [Mass/Vol] 0.64 mg/dL Normal 0.40-1.00 [facility] Comment on above: Result Comment: METH OD TRACEABLE TO IDMS STANDARD Performed By: #### C LAUREN THEODORE, 21000-7, THYR #### [facility] ([id number]) [address], [address] [place] [address] eGFR (CKD-EPI) NON-RACE DEPENDENT >90 Normal >59 [facility] Comment on above: Result Comment: Reported eGFR is based on the CKD-EPI 2020 equation that does not use a race coefficient. Performed By: #### C LAUERN THEODORE, 49496-8, THYR #### [facility] ([id number]) [address], [address] [place] [address] Glucose [Mass/Vol] 89 mg/dL Normal 65-99 [facility] Comment on above: Performed By: #### C LAUREN THEODORE, 93656-3, THYR #### [facility] ([id number]) [address], [address] [place] [address] Potassium [Moles/Vol] 3.6 mmol/L Normal 3.5-5.0 [facility] Comment on above: Performed By: #### C LAUREN THEODORE, 64919-8, THYR #### [facility] ([id number]) [address], [address] [place] [address] Protein [Mass/Vol] 6.6 g/dL Normal 6.0-8.0 [facility] Comment on above: Performed By: #### C LAUREN THEODORE, 37214-9, THYR #### [facility] ([id number]) [address], [address] [place] [address] Sodium [Moles/Vol] 142 mmol/L Normal 134-146 [facility] Comment on above: Performed By: #### C EWELINA CMP, 92028-5, THYR #### [facility] ([id number]) [address], [address] [place] [address] Urea nitrogen [Mass/Vol] 14 mg/dL Normal 5-23 [facility] Comment on above: Performed By: #### Heather THEODORE, LAUREN, 38736-2, THYR #### [facility] ([id number]) [address], [address] [place] [address] Lipid 1996 panelon 4 Cholesterol [Mass/Vol] 205 mg/dL High 150-200 [facility] Comment on above: Performed By: #### Heather THEODORE, LAUREN, 21649-8, THYR #### [facility] ([id number]) [address], [address] [place] [address] Cholesterol in HDL [Mass/Vol] 63 mg/dL Normal >39 [facility] Comment on above: Result Comment: HDL <40 mg/dL - High Risk HDL > or = 40mg/dL- Desirable HDL >60 mg/dL - Negative Risk Performed By: #### Heather THEODORE, LAUREN, 72435-4, THYR #### [facility] ([id number]) [address], [address] [place] [address] Cholesterol in LDL [Mass/Vol] 120 mg/dL Normal <130 [facility] Comment on above: Result Comment: LDL <100 mg/dL - Desirable LDL >160 mg/dL - High Risk Performed By: #### Heather THEODORE, LAUREN, 17320-5, THYR #### [facility] ([id number]) [address], [address] [place] [address] Cholesterol in VLDL [Mass/Vol] 22 mg/dL Normal 0-30 [facility] Comment on above: Performed By: #### Heather THEODORE, CMP, 06490-2, THYR #### [facility] ([id number]) [address], [address] [place] [address] CHOLESTEROL:HDL 3.3 Normal 1.0-5.0 [facility] Comment on above: Performed By: #### C EWELINA CMP, 27564-5, THYR #### [facility] ([id number]) [address], [facility] [address] [place] [address] Triglyceride [Mass/Vol] 111 mg/dL Normal 27-150 [facility] Comment on above: Performed By: #### C ALUREN THEODORE, 70037-2, THYR #### [facility] ([id number]) [address] [address] THYROID PROFILEon 12-28-2023 Free T4 [Mass/Vol] 0.85 ng/dL Normal 0.61-1.60 [facility] Comment on above: Performed By: #### Heather THEODORE CMP, 02194-4, THYR #### [facility] ([id number]) [address], [address] [address] TSH 1.67 uIU/mL Normal 0.49-4.67 [facility] Comment on above: Performed By: #### Heather THEODORE CMP, 91835-2, THYR #### [facility] ([id number]) [address], [address] [address] [address] CHEST HI RESOLUTIONon CT CHEST HI [...] BOBBI MCMANUS Date: 2022-06-18 06:43 Normal [facility] HEMOGLOBINon 06-02-2022 Hemoglobin (Bld) [Mass/Vol] 14.0 g/dL Normal 12.0-16.0 [facility] Comment on above: Performed By: #### H GB #### [facility] [address] [place] [address] Dr. Hans Pritchett XR CHEST 2 Von [...] BOBBI MCMANUS Date: 2022-05-05 10:56 Normal [facility] Encounters Encounter Date Encounter Type Care Provider Facility Start: 01-14-2025 End: 01-14-2025 ambulatory Lucy Fay MD Facility:[facility] Start: 10-29-2024 End: 10-29-2024 ambulatory Lucy Fay MD Facility:[facility] Start: 10-22-2024 End: 10-22-2024 ambulatory Lucy Fay MD Facility:[facility] Start: 09-17-2024 End: 09-17-2024 ambulatory Lucy aFy MD Facility:[facility] Start: 12-28-2023 End: 12-29-2023 ambulatory [facility] Start: 12-28-2023 Encounter for genera l adult medical examination without abnormal findings [facility] Start: 07-27-2022 End: 07-28-[address] [facility] Facility:[facility] Start: 06-22-2022 End: 06-23-[address] [facility] Facility:[facility] Start: 06-17-2022 End: 06-18-[address] [facility] Facility:[facility] Start: 06-02-2022 End: 06-03-[address] [facility] Facility:[facility] Start: 05-05-2022 End: 05-06-[address] [facility] Facility:[facility] Payers Date Payer Category Payer Private Health Insurance 1965 Unknown [id number] 2.16.84 [id number] 1965 Unknown [id number] 2.16.84 [id number] 1965 Unknown [id number] 2.16.84 [id number] 1965 Unknown [id number] 2.16.84 [id number] 1965 Unknown [id number] 2.16.84 [id number] 1965 Unknown [id number] 2.16.8 [id number] 1965 Unknown [id number] 2.16. [id number] 1965 Unknown [id number] 2.16. [id number] 1965 Unknown [id number] 2.16. [id number] 1965 Unknown [id number] 2.16. [id number] 1959 Unknown [id number] Summary Purpose Family History No Family History Records FoundNo Family History Records FoundNo Family History Records Found Advance Directives No Advanced Directives Records FoundNo Advanced Directives Records FoundNo Advanced Directives Records Found Additional Source Comments INFORMATION SOURCE (unrecogn ized section and content) DATE CREATED AUTHOR 07/30/2022 [facility] DATE CREATED AUTHOR AUTHOR'S ORGANIZ ATION 12/29/2023 [facility] DATE CREATED AUTHOR AUTHOR'S ORGANIZ ATION 01/24/2025 [facility] FOR RECORDS PERTAINING TO PATIENTS WHO [...] BE BASED ON THE PRIMARY CLINICAL RECORDS. [facility]. provides no warranty or guarantee of the accuracy or completeness of information in this document.
== END 2025-04-17 15:09 | disposition home or self-care (01) ==
LOC: PM 15:08
PROVIDERS: PCP Family Medicine; Visit Provider Nurse Practitioner
DX: M46.1 Sacroiliitis, not elsewhere classified (principal); M54.51 Vertebrogenic low back pain
CPT/HCPCS: G0463

== ENCOUNTER 2025-04-19 14:10 | Outpatient (OUT) | payer OTHER, SELFPAY ==
--- OUTSIDE RECORDS SUMMARY | 2025-04-19 14:14 | XMS_ITS | CCD ---
Author Organization [facility] Care Team Providers Care Licensed Weigher Name Role Phone SAMSA, CLAUDIA Admitting Unavailable [...] 12-28-19 ABSOLUTE BASOPHIL 0.0 X10E9/L Normal 0.0-0.2 [facility] Comment on above: Performed By: #### C LAUREN THEODORE, 58974-8, THYR #### [facility] ([id number]) [address], [address] [place] [address] ABSOLUTE NEUTROPHIL 3.3 X10E9/L Normal 1.5-6.6 [facility] Comment on above: Performed By: #### Heather THEODORE CMP, 40592-8, THYR #### [facility] ([id number]) [address], [address] [place] [address] Basophils/100 WBC (Bld) 0.8 % Normal [facility] Comment on above: Performed By: #### Heather THEODORE CMP, 26009-3, THYR #### [facility] ([id number]) [address], [address] [place] [address] Eosinophils (Bld) [#/Vol] 0.1 10*3/uL Normal 0.0-0.[address] [facility] Comment on above: Performed By: #### Heather THEODORE CMP, 72774-9, THYR #### [facility] ([id number]) [address], [address] [place] [address] Eosinophils/100 WBC (Bld) 2.3 % Normal [facility] Comment on above: Performed By: #### Heather THEODORE CMP, 80980-3, THYR #### [facility] ([id number]) [address], [address] [place] [address] Erythrocyte distribution width (RBC) [Ratio] 13.3 % Normal 11.5-15.[address] [facility] Comment on above: Performed By: #### C LAUREN THEODORE, 99106-9, THYR #### [facility] ([id number]) [address], [address] [place] [address] Hematocrit (Bld) [Volume fraction] 41.1 % Normal 35-[address] [facility] Comment on above: Performed By: #### C LAUREN THEODORE, 58848-2, THYR #### [facility] ([id number]) [address], [address] [place] [address] Hemoglobin (Bld) [Mass/Vol] 13.9 g/dL Normal 11.7-15.[address] [facility] Comment on above: Performed By: #### Heather THEODORE CMP, 49598-1, THYR #### [facility] ([id number]) [address], [address] [place] [address] Lymphocytes (Bld) [#/Vol] 2.1 10*3/uL Normal 1.0-3.[address] [facility] Comment on above: Performed By: #### Heather THEODORE CMP, 37908-0, THYR #### [facility] ([id number]) [address], [address] [place] [address] Lymphocytes/100 WBC (Bld) 34.0 % Normal [facility] Comment on above: Performed By: #### Heather THEODORE CMP, 11336-5, THYR #### [facility] ([id number]) [address], [address] [place] [address] MCH (RBC) [Entitic mass] 33.4 pg Normal 27-[address] [facility] Comment on above: Performed By: #### C EWELINA CMP, 03267-1, THYR #### [facility] ([id number]) [address], [address] [place] [address] MCHC (RBC) [Mass/Vol] 33.7 g/dL Normal 32-[address] [facility] Comment on above: Performed By: #### C EWELINA, CMP, 27806-2, THYR #### [facility] ([id number]) [address], [address] [place] [address] MCV (RBC) [Entitic vol] 99 fL Normal 80-[address] [facility] Comment on above: Performed By: #### C EWELINA, CMP, 50241-0, THYR #### [facility] ([id number]) [address], [address] [place] [address] Monocytes (Bld) [#/Vol] 0.5 10*3/uL Normal 0-0.[address] [facility] Comment on above: Performed By: #### Heather THEODORE, CMP, 16259-0, THYR #### [facility] ([id number]) [address], [address] [place] [address] Monocytes/100 WBC (Bld) 8.1 % Normal [facility] Comment on above: Performed By: #### Heather BCA, CMP, 65219-0, THYR #### [facility] ([id number]) [address], [address] [place] [address] Neutrophils/100 WBC (Bld) 54.8 % Normal [facility] Comment on above: Performed By: #### Heather THEODORE, CMP, 14013-2, THYR #### [facility] ([id number]) [address], [address] [place] [address] Platelet mean volume (Bld) [Entitic vol] 8.2 fL Normal 7-[address] [facility] Comment on above: Performed By: #### Heather BCA, CMP, 38839-8, THYR #### [facility] ([id number]) [address], [address] [place] [address] Platelets (Bld) [#/Vol] 398 10*3/uL Normal 150-[address] [facility] Comment on above: Performed By: #### C BCA, CMP, 03650-1, THYR #### [facility] ([id number]) [address], [address] [place] [address] RBC COUNT 4.15 X10E12/L Normal 3.80-5.[address] [facility] Comment on above: Performed By: #### C BCA, CMP, 41995-8, THYR #### [facility] ([id number]) [address], [address] [place] [address] WBC (Bld) [#/Vol] 6.1 10*3/uL Normal 4.0-11.0 [facility] Comment on above: Performed By: #### C BCA, CMP, 08267-2, THYR #### [facility] ([id number]) [address], [address] [place] [address] COMPREHENSIVE METABOLIC PANE Riki 12-28-2023 Albumin [Mass/Vol] 4.0 g/dL Normal 3.2-5.3 [facility] Comment on above: Performed By: #### C BCA, CMP, 53707-2, THYR #### [facility] ([id number]) [address], [address] [place] [address] ALP [Catalytic activity/Vol] 56 U/L Normal 39-[address] [facility] Comment on above: Performed By: #### C BCA, CMP, 42963-8, THYR #### [facility] ([id number]) [address], [address] [place] [address] ALT [Catalytic activity/Vol] 13 U/L Normal 0-[address] [facility] Comment on above: Performed By: #### C BCA, CMP, 36917-9, THYR #### [facility] ([id number]) [address], [address] [place] [address] Anion gap [Moles/Vol] 8 mmol/L Normal 5-[address] [facility] Comment on above: Performed By: #### C BCA, CMP, 42893-1, THYR #### [facility] ([id number]) [address], [address] [place] [address] AST [Catalytic activity/Vol] 16 U/L Normal 0-[address] [facility] Comment on above: Performed By: #### C BCA, CMP, 21038-3, THYR #### [facility] ([id number]) [address], [address] [place] [address] Bilirubin [Mass/Vol] 0.8 mg/dL Normal 0.3-1.[address] [facility] Comment on above: Performed By: #### C BCA, CMP, 65893-0, THYR #### [facility] ([id number]) [address], [address] [place] [address] Calcium [Mass/Vol] 9.2 mg/dL Normal 8.5-10.5 [facility] Comment on above: Performed By: #### C BCA, CMP, 22354-3, THYR #### [facility] ([id number]) [address], [address] [place] [address] Chloride [Moles/Vol] 105 mmol/L Normal 98-[address] [facility] Comment on above: Performed By: #### C BCA, CMP, 23682-2, THYR #### [facility] ([id number]) [address], [address] [place] [address] CO2 [Moles/Vol] 29 mmol/L Normal 22-[address] [facility] Comment on above: Performed By: #### C BCA, CMP, 22192-6, THYR #### [facility] ([id number]) [address], [address] [place] [address] Creatinine [Mass/Vol] 0.64 mg/dL Normal 0.40-1.[address] [facility] Comment on above: Result Comment: METH OD TRACEABLE TO IDMS STANDARD Performed By: #### C LAUREN THEODORE, 66815-0, THYR #### [facility] ([id number]) [address], [address] [place] [address] eGFR (CKD-EPI) NON-RACE DEPENDENT >90 Normal >[address] [facility] Comment on above: Result Comment: Reported eGFR is based on the CKD-EPI 2020 equation that does not use a race coefficient. Performed By: #### C LAUREN THEODORE, 00912-5, THYR #### [facility] ([id number]) [address], [address] [place] [address] Glucose [Mass/Vol] 89 mg/dL Normal 65-99 [facility] Comment on above: Performed By: #### C LAUREN THEODORE, 52141-4, THYR #### [facility] ([id number]) [address], [address] [place] [address] Potassium [Moles/Vol] 3.6 mmol/L Normal 3.5-5.[address] [facility] Comment on above: Performed By: #### C LAUREN THEODORE, 19494-5, THYR #### [facility] ([id number]) [address], [address] [place] [address] Protein [Mass/Vol] 6.6 g/dL Normal 6.0-8.0 [facility] Comment on above: Performed By: #### C LAUREN THEODORE, 23149-0, THYR #### [facility] ([id number]) [address], [address] [place] [address] Sodium [Moles/Vol] 142 mmol/L Normal 134-146 [facility] Comment on above: Performed By: #### C EWELINA CMP, 26382-1, THYR #### [facility] ([id number]) [address], [address] [place] [address] Urea nitrogen [Mass/Vol] 14 mg/dL Normal 5-[address] [facility] Comment on above: Performed By: #### Heather THEODORE, LAUREN, 89156-9, THYR #### [facility] ([id number]) [address], [address] [place] [address] Lipid 1996 panelon 4 Cholesterol [Mass/Vol] 205 mg/dL High 150-[address] [facility] Comment on above: Performed By: #### Heather THEODORE, LAUREN, 41654-8, THYR #### [facility] ([id number]) [address], [address] [place] [address] Cholesterol in HDL [Mass/Vol] 63 mg/dL Normal >[address] [facility] Comment on above: Result Comment: HDL <40 mg/dL - High Risk HDL > or = 40mg/dL- Desirable HDL >60 mg/dL - Negative Risk Performed By: #### Heather THEODORE, LAUREN, 37361-1, THYR #### [facility] ([id number]) [address], [address] [place] [address] Cholesterol in LDL [Mass/Vol] 120 mg/dL Normal <[address] [facility] Comment on above: Result Comment: LDL <100 mg/dL - Desirable LDL >160 mg/dL - High Risk Performed By: #### Heather THEODORE, LAUREN, 19040-0, THYR #### [facility] ([id number]) [address], [address] [place] [address] Cholesterol in VLDL [Mass/Vol] 22 mg/dL Normal 0-[address] [facility] Comment on above: Performed By: #### Heather THEODORE, CMP, 09137-1, THYR #### [facility] ([id number]) [address], [address] [place] [address] CHOLESTEROL:HDL 3.3 Normal 1.0-5.[address] [facility] Comment on above: Performed By: #### C EWELINA CMP, 85246-1, THYR #### [facility] ([id number]) [address], [facility] [address] [place] [address] Triglyceride [Mass/Vol] 111 mg/dL Normal 27-[address] [facility] Comment on above: Performed By: #### C LAUREN THEODORE, 51460-2, THYR #### [facility] ([id number]) [address] [address] THYROID PROFILEon 12-28-2023 Free T4 [Mass/Vol] 0.85 ng/dL Normal 0.61-1.60 [facility] Comment on above: Performed By: #### Heather THEODORE CMP, 46613-5, THYR #### [facility] ([id number]) [address], [address] [address] TSH 1.67 uIU/mL Normal 0.49-4.[address] [facility] Comment on above: Performed By: #### Heather THEODORE CMP, 64232-4, THYR #### [facility] ([id number]) [address], [address] [address] [address] CHEST HI RESOLUTIONon CT CHEST HI [...] by: BOBBI MCMANUS Date: 2022-06-18 06:43 Normal [facility] HEMOGLOBINon 06-02-2022 Hemoglobin (Bld) [Mass/Vol] 14.0 g/dL Normal 12.0-16.0 [facility] Comment on above: Performed By: #### H GB #### [facility] [address] [place] [address] Dr. Hans Pritchett XR CHEST 2 Von [...] by: BOBBI MCMANUS Date: 2022-05-05 10:56 Normal [facility] Encounters Encounter Date Encounter Type Care Provider Facility Start: 01-14-2025 End: 01-14-2025 ambulatory Lucy Fay MD Facility:[facility] Start: 10-29-2024 End: 10-29-2024 ambulatory Lucy Fay MD Facility:[facility] Start: 10-22-2024 End: 10-22-2024 ambulatory Lucy Fay MD Facility:[facility] Start: 09-17-2024 End: 09-17-2024 ambulatory Lucy Fay MD Facility:[facility] Start: 12-28-2023 End: 12-29-2023 ambulatory [facility] Start: 12-28-2023 Encounter for genera l adult medical examination without abnormal findings [facility] Start: 07-27-2022 End: 07-28-2022 ambulatory [facility] Facility:[facility] Start: 06-22-2022 End: 06-23-2022 ambulatory [facility] Facility:[facility] Start: 06-17-2022 End: 06-18-2022 ambulatory [facility] Facility:[facility] Start: 06-02-2022 End: 06-03-2022 ambulatory [facility] Facility:[facility] Start: 05-05-2022 End: 05-06-2022 ambulatory [facility] Facility:[facility] Payers Date Payer Category Payer Private Health Insurance 1965 Unknown [id number] 2.16.84 [id number] 1965 Unknown [id number] 2.16.84 [id number] 1965 Unknown [id number] 2.16.84 [id number] 1965 Unknown [id number] 2.16.84 [id number] 1965 Unknown [id number] 2.16.84 [id number] 1965 Unknown [id number] 2.16.8 [id number] 1965 Unknown [id number] 2.16. [id number] 1965 Unknown [id number] 2.16. [id number] 1965 Unknown [id number] 2.16. [id number] 1965 Unknown [id number] 2.16. [id number] 1959 Unknown [id number] Summary Purpose Family History No Family History Records FoundNo Family History Records FoundNo Family History Records Found Advance Directives No Advanced Directives Records FoundNo Advanced Directives Records FoundNo Advanced Directives Records Found Additional Source Comments INFORMATION SOURCE (unrecogn ized section and content) DATE CREATED AUTHOR 07/30/2022 [facility] DATE CREATED AUTHOR AUTHOR'S ORGANIZ ATION 12/29/2023 [facility] DATE CREATED AUTHOR AUTHOR'S ORGANIZ ATION 01/24/2025 [facility] FOR RECORDS PERTAINING TO PATIENTS WHO [...] BE BASED ON THE PRIMARY CLINICAL RECORDS. [facility] [employer] [facility]. provides no warranty or guarantee of the accuracy or completeness of information in this document.
--- NOTE | 2025-04-19 14:40 | MM_ITS ---
Patient Name: GABINO PUGA MR#: [id number] : 1965 Exam Date: 04/19/2025 Ordering Doctor: DR REX LOCK RADIOLOGY REPORT PROCEDURE: MM TOMOSYNTHESIS SCREENING BI COMPARISON: MM SCREENING MAMMO BI, 09/04/2011. INDICATIONS: Screening Calculator Name NCI Breast Cancer Risk Assessment Tool 5 Year Breast Cancer Risk 1.10% Lifetime Breast Cancer Risk 6.00% Personal Breast Cancer No Personal Ovarian Cancer No Treatments None Family Cancers None LOCATION: [facility] BREAST COMPOSITION: The breasts are heterogeneously dense, which may obscure small masses. FINDINGS: RIGHT BREAST: No significant suspicious finding. LEFT BREAST: No significant suspicious finding. Multiple round nodules. Previously diagnosed as multiple cysts. DIAGNOSTIC CATEGORY 1--NEGATIVE. RECOMMENDATIONS: ROUTINE MAMMOGRAM AND CLINICAL EVALUATION IN 12 MONTHS. Dictated by: Ajay Padilla DO on 04/19/2025 at 14:57 Approved by: Ajay Padilla DO on 04/19/2025 at 15:00
== END 2025-04-19 14:11 | disposition home or self-care (01) ==
LOC: MAMMO 14:10
PROVIDERS: PCP Family Medicine; Visit Provider Family Medicine
DX: Z12.31 Encounter for screening mammogram for malignant neoplasm of breast (principal)
CPT/HCPCS: 77063; 77067

== ENCOUNTER 2025-05-06 06:49 | Day surgery (SDC) | payer OTHER, SELFPAY ==
--- OUTSIDE RECORDS SUMMARY | 2023-12-16 12:15 | XMS_ITS ---
Author Organization [facility] in [place] Address [address] [place] [address] Care Team Providers Care Director Of Patient Safety Name Role Phone Kiley Ospina Primary Care Provider Corona Carnes [phone] REASON FOR VISIT 3 m LIO mathur Haynes, RT 09/16/23 Encounters Encounter Location Date Provider Diagnosis [facility] [address] [facility] [place] [address] 12/16/2023 Corona Carnes Plan Of Treatment Next Appt Details Provider Name:Kiley jewell, 05/31/2025 10:00:00 AM, [address] [place], [address], Progress Notes * Velma PUGA SDOB:1965 (59 yo F)Acc No.[id number]:12/16/2023 UNLOCKED PROGRESS NOTE Established Patient: Velma HERNANDEZ Provider: Saba Carnes MD :1965 A ge:58 Y S ex:Female Date:12/16/2023 Address:[address] [facility], [id number] Pcp:Kiley Ospina Subjective: * Chief Complaints: * 1 . 3 m LIO mathur Haynes, RT 09/16/23. * Medical History: Objective: * Vitals: Assessment: Plan: * Treatment: * * Electronic signature of John Carnes MD, [id number] on 05/06/2025 at 06:50 AM EDT Sign off status: Pending Visit Status: C ANC (Cancelled) * Provider: Saba Carnes MD Date: 0 12/16/2023 Generated for Sarah ham/Carlos/Jordana on: 1 06:50 AM EDT
--- OUTSIDE RECORDS SUMMARY | 2025-05-03 08:30 | XMS_ITS ---
Author Organization [facility] in [place] Address [address] [place] [address] Care Team Providers Care Aerial Crop Duster Name Role Phone Kiley Ospina Primary Care Provider REASON FOR VISIT recheck, pap Encounters Encounter Location Date Provider Diagnosis [facility] [address] [place] [address] 05/03/2025 Kiley Ospina Plan Of Treatment Next Appt Details Provider Name:Kiley Klein es, 05/31/2025 10:00:00 AM, [address] [place], [address], Progress Notes * Velma PUGA SDOB:1965 (59 yo F)Acc No.[id number]:05/03/2025 UNLOCKED PROGRESS NOTE Established Patient: Javad MOFFETT Velma Heraclio Provider: Annie Ospina MD :1965 A ge:59 Y S ex:Female Date:05/03/2025 Address:[address] [place], [place] Subjective: * Chief Complaints: * 1 . Recheck, pap. * Medical History: Objective: * Vitals: Assessment: Plan: * Treatment: * * Electronic signature of Amparo Ospina MD, [id number] on 05/06/2025 at 06:51 AM EDT Sign off status: Pending Visit Status: R /S (Rescheduled) * Provider: Annie Ospina MD Date: 1 Generated for Sarah ham/Carlos/Jordana on: 1 06:51 AM EDT
--- OUTSIDE RECORDS SUMMARY | 2025-05-06 06:51 | XMS_ITS | CCD ---
Author Organization [facility] CliniSyal Care Team Providers Care Defence Intelligence Analyst Name Role Phone SAMSA, CLAUDIA Admitting Unavailable [...] 12-28-19 ABSOLUTE BASOPHIL 0.0 X10E9/L Normal 0.0-0.2 [facility] Comment on above: Performed By: #### C LAUREN THEODORE, 17374-7, THYR #### [facility] ([id number]) [address], [address] [place] [address] ABSOLUTE NEUTROPHIL 3.3 X10E9/L Normal 1.5-6.[address] [facility] Comment on above: Performed By: #### Heather THEODORE CMP, 44857-1, THYR #### [facility] ([id number]) [address], [address] [place] [address] Basophils/100 WBC (Bld) 0.8 % Normal [facility] Comment on above: Performed By: #### Heather THEODORE CMP, 69202-6, THYR #### [facility] ([id number]) [address], [address] [place] [address] Eosinophils (Bld) [#/Vol] 0.1 10*3/uL Normal 0.0-0.4 [facility] Comment on above: Performed By: #### Heather THEODORE CMP, 62058-1, THYR #### [facility] ([id number]) [address], [address] [place] [address] Eosinophils/100 WBC (Bld) 2.3 % Normal [facility] Comment on above: Performed By: #### Heather THEODORE CMP, 08023-4, THYR #### [facility] ([id number]) [address], [address] [place] [address] Erythrocyte distribution width (RBC) [Ratio] 13.3 % Normal 11.5-15.0 [facility] Comment on above: Performed By: #### C LAUREN THEODORE, 79618-4, THYR #### [facility] ([id number]) [address], [address] [place] [address] Hematocrit (Bld) [Volume fraction] 41.1 % Normal 35-47 [facility] Comment on above: Performed By: #### C LAUREN THEODORE, 14759-6, THYR #### [facility] ([id number]) [address], [address] [place] [address] Hemoglobin (Bld) [Mass/Vol] 13.9 g/dL Normal 11.7-15.5 [facility] Comment on above: Performed By: #### Heather THEODORE CMP, 15307-8, THYR #### [facility] ([id number]) [address], [address] [place] [address] Lymphocytes (Bld) [#/Vol] 2.1 10*3/uL Normal 1.0-3.5 [facility] Comment on above: Performed By: #### Heather THEODORE CMP, 62363-8, THYR #### [facility] ([id number]) [address], [address] [place] [address] Lymphocytes/100 WBC (Bld) 34.0 % Normal [facility] Comment on above: Performed By: #### Heather THEODORE CMP, 58399-7, THYR #### [facility] ([id number]) [address], [address] [place] [address] MCH (RBC) [Entitic mass] 33.4 pg Normal 27-34 [facility] Comment on above: Performed By: #### C EWELINA CMP, 57953-2, THYR #### [facility] ([id number]) [address], [address] [place] [address] MCHC (RBC) [Mass/Vol] 33.7 g/dL Normal 32-36 [facility] Comment on above: Performed By: #### C EWELINA, CMP, 50723-5, THYR #### [facility] ([id number]) [address], [address] [place] [address] MCV (RBC) [Entitic vol] 99 fL Normal 80-100 [facility] Comment on above: Performed By: #### C EWELINA, CMP, 27732-7, THYR #### [facility] ([id number]) [address], [address] [place] [address] Monocytes (Bld) [#/Vol] 0.5 10*3/uL Normal 0-0.9 [facility] Comment on above: Performed By: #### Heather THEODORE, CMP, 13436-1, THYR #### [facility] ([id number]) [address], [address] [place] [address] Monocytes/100 WBC (Bld) 8.1 % Normal [facility] Comment on above: Performed By: #### Heather BCA, CMP, 66781-5, THYR #### [facility] ([id number]) [address], [address] [place] [address] Neutrophils/100 WBC (Bld) 54.8 % Normal [facility] Comment on above: Performed By: #### Heather THEODORE, CMP, 38131-9, THYR #### [facility] ([id number]) [address], [address] [place] [address] Platelet mean volume (Bld) [Entitic vol] 8.2 fL Normal 7-12 [facility] Comment on above: Performed By: #### Heather BCA, CMP, 36839-0, THYR #### [facility] ([id number]) [address], [address] [place] [address] Platelets (Bld) [#/Vol] 398 10*3/uL Normal 150-450 [facility] Comment on above: Performed By: #### C BCA, CMP, 06154-6, THYR #### [facility] ([id number]) [address], [address] [place] [address] RBC COUNT 4.15 X10E12/L Normal 3.80-5.20 [facility] Comment on above: Performed By: #### C BCA, CMP, 16781-4, THYR #### [facility] ([id number]) [address], [address] [place] [address] WBC (Bld) [#/Vol] 6.1 10*3/uL Normal 4.0-11.0 [facility] Comment on above: Performed By: #### C BCA, CMP, 58917-4, THYR #### [facility] ([id number]) [address], [address] [place] [address] COMPREHENSIVE METABOLIC PANE Riki 12-28-2023 Albumin [Mass/Vol] 4.0 g/dL Normal 3.2-5.3 [facility] Comment on above: Performed By: #### C BCA, CMP, 96340-5, THYR #### [facility] ([id number]) [address], [address] [place] [address] ALP [Catalytic activity/Vol] 56 U/L Normal 39-130 [facility] Comment on above: Performed By: #### C BCA, CMP, 57207-3, THYR #### [facility] ([id number]) [address], [address] [place] [address] ALT [Catalytic activity/Vol] 13 U/L Normal 0-31 [facility] Comment on above: Performed By: #### C BCA, CMP, 60675-2, THYR #### [facility] ([id number]) [address], [address] [place] [address] Anion gap [Moles/Vol] 8 mmol/L Normal 5-15 [facility] Comment on above: Performed By: #### C BCA, CMP, 93886-3, THYR #### [facility] ([id number]) [address], [address] [place] [address] AST [Catalytic activity/Vol] 16 U/L Normal 0-41 [facility] Comment on above: Performed By: #### C BCA, CMP, 95483-6, THYR #### [facility] ([id number]) [address], [address] [place] [address] Bilirubin [Mass/Vol] 0.8 mg/dL Normal 0.3-1.2 [facility] Comment on above: Performed By: #### C BCA, CMP, 34422-0, THYR #### [facility] ([id number]) [address], [address] [place] [address] Calcium [Mass/Vol] 9.2 mg/dL Normal 8.5-10.5 [facility] Comment on above: Performed By: #### C BCA, CMP, 41626-6, THYR #### [facility] ([id number]) [address], [address] [place] [address] Chloride [Moles/Vol] 105 mmol/L Normal 98-109 [facility] Comment on above: Performed By: #### C BCA, CMP, 34996-7, THYR #### [facility] ([id number]) [address], [address] [place] [address] CO2 [Moles/Vol] 29 mmol/L Normal 22-32 [facility] Comment on above: Performed By: #### C BCA, CMP, 60142-1, THYR #### [facility] ([id number]) [address], [address] [place] [address] Creatinine [Mass/Vol] 0.64 mg/dL Normal 0.40-1.00 [facility] Comment on above: Result Comment: METH OD TRACEABLE TO IDMS STANDARD Performed By: #### C LAUREN THEODORE, 93800-0, THYR #### [facility] ([id number]) [address], [address] [place] [address] eGFR (CKD-EPI) NON-RACE DEPENDENT >90 Normal >59 [facility] Comment on above: Result Comment: Reported eGFR is based on the CKD-EPI 2020 equation that does not use a race coefficient. Performed By: #### C LAUREN THEODORE, 33502-8, THYR #### [facility] ([id number]) [address], [address] [place] [address] Glucose [Mass/Vol] 89 mg/dL Normal 65-99 [facility] Comment on above: Performed By: #### C LAUREN THEODORE, 68987-7, THYR #### [facility] ([id number]) [address], [address] [place] [address] Potassium [Moles/Vol] 3.6 mmol/L Normal 3.5-5.0 [facility] Comment on above: Performed By: #### C LAUREN THEODORE, 09038-1, THYR #### [facility] ([id number]) [address], [address] [place] [address] Protein [Mass/Vol] 6.6 g/dL Normal 6.0-8.0 [facility] Comment on above: Performed By: #### C LAUREN THEODORE, 56748-0, THYR #### [facility] ([id number]) [address], [address] [place] [address] Sodium [Moles/Vol] 142 mmol/L Normal 134-146 [facility] Comment on above: Performed By: #### C EWELINA CMP, 95660-2, THYR #### [facility] ([id number]) [address], [address] [place] [address] Urea nitrogen [Mass/Vol] 14 mg/dL Normal 5-23 [facility] Comment on above: Performed By: #### Heather THEODORE, LAUREN, 49382-5, THYR #### [facility] ([id number]) [address], [address] [place] [address] Lipid 1996 panelon 4 Cholesterol [Mass/Vol] 205 mg/dL High 150-200 [facility] Comment on above: Performed By: #### Heather THEODORE, LAUREN, 85449-7, THYR #### [facility] ([id number]) [address], [address] [place] [address] Cholesterol in HDL [Mass/Vol] 63 mg/dL Normal >39 [facility] Comment on above: Result Comment: HDL <40 mg/dL - High Risk HDL > or = 40mg/dL- Desirable HDL >60 mg/dL - Negative Risk Performed By: #### Heather THEODORE, LAUREN, 70693-2, THYR #### [facility] ([id number]) [address], [address] [place] [address] Cholesterol in LDL [Mass/Vol] 120 mg/dL Normal <130 [facility] Comment on above: Result Comment: LDL <100 mg/dL - Desirable LDL >160 mg/dL - High Risk Performed By: #### Heather THEODORE, LAUREN, 85786-7, THYR #### [facility] ([id number]) [address], [address] [place] [address] Cholesterol in VLDL [Mass/Vol] 22 mg/dL Normal 0-30 [facility] Comment on above: Performed By: #### Heather THEODORE, CMP, 18370-7, THYR #### [facility] ([id number]) [address], [address] [place] [address] CHOLESTEROL:HDL 3.3 Normal 1.0-5.0 [facility] Comment on above: Performed By: #### C EWELINA CMP, 28986-9, THYR #### [facility] ([id number]) [address], [facility] [address] [place] [address] Triglyceride [Mass/Vol] 111 mg/dL Normal 27-150 [facility] Comment on above: Performed By: #### C LAUREN THEODORE, 14625-2, THYR #### [facility] ([id number]) [address] [address] THYROID PROFILEon 12-28-2023 Free T4 [Mass/Vol] 0.85 ng/dL Normal 0.61-1.60 [facility] Comment on above: Performed By: #### Heather THEODORE CMP, 24940-9, THYR #### [facility] ([id number]) [address], [address] [address] TSH 1.67 uIU/mL Normal 0.49-4.67 [facility] Comment on above: Performed By: #### Heather THEODORE CMP, 88490-9, THYR #### [facility] ([id number]) [address], [address] [address] [address] CHEST [address] RESOLUTIONon CT CHEST HI [...] by: BOBBI MCMANUS Date: 2022-06-18 06:43 Normal [facility] HEMOGLOBINon 06-02-2022 Hemoglobin (Bld) [Mass/Vol] 14.0 g/dL Normal 12.0-16.0 [facility] Comment on above: Performed By: #### H GB #### [facility] [address] [place] [address] Dr. Hans Pritchett XR CHEST 2 Von [...] by: BOBBI MCMANUS Date: 2022-05-05 10:56 Normal [facility] Encounters Encounter Date Encounter Type Care Provider Facility Start: 01-14-2025 End: 01-14-2025 ambulatory Lucy Fay MD Facility:[facility] Start: 10-29-2024 End: 10-29-2024 ambulatory Lucy Fay MD Facility:[facility] Start: 10-22-2024 End: 10-22-2024 ambulatory Lucy Fay MD Facility:[facility] Start: 09-17-2024 End: 09-17-2024 ambulatory Lucy Fay MD Facility:[facility] Start: 12-28-2023 End: 12-29-2023 ambulatory [facility] Start: 12-28-2023 Encounter for genera l adult medical examination without abnormal findings [facility] Start: 07-27-2022 End: 07-28-2022 ambulatory [facility] Facility:[facility] Start: 06-22-2022 End: 06-23-2022 ambulatory [facility] Facility:[facility] Start: 06-17-2022 End: 06-18-2022 ambulatory [facility] Facility:[facility] Start: 06-02-2022 End: 06-03-2022 ambulatory [facility] Facility:[facility] Start: 05-05-2022 End: 05-06-2022 ambulatory [facility] Facility:[facility] Payers Date Payer Category Payer Private Health Insurance 1965 Unknown [id number] 2.16.84 [id number] 1965 Unknown [id number] 2.16.84 [id number] 1965 Unknown [id number] 2.16.84 [id number] 1965 Unknown [id number] 2.16.84 [id number] 1965 Unknown [id number] 2.16.84 [id number] 1965 Unknown [id number] 2.16.8 [id number] 1965 Unknown [id number] 2.16. [id number] 1965 Unknown [id number] 2.16. [id number] 1965 Unknown [id number] 2.16. [id number] 1965 Unknown [id number] 2.16. [id number] 1959 Unknown [id number] Summary Purpose Family History No Family History Records FoundNo Family History Records FoundNo Family History Records Found Advance Directives No Advanced Directives Records FoundNo Advanced Directives Records FoundNo Advanced Directives Records Found Additional Source Comments INFORMATION SOURCE (unrecogn ized section and content) DATE CREATED AUTHOR 07/30/2022 [facility] DATE CREATED AUTHOR AUTHOR'S ORGANIZ ATION 12/29/2023 [facility] DATE CREATED AUTHOR AUTHOR'S ORGANIZ ATION 01/24/2025 [facility] FOR RECORDS PERTAINING TO PATIENTS WHO [...] BE BASED ON THE PRIMARY CLINICAL RECORDS. [facility] [facility]. provides no warranty or guarantee of the accuracy or completeness of information in this document.
--- OUTSIDE RECORDS SUMMARY | 2025-05-06 06:51 | XMS_ITS | Clinical Summary ---
Author Organization [employer] s [facility] Address [id number] [address] [place] [address] Care Team Providers Care Steel Placer Name Role Phone Kiley Ospina MD Primary [...] Pap Smear 1986 COVID-19 Vaccine ( season) 2025, 04/25/2021 Influenza Vaccine 04/01/2025 05/20/2022 DTaP,Tdap and Td Vaccines (2 - Td or Tdap) 10/24/2028 10/24/2018 Zoster (Shingles) Vaccine Completed 12/07/2019, [employer] Not on file Insurance [address] [place] [address] [facility] Care Teams Steel Placer Relationship Specialty Start Date End Date Kiley Ospina MD PCP - General 03/30/19
[2025-05-06 06:55] VITALS: BP 142/81; PULSE 74; TEMP 36.6; O2SAT 98
[2025-05-06] MEDS: BUPIVACAINE HCL 0.25% PF 25 MG/10 ML VIAL 2 ML INJ (07:43)
[2025-05-06] MEDS: METHYLPREDNISOLONE ACETATE 40 MG/ML VIAL 80 MG INJ (07:44)
[2025-05-06] MEDS: IOHEXOL 240 MG/ML - 10 ML VIAL INJ (07:44)
[2025-05-06] MEDS: LIDOCAINE HCL 2% 400 MG/20 ML MDV INJ (07:44)
--- NOTE | 2025-05-06 07:44 | W.PM.PROCNOT ---
Date of procedure: 05/06/25 Pre-op diagnosis: Pain due to bilateral sacroiliitis Post-op diagnosis: same as pre-op Procedure: Procedure: Bilateral sacroiliac joint injection Medications: Bupivacaine 0.25% 3cc, depomedrol 40mg x2 After informed consent was obtained, the patient was brought to the medical procedure unit and placed in the prone position, when a timeout was completed verifying correct patient, procedure, site, positioning, implant, and/or special equipment.? The skin overlying the area was prepped and draped in standard sterile fashion using alcohol.? A 25-gauge needle was inserted towards the left sacroiliac joint under direct fluoroscopic imaging.? Needle tip was advanced until the joint was encountered.? We instilled a total of 2 mL of solution.? The same procedure was then completed on the right side.? Postoperatively needles were removed.? The patient tolerated the procedure well without complication.? The patient reported reduction in pain symptoms postoperatively. Anesthesia: Local Surgeon: Lucy Fay Pathology: none sent Condition: stable Disposition: no change
[2025-05-06 07:46] VITALS: PULSE 69; O2SAT 97
[2025-05-06 07:48] VITALS: BP 175/101; BP 180/101
== END 2025-05-06 07:51 | disposition home or self-care (01) ==
PROVIDERS: PCP Family Medicine; Visit Provider Anesthesiology
DX: M46.1 Sacroiliitis, not elsewhere classified (principal); M53.3 Sacrococcygeal disorders, not elsewhere classified
CPT/HCPCS: 27096; J0665; J1010; Q9966

== ENCOUNTER 2025-05-30 15:07 | Outpatient (OUT) | payer OTHER, SELFPAY ==
--- OUTSIDE RECORDS SUMMARY | 2023-12-16 12:15 | XMS_ITS ---
Author Organization [facility] in [place] Address [address] [place] [address] Care Team Providers Care Pick Up Operator Name Role Phone Kiley Ospina Primary Care Provider [phone] Corona Carnes [phone] REASON FOR VISIT 3 m LIO mathur Haynes, RT 09/16/23 Encounters Encounter Location Date Provider Diagnosis [facility] [address] [place] [place] [address] 12/16/2023 Corona Carnes Plan Of Treatment Next Appt Details Provider Name:Kiley jewell, 05/31/2025 10:00:00 AM, [address] [place], [address], Progress Notes * Velma PUGA SDOB:1965 (59 yo F)Acc No.[id number]:12/16/2023 UNLOCKED PROGRESS NOTE Established Patient: Javad MOFFETT Velma Pulliam :?Corona Carnes MDDOB:1965???Age:58 Y ???Sex:FemaleDate:4Phone:[phone]:[address] [facility], [id number]:Kiley Ospina Subjective: * Chief Complaints: * 1 . 3 m LIO mathur Haynes, RT 09/16/23. * Medical History: Objective: * Vitals: Assessment: Plan: * Treatment: * * Electronic signature of Corona Carnes MD, [id number] on 05/30/2025 at 03:14 PM EDTSign off status: PendingVisit Status:?CANC (Cancelled) * Provider: Saba Carnes MD Date: 0 12/16/2023 Generated for Printing/Faxing/eTransmitting on:?05/30/2025 03:14 PM EDT
--- OUTSIDE RECORDS SUMMARY | 2025-05-03 08:30 | XMS_ITS ---
Author Organization [facility] in [place] Address [address] [place] [address] Care Team Providers Care Developer Relations Manager Name Role Phone Kiley Ospina Primary Care Provider REASON FOR VISIT recheck, pap Encounters Encounter Location Date Provider Diagnosis [facility] [address] [place] [address] 05/03/2025 Kiley Ospina Plan Of Treatment Next Appt Details Provider Name:Kiley jewell, 05/31/2025 10:00:00 AM, [address] [place], [address], Progress Notes * Velma PUGA SDOB:1965 (59 yo F)Acc No.[id number]:05/03/2025 UNLOCKED PROGRESS NOTE Established Patient: Javad Velma MOFFETT :Akira Ospina MDDOB:1965???Age:59 Y ???Sex:FemaleDate:05/03/2025Phone:[phone]:[address] [place], [place] Subjective: * Chief Complaints: * 1 . Recheck, pap. * Medical History: Objective: * Vitals: Assessment: Plan: * Treatment: * * Electronic signature of Kiley Ospina MD, [id number] on 05/30/2025 at 03:15 PM EDTSign off status: PendingVisit Status:?R/S (Rescheduled) * Provider: Annie Ospina MD Date: 1 Generated for Printing/Faxing/eTransmitting on:?05/30/2025 03:15 PM EDT
--- OUTSIDE RECORDS SUMMARY | 2025-05-30 15:14 | XMS_ITS | Patient Health Record ---
Author Organization [facility] [place] Address [address] [place] [address] Care Team Providers Care Assembler Piano Name Role Phone Kiley Ospina Primary Care Provider [phone] Allergies No Known Allergies Results Component Value Reference Range Notes CBC AUTO DIFF (Not yet revie wed by provider) Interpretation: Performing Lab: Notes/Report: [facility] , White Blood Count 7.1 4.0-11.0 10 3/uL Red Blood Count3.864.20-5.40 10 6/jENcqmcouxsc84.612.0-16.0 g/lDLlasaohrdx88.6 36.0-48.0 %Mean Corpuscular Ydstym64.481.0-99.0 fLMean Corpuscular Hemoglobin 32.626.7-34.0 pgMean Corpuscular HGB Conc33.529.9-35.2 g/dLRed Cell Distribution Width12.211.0-15.0 %Platelet Pebzk797752-172 10 3/uLMean Platelet Volume9.99.5- 13.5 fLNeutrophils Percent Auto45.643.0-75.0 %Lymphocytes Percent Auto38.220.5- 60.0 %Monocytes Percent Auto10.41.7-12.0 %Eosinophils Percent Auto4.70.9-7.0 % Basophils Percent Auto1.00.2-2.0 %Immature Granulocytes Pct Auto0.10.0-0.5 % Neutrophils Absolute Auto3.21.4-6.5 10 3/uLLymphocytes Absolute Auto2.71.2-3.8 10 3/uLMonocytes Absolute Auto0.70.3-0.8 10 3/uLEosinophils Absolute Auto0.30.0- 0.7 10 3/uLBasophils Absolute Auto0.10.0-0.1 10 3/uLImmature Granulocytes Abs Auto0.010.00-0.03 10 3/uLPerforming Lab:see noteML - [facility] LB GLYCOHEMOGLOBIN A1C (Not yet reviewed by provider) Interpretation: Performing Lab: Notes/Report: [facility] ,Glycohemoglobin A1C5.34.5-6.2 % > 7.0 ADA THERAPEUTIC TARGET < 7.0 ACTION SUGGESTED ADA RECOMMENDED LIMIT 4.0 - 6.0 Estimated Average Qtxpvkx375Egexcwzrdu Lab:see noteML - [facility] LB LIPID PROFILE (Not yet reviewed by provider) Interpretation: Performing Lab: Notes/Report: [facility] ,Lddrigudblxfp67<=150 mg/aPVhqhvfocjqn666<=200 mg/dLHDL Ycbxuzuamti1442-70 mg/dL <40 mg/dl - HIGH CARDIOVASCULAR RISK > or =60 mg/dl - LOW CARDIOVASCULAR RISK LDL Cholesterol Gwhrbpllwt548.0 130-159 mg/dl BORDERLINE HIGH 100-129 mg/dl NEAR OR ABOVE OPTIMAL >190 mg/dl VERY HIGH 160-189 mg/dl HIGH <100 mg/dl OPTIMAL VLDL CHOLESTEROL8.8Chol HDL Ratio2.6 7.1 - 11.0 MODERATE RISK >11.0 HIGH RISK 4.4 - 7.1 AVERAGE RISK 3.3 - 4.4 LOW RISK Performing Lab:see noteML - [facility] LBPROF 14(COMP METB) (Not yet reviewed by provider) Interpretation: Performing Lab: Notes/Report: [facility] ,Hcerea868656-848 mmol/LPotassium3.93.5-5.1 mmol/REicvinsg98537-595 mmol/LCarbon Xskjhcr53.521.0-32.0 mmol/LAnion Gap10.3Tzuiuxc3912-396 mg/dLBlood Urea Nitrogen 18.07.0-18.0 mg/dLCreatinine0.790.55-1.02 mg/dLEstimated GFR ( Ibis>60 >=60 mL/min/1.73m 2Estimated GFR (Non- Alayna>60>=60 mL/min/1.73m 2BUN Creatinine Ratio22.5Jeejkgh8.08.5-10.1 mg/dLBilirubin Total0.70.2-1.0 mg/dL Aspartate Amino Gbuslvjpqew4349-04 U/LAlanine Chntmpipkigibzsx8084-58 U/L Alkaline Kmltfuxnytq3873-619 U/LTotal Protein7.46.4-8.2 g/dLAlbumin Level3.73.4- 5.0 g/dLGlobulin3.7Albumin Globulin Ratio1.0Performing Lab:see noteML - [facility] LBMM tomosynthesis screening BI (Not yet reviewed by provider) Interpretation: Performing Lab: Notes/Report: Source Facility: [place] [address] Mammography Report Signed Patient: VELMA PUGA MR#: [id number] : 1965 Acct:[id number] Age/Sex: 59 / F ADM Date: 04/19/25 Loc: MAMMO Attending Dr: KILEY OSPINA Ordering Physician: KILEY OSPINA Results: Date of Service: 04/19/25 Follow Up: Procedure(s): MM tomosynthesis screening BI Accession Number(s): [id number] cc: KILEY OSPINA Patient Name: VELMA PUGA MR#: [id number] : 1965 Exam Date: 04/19/2025 Ordering Doctor: DR KILEY OSPINA RADIOLOGY REPORT PROCEDURE: MM TOMOSYNTHESIS SCREENING BI COMPARISON: MM SCREENING MAMMO BI, 09/04/2011. INDICATIONS: Screening Calculator Name NCI Breast Cancer Risk Assessment Tool 5 Year Breast Cancer Risk 1.10% Lifetime Breast Cancer Risk 6.00% Personal Breast Cancer No Personal Ovarian Cancer No Treatments None Family Cancers None LOCATION: [facility] BREAST COMPOSITION: The breasts are heterogeneously dense, which may obscure small masses. FINDINGS: RIGHT BREAST: No significant suspicious finding. LEFT BREAST: No significant suspicious finding. Multiple round nodules. Previously diagnosed as multiple cysts. DIAGNOSTIC CATEGORY 1--NEGATIVE. RECOMMENDATIONS: ROUTINE MAMMOGRAM AND CLINICAL EVALUATION IN 12 MONTHS. Dictated by: Ajay Padilla DO on 04/19/2025 at 14:57 Approved by: Ajay Padilla DO on 04/19/2025 at 15:00 Dictated By: Ajay Padilla D.O. Signed By: 04/19/25 1501 DD/ 1500 TD/TT: Leather Tanner: Reason For Referral No Information Medications Medication SIG (Take, Route, Frequency, Duration) Notes Start Date End Date Status Ciprofloxacin HCl 500 MG 1 tablet Orally every 12 hrs; Duration: 7 days Dx: colitis 04/09/2025 ActivemetroNIDAZOLE 500 MG1 tablet Orally BID; Duration: 7 daysDx: colitis 04/09/2025tiveAlbuterol Sulfate HFA 108 (90 Base) MCG/ACT2 puffs Inhalation every 4 hrs prn cough/SOB; Duration: 30 days02/14/2020ActiveLisinopril 10 MG1 tablet Orally Once a day; Duration: 90 days4ActiveALPRAZolam 0.25 MG 1/2-1 tab Orally Daily prn anxiety; Duration: 30 days5Active Lansoprazole 30 MG1 capsule 1/2 to 1 hour before morning meal Orally Once a day; Duration: 90 daysActiveCyclobenzaprine HCl 10 MGOral; Duration: 30 DaysActive Fluticasone-Salmeterol 100-50 MCG/ACT1 puff Inhalation Twice a day; Duration: 30 days5Active Immunizations Vaccine Route Administration Date Status Comme nts Flu, Fluzone (01157) 6 mos+, single-dose syringe/vial (8769-9635) Unknown 05/20/2022 Administered Pneumococcal (Prevnar 13)Kidahhb4301/16/2016Administeredimpact yfjwkkuIXEC-HBV-4 (COVID 19 Pfizer 30mcg/0.3mL)Nqnhwdy72/25/0095KdnogfojkekiYWCT-ZEU-4 (COVID 19 Pfizer 30mcg/0.3mL)Orhiren61/16/2021AdministeredShingrix (Zoster)Unknown 08/18/2019Administeredper impact recordShingrix (Zoster)Saooktt1612/07/2019 Administeredper impact xordixHzciQeyufam62/26/2019AdministeredImpact Records Social History Tobacco Use: Social History Observation Description Date Details (start date - stop date) Never Smoker NA - NA Tobacco Use/Smoking Question Answer Notes Patient is a nonsmoker Alcohol Screen (Audit-C) Question Answer Notes Did you have a drink containing alcohol in the p ast year? Yes How often did you have 6 or more drinks on one occasion in the past year?Never (0 point)Dbzygr6NvpznkqzxtmnnvEdkofgmr Problems Problem Type SNOMED Code ICD Code Onset Dates Problem Status W/U Status Risk Notes Problem Essential hypertension (86239133 ) Essential (primary) hypertension (I10) ActiveconfirmedProblemGastro-esophageal reflux disease without esophagitis (917562547)Gastro-esophageal reflux disease without esophagitis (K21.9)Active confirmedProblemBacterial intestinal infectious disease (677329079)Other specified bacterial intestinal infections (A04.8)ActiveconfirmedProblemObesity (029780960)Obesity, unspecified (E66.9)ActiveconfirmedProblemUncomplicated mild persistent asthma (017486618)Mild persistent asthma, uncomplicated (J45.30) ActiveconfirmedProblemUncomplicated asthma (disorder) (872476544)Unspecified asthma, uncomplicated (J45.909)ActiveconfirmedProblemConstipation (29622174) Constipation, unspecified (K59.00)ActiveconfirmedProblemCeliac disease (784720472)Celiac disease (K90.0)ActiveconfirmedProblemOther specified symptoms and signs involving the digestive system and abdomen (R19.8)Activeconfirmed ProblemAnxiety (01989392)Anxiety (F41.9)ActiveconfirmedProblemObstructive sleep apnea (13489366)Obstructive sleep apnea (G47.33)ActiveconfirmedProblemMild intermittent asthma (666773228)Mild intermittent asthma without complication (J45.20)ActiveconfirmedProblemConstipation (00160813)Constipation (K59.00)Active confirmedProblemSleep disturbance (57407372)Sleep disturbance (G47.9)Active confirmedProblemObese class I (813945629364094)BMI 33.0-33.9,adult (Z68.33) ActiveconfirmedProblemRestrictive lung disease (43420156)Restrictive lung disease (J98.4)ActiveconfirmedProblemChronic gastritis (2364633)Chronic gastritis (K29.50)ActiveconfirmedProblemGastroesophageal reflux disease (194821910)Gastroesophageal reflux disease (K21.9)ActiveconfirmedProblemSpotting (8499678)Spotting (N92.0)ActiveconfirmedProblemIrritable bowel syndrome characterized by constipation (467078778)Irritable bowel syndrome with constipation (K58.1)ActiveconfirmedProblemAnxiety depression (938331626)Anxiety with depression (F41.8)ActiveconfirmedProblemBody mass index 30.00 to 34.99 (331002978954125)Body mass index [BMI] 34.0-34.9, adult (Z68.34)Activeconfirmed ProblemPeripheral eosinophilia (D72.19)ActiveconfirmedProblemBody mass index 30+ - obesity (895569446)Body mass index [BMI] 30.0-30.9, adult (Z68.30)Active confirmed Vital Signs Heart Rate 86 /min 04/03/2025 weight up 26 po unds in last year, BP up initially at 150/92 Respiratory Rate 16 /min 04/03/2025 weight up 2 6 pounds in last year, BP up initially at 150/92 Oximetry 95 % 04/03/2025 weight up 26 po unds in last year, BP up initially at 150/92 Blood pressure diastolic 90 mm Hg 04/03/2025 nadira ght up 26 pounds in last year, BP up initially at 150/92 Height 63 in 04/03/2025 weight up 26 po unds in last year, BP up initially at 150/92 Blood pressure systolic 146 mm Hg 04/03/2025 weig ht up 26 pounds in last year, BP up initially at 150/92 Weight 189.2 lbs 04/03/2025 weight up 26 po unds in last year, BP up initially at 150/92 BMI 33.51 kg/m2 04/03/2025 weight up 26 po unds in last year, BP up initially at 150/92 Encounters Encounter Location Date Provider Diagnosis [address] [address] 04/03/2025 Kiley Ospina Encounter for genera l adult medical examination without abnormal findings Z00.00 ; Gastroesophageal reflux disease K21.9 ; Essential (primary) hypertension I10 ; Mild persistent asthma, uncomplicated J45.30 ; Encounter for screening mammogram for malignant neoplasm of breast Z12.31 and Benign neoplasm of colon, unspecified D12.6 [facility] [address] [place] [address] 01/25/2025 Kiley Ospina Anxiety F41.9 and Mi ld intermittent asthma without complication J45.20 [facility] [address] [place] [address] 04/09/2025 Kiley Ospina Assessments Encounter Date Diagnosis (ICD Code) Assessment Notes Treatment Notes Treatment Clinical Notes Section Notes 04/03/2025 Encounter for genera l adult medical examination without abnormal findings (ICD-10 - Z00.00) Please do fasting labs in the next few weeks If diabetes, or A1c 6.5 or above, will start mounjaro. -otherwise will start adipex, as long as BP is better controlled 04/03/2025Gastroesophageal reflux disease (ICD-10 - K21.9)Refill of prevacid - take daily!5Anxiety (ICD-10 - F41.9)01/25/2025Mild intermittent asthma without complication (ICD-10 - J45.20)04/03/2025Essential (primary) hypertension (ICD-10 - I10)Restart lisinopril 10mg daily, and stay on this!04/03/2025Mild persistent asthma, uncomplicated (ICD-10 - J45.30) Start maintenance inhaler - Advair refill of albuterol also 04/03/2025Encounter for screening mammogram for malignant neoplasm of breast (ICD-10 - Z12.31)Please schedule your screening mamm5Benign neoplasm of colon, unspecified (ICD-10 - D12.6)Refer to [facility], for repeat colonoscopy, due to multiple polyps 05/23 Plan Of Treatment Pending Test Test Name Order Date CMP (COMPLETE METABOLIC PANEL) 4 HEMOGLOBIN A1C (GLYCO) 04/03/2025 IGA, IMMUNOGLOBULIN (TOTAL) 05/20/2023 LIPID PANEL (CHOL/TRIG/HDL/LDL) 04/03/20 25 LIPID PANEL (CHOL/TRIG/HDL/LDL) 10/21/19 24 CBC WITH DIFF 10/21/2023 T4 FREE and TSH 10/21/2023 CELIAC DISEASE (DGP,IGA/IGG + TTG, IGA/I GG) 05/20/2023 CBC AND AUTO DIFF * 12/28/2023 COMPREHENSIVE METABOLIC PANEL 12/28/2023 THYROID PROFILE 12/28/2023 MAMM SCREEN BILAT MINISTERIO 3D* 04/08/2022 MAMM SCREEN BILAT MINISTERIO 3D GLOBAL* 2024 LIPID PANEL 12/28/2023 CBC AUTO DIFF 04/12/2025 GLYCOHEMOGLOBIN A1C 04/12/2025 LIPID PROFILE 04/12/2025 PROF 14(COMP METB) 04/12/2025 H PYLORI, UREA BREATH TEST ADULT (>17 YR S) 05/20/2023 MM tomosynthesis screening BI 04/19/2025 CMP (COMP MET SENIOR) w/eGFR CKD-EPI 2024 CBC WITH DIFF 04/03/2025 Next Appt Details Provider Name:Kiley Saba jewell, 05/31/2025 10:00:00 AM, [address] [place], [address], Insurance Providers Payer Name Payer Address Payer Phone Subscriber Number Group Number Insured Name Patient Relationship to Insured Coverage Start Date Coverage End Date [employer] [address] [address] [place] [address] [phone] [id number] Velma Puga Self - patient is the insured 2019 Medical (General) History Medical History History ICD Code Unspecified asthma, uncomplicated J45.90 9 Obstructive sleep apnea G47.33 Peripheral eosinophilia D72.19 Mixed anxiety and depressive disorder F4 1.8 Restrictive lung disease J98.4 Gastroesophageal reflux disease K21.9 Colon polyps Surgical History Surgery Date(Month/Year) Uterine Ablation Tumor removed from ftoydb3409jjocyaidjdt - multiple uetbbf04/23Hospitalization History Reason Date(Month/Year) Colitis 04/2023
--- OUTSIDE RECORDS SUMMARY | 2025-05-30 15:14 | XMS_ITS | Clinical Summary ---
Author Organization [employer] s tem Address [id number] [address] [place] [address] Care Team Providers Care Telephone Operator Chief Name Role Phone Kiley Ospina MD Primary Care Provider Unavail able Social History Tobacco UseTypesPacks/DayYears UsedDateSmoking Tobacco: Never AssessedChildcare AnswerDate GwunbqmdFzjjhdhpyFeraosv30/12/2019EmploymentAnswerDate Recorded RbrpabbblySlqvfgs26/12/2019Purpose - LifeAnswerDate RecordedPurpose and direction in lcqnRutsogn60/11/2021CommentsUnknownSex and Gender InformationValueDate RecordedSex Assigned at BirthNot on fileLegal SexFemale 03/06/2015 11:57 AM EDTGender IdentityNot on fileSexual OrientationNot on file Plan of Treatment Health MaintenanceDue DateLast DoneCommentsDepression Hhdnzhmkt22/18/1977Tobacco Vearfyhud90/18/1977Adult BMI Rqyhkdlmp24/18/1983Pap Smear1986COVID-19 Vaccine ( season)/, 04/25/2021Influenza Vaccine /2DTaP,Tdap and Td Vaccines (2 - Td or Tdap)10/24/2028 10/24/2018Zoster (Shingles) ApnrqbcLmbdgtafk47/08/2020, 08/18/2019 Medical Devices Not on file Insurance [id number] [place] [address] Care Teams Team MemberRelationshipSpecialtyStart DateEnd Date Kiley Ospina MD PCP - General03/30/19
--- OUTSIDE RECORDS SUMMARY | 2025-05-30 15:17 | XMS_ITS | CCD ---
Author Organization [facility] CliniSyil Care Team Providers Care Control Board Operator Name Role Phone SAMSA, CLAUDIA Admitting [...] REX LOCK Primary Care Unavailable Nya MUJICA, Andliz Sawyer Attending Unavailable Nya MUJICA, Josrus Silverio Attending Unavailable Nya MUJICA, Andrius Vjulio Attending Unavailable Nya MUJICA, Andrius Vjulio Attending Unavailable Nya MUJICA, Andrius Silverio Attending Unavailable Problems Problem ClassificationProblemDateDocumented DateEpisodic/ChronicAsthma (4 sources)Unspecified asthma, uncomplicated; Translations: [UNSPECIFIED ASTHMA UNCOMPLICATED]Onset: 46-10-0398BcgqievOrwad lower respiratory disease (4 sources)Other disorders of lung; Translations: [OTHER DISORDERS OF LUNG] Onset: 25-47-9499RjkaqsqpFcogj nutritional; endocrine; and metabolic disorders (1 source)Abnormal weight gain; Translations: [Abnormal weight gain]Onset: 22-16-6316AyoytnzaGtszfvgx codes; unclassified (4 sources)Obstructive sleep apnea (adult) (pediatric); Translations: [OBSTRUCTIVE SLEEP APNEA]Onset: 22-24-0943OmwsjrmVqznbbik codes; unclassified (1 source)Idiopathic hypersomnia with long sleep time; Translations: [IDIO HYPERSOMNIA W/LONG SLEEP TIME]Onset: 21-33-5151Ggkyqxw Results Test NameValueInterpretationReference RangeFacilityCBC AND AUTO DIFFon 01-49-3401VWJBONDN BASOPHIL0.0 X10E9/LNormal0.0-0.2PCherrington Hospital Comment on above:Performed By: #### LAUREN GILBERT, 20383-1, THYR #### [facility] ([id number]) [address], [address] [place], [place] [address]TBEIQHIG NEUTROPHIL3.3 X10E9/LNormal1.5-6.6[facility] RehabilitationComment on above:Performed By: #### LAUREN GILBERT, 83479-7, THYR #### [facility] ([id number]) [address], [address] [place], [place] [address]Amcsbebcl/100 WBC (Bld)0.8 %[facility] Comment on above:Performed By: #### LAUREN GILBERT, 15303-5, THYR #### [facility] ([id number]) [address], [address] [place], [place] [address]Cowmokmgrac (Bld) [#/Vol]0.1 10*3/uLNormal0.0-0.4[facility] RehabilitationComment on above:Performed By: #### LAUREN GILBERT, 94068-2, THYR #### [facility] ([id number]) [address], [address] [place], [place] [address]Ybuscwjiwgz/100 WBC (Bld)2.3 %[facility] Comment on above:Performed By: #### LAUREN GILBERT, 68712-0, THYR #### [facility] ([id number]) [address], [address] [place], [place] [address]Lozlojpyzfu distribution width (RBC) [Ratio]13.3 %Normal 11.5-15.0ProTexoma Medical CenterComment on above:Performed By: #### CBCLAUREN Walter, 31569-5, THYR #### [facility] ([id number]) [address], [address] [place], [place] [address]Cfmgbdudyq (Bld) [Volume fraction]41.1 %Mcnqyu04-34OjoLqzyjbTexoma Medical CenterComment on above:Performed By: #### LAUREN GILBERT, 01440-4, THYR #### [facility] ([id number]) [address], [address] [place], [place] [address]Nmynouxuta (Bld) [Mass/Vol]13.9 g/aSVtlolx52.7-15.5PCherrington HospitalComment on above:Performed By: #### CBCLAUREN Walter, 70381-4, THYR #### [facility] ([id number]) [address], [address] [place], [place] [address]Vkuymkzilts (Bld) [#/Vol]2.1 10*3/uLNormal1.0-3.5PCherrington HospitalComment on above:Performed By: #### CBCLAUREN Walter, 36873-2, THYR #### [facility] ([id number]) [address], [address] [place], [place] [address]Nevtcrgllns/100 WBC (Bld)34.0 %NormalProTexoma Medical Center Comment on above:Performed By: #### CBCSaba CMP, 60831-8, THYR #### [facility] ([id number]) [address], [address] [place], [place] [address]TZQ (RBC) [Entitic mass]33.4 cjPuttqo14-63GeoNyxqltTexoma Medical CenterComment on above:Performed By: #### CBCLAUREN Walter, 91708-6, THYR #### [facility] ([id number]) [address], [address] [place], [place] [address]JABX (RBC) [Mass/Vol]33.7 g/nSTerrfi67-84KesInjtmtTexoma Medical CenterComment on above:Performed By: #### CBCSaba CMP, 69992-9, THYR #### [facility] ([id number]) [address], [address] [place], [place] [address]VTW (RBC) [Entitic vol]99 gMDziiyd75-042AupLnwneaCleveland Clinic Children's Hospital for RehabilitationComment on above:Performed By: #### CBCSaba CMP, 31766-0, THYR #### [facility] ([id number]) [address], [address] [place], [place] [address]Bzjzzuzrr (Bld) [#/Vol]0.5 10*3/uLNormal0-0.9[facility] RehabilitationComment on above:Performed By: #### LAUREN GILBERT, 01702-5, THYR #### [facility] ([id number]) [address], [address] [place], [place] [address]Gbxdvfqxk/100 WBC (Bld)8.1 %NormalCleveland Clinic Children's Hospital for Rehabilitation Comment on above:Performed By: #### CBCA, CMP, 55042-2, THYR #### [facility] ([id number]) [address], [address] [place], [place] [address]Kwwivspqxds/100 WBC (Bld)54.8 %[facility] Comment on above:Performed By: #### CBCA, CMP, 29281-4, THYR #### [facility] ([id number]) [address], [address] [place], [place] [address]Yeqruwom mean volume (Bld) [Entitic vol]8.2 fLNormal7-12 [facility] HospitalComment on above:Performed By: #### CBCA, CMP, 04017- 1, THYR #### [facility] ([id number]) [address], [address] [place], [place] [address]Ujfrirbyj (Bld) [#/Vol]398 10*3/sVIhcgoh278-856TnjChmkqa [facility]ont HospitalComment on above:Performed By: #### CBCSaba, CMP, 45309-3, THYR #### [facility] ([id number]) [address] [place], [place] [address]UNH COUNT4.15 X10E12/LNormal3.80-5.20[facility] on above:Performed By: #### OFELIA, CMP, 55910-8, THYR #### [facility] ([id number]) [address], [address] [place], [place] [address]QBV (Bld) [#/Vol]6.1 10*3/uLNormal4.0-11.0[facility] for RehabilitationComment on above:Performed By: #### OFELIA, CMP, 70783-8, THYR #### [facility] ([id number]) [address], [address] [place], [place] [address]ZNHEAASXYJDOQ METABOLIC PANELon 74-28-0770Xdmrfim [Mass/Vol]4.0 g/dLNormal3.2-5.3PCherrington HospitalComment on above:Performed By: #### CBCA, CMP, 94679-6, THYR #### [facility] ([id number]) [address], [address] [place], [place] [address]BTN [Catalytic activity/Vol]56 U/TYmjquh26-355CqmHrpgqmTexoma Medical CenterComment on above:Performed By: #### CBCA, CMP, 79847-3, THYR #### [facility] ([id number]) [address], [address] [place], [place] [address]RWJ [Catalytic activity/Vol]13 U/LNormal0-31PSpalding Rehabilitation Hospital HospitalComment on above:Performed By: #### OFELIA CMP, 01365-0, THYR #### [facility] ([id number]) [address], [address] [place], [place] [address]Fttzb gap [Moles/Vol]8 mmol/LNormal5-15ProBlanchard [facility] HospitalComment on above:Performed By: #### OFELIA CMP, 77784-9, THYR #### [facility] ([id number]) [address], [address] [place], [place] [address]WMK [Catalytic activity/Vol]16 U/LNormal0-41ProTexoma Medical CenterComment on above:Performed By: #### OFELIA CMP, 11760-1, THYR #### [facility] ([id number]) [address], [address] [place], [place] [address]Fectqzadq [Mass/Vol]0.8 mg/dLNormal0.3-1.2PSpalding Rehabilitation Hospital HospitalComment on above:Performed By: #### OFELIA CMP, 09171-8, THYR #### [facility] ([id number]) [address], [address] [place], [place] [address]Awfztte [Mass/Vol]9.2 mg/dLNormal8.5-10.5PSpalding Rehabilitation Hospital HospitalComment on above:Performed By: #### CBCSaba CMP, 50079-8, THYR #### [facility] ([id number]) [address], [address] [place], [place] [address]Lwmhdjov [Moles/Vol]105 mmol/MFwhqeh21-555PfdPhjozd [facility] HospitalComment on above:Performed By: #### CBCSaba CMP, 02798-6, THYR #### [facility] ([id number]) [address], [address] [place], [place] [address]CY0 [Moles/Vol]29 mmol/NIwsgiy60-53LofLjgioxCherrington Hospital Comment on above:Performed By: #### LAUREN GILBERT, 14482-0, THYR #### [facility] ([id number]) [address], [address] [place], [place] [address]Ogisctgrxq [Mass/Vol]0.64 mg/dLNormal0.40-1.00[facility] RehabilitationComment on above:Result Comment: METHOD TRACEABLE TO IDMS STANDARD Performed By: #### LAUREN GILBERT, 98625-7, THYR #### [facility] ([id number]) [address], [facility] [address] [place], [place] [address]hPYC (CKD-EPI) NON-RACE DEPENDENT>90Normal>59ProTexoma Medical CenterComment on above:Result Comment: Reported eGFR is based on the CKD-EPI 2020 equation that does not use a race coefficient.Performed By: #### LAUREN GILBERT, 67397-1, THYR #### [facility] ([id number]) [address], [address] [place], [place] [address]Uztjuar [Mass/Vol]89 mg/vGEsjxvb78-04UixBqhdtrCleveland Clinic Children's Hospital for Rehabilitation Comment on above:Performed By: #### LAUREN GILBERT, 40385-1, THYR #### [facility] ([id number]) [address], [address] [place], [place] [address]Seixgznqr [Moles/Vol]3.6 mmol/LNormal3.5-5.0[facility] RehabilitationComment on above:Performed By: #### LAUREN GILBERT, 43118-8, THYR #### [facility] ([id number]) [address], [address] [place], [place] [address]Behabym [Mass/Vol]6.6 g/dLNormal6.0-8.0[facility] RehabilitationComment on above:Performed By: #### LAUREN GILBERT, 22801-6, THYR #### [facility] ([id number]) [address], [address] [place] [address]Mfvmuy [Moles/Vol]142 mmol/GDcfnqu055-158EffZgfpsm [facility] HospitalComment on above:Performed By: #### LAUREN GILBERT, 01515-9, THYR #### [facility] ([id number]) [address], [address] [place], [place] [address]Rdgh nitrogen [Mass/Vol]14 mg/dLNormal5-23ProTexoma Medical CenterComment on above:Performed By: #### LAUREN GILBERT, 71317-7, THYR #### [facility] ([id number]) [address] [place] [address]Ykukc 1996 panelon 18-65-5560Mkvylvjniop [Mass/Vol]205 mg/dLHigh 150-200ProTexoma Medical CenterComment on above:Performed By: #### LAUREN GILBERT, 20266-6, THYR #### [facility] ([id number]) [address], [address] [place], [place] [address]Dpmmbarzjpe in HDL [Mass/Vol]63 mg/dLNormal>39ProTexoma Medical CenterCombronson south haven hospital on above:Result Comment: HDL <40 mg/dL - High Risk HDL > or = 40mg/dL- Desirable HDL >60 mg/dL - Negative Risk Performed By: #### LAUREN GILBERT, 61361-6, THYR #### [facility] ([id number]) [address], [address] [place], [place] [address]Nrowepjowwo in LDL [Mass/Vol]120 mg/dLNormal<130ProTexoma Medical CenterComment on above:Result Comment: LDL <100 mg/dL - Desirable LDL >160 mg/dL - High Risk Performed By: #### LAUREN GILBERT, 86511-5, THYR #### [facility] ([id number]) [address], [address] [place] [address]Sbkjpweuxju in VLDL [Mass/Vol]22 mg/dLNormal0-30ProTexoma Medical CenterComment on above:Performed By: #### LAUREN GILBERT, 23029-8, THYR #### [facility] ([id number]) [address], [address] [place], [place] [address]MUCZIMHDTBD:HDL3.8Fuiffs6.0-5.0ProTexoma Medical CenterComment on above:Performed By: #### LAUREN GILBERT, 68662-1, THYR #### [facility] ([id number]) [address], [address] [place], [place] [address]Drfapnlaaubp [Mass/Vol]111 mg/hMUldump23-858WriCawdoh [facility] HospitalComment on above:Performed By: #### LAUREN GILBERT, 49332-4, THYR #### [facility] ([id number]) [address], [address] [place] [address]LELGMNT PROFILEon 61-05-6817Vpbj T4 [Mass/Vol]0.85 ng/dLNormal 0.61-1.60ProTexoma Medical CenterComment on above:Performed By: #### LAUREN GILBERT, 50533-1, THYR #### [facility] ([id number]) [address], [address] [place] [address]ZRG4.67 uIU/mLNormal0.49-4.67ProTexoma Medical CenterComment on above:Performed By: #### LAUREN GILBERT, 76666-9, THYR #### [facility] ([id number]) [address] [place], [place] [address]NZ CHEST HI RESOLUTIONon 54-54-8277UQ CHEST HI RESOLUTION EXAMINATION: CT CHEST HI [...] Electronically authenticated by: BOBBI MCMANUS Date: 2022-06-18 06:[address] [place], [place] [address]HEMOGLOBINon 20-74-3119Ndgaonihzn (Bld) [Mass/Vol]14.0 g/dL Jcqjkg53.0-16.0[facility] GeneralComment on above:Performed By: #### HGB #### [facility] [address] [place] [address] Dr. Hans PritchettXR CHEST 2 Von 38-68-4194PU CHEST 2 VEXAMINATION: XR CHEST 2 V HISTORY: Uncomplicated asthma , shortness [...] Electronically authenticated by: BOBBI MCMANUS Date: 2022-05-05 10:56[facility] Encoun[facility] Encounter DateEncounter [facility] ProviderFacilityStart: 05-06-2025 End: 68-29-3997jqdljwntewEfbjvrh Vytautas Giedraitis MDFacility:[facility] [place] Start: 01-14-2025 End: 40-34-1441ykpejvrvuqGlsvayi Vytautas Giedraitis MDFacility:[facility] [place] Start: 10-29-2024 End: 23-32-8962zzidhgxwezRywjnbs Vytautas Giedraitis MDFacility:[facility] Start: 10-22-2024 End: 25-84-7582hsybdttjftOvgksmj Vytautas Giedraitis MDFacility:[facility] Start: 09-17-2024 End: 60-79-7791qfezpgpkyfVmfxsxv Vytautas Giedraitis MDFacility:[facility] Start: 12-28-2023 End: 96-83-1961ngtfbdlllfQSJFCVV [facility] Hospitaltart: 57-01-0516Bnyhosjfa for general adult medical examination without abnormal findingsHEASCCI Hospital Limatart: 07-27-2022 End: 81-40-1624cpprapubnaUWXUXC SAMSAFacility:R9Jzbgw: 06-22-2022 End: 25-60-8681wclaiywngfDIRGFG SAMSAFacility:H9Esrid: 06-17-2022 End: 93-03-4916zqkehanaltALXDZG [facility]ITALSAFac[facility]:X1Nftai: 06-02-2022 End: 90-42-9968ksevjopjlbGRHKGR [facility]PITALSAFacility:Q0Ctgti: 05-05-2022 End: 52-69-4027kuklozeklzEWHTII [facility]PITALSAFacility:H1 Payers DatePayer CategoryPayerPolicy [id number] Health [id number] [id number] 2.16.840.1.353972.3.57[id number] 2.16.840.1.890047.3.57[id number] 2.16.840.1.114483.3.57[id number] 2.16.840.1.106104.3.57[id number] 2.16.840.1.674565.3.57[id number] 2.16.840.1.647209.3.57[id number] 2.16.840.1.766704.3.57[id number] 2.16.840.1.777295.3.57[id number] 2.16.840.1.541070.3.57[id number] 2.16.840.1.435372.3.57[id number] Summary Purpose Family History No Family History Records FoundNo Family History Records FoundNo Family History Records Found Advance Directives No Advanced Directives Records FoundNo Advanced Directives Records FoundNo Advanced Directives Records Found Additional Source Comments INFORMATION SOURCE (unrecogn ized section and content) DATE CREATED AUTHOR 07/30/2022 [facility] DATE CREATED AUTHOR AUTHOR'S ORGANIZ ATION 12/29/2023 [facility] DATE CREATED AUTHOR AUTHOR'S ORGANIZ ATION 05/11/2025 [facility] FOR RECORDS PERTAINING TO PATIENTS WHO [...] BE BASED ON THE PRIMARY CLINICAL RECORDS. Link To Media [facility]. provides no warranty or guarantee of the accuracy or completeness of information in this document.
--- NOTE | 2025-05-30 15:42 | P.CN_ITS ---
Consult Note: HPI Data of Consult Patient: known to practice within the last 3 years Consult date: 04/17/25 Requesting Physician: Skyla Marie NP Primary Care Provider: REX LOCK Consult Narrative Reason for consult: low back pain Narrative: Velma vincent pleasant 59 year old female presents for evaluation of chronic low back pain. Pain 6/10 in right lateral hip. prior lumbar xray consistent with multilevel changes, lumbar MRI does reveal mild to moderate stenosis at L3-5 with additional degenerative changes. pt has failed to benefit from > 6 weeks of PT and provider guided HEP, heat, ice, tylenol, and NSAIDs. currently utilizing flexeril, lyirca with mild relief without side effects. recently underwent bilateral SIJ injection with at least 50% improvement in posterior SIJ pain. cc:: CC: Skyla Marie NP Review of Systems ROS Musculoskeletal Reports: back pain and extremity pain PFSH [facility] Medical History (Updated 05/30/25 @ 15:44 by Skyla Marie NP) Acid reflux ?K21.9 - Gastro-esophageal reflux disease without esophagitis (ICD-10) Asthma ?J45.909 - Unspecified asthma, uncomplicated (ICD-10) Surgical History H/O cone biopsy of cervix ?Z98.890 - Other specified postprocedural states (ICD-10) Social History Smoking status: Never smoker Meds Home Medications and Allergies Home Medications ?Medication ?Instructions ?Recorded ?Confirmed ?Type alprazolam 0.25 mg tablet 0.25 mg PO DAILY PRN anxiety 03/24/23 05/06/25 History meloxicam 7.5 mg tablet 7.5 mg PO BID PRN pain 08/1005/06/25 History cyclobenzaprine 10 mg tablet 10 mg PO TID PRN muscle s pasm #90 01/05/24 05/06/25 Rx tabs pregabalin 50 mg capsule (Lyrica) 50 mg PO TID #90 cap s 01/05/24 05/06/25 Rx lisinopril 10 mg tablet mg 01/16/24 History Allergies Allergy/AdvReac Type Severity Reaction Status Date / Time No Known Drug Allergies Allergy Verified 05/06/25 06:59 Exam Constitutional Documenting provider has reviewed patient's vital signs: yes Common normals: no apparent distress, oriented x3, healthy appearing, alert and well nourished General appearance: cooperative HENMT Common normals: normocephalic, hearing grossly normal bilaterally and moist oral mucous membranes Head and scalp: normocephalic Eye Common normals: PERRL Pupil: PERRL Neck & C-Spine Common normals: full ROM General: normal visual inspection Chest Common normals: inspection of chest normal Respiratory Common normals: normal respiratory effort, no retractions and no use of accessory muscles Back & Pelvis Lumbar spine/lower back: pain with ROM; ROM not limited Sacroiliac joints: SI joints normal Other: increased low back pain with forward flexion bilateral sij negative katelynn(patricks), gaenslens, thigh thrust, compression test moderate tenderness over right GTB Neuro Common normals: oriented x3 Sensorium/orientation: alert Psych Common normals: mental status grossly normal, thought process normal, cooperative, affect normal, speech normal and activity/motor behavior normal Speech: normal speech Thought process: normal thought process Results Additional Findings Additional findings: If on a controlled substance or opioids, I have checked an [place] report on this patient and there are no aberrancies noted in the prescribing history.??If on a controlled substance or opioid a drug screen was completed and reviewed within the last year, and if there has not been a drug screen completed we ordered one today to monitor higher risk, state monitored pain medication use. As part of providing excellent, safe, comprehensive care, the following was completed at our patient's visit: 1. A medication reconciliation and review to ensure accurate knowledge of current/active medications, including asking our patients to inform us about any ixgx-ehi-nnpcaqr medications or herbal remedies/nutritional supplements/alternative remedies. 2. A review to specifically ensure our patients have had annual screening for screening for depression, screening for tobacco use, and screening for unhealthy alcohol use. For concerning screenings had a discussion with the patient, provided patient education, and recommended follow-up with primary care provider when appropriate. If patient noted with a risk of falling, they received education on strength, gait, and balance training to prevent future risk of falling. Portions of this note may have been carried over from the previous visit and updated as appropriate. Please note this office utilizes paper charting in addition to the electronic medical record. A list of current medications, vitals, and PMH is available there as the clinical staff outside of myself do not have access to [employer] charting during the clinic day operations. As part of providing quality comprehensive care the current medications, vitals, and PMH were reviewed in the paper chart. Assessment and Plan Assessment and Plan (1) Greater trochanteric bursitis of right hip: (2) Bilateral sacroiliitis: Assessment and Plan: The patient has had over 3 months of moderate to severe low back pain with functional impairment and inadequate response to conservative care including NSAIDS (unless there are contraindication such as concurrent blood thinners), multiple oral or topical pain medications, and home exercise program/physical therapy.? Patient has completed >6 weeks of guided home exercise program and/or formal physical therapy program without relief of their symptoms.? The Oswestry Disability Index was completed, and the patient scored a 20%.? 09/25 bilateral SIJ injection >50% improvement greater than 3 months ? 05/06/25 bilateral SIJ injection at least 50% improvement ongoing (3) Vertebrogenic low back pain: Assessment and Plan: Dr Fay to review lumbar MRI and modic changes in consideration of intracept Plan request official re-read from radiology in regards to modic changes on lumbar MRI proceed with right gtb injection with Dr Fay change pregabalin 100mg am and 50mg hs, denies side effects continue flexeril f/u after injection
== END 2025-05-30 15:08 | disposition home or self-care (01) ==
PROVIDERS: PCP Family Medicine; Visit Provider Nurse Practitioner
DX: M70.61 Trochanteric bursitis, right hip (principal); M46.1 Sacroiliitis, not elsewhere classified; M54.51 Vertebrogenic low back pain
CPT/HCPCS: G0463

== ENCOUNTER 2025-07-29 09:44 | Outpatient (OUT) | payer OTHER, SELFPAY ==
--- OUTSIDE RECORDS SUMMARY | 2025-05-03 07:30 | XMS_ITS ---
Author Organization [facility] in [place] Address [address] [place] [address] Care Team Providers Care Quality Assurance Inspector Name Role Phone Kiley Ospina Primary Care Provider [phone] REASON FOR VISIT recheck, pap Encounters Encounter Location Date Provider Diagnosis [facility] [address] [place] [address] 05/03/2025 Kiley Ospina Plan Of Treatment Next Appt Details Provider Name:Kiley jewell, 09/04/2025 04:45:00 PM, [address] [place], [address], Progress Notes * Velma PUGA SDOB:1965 (60 yo F)Acc No.[id number]:05/03/2025 UNLOCKED PROGRESS NOTE Established Patient: Javad Velma MOFFETT :Akira Ospina MDDOB:1965???Age:59 Y ???Sex:FemaleDate:05/03/2025Phone:[phone]:[address] [place], [place]-[address] Subjective: * Chief Complaints: * 1 . Recheck, pap. * Medical History: Objective: * Vitals: Assessment: Plan: * Treatment: * * Electronic signature of Kiley Ospina MD, [id number] on 07/29/2025 at 09:48 AM ESTSign off status: PendingVisit Status:?R/S (Rescheduled) * Provider: Annie Ospina MD Date: 1 Generated for Printing/Faxing/eTransmitting on:?07/29/2025 09:48 AM EST
--- OUTSIDE RECORDS SUMMARY | 2025-07-29 09:48 | XMS_ITS | Patient Health Record ---
Author Organization [facility] in [place] Address [address] [place] [address] Care Team Providers Care Consulting Analyst Name Role Phone Rex Ospina Primary Care Provider Allergies No Known Allergies Results Component Value Reference Range Notes CBC AUTO DIFF (Not yet revie wed by provider) Interpretation: Performing Lab: Notes/Report: [facility] , White Blood Count 7.1 4.0-11.0 10 3/uL Red Blood Count3.864.20-5.40 10 6/jXAmueefycwo63.612.0-16.0 g/nUBrcngaidir20.6 36.0-48.0 %Mean Corpuscular Yolnvp66.481.0-99.0 fLMean Corpuscular Hemoglobin 32.626.7-34.0 pgMean Corpuscular HGB Conc33.529.9-35.2 g/dLRed Cell Distribution Width12.211.0-15.0 %Platelet Bprws325499-008 10 3/uLMean Platelet Volume9.99.5- 13.5 fLNeutrophils Percent Auto45.643.0-75.0 %Lymphocytes Percent Auto38.220.5- 60.0 %Monocytes Percent Auto10.41.7-12.0 %Eosinophils Percent Auto4.70.9-7.0 % Basophils Percent Auto1.00.2-2.0 %Immature Granulocytes Pct Auto0.10.0-0.5 % Neutrophils Absolute Auto3.21.4-6.5 10 3/uLLymphocytes Absolute Auto2.71.2-3.8 10 3/uLMonocytes Absolute Auto0.70.3-0.8 10 3/uLEosinophils Absolute Auto0.30.0- 0.7 10 3/uLBasophils Absolute Auto0.10.0-0.1 10 3/uLImmature Granulocytes Abs Auto0.010.00-0.03 10 3/uLPerforming Lab:see noteML - [facility] LB GLYCOHEMOGLOBIN A1C (Not yet reviewed by provider) Interpretation: Performing Lab: Notes/Report: [facility] ,Glycohemoglobin A1C5.34.5-6.2 % > 7.0 ADA THERAPEUTIC TARGET < 7.0 ACTION SUGGESTED ADA RECOMMENDED LIMIT 4.0 - 6.0 Estimated Average Oaclwgg963Zrudnqymfk Lab:see noteML - [facility] LB LIPID PROFILE (Not yet reviewed by provider) Interpretation: Performing Lab: Notes/Report: [facility] ,Xwzydizcilsuw02<=150 mg/eXTiynmxopysy865<=200 mg/dLHDL Efcdkliarsb1758-54 mg/dL <40 mg/dl - HIGH CARDIOVASCULAR RISK > or =60 mg/dl - LOW CARDIOVASCULAR RISK LDL Cholesterol Iydxqbdgbl545.0 130-159 mg/dl BORDERLINE HIGH 100-129 mg/dl NEAR OR ABOVE OPTIMAL >190 mg/dl VERY HIGH 160-189 mg/dl HIGH <100 mg/dl OPTIMAL VLDL CHOLESTEROL8.8Chol HDL Ratio2.6 7.1 - 11.0 MODERATE RISK >11.0 HIGH RISK 4.4 - 7.1 AVERAGE RISK 3.3 - 4.4 LOW RISK Performing Lab:see noteML - [facility] LBPROF 14(COMP METB) (Not yet reviewed by provider) Interpretation: Performing Lab: Notes/Report: [facility] ,Exqawv518853-442 mmol/LPotassium3.93.5-5.1 mmol/HVylwudla66096-852 mmol/LCarbon Aatxgbc24.521.0-32.0 mmol/LAnion Gap10.5Hcrqteh0198-257 mg/dLBlood Urea Nitrogen 18.07.0-18.0 mg/dLCreatinine0.790.55-1.02 mg/dLEstimated GFR ( Ibis>60 >=60 mL/min/1.73m 2Estimated GFR (Non- Alayna>60>=60 mL/min/1.73m 2BUN Creatinine Ratio22.0Ajhvsuq2.08.5-10.1 mg/dLBilirubin Total0.70.2-1.0 mg/dL Aspartate Amino Kelqnlirfku2271-00 U/LAlanine Mnxlerjtgnqhqfrk5704-82 U/L Alkaline Ydqnlyhrmln6689-696 U/LTotal Protein7.46.4-8.2 g/dLAlbumin Level3.73.4- 5.0 g/dLGlobulin3.7Albumin Globulin Ratio1.0Performing Lab:see noteML - [facility] LBMM tomosynthesis screening BI Reviewed date:05/31/2025 10:58:19 AM Interpretation: Performing Lab: Notes/Report: Source Facility: [facility]-[address] [place] [address] [place] [address] Mammography Report Signed Patient: VELMA PUGA MR#: [id number] : 1965 Acct:[id number] Age/Sex: 59 / F ADM Date: 04/19/25 Loc: MAMMO Attending Dr: REX OSPINA Ordering Physician: REX OSPINA Results: Date of Service: 04/19/25 Follow Up: Procedure(s): MM tomosynthesis screening BI Accession Number(s): [id number] cc: REX OSPINA Patient Name: VELMA PUGA MR#: [id number] : 1965 Exam Date: 04/19/2025 Ordering Doctor: DR REX OSPINA RADIOLOGY REPORT PROCEDURE: MM TOMOSYNTHESIS SCREENING BI COMPARISON: MM SCREENING MAMMO BI, 09/04/2011. INDICATIONS: Screening Calculator Name NCI Breast Cancer Risk Assessment Tool 5 Year Breast Cancer Risk 1.10% Lifetime Breast Cancer Risk 6.00% Personal Breast Cancer No Personal Ovarian Cancer No Treatments None Family Cancers None LOCATION: [facility] BREAST COMPOSITION: The breasts are [...] Signed By: 04/19/25 1501 DD/ 1500 TD/TT: Hand Shoe Cutter:PAP (THIN PREP) AND HPV (Not yet reviewed by provider) Interpretation: Performing Lab:[place]-[address] Amilcar Renteria Notes/Report: FASTING:UNKNOWN FASTING: UNKNOWNCLINICAL INFORMATION:None givenLMP:NONE GIVENPREV. PAP:NONE GIVENPREV. BX:NONE GIVENSOURCE:None givenSTATEMENT OF ADEQUACY: present. Endocervical/transformation zone component Satisfactory for evaluation. INTERPRETATION/RESULT: Cytology Results: Negative for intraepithelial lesion or malignancy. COMMENT: ThinPrep(R) Imaging System. This Pap test has been evaluated with the FLAT OPTICAL ELEMENT MAKER: HAKEEM Aburto [id number] CLIA:[id number] AVN, CT(ASCP) CT Screening location: [address], [facility] the Pap result is evaluated along with historic and with relevant clinical findings and history, and when and false positive results. It is most reliable when a EXPLANATORY NOTE: satisfactory sample, regularly obtained, is submitted not a diagnostic test and is subject to false negative current clinical information. The Pap is a screening test for cervical cancer. It is HPV mRNA E6/E7Not DetectedNot Detected Methodology: Furniture Detailer-Mediated Amplification (This link if provided for information/ submitted, please contact the testing laboratory for alternative testing options. total hysterectomy with removal of cervix was http://education.RewardIt.com/faq/NTX543z1 If a vaginal source from a patient who has had a educational purposes only.) Cervical sources are required for HPV testing. high-risk HPV types (16,18,31,33,35,39,45,51,52,56,58,59,66,68). This assay detects E6/E7 viral messenger RNA (mRNA) from 14 For additional information, please refer to Reason For Referral Reason eval and treat Diagnosis 1 Gastroesophageal ref lux disease (K21.9) Diagnosis 2 Irritable bowel synd sara with constipation (K58.1) Diagnosis 3 Celiac disease (K90. 0) Diagnosis 4 Polyp of colon (K63. 5) Referral Organization [facility] Vickie tiptonpolina Referring Provider First Name Rex Referring Provider Last Name Anai Referring Provider Speciality [facility] jaden Referred Provider Specialty Gastroentero logy Referral Priority Routine Medications Medication SIG (Take, Route, Frequency, Duration) Notes Start Date End Date Status Cyclobenzaprine HCl 10 MG Oral; Duration: 30 Day s ActiveAlbuterol Sulfate HFA 108 (90 Base) MCG/ACT2 puffs Inhalation every 4 hrs prn cough/SOB; Duration: 30 days02/14/2020ActiveALPRAZolam 0.25 MG1/2-1 tab Orally Daily prn anxiety; Duration: 05/31/2025tivemetFORMIN HCl ER 500 MG1 tablet with evening meal Orally Once a day; Duration: 05/31/2025 ActiveLansoprazole 30 MG1 capsule 1/2 to 1 hour before morning meal Orally Once a day; Duration: 90 daysActivePhentermine HCl 37.5 MG1 tablet before breakfast Orally Once a day; Duration: 05/31/2025tiveLisinopril 10 MG1 tablet Orally Once a day; Duration: days10/21/2023ctiveFluticasone-Salmeterol 100- 50 MCG/ACT1 puff Inhalation Twice a day; Duration: 30 days5Active Immunizations Vaccine Route Administration Date Status Comme nts Flu, Fluzone (55553) 6 mos+, single-dose syringe/vial (2270-5908) Unknown 05/20/2022 Administered Pneumococcal (Prevnar 13)Xokgurs0401/16/2016Administeredimpact bvlvqfdJTOI-VDH-3 (COVID 19 Pfizer 30mcg/0.3mL)Qilybei3804/25/20212973MyemvuuwgnfxJEGN-ZDC-9 (COVID 19 Pfizer 30mcg/0.3mL)Kvpnntp17/16/2021AdministeredShingrix (Zoster)Unknown 08/18/2019Administeredper impact recordShingrix (Zoster)Jtoydxv6412/07/2019 Administeredper impact pulrpqOsnvMscdxqj46/26/2019AdministeredImpact Records Social History Tobacco Use: Social History [...] one occasion in the past year?Never (0 point)Xjadjq9MzwzldpxdrtsxtVytrzclr Problems Problem Type SNOMED Code ICD Code Onset Dates Problem Status W/U Status Risk Notes Problem Essential hypertension (89424502 ) Essential (primary) hypertension (I10) ActiveconfirmedProblemGastro-esophageal reflux disease without esophagitis (247746580)Gastro-esophageal reflux disease without esophagitis (K21.9)Active confirmedProblemBacterial intestinal infectious disease (916223263)Other specified bacterial intestinal infections (A04.8)ActiveconfirmedProblemObesity (179385690)Obesity, unspecified (E66.9)ActiveconfirmedProblemUncomplicated mild persistent asthma (024629653)Mild persistent asthma, uncomplicated (J45.30) ActiveconfirmedProblemUncomplicated asthma (disorder) (503925846)Unspecified asthma, uncomplicated (J45.909)ActiveconfirmedProblemConstipation (97847073) Constipation, unspecified (K59.00)ActiveconfirmedProblemCeliac disease (137978851)Celiac disease (K90.0)ActiveconfirmedProblemMenopause (199859043) Menopausal and female climacteric states (N95.1)ActiveconfirmedProblemOther specified symptoms and signs involving the digestive system and abdomen (R19.8) ActiveconfirmedProblemAnxiety (88597706)Anxiety (F41.9)ActiveconfirmedProblem Obstructive sleep apnea (83632480)Obstructive sleep apnea (G47.33)Active confirmedProblemMild intermittent asthma (455835126)Mild intermittent asthma without complication (J45.20)ActiveconfirmedProblemConstipation (24263887) Constipation (K59.00)ActiveconfirmedProblemSleep disturbance (54650012)Sleep disturbance (G47.9)ActiveconfirmedProblemObese class I (463733641652302)BMI 33.0-33.9,adult (Z68.33)ActiveconfirmedProblemRestrictive lung disease (99865520)Restrictive lung disease (J98.4)ActiveconfirmedProblemChronic gastritis (7530464)Chronic gastritis (K29.50)ActiveconfirmedProblem Gastroesophageal reflux disease (607932301)Gastroesophageal reflux disease (K21.9)ActiveconfirmedProblemSpotting (6360935)Spotting (N92.0)Activeconfirmed ProblemIrritable bowel syndrome characterized by constipation (286143226) Irritable bowel syndrome with constipation (K58.1)ActiveconfirmedProblemAnxiety depression (963648316)Anxiety with depression (F41.8)ActiveconfirmedProblemBody mass index 30.00 to 34.99 (359171624865914)Body mass index [BMI] 34.0-34.9, adult (Z68.34)ActiveconfirmedProblemPeripheral eosinophilia (D72.19)Active confirmedProblemBody mass index 30+ - obesity (678773032)Body mass index [BMI] 30.0-30.9, adult (Z68.30)ActiveconfirmedProblemInsulin resistance (disorder) (991676526)Insulin resistance, unspecified (E88.819)Activeconfirmed Vital Signs Heart Rate 72 /min 05/31/2025 weight up 6 jayde nds Respiratory Rate 16 /min 05/31/2025 weight up 6 pounds Oximetry 96 % 05/31/2025 weight up 6 jayde nds Blood pressure diastolic 84 mm Hg 05/31/2025 nadira ght up 6 pounds Height 63 in 05/31/2025 weight up 6 jayde nds Blood pressure systolic 138 mm Hg 05/31/2025 weig ht up 6 pounds Weight 195 lbs 05/31/2025 weight up 6 jayde nds BMI 34.54 kg/m2 05/31/2025 weight up 6 jayde nds Encounters Encounter Location Date Provider Diagnosis [facility] [address] [place] [address] 01/25/2025 Rex Ospina Anxiety F41.9 and Mi ld intermittent asthma without complication J45.20 [facility] [address] [place] [address] 04/09/2025 [facility] [place] [address]/09[facility] [place] [address]/09[facility] without abnormal findings Z00.00 ; Gastroesophagealreflux disease K21.9 ; Essential (primary) hypertension I10 ; Mild persistent asthma, pmhfafwpqylabK46.30 ; Encounter for screening mammogram for malignant neoplasm of breast Z12.31 and [facility]ign [facility]oplasm [facility] colon, [facility] [place] [address]/31/2025[facility] and female climacteric states N95.1 ; Encounter for screening for malignant neoplasm of cervix Z12.4 ; Polyp of colon K63.5 ; Insulin resistance, unspecified E88.819 ; Anxiety F41.9 ; Mild persistent asthma, uncomplicated J45.30 ; Obesity, unspecified E66.9 and Body mass index [BMI] 34.0-34.9, adult Z68.34 Assessments Encounter Date Diagnosis (ICD Code) Assessment [...] (ICD-10 - K21.9)Refill of prevacid - take daily!05/31/2025Menopausal and female climacteric states (ICD-10 - N95.1) Pap today05/31/2025Encounter for screening for malignant neoplasm of cervix (ICD-10 - Z12.4)01/25/2025nxiety (ICD-10 - F41.9)01/25/2025Mild intermittent asthma without complication (ICD-10 - J45.20)05/31/2025Polyp of colon (ICD-10 - K63.5)[facility] GI referral due to h/o vpbqxq8704/03/2025Essential (primary) hypertension (ICD-10 - I10)Restart lisinopril 10mg daily, and stay on this! 04/03/2025Mild persistent asthma, uncomplicated (ICD-10 - J45.30) Start maintenance inhaler - Advair refill of albuterol also 05/31/2025Insulin resistance, unspecified (ICD-10 - E88.819) start metformin to help with weight loss also Restart adipex 05/31/2025nxiety (ICD-10 - F41.9)COntinue xanax, refill to [facility]/03/2025 Encounter for screening mammogram for malignant neoplasm of breast (ICD-10 - Z12.31)Please schedule your screening mamm04/03/2025enign neoplasm of colon, unspecified (ICD-10 - D12.6)Refer to [facility] group, for repeat colonoscopy, due to multiple polyps Mild persistent asthma, uncomplicated (ICD-10 - J45.30)05/31/2025Obesity, unspecified (ICD-10 - E66.9)05/31/2025ody mass index [BMI] 34.0-34.9, adult (ICD-10 - Z68.34) Plan Of Treatment Pending Test Test Name Order Date CMP (COMPLETE METABOLIC PANEL) 4 HEMOGLOBIN A1C (GLYCO) 04/03/2025 IGA, IMMUNOGLOBULIN (TOTAL) 05/20/2023 LIPID PANEL (CHOL/TRIG/HDL/LDL) 04/03/20 25 LIPID PANEL (CHOL/TRIG/HDL/LDL) 10/21/19 24 CBC WITH DIFF (EXP 06/2025) 10/21/2023 T4 FREE and TSH 10/21/2023 CELIAC DISEASE (DGP,IGA/IGG + TTG, IGA/I GG) 05/20/2023 CBC AND AUTO DIFF * 12/28/2023 COMPREHENSIVE METABOLIC PANEL 12/28/2023 THYROID PROFILE 12/28/2023 PAP (THIN PREP) w RELEX HPV IF ASCUS and Above 05/31/2025 PAP (THIN PREP) AND HPV 05/31/2025 MAMM SCREEN BILAT MINISTERIO 3D* 04/08/2022 MAMM SCREEN BILAT MINISTERIO 3D GLOBAL* 2024 LIPID PANEL 12/28/2023 CBC AUTO DIFF 04/12/2025 GLYCOHEMOGLOBIN A1C 04/12/2025 LIPID PROFILE 04/12/2025 PROF 14(COMP METB) 04/12/2025 H PYLORI, UREA BREATH TEST ADULT (>17 YR S) 05/20/2023 CMP (COMP MET SENIOR) w/eGFR CKD-EPI 2024 CBC WITH DIFF 04/03/2025 Next Appt Details Provider Name:Rex jewell, 09/04/2025 04:45:00 PM, [address] [place], [address], Insurance Providers Payer Name Payer Address Payer Phone Subscriber Number Group Number Insured Name Patient Relationship to Insured Coverage Start Date Coverage End Date R [address] [address] [place] [address] [phone] [id number] Velma Puga Self - patient is the insured 2019 Medical (General) History Medical History History ICD Code Unspecified asthma, uncomplicated J45.90 9 Obstructive sleep apnea G47.33 Peripheral eosinophilia D72.19 Mixed anxiety and depressive disorder F4 1.8 Restrictive lung disease J98.4 Gastroesophageal reflux disease K21.9 Colon polyps- cscope 05/23 Surgical History Surgery Date(Month/Year) colonoscopy - multiple polyps 05/23 Uterine Ablation Tumor removed from idngij4608Uffhmufljttzipd History Reason Date(Month/Year) Colitis 04/2023
--- OUTSIDE RECORDS SUMMARY | 2025-07-29 09:48 | XMS_ITS | Clinical Summary ---
Author Organization [employer] Address [id number] [address] [place] [address] Care Team Providers Care Casket Assembler Metal Name Role Phone Kiley Ospina MD Primary Care Provider Unavail able Social History Tobacco UseTypesPacks/DayYears UsedDateSmoking Tobacco: Never AssessedChildcare AnswerDate DwuhsmozRvujjqaugKzkuref87/12/2019EmploymentAnswerDate Recorded QcnigfhijxGirdvjm14/12/2019Purpose - LifeAnswerDate RecordedPurpose and direction in mincNgcrnij42/11/2021CommentsUnknownSex and Gender InformationValueDate RecordedSex Assigned at BirthNot on fileLegal SexFemale 03/06/2015 11:57 AM EDTGender IdentityNot on fileSexual OrientationNot on file Plan of Treatment Health MaintenanceDue DateLast DoneCommentsDepression Ogvxmzcxr68/18/1977Tobacco Vjtvdflgw78/18/1977Adult BMI Vzxkvylet63/18/1983Pap Smear1986COVID-19 Vaccine ( season)/, 04/25/2021Influenza Vaccine /2DTaP,Tdap and Td Vaccines (2 - Td or Tdap)10/24/2028 10/24/2018RSV ( or age 60+ yrs) (1 - 1-dose 75+ series)2040Zoster (Shingles) TdnkflaRxddkllqy38/08/2020, 08/18/2019 Medical Devices Not on file Insurance [address] [place] [address] Care Teams Team MemberRelationshipSpecialtyStart DateEnd Kiley Ospina MD [facility]CP - [facility]/30/19
--- OUTSIDE RECORDS SUMMARY | 2025-07-29 09:52 | XMS_ITS | CCD ---
Author Organization [facility] CliniSyil Care Team Providers Care Fraternity House Cook Name Role Phone SAMSA, CLAUDIA Admitting Unavailable [...] sources)Unspecified asthma, uncomplicated; Translations: [UNSPECIFIED ASTHMA UNCOMPLICATED]Onset: 95-78-9430GsrcsnqMwryp lower respiratory disease (4 sources)Other disorders of lung; Translations: [OTHER DISORDERS OF LUNG] Onset: 17-07-1136JnvlcjynWilcv nutritional; endocrine; and metabolic disorders (1 source)Abnormal weight gain; Translations: [Abnormal weight gain]Onset: 04-61-8849GfehuaxfCooszlko codes; unclassified (4 sources)Obstructive sleep apnea (adult) (pediatric); Translations: [OBSTRUCTIVE SLEEP APNEA]Onset: 97-75-7767VweozfjMkxagqjg codes; unclassified (1 source)Idiopathic hypersomnia with long sleep time; Translations: [IDIO HYPERSOMNIA W/LONG SLEEP TIME]Onset: 78-52-9585Vbekkej Results Test NameValueInterpretationReference RangeFacilityCBC AND AUTO DIFFon 82-69-8330NRALSCJX BASOPHIL0.0 X10E9/LNormal0.0-0.2PMarietta Memorial Hospital Comment on above:Performed By: #### LAUREN GILBERT, 67054-6, THYR #### [facility] ([id number]) [address], [address] [place], [place] [address]LLDPMWTZ NEUTROPHIL3.3 X10E9/LNormal1.5-6.6Mercy HealthComment on above:Performed By: #### LAUREN GILBERT, 21978-1, THYR #### [facility] ([id number]) [address], [address] [place], [place] [address]Rknslkper/100 WBC (Bld)0.8 %[facility] Comment on above:Performed By: #### LAUREN GILBERT, 83342-8, THYR #### [facility] ([id number]) [address], [address] [place], [place] [address]Srcuedxlhzx (Bld) [#/Vol]0.1 10*3/uLNormal0.0-0.4Mercy HealthComment on above:Performed By: #### LAUREN GILBERT, 45007-5, THYR #### [facility] ([id number]) [address], [address] [place], [place] [address]Kheoofezbed/100 WBC (Bld)2.3 %[facility] Comment on above:Performed By: #### LAUREN GILBERT, 96742-0, THYR #### [facility] ([id number]) [address], [address] [place], [place] [address]Vkjdmzrbzis distribution width (RBC) [Ratio]13.3 %Normal 11.5-15.0ProMemorial Hermann Northeast HospitalComment on above:Performed By: #### CBCLAUREN Walter, 04529-7, THYR #### [facility] ([id number]) [address], [address] [place], [place] [address]Pfqmevdtas (Bld) [Volume fraction]41.1 %Orzyxp79-53MmpMutlirMemorial Hermann Northeast HospitalComment on above:Performed By: #### LAUREN GILBERT, 20255-3, THYR #### [facility] ([id number]) [address], [address] [place], [place] [address]Xapinvsucy (Bld) [Mass/Vol]13.9 g/wULagyyv82.7-15.5PMarietta Memorial HospitalComment on above:Performed By: #### CBCLAUREN Walter, 55505-4, THYR #### [facility] ([id number]) [address], [address] [place], [place] [address]Zxufvluodwg (Bld) [#/Vol]2.1 10*3/uLNormal1.0-3.5PMarietta Memorial HospitalComment on above:Performed By: #### CBCLAUREN Walter, 97719-1, THYR #### [facility] ([id number]) [address], [address] [place], [place] [address]Hpkxkplutov/100 WBC (Bld)34.0 %NormalProMemorial Hermann Northeast Hospital Comment on above:Performed By: #### CBCSaba CMP, 46319-4, THYR #### [facility] ([id number]) [address], [address] [place], [place] [address]GDU (RBC) [Entitic mass]33.4 gvNtnilb30-47BemHqrzytMemorial Hermann Northeast HospitalComment on above:Performed By: #### CBCLAUREN Walter, 50707-7, THYR #### [facility] ([id number]) [address], [address] [place], [place] [address]DQUP (RBC) [Mass/Vol]33.7 g/bRRohidp90-71EdzAgfdowMemorial Hermann Northeast HospitalComment on above:Performed By: #### CBCSaba CMP, 93697-8, THYR #### [facility] ([id number]) [address], [address] [place], [place] [address]QZJ (RBC) [Entitic vol]99 mSFesnbm36-016ZemFvocjeMercy HealthComment on above:Performed By: #### CBCSaba CMP, 24954-1, THYR #### [facility] ([id number]) [address], [address] [place], [place] [address]Ccygrkxzs (Bld) [#/Vol]0.5 10*3/uLNormal0-0.9Mercy HealthComment on above:Performed By: #### LAUREN GILBERT, 25887-0, THYR #### [facility] ([id number]) [address], [address] [place], [place] [address]Epzyduawl/100 WBC (Bld)8.1 %NormalMercy Health Comment on above:Performed By: #### CBCA, CMP, 72310-5, THYR #### [facility] ([id number]) [address], [address] [place], [place] [address]Qhfrgglkvco/100 WBC (Bld)54.8 %[facility] Comment on above:Performed By: #### CBCA, CMP, 29673-1, THYR #### [facility] ([id number]) [address], [address] [place], [place] [address]Aestuxns mean volume (Bld) [Entitic vol]8.2 fLNormal7-12 [facility] HospitalComment on above:Performed By: #### CBCA, CMP, 02697- 1, THYR #### [facility] ([id number]) [address], [address] [place], [place] [address]Klwxgmiry (Bld) [#/Vol]398 10*3/qVZsjtnn125-486PycBbkftl [facility]remont HospitalComment on above:Performed By: #### CBCSaba, CMP, 44099-7, THYR #### [facility] ([id number]) [address], [address] [place], [place] [address]KZT COUNT4.15 X10E12/LNormal3.80-5.20[facility] on above:Performed By: #### OFELIA, CMP, 98691-3, THYR #### [facility] ([id number]) [address], [address] [place], [place] [address]LFU (Bld) [#/Vol]6.1 10*3/uLNormal4.0-11.0Mercy HealthComment on above:Performed By: #### OFELIA, CMP, 49389-9, THYR #### [facility] ([id number]) [address], [address] [place], [place] [address]HEEAHTPREPMUM METABOLIC PANELon 99-75-7853Gosrojy [Mass/Vol]4.0 g/dLNormal3.2-5.3PMarietta Memorial HospitalComment on above:Performed By: #### CBCA, CMP, 72302-5, THYR #### [facility] ([id number]) [address], [address] [place], [place] [address]WIX [Catalytic activity/Vol]56 U/YYvrllm83-921EasJcrxyeMemorial Hermann Northeast HospitalComment on above:Performed By: #### CBCA, CMP, 85699-4, THYR #### [facility] ([id number]) [address], [address] [place], [place] [address]MZP [Catalytic activity/Vol]13 U/LNormal0-31PNorth [facility] HospitalComment on above:Performed By: #### OFELIA CMP, 93996-6, THYR #### [facility] ([id number]) [address], [address] [place], [place] [address]Ewdgp gap [Moles/Vol]8 mmol/LNormal5-15ProRegency Hospital [facility] HospitalComment on above:Performed By: #### OFELIA CMP, 23976-0, THYR #### [facility] ([id number]) [address], [address] [place], [place] [address]JJE [Catalytic activity/Vol]16 U/LNormal0-41ProMemorial Hermann Northeast HospitalComment on above:Performed By: #### OFELIA CMP, 15512-1, THYR #### [facility] ([id number]) [address], [address] [place], [place] [address]Svwrqkysj [Mass/Vol]0.8 mg/dLNormal0.3-1.2PNorth Colorado Medical Center HospitalComment on above:Performed By: #### OFELIA CMP, 67514-2, THYR #### [facility] ([id number]) [address], [address] [place], [place] [address]Djdaqsn [Mass/Vol]9.2 mg/dLNormal8.5-10.5PNorth [facility] Medical Center HospitalComment on above:Performed By: #### CBCSaba CMP, 76229-1, THYR #### [facility] ([id number]) [address], [address] [place], [place] [address]Xchddkwo [Moles/Vol]105 mmol/FJvlvze74-629DzcLhtvxv [facility] HospitalComment on above:Performed By: #### CBCSaba CMP, 51492-5, THYR #### [facility] ([id number]) [address], [address] [place], [place] [address]JV5 [Moles/Vol]29 mmol/OZyidtn67-04IalUlcrfrMarietta Memorial Hospital Comment on above:Performed By: #### LAUREN GILBERT, 76884-0, THYR #### [facility] ([id number]) [address], [address] [place], [place] [address]Drapzpskog [Mass/Vol]0.64 mg/dLNormal0.40-1.00Mercy HealthComment on above:Result Comment: METHOD TRACEABLE TO IDMS STANDARD Performed By: #### LAUREN GILBERT, 11941-0, THYR #### [facility] ([id number]) [address], [facility] [address] [place], [place] [address]lQWO (CKD-EPI) NON-RACE DEPENDENT>90Normal>59ProMemorial Hermann Northeast HospitalComment on above:Result Comment: Reported eGFR is based on the CKD-EPI 2020 equation that does not use a race coefficient.Performed By: #### LAUREN GILBERT, 98132-1, THYR #### [facility] ([id number]) [address], [address] [place], [place] [address]Uahvzkb [Mass/Vol]89 mg/sKRblfps31-69GkaLdhrhnMercy Health Comment on above:Performed By: #### LAUREN GILBERT, 73907-6, THYR #### [facility] ([id number]) [address], [address] [place], [place] [address]Fwxfkeoeg [Moles/Vol]3.6 mmol/LNormal3.5-5.0Mercy HealthComment on above:Performed By: #### LAUREN GILBERT, 14683-2, THYR #### [facility] ([id number]) [address], [address] [place], [place] [address]Rxejsvf [Mass/Vol]6.6 g/dLNormal6.0-8.0Mercy HealthComment on above:Performed By: #### LAUREN GILBERT, 57615-8, THYR #### [facility] ([id number]) [address], [address] [place] [address]Xxmltz [Moles/Vol]142 mmol/CDhkqlf597-191ClzUxvhqj [facility] HospitalComment on above:Performed By: #### LAUREN GILBERT, 68742-1, THYR #### [facility] ([id number]) [address], [address] [place], [place] [address]Bllg nitrogen [Mass/Vol]14 mg/dLNormal5-23ProMemorial Hermann Northeast HospitalComment on above:Performed By: #### LAUREN GILBERT, 36560-1, THYR #### [facility] ([id number]) [address], [address] [place] [address]Hqdvp 1996 panelon 09-81-0880Hqmehbbkssj [Mass/Vol]205 mg/dLHigh 150-200ProMemorial Hermann Northeast HospitalComment on above:Performed By: #### LAUREN GILBERT, 72555-6, THYR #### [facility] ([id number]) [address], [address] [place], [place] [address]Jbkpbotukzk in HDL [Mass/Vol]63 mg/dLNormal>39ProMemorial Hermann Northeast HospitalCommary free bed rehabilitation hospital on above:Result Comment: HDL <40 mg/dL - High Risk HDL > or = 40mg/dL- Desirable HDL >60 mg/dL - Negative Risk Performed By: #### LAUREN GILBERT, 77330-8, THYR #### [facility] ([id number]) [address], [address] [place], [place] [address]Shpwzzjvtys in LDL [Mass/Vol]120 mg/dLNormal<130ProMemorial Hermann Northeast HospitalComment on above:Result Comment: LDL <100 mg/dL - Desirable LDL >160 mg/dL - High Risk Performed By: #### LAUREN GILBERT, 75941-0, THYR #### [facility] ([id number]) [address], [address] [place] [address]Ppoagjrenmd in VLDL [Mass/Vol]22 mg/dLNormal0-30ProMemorial Hermann Northeast HospitalComment on above:Performed By: #### LAUREN GILBERT, 64687-0, THYR #### [facility] ([id number]) [address], [address] [place], [place] [address]XLAYNIHHTKG:HDL3.2Ngoxel4.0-5.0ProMemorial Hermann Northeast HospitalComment on above:Performed By: #### LAUREN GILBERT, 69195-5, THYR #### [facility] ([id number]) [address], [address] [place], [place] [address]Ypqjlbxirpeg [Mass/Vol]111 mg/jSTetckd75-689KatLwnisf [facility]remont HospitalComment on above:Performed By: #### LAUREN GILBERT, 35875-1, THYR #### [facility] ([id number]) [address], [address] [place] [address]RGTOQNQ PROFILEon 70-66-3077Mtte T4 [Mass/Vol]0.85 ng/dLNormal 0.61-1.60ProMemorial Hermann Northeast HospitalComment on above:Performed By: #### LAUREN GILBERT, 42717-2, THYR #### [facility] ([id number]) [address], [address] [place] [address]IXE2.67 uIU/mLNormal0.49-4.67ProMemorial Hermann Northeast HospitalComment on above:Performed By: #### LAUREN GILBERT, 86821-8, THYR #### [facility] ([id number]) [address] [place], [place] [address]RD CHEST HI RESOLUTIONon 30-30-4702IW CHEST HI RESOLUTION EXAMINATION: CT CHEST HI [...] Electronically authenticated by: BOBBI MCMANUS Date: 2022-06-18 06:[address] [place], [place] [address]HEMOGLOBINon 39-21-1164Tkajgpbkjn (Bld) [Mass/Vol]14.0 g/dL Ovmlhs46.0-16.0Comment on above:Performed By: #### HGB #### [facility] [address] [place] [address] Dr. Hans PritchettXR CHEST 2 Von 53-81-6114PT CHEST 2 VEXAMINATION: XR CHEST 2 V [...] Electronically authenticated by: BOBBI MCMANUS Date: 2022-05-05 10:[facility] Encounter DateEncounter [facility] ProviderFacilityStart: 05-06-2025 End: 76-36-8652ccszmeebtdRjeltek Vytautas Giedraitis MDFacility:[facility] [place] Start: 01-14-2025 End: 40-85-8986rlbknqdcjkFbudfga Vytautas Giedraitis MDFacility:[facility] [place] Start: 10-29-2024 End: 43-39-3362ndjyrjlhioFanyjvq Vytautas Giedraitis MDFacility:[facility] Start: 10-22-2024 End: 91-70-1943zbszwxsbdvHaujown Vytautas Giedraitis MDFacility:[facility] Start: 09-17-2024 End: 43-82-5755fyamwpnkozCyvfixn Vytautas Giedraitis MDFacility:[facility] Start: 12-28-2023 End: 20-18-5942mtpqxavhcwAAEFYSF [facility] Clinictart: 59-14-1980Vdcaspheq for general adult medical examination without abnormal findingsHEAKettering Memorial Hospitaltart: 07-27-2022 End: 25-00-6997bzmiqwedldKCIJNB SAMSAFacility:T2Ygpji: 06-22-2022 End: 19-58-4602bjgqkpfoiwGIPNAH SAMSAFacility:R2Dhctl: 06-17-2022 End: 03-30-8362yvanqujjthTCRXHJ [facility] CENTERSAFacility:W5Cfryu: 06-02-2022 End: 65-54-9976fsmsgihuatKBIWAY [facility]ICAL CENTERSAFacility:M3Fahxz: 05-05-2022 End: 90-07-7028ebatxvzgkkJIXWCA [facility]ICAL CENTERSAFacility:H1 Payers DatePayer CategoryPayerPolicy [id number] [id number] [id number] 2.16.840.1.694152.3.57[id number] 2.16.840.1.982893.3.57[id number] 2.16.840.1.111857.3.57[id number] 2.16.840.1.559852.3.57[id number] 2.16.840.1.072891.3.57[id number] 2.16.840.1.178586.3.57[id number] 2.16.840.1.627958.3.57[id number] 2.16.840.1.091815.3.57[id number] 2.16.840.1.794957.3.57[id number] 2.16.840.1.236694.3.57[id number] Summary Purpose Family History No Family History Records FoundNo Family History Records FoundNo Family History Records Found Advance Directives No Advanced Directives Records FoundNo Advanced Directives Records FoundNo Advanced Directives Records Found Additional Source Comments INFORMATION SOURCE (unrecogn ized section and content) DATE CREATED AUTHOR 07/30/2022 DATE CREATED AUTHOR AUTHOR'S ORGANIZ ATION 12/29/2023 [facility] DATE CREATED AUTHOR AUTHOR'S ORGANIZ ATION 05/11/2025 [facility] FOR RECORDS PERTAINING TO PATIENTS [...] BE BASED ON THE PRIMARY CLINICAL RECORDS. [employer] [facility]. provides no warranty or guarantee of the accuracy or completeness of information in this document.
--- NOTE | 2025-07-29 10:32 | P.CN_ITS ---
Consult Note: HPI Data of Consult Patient: known to practice within the last 3 years Consult date: 07/29/25 Requesting Physician: Lucy Fay MD Primary Care Provider: REX LOCK Consult Narrative Reason for consult: bilateral hip pain Narrative: 60yof who presents for in office injection. continues to have bilateral hip pain, would like injection. cc:: CC: Lucy Fay MD Review of Systems 2 ROS Status of ROS 10 or more systems reviewed and unremark able except as noted in history and below PFSH PFSH Medical History Acid reflux ?K21.9 - Gastro-esophageal reflux disease without esophagitis (ICD-10) Asthma ?J45.909 - Unspecified asthma, uncomplicated (ICD-10) Surgical History H/O cone biopsy of cervix ?Z98.890 - Other specified postprocedural states (ICD-10) Social History Smoking status: Never smoker Meds Home Medications and Allergies Home Medications ?Medication ?Instructions ?Recorded ?Confirmed ?Type alprazolam 0.25 mg tablet 0.25 mg PO DAILY PRN anxiety 03/24/23 05/06/25 History meloxicam 7.5 mg tablet 7.5 mg PO BID PRN pain 08/1005/06/25 History cyclobenzaprine 10 mg tablet 10 mg PO TID PRN muscle s pasm #90 01/05/24 05/06/25 Rx tabs pregabalin 50 mg capsule (Lyrica) 50 mg PO TID #90 cap s 01/05/24 05/06/25 Rx lisinopril 10 mg tablet mg 01/16/24 History Allergies Allergy/AdvReac Type Severity Reaction Status Date / Time No Known Drug Allergies Allergy Verified 05/06/25 06:59 Exam Narrative Exam Narrative: Psych-alert and oriented x 3.? Attentive and appropriate, constitutionally normal, displays normal mood and affect per situation.? There are no obvious deficits in memory, reasoning, or intellect.? Skin-no obvious rashes, bruising, erythema noted to the patient's area of pain. Extremities- extremities are warm with minimal edema and palpable pulses. Hip-tenderness to palpation is noted over the bilateral hip joint.? Pain is elicited with internal and external rotation of the hip.? Hip provocative maneuvers are positive and consistent with the patient's normal pain.? Coordination remains intact.? Gait remains antalgic. Assessment and Plan Assessment and Plan (1) Trochanteric bursitis of both hips: Plan 60yof who presents for in office injection. continues to have bilateral hip pa in, so will proceed with injection. follow up in 3 months. procedure: bilateral greater trochanteric bursa injection medications: bupivacaine 0.25% 4cc, depomedrol 40mg x2 I explained the details of the procedure to the patient including the risks, benefits and alternatives. We had an informed discussion and the patient verbalized understanding and signed the consent form. All questions were answered appropriately.? A time out was performed.? The skin overlying the left lateral hip was prepped with alcohol x3. A sterile syringe containing the above medication was attached to a 25 gauge, 3.5 inch needle under strict aseptic technique. The greater trochanter and point of tenderness was palpated. At this point, the needle was then advanced through the subcutaneous tissue down to os. The needle was withdrawn slightly and the contents of the syringe were gently injected without any resistance. The needle was removed and pressure was applied to the injection site to decrease the incidence of ecchymosis and hematoma formation.? A sterile bandage was applied. The same procedure was then completed on the opposite side. Post procedural instructions were given to the patient.
== END 2025-07-29 09:45 | disposition home or self-care (01) ==
LOC: PM 09:45
PROVIDERS: PCP Family Medicine; Visit Provider Anesthesiology
DX: M70.62 Trochanteric bursitis, left hip (principal); M70.61 Trochanteric bursitis, right hip; G89.29 Other chronic pain
CPT/HCPCS: 20610; J0665; J1010